=== PATIENT | male | born 1960 | race Caucasian/White ===

== ENCOUNTER 2021-07-23 15:12 | Inpatient (IN) | payer BC ==
[~2021-07-23] VITALS: Ht 188 cm; Wt 104.7 kg
[2021-07-23 15:50] VITALS: BP 122/80
[2021-07-23] MEDS ORDERED: METHYL SALICYLATE/MENTHOL TOPICAL OINTMENT 57GM TUBE. TP PRN (16:00)
[2021-07-23] MEDS ORDERED: MAGNESIUM HYDROXIDE 2,400 MG/30 ML ORAL.SUSP. PO PRN (16:00)
[2021-07-23] MEDS ORDERED: MAG HYDROX/AL HYDROX/SIMETH 30 ML ORAL.SUSP PO PRN (16:00)
[2021-07-23] MEDS ORDERED: ACETAMINOPHEN 325 MG TABLET PO PRN (16:00)
[2021-07-23] MEDS ORDERED: ALPR0.5T6 PO (16:17)
[2021-07-23] MEDS ORDERED: QUET50TA5 PO (16:17)
[2021-07-23] MEDS ORDERED: CYAN10002 IJ (16:17)
[2021-07-23] MEDS ORDERED: vitamin d2 PO (16:17)
[2021-07-23] MEDS ORDERED: PARO40TA61 PO (16:17)
[2021-07-23] MEDS ORDERED: ATOR40TA59 PO (16:17)
[2021-07-23] MEDS ORDERED: DIVA250T PO (16:17)
[2021-07-23 18:16] VITALS: BP 122/80
[2021-07-23] MEDS: QUEtiapine 50 MG TABLET. PO SCH (20:03)
[2021-07-23] MEDS: ATORVASTATIN CALCIUM 20 MG TABLET PO SCH (20:03)
[2021-07-23 20:37] LABS: BASO % 1 % (0-3); EOS # 0.1 x10^3/uL (0.0-0.7); EOS % 2 % (0-3); HEMATOCRIT 41.7 % (39.0-53.0); HEMOGLOBIN 14.1 g/dL (13.0-17.5); LYMPH # 1.5 x10^3/uL (1.0-4.8); LYMPH % 31 % (24-48); MEAN CORPUSCULAR HEMOGLOBIN 31 pg (25-35); MEAN CORPUSCULAR HGB CONC 34 g/dL (31-37); MEAN CORPUSCULAR VOLUME 91 fL (79-100); MONO # 0.5 x10^3/uL (0.0-1.1); MONO % 10 % (0-9); NEUT # 2.7 x10^3uL (1.8-7.7); NEUT % 56 % (31-73); PLATELET COUNT 174 x10^3/uL (140-400); RED BLOOD COUNT 4.61 x10^6/uL (4.30-5.70); RED CELL DISTRIBUTION WIDTH 13.8 % (11.5-14.5); WHITE BLOOD COUNT 4.8 x10^3/uL (4.0-11.0)
[2021-07-23 20:48] LABS: ALBUMIN 3.9 g/dL (3.4-5.0); ALBUMIN/GLOBULIN RATIO 1.2 (1.0-1.7); ALK PHOS 57 U/L (46-116); ALT (SGPT) 27 U/L (16-63); ANION GAP 9 (6-14); AST (SGOT) 12 U/L (15-37); BLOOD UREA NITROGEN 18 mg/dL (8-26); BUN/CREATININE RATIO 20 (6-20); CALCIUM 8.7 mg/dL (8.5-10.1); CARBON DIOXIDE 25 mmol/L (21-32); CHLORIDE 109 mmol/L (98-107); CREATININE 0.9 mg/dL (0.7-1.3); GFR 86.4; GLUCOSE 113 mg/dL (70-99); MAGNESIUM 2.2 mg/dL (1.8-2.4); POTASSIUM 4.1 mmol/L (3.5-5.1); SODIUM 143 mmol/L (136-145); TOTAL BILIRUBIN 0.4 mg/dL (0.2-1.0); TOTAL PROTEIN 7.2 g/dL (6.4-8.2)
[2021-07-23 20:56] LABS: VAL ACID 49 mcg/mL (50-100)
[2021-07-23] MEDS ORDERED: QUEtiapine 50 MG TABLET. PO SCH (21:00)
[2021-07-23] MEDS ORDERED: ATORVASTATIN CALCIUM 40 MG PO SCH (21:00)
[2021-07-23] MEDS ORDERED: ATORVASTATIN CALCIUM 20 MG TABLET PO SCH (21:00)
--- NOTE | 2021-07-23 22:07 | PDOC ---
Exam Note: Castillo Note: Please also refer to the separate dictated note~for this date of service dictated separately.~Patient seen individually. Discussed the patient with Nursing staff reviewed the chart.~Reviewed interim history and current functioning. Reviewed vital signs,~Labs/ Radiology~and current medications noted below. Continue current treatment with the changes noted in the dictated addendum note Assessment: Vital Signs/I&O: Vital Signs Date Time Temp Pulse Resp B/P (MAP) Pulse Ox O2 Delivery O2 Flow Rate FiO2 07/23/21 18:16 97.0 73 18 122/80 (94) 96 07/23/21 15:50 Nasal Cannula Labs: Laboratory Tests Test 07/23/21 20:20 White Blood Count 4.8 x10^3/uL (4.0-11.0) Red Blood Count 4.61 x10^6/uL (4.30-5.70) Hemoglobin 14.1 g/dL (13.0-17.5) Hematocrit 41.7 % (39.0-53.0) Mean Corpuscular Volume 91 fL (79-100) Mean Corpuscular Hemoglobin 31 pg (25-35) Mean Corpuscular Hemoglobin Concent 34 g/dL (31-37) Red Cell Distribution Width 13.8 % (11.5-14.5) Platelet Count 174 x10^3/uL (140-400) Neutrophils (%) (Auto) 56 % (31-73) Lymphocytes (%) (Auto) 31 % (24-48) Monocytes (%) (Auto) 10 % (0-9) H Eosinophils (%) (Auto) 2 % (0-3) Basophils (%) (Auto) 1 % (0-3) Neutrophils # (Auto) 2.7 x10^3uL (1.8-7.7) Lymphocytes # (Auto) 1.5 x10^3/uL (1.0-4.8) Monocytes # (Auto) 0.5 x10^3/uL (0.0-1.1) Eosinophils # (Auto) 0.1 x10^3/uL (0.0-0.7) Basophils # (Auto) 0.0 x10^3/uL (0.0-0.2) D-Dimer (Renae) < 0.19 mg/L (0.00-0.50) Sodium Level 143 mmol/L (136-145) Potassium Level 4.1 mmol/L (3.5-5.1) Chloride Level 109 mmol/L (98-107) H Carbon Dioxide Level 25 mmol/L (21-32) Anion Gap 9 (6-14) Blood Urea Nitrogen 18 mg/dL (8-26) Creatinine 0.9 mg/dL (0.7-1.3) Estimated GFR (Cockcroft-Gault) 86.4 BUN/Creatinine Ratio 20 (6-20) Glucose Level 113 mg/dL (70-99) H Calcium Level 8.7 mg/dL (8.5-10.1) Magnesium Level 2.2 mg/dL (1.8-2.4) Total Bilirubin 0.4 mg/dL (0.2-1.0) Aspartate Amino Transferase (AST) 12 U/L (15-37) L Alanine Aminotransferase (ALT) 27 U/L (16-63) Alkaline Phosphatase 57 U/L (46-116) Total Protein 7.2 g/dL (6.4-8.2) Albumin 3.9 g/dL (3.4-5.0) Albumin/Globulin Ratio 1.2 (1.0-1.7) Valproic Acid Level 49 mcg/mL (50-100) L Valproic Acid Last Dose Date 07/23/21 Valproic Acid Last Dose Time 0800 Current Medications: Meds: Current Medications Medications (Trade) Dose Ordered Sig/Susana Route PRN Reason Start Time Stop Time Status Last Admin Dose Admin Quetiapine Fumarate (SEROquel) 50 mg BID PO 07/23/21 21:00 07/23/21 20:03 Atorvastatin Calcium (Lipitor) 40 mg QHS PO 07/23/21 21:00 07/23/21 20:03 Olanzapine (ZyPREXA ZYDIS) 2.5 mg PRN Q2HR PRN PO PSYCHOSIS 07/23/21 19:30 07/23/21 20:03 I have reviewed the current psychotropics carefully including drug interactions. Risk benefit ratio favors no change other than as noted in my dictated progress note. ELIAZAR COYLE MD Jul 23, 2021 22:07
--- NOTE | 2021-07-23 22:29 | HP ---
ADMIT DATE: 07/23/2021 PSYCHIATRIC ADMISSION HISTORY AND EVALUATION IDENTIFYING DATA: The patient is a 60-year-old male referred from home by his primary care physician on account of worsening behaviors within the context of his diagnosis of frontotemporal dementia with behavioral disturbance. He has been wandering throughout the house, sexually inappropriate, intrusive, resistive to cares, basing, eating excessively, intense sugar cravings, having marked insomnia. Behavior is deemed dangerous, unmanageable at home, has failed outpatient psychiatric interventions resulting in this referral. CHIEF COMPLAINT: "No." The patient is in the west hallway agitated, trying to open the doors, somewhat aggressive. HISTORY OF PRESENT ILLNESS: The patient reportedly has a diagnosis of frontotemporal dementia. He has been cared for at home, but recently more psychotic, agitated, sexually inappropriate, disruptive. He has had marked insomnia. No active suicidal or homicidal ideation. PAST PSYCHIATRIC HISTORY: As above. MEDICAL HISTORY: Positive for hyperlipidemia and aphasia. CODE STATUS: DNR. DIET: Regular. ACCU-CHEKS: None. ALLERGIES: Negative. FAMILY HISTORY: Noncontributory. SOCIAL HISTORY: The patient is at home with family. No alcohol, drug abuse; physical, sexual or elder abuse. He is not known to be a perpetrator, but is sexually inappropriate. REVIEW OF SYSTEMS: No CV, , pulmonary, eye, ENT system symptoms on review. Reliability poor. MENTAL STATUS EXAM: The patient is oriented to himself. Insight, judgment, recent and remote memory, attention, concentration, fund of knowledge poor consistent with his diagnosis. He is quite distractible, anxious, psychotic. LABORATORY DATA: Reviewed. IMPRESSION: Major neurocognitive disorder, frontotemporal with delusion; depression; behavioral disturbance; anxiety disorder, unspecified; impulse control disorder, unspecified. Rest as above. PLAN: Admit to geropsychiatry unit, [facility]. I will see the patient daily individually from a psychiatric standpoint, medical followup with Dr. Hill/Dr. Tee. Continue current psychotropics. I was called earlier in the day by nursing staff and we added Zyprexa p.r.n. Given his mental status changes, worsening behaviors, we will go ahead and check a CT head as well. ESTIMATED LENGTH OF STAY: 10-12 days. DISPOSITION PLANS: Possible penitentiary placement once he stabilized. MMA/AMI DR: Rich TID: [id number]
[2021-07-24 06:24] VITALS: BP 152/71
[2021-07-24 06:34] VITALS: BP 121/77
[2021-07-24] MEDS: PARoxetine 20 MG TABLET PO SCH (08:55)
[2021-07-24] MEDS: QUEtiapine 50 MG TABLET. PO SCH ×2 (08:56→21:18)
[2021-07-24] MEDS: CYANOCOBALAMIN (VITAMIN B-12) 1,000 MCG TABLET. PO SCH (08:56)
[2021-07-24] MEDS ORDERED: ALPRAZolam 0.5 MG TABLET PO SCH (09:00)
[2021-07-24] MEDS: ALPRAZolam 0.5 MG TABLET PO SCH (09:00)
[2021-07-24] MEDS ORDERED: VITAMIN D2 PO SCH (09:00)
[2021-07-24] MEDS ORDERED: DIVALPROEX ER 250 MG TAB.ER.24H. PO SCH ×2 (09:00)
[2021-07-24] MEDS ORDERED: CHOLECALCIFEROL (VITAMIN D3) 1,000 UNIT TABLET PO SCH (09:00)
--- NOTE | 2021-07-24 10:53 | RAD ---
CT HEAD/BRAIN WO History: Reason: [facility] new admit, establish baseline altered mental status. Comparison: None. Technique: Noncontrast CT imaging was performed of the head. Exposure: One or more of the following individualized dose reduction techniques were utilized for thi s examination: 1. Automated exposure control 2. Adjustment of the mA and/or kV according to patient size 3. Use of iterative reconstruction technique. Findings: No intracranial hemorrhage. No mass effect. No hydrocephalus. Cavum septum pellucidum and vergae. Mild brain parenchymal volume loss. Mild foci of decreased attenuation within the hemispheric white m atter, most often due to chronic microvascular ischemia. Imaged orbits are unremarkable. Imaged paranasal sinuses and mastoid air cells are clear. No acute ca lvarial fracture. Impression: 1. No acute intracranial abnormality. Electronically signed by: French Rasehed DO (07/24/2021 10:51 AM) [facility]
[2021-07-24 16:51] VITALS: BP 107/79
[2021-07-24 19:25] LABS: THYROID STIM HORMONE (TSH) 6.358 uIU/mL (0.358-3.740)
[2021-07-24] MEDS: ATORVASTATIN CALCIUM 20 MG TABLET PO SCH (21:18)
[2021-07-24 21:55] LABS: BACTERIA,URINE 0 /HPF (0-FEW); BILIRUBIN,URINE NEG (NEG); CLARITY,URINE CLEAR; COLOR,URINE YELLOW; GLUCOSE,URINE NEG (NEG); NITRITE,URINE NEG (NEG); RBC,URINE 0 /HPF (0-2); SQUAMOUS EPITHELIAL CELL,UR FEW /LPF; WBC,URINE OCC /HPF (0-4)
--- NOTE | 2021-07-24 22:05 | PDOC ---
Exam Note: Castillo Note: Please also refer to the separate dictated note~for this date of service dictated separately.~Patient seen individually. Discussed the patient with Nursing staff reviewed the chart.~Reviewed interim history and current functioning. Reviewed vital signs,~Labs/ Radiology~and current medications noted below. Continue current treatment with the changes noted in the dictated addendum note Assessment: Vital Signs/I&O: Vital Signs Date Time Temp Pulse Resp B/P (MAP) Pulse Ox O2 Delivery O2 Flow Rate FiO2 07/24/21 16:51 97.4 80 18 107/79 (88) 97 07/23/21 15:50 Nasal Cannula I & O 07/23/21 07/23/21 07/24/21 15:00 23:00 07:00 Intake Total 120 ml Balance 120 ml Labs: Laboratory Tests Test 07/24/21 20:00 Urine Collection Type Unknown Urine Color Yellow Urine Clarity Clear Urine pH 6.5 Urine Specific [place] 1.025 Urine Protein Neg (NEG-TRACE) Urine Glucose (UA) Neg mg/dL (NEG) Urine Ketones (Stick) Neg mg/dL (NEG) Urine Blood Neg (NEG) Urine Nitrite Neg (NEG) Urine Bilirubin Neg (NEG) Urine Urobilinogen Dipstick 1.0 mg/dL (0.2 mg/dL) Urine Leukocyte Esterase Neg (NEG) Urine RBC 0 /HPF (0-2) Urine WBC Occ /HPF (0-4) Urine Squamous Epithelial Cells Few /LPF Urine Bacteria 0 /HPF (0-FEW) Current Medications: Meds: Laboratory Tests Test 07/24/21 20:00 Urine Collection Type Unknown Urine Color Yellow Urine Clarity Clear Urine pH 6.5 Urine Specific [place] 1.025 Urine Protein Neg Urine Glucose (UA) Neg mg/dL Urine Ketones (Stick) Neg mg/dL Urine Blood Neg Urine Nitrite Neg Urine Bilirubin Neg Urine Urobilinogen Dipstick 1.0 mg/dL Urine Leukocyte Esterase Neg Urine RBC 0 /HPF Urine WBC Occ /HPF Urine Squamous Epithelial Cells Few /LPF Urine Bacteria 0 /HPF Current Medications Medications (Trade) Dose Ordered Sig/Susana Route PRN Reason Start Time Stop Time Status Last Admin Dose Admin Acetaminophen (Tylenol) 650 mg PRN Q6HRS PRN PO MILD PAIN / TEMP > 100.3'F 07/23/21 16:00 Multi-Ingredient Ointment (Analgesic [place]) 1 sandra PRN QID PRN TP MUSCLE PAIN 07/23/21 16:00 Al Hydroxide/Mg Hydroxide (Mylanta Plus Xs) 15 ml PRN AFTMEALHC PRN PO DYSPEPSIA 07/23/21 16:00 Magnesium Hydroxide (Milk Of Magnesia) 2,400 mg PRN QHS PRN PO CONSTIPATION 07/23/21 16:00 Alprazolam (Xanax) 0.5 mg DAILY PO 07/24/21 09:00 07/24/21 09:00 Atorvastatin Calcium (Lipitor) 40 mg QHS PO 07/23/21 21:00 07/23/21 21:00 Cancel Cyanocobalamin (Vitamin B-12) 1,000 mcg WEEKLY ONCE IM 07/30/21 09:00 07/23/21 18:22 DC Divalproex Sodium (Depakote Er) 750 mg DAILY PO 07/24/21 09:00 07/24/21 11:14 DC 07/24/21 08:55 Vitamin D (Vitamin D3) 5,000 unit DAILY PO 07/24/21 09:00 07/24/21 16:39 DC Quetiapine Fumarate (SEROquel) 50 mg BID PO 07/23/21 21:00 07/24/21 21:18 Alprazolam (Xanax) 0.5 mg DAILY PO 07/24/21 09:00 UNV Cyanocobalamin (Vitamin B-12) 1,000 mcg WEEKLY SQ 07/30/21 09:00 UNV Divalproex Sodium (Depakote Er) 750 mg DAILY PO 07/24/21 09:00 UNV Quetiapine Fumarate (SEROquel) 50 mg BID PO 07/23/21 21:00 UNV Non-Formulary Medication (Atorvastatin Calcium ) 40 mg QHS PO 07/23/21 21:00 UNV Paroxetine HCl (Paxil) 40 mg DAILY PO 07/24/21 09:00 07/24/21 08:55 Non-Formulary Medication ([vitamin d2] ) 5,000 units DAILY PO 07/24/21 09:00 UNV Atorvastatin Calcium (Lipitor) 40 mg QHS PO 07/23/21 21:00 07/24/21 21:18 Cyanocobalamin (Vitamin B-12) 1,000 mcg DAILY PO 07/24/21 09:00 07/24/21 08:56 Olanzapine (ZyPREXA ZYDIS) 2.5 mg PRN Q2HR PRN PO PSYCHOSIS 07/23/21 19:30 07/23/21 20:03 Divalproex Sodium (Depakote Er) 1,000 mg HS PO 07/25/21 21:00 Vitamin D (Vitamin D3) 50,000 unit WEEKLY PO 07/25/21 09:00 Medroxyprogesterone Acetate (Provera) 2.5 mg DAILY PO 07/25/21 09:00 Current Medications Medications (Trade) Dose Ordered Sig/Susana Route PRN Reason Start Time Stop Time Status Last Admin Dose Admin Alprazolam (Xanax) 0.5 mg DAILY PO 07/24/21 09:00 07/24/21 09:00 Divalproex Sodium (Depakote Er) 750 mg DAILY PO 07/24/21 09:00 07/24/21 11:14 DC 07/24/21 08:55 Paroxetine HCl (Paxil) 40 mg DAILY PO 07/24/21 09:00 07/24/21 08:55 Cyanocobalamin (Vitamin B-12) 1,000 mcg DAILY PO 07/24/21 09:00 07/24/21 08:56 I have reviewed the current psychotropics carefully including drug interactions. Risk benefit ratio favors no change other than as noted in my dictated progress note. Diagnosis: Problems: (1) Major neurocognitive disorder (2) Dementia in Alzheimer's disease with delusions (3) Dementia in Alzheimer's disease with depression (4) Dementia of the Alzheimer's type with early onset with behavioral disturbance (5) Dementia, vascular, with delusions (6) Dementia, vascular, with depression (7) Anxiety disorder, unspecified (8) Impulse control disorder, unspecified ELIAZAR COYLE MD Jul 24, 2021 22:05
[2021-07-24 22:07] LABS: THYROXINE 5.8 ug/dL (4.5-12.0)
[2021-07-25 00:07] LABS: HEMOGLOBIN A1C 5.8 % (4.8-5.6)
--- NOTE | 2021-07-25 02:04 | CONS ---
DATE OF CONSULTATION: 07/24/2021 CONSULT FOR MEDICAL MANAGEMENT DATE OF CONSULTATION: 07/24/2021 HISTORY OF PRESENT ILLNESS: The patient is a 60-year-old male patient who was referred by his primary care physician [facility] on account of worsening behavior within the context of his diagnosis of frontotemporal dementia with behavioral disturbances. He apparently has been wandering throughout the house, sexually inappropriate, intrusive, resistive to cares, pacing, eating excessively, intense sugar craving, having marked insomnia, so behavior is deemed dangerous, unmanageable at home. Apparently has failed outpatient psychiatric intervention, resulting in his admission. On questioning him, the patient denied any medical problems or surgical issues. PAST MEDICAL HISTORY: Significant for hyperlipidemia and aphasia and for some reason, the patient is on a huge amount of vitamin B12, although CBC was within normal range. PAST SURGICAL HISTORY: Unobtainable. ALLERGIES: He has no known drug allergies. MEDICATIONS: He is currently on the following medication: He is on atorvastatin calcium 40 mg at bedtime and divalproex sodium 750 mg daily, paroxetine 40 mg daily, quetiapine fumarate 50 mg twice a day, alprazolam 0.5 mg daily, cyanocobalamin 1000 mcg per mL injection once a week and vitamin D2 5000 units once a day. FAMILY HISTORY: Noncontributory. SOCIAL HISTORY: He apparently and lives with his . He apparently does not smoke, drink alcohol or use any recreational drugs. REVIEW OF SYSTEMS: As per history of present illness. PHYSICAL EXAMINATION: GENERAL: On examining him, he looked well and was clearly in no apparent respiratory distress. There is no pallor, jaundice, cyanosis or thyromegaly. No jugular venous distention. No lower limb edema. VITAL SIGNS: His heart rate was 65, blood pressure is 121/77, temperature 97.9, respiratory rate was 16 and oxygen saturation was 98%. HEAD, EYES, EARS, NOSE, AND THROAT: Showed normocephalic, atraumatic. NECK: Supple. HEART: Showed normal first and second heart sounds, no gallop, rub or murmur. CHEST: Clear to auscultation, no crepitation or rhonchi. ABDOMEN: Distended, soft, nontender. NEUROLOGIC: He is demented, but without any obvious lateralizing sign. All his cranial nerves are grossly intact. He moves all extremities without difficulty, ambulates without assistance or assistive devices. LABORATORY DATA: On admission showed a white cell count 4800, hemoglobin 14, hematocrit 42, MCV 91, and platelet count of 174,000 with a normal manual differential. His D-dimer was less than 0.19. His chemistry showed a serum sodium 143, potassium 4.1, chloride 109, bicarbonate 25, anion gap of 9, BUN 18, creatinine 0.9. Estimated GFR was 86 mL per minute. His glucose 113, calcium was 8.7, magnesium was 2.2. Total bilirubin, AST, ALT, alkaline phosphatase were normal. Total protein 7.2, albumin was 3.9. His valproic acid level was 49 mcg per mL, normal range between 50-100 mcg per mL. ASSESSMENT AND PLAN: All in all, this is a 60-year-old male patient who was admitted on account of worsening behavior within the context of his diagnosis of frontotemporal dementia with behavioral disturbances. He apparently has been wandering throughout the house, sexually inappropriate, intrusive, resistive to cares, pacing, eating excessively, intense sugar craving, having marked insomnia. He was admitted for inpatient psychiatric stabilization. Medically, the patient has hyperlipidemia for which he is already on atorvastatin 40 mg at bedtime. All in all, the patient seems to be medically stable. All his vital signs are within normal range and his lab work including a CBC as well as CMP are all within normal range. I will obviously follow all the lab works that are still pending at the time of this dictation and make any necessary recommendation. Thank you, Dr. Mercer, for allowing me to participate in the care of this patient. TATIANNA SANDERS: Eriberto TID: [id number]
[2021-07-25 06:38] VITALS: BP 151/90
[2021-07-25] MEDS: CYANOCOBALAMIN (VITAMIN B-12) 1,000 MCG TABLET. PO SCH (08:46)
[2021-07-25] MEDS: ALPRAZolam 0.5 MG TABLET PO SCH (08:46)
[2021-07-25] MEDS: PARoxetine 20 MG TABLET PO SCH (08:47)
[2021-07-25] MEDS: QUEtiapine 50 MG TABLET. PO SCH ×2 (08:47→21:38)
[2021-07-25] MEDS ORDERED: CHOLECALCIFEROL (VITAMIN D3) 50,000 UNIT CAPSULE PO SCH (09:00)
[2021-07-25 16:32] VITALS: BP 120/82
[2021-07-25] MEDS: ATORVASTATIN CALCIUM 20 MG TABLET PO SCH (21:38)
[2021-07-25] MEDS: DIVALPROEX ER 500 MG TAB.ER.24H PO SCH (21:38)
--- NOTE | 2021-07-25 22:03 | PDOC ---
Exam Note: Castillo Note: Please also refer to the separate dictated note~for this date of service dictated separately.~Patient seen individually. Discussed the patient with Nursing staff reviewed the chart.~Reviewed interim history and current functioning. Reviewed vital signs,~Labs/ Radiology~and current medications noted below. Continue current treatment with the changes noted in the dictated addendum note Assessment: Vital Signs/I&O: Vital Signs Date Time Temp Pulse Resp B/P (MAP) Pulse Ox O2 Delivery O2 Flow Rate FiO2 07/25/21 16:32 98.3 70 20 120/82 (95) 97 07/23/21 15:50 Nasal Cannula I & O 07/24/21 07/24/21 07/25/21 15:00 23:00 07:00 Intake Total 600 ml Balance 600 ml Current Medications: Meds: Current Medications Medications (Trade) Dose Ordered Sig/Susana Route PRN Reason Start Time Stop Time Status Last Admin Dose Admin Acetaminophen (Tylenol) 650 mg PRN Q6HRS PRN PO MILD PAIN / TEMP > 100.3'F 07/23/21 16:00 Multi-Ingredient Ointment (Analgesic [place]) 1 sandra PRN QID PRN TP MUSCLE PAIN 07/23/21 16:00 Al Hydroxide/Mg Hydroxide (Mylanta Plus Xs) 15 ml PRN AFTMEALHC PRN PO DYSPEPSIA 07/23/21 16:00 Magnesium Hydroxide (Milk Of Magnesia) 2,400 mg PRN QHS PRN PO CONSTIPATION 07/23/21 16:00 Alprazolam (Xanax) 0.5 mg DAILY PO 07/24/21 09:00 07/25/21 08:46 Atorvastatin Calcium (Lipitor) 40 mg QHS PO 07/23/21 21:00 07/23/21 21:00 Cancel Cyanocobalamin (Vitamin B-12) 1,000 mcg WEEKLY ONCE IM 07/30/21 09:00 07/23/21 18:22 DC Divalproex Sodium (Depakote Er) 750 mg DAILY PO 07/24/21 09:00 07/24/21 11:14 DC 07/24/21 08:55 Vitamin D (Vitamin D3) 5,000 unit DAILY PO 07/24/21 09:00 07/24/21 16:39 DC Quetiapine Fumarate (SEROquel) 50 mg BID PO 07/23/21 21:00 07/25/21 21:38 Alprazolam (Xanax) 0.5 mg DAILY PO 07/24/21 09:00 UNV Cyanocobalamin (Vitamin B-12) 1,000 mcg WEEKLY SQ 07/30/21 09:00 UNV Divalproex Sodium (Depakote Er) 750 mg DAILY PO 07/24/21 09:00 UNV Quetiapine Fumarate (SEROquel) 50 mg BID PO 07/23/21 21:00 UNV Non-Formulary Medication (Atorvastatin Calcium ) 40 mg QHS PO 07/23/21 21:00 UNV Paroxetine HCl (Paxil) 40 mg DAILY PO 07/24/21 09:00 07/25/21 08:47 Non-Formulary Medication ([vitamin d2] ) 5,000 units DAILY PO 07/24/21 09:00 UNV Atorvastatin Calcium (Lipitor) 40 mg QHS PO 07/23/21 21:00 07/25/21 21:38 Cyanocobalamin (Vitamin B-12) 1,000 mcg DAILY PO 07/24/21 09:00 07/25/21 08:46 Olanzapine (ZyPREXA ZYDIS) 2.5 mg PRN Q2HR PRN PO PSYCHOSIS 07/23/21 19:30 07/23/21 20:03 Divalproex Sodium (Depakote Er) 1,000 mg HS PO 07/25/21 21:00 07/25/21 21:38 Vitamin D (Vitamin D3) 50,000 unit WEEKLY PO 07/25/21 09:00 07/25/21 08:47 Medroxyprogesterone Acetate (Provera) 2.5 mg DAILY PO 07/25/21 09:00 07/25/21 12:40 Current Medications Medications (Trade) Dose Ordered Sig/Susana Route PRN Reason Start Time Stop Time Status Last Admin Dose Admin Divalproex Sodium (Depakote Er) 1,000 mg HS PO 07/25/21 21:00 07/25/21 21:38 Vitamin D (Vitamin D3) 50,000 unit WEEKLY PO 07/25/21 09:00 07/25/21 08:47 Medroxyprogesterone Acetate (Provera) 2.5 mg DAILY PO 07/25/21 09:00 07/25/21 12:40 I have reviewed the current psychotropics carefully including drug interactions. Risk benefit ratio favors no change other than as noted in my dictated progress note. Diagnosis: Problems: (1) Impulse control disorder, unspecified (2) Anxiety disorder, unspecified (3) Dementia, vascular, with depression (4) Dementia, vascular, with delusions (5) Dementia in Alzheimer's disease with depression (6) Dementia in Alzheimer's disease with delusions (7) Dementia of the Alzheimer's type with early onset with behavioral disturbance (8) Major neurocognitive disorder ELIAZAR COYLE MD Jul 25, 2021 22:03
[2021-07-26 06:44] VITALS: BP 122/78
[2021-07-26] MEDS: CYANOCOBALAMIN (VITAMIN B-12) 1,000 MCG TABLET. PO SCH (09:13)
[2021-07-26] MEDS: QUEtiapine 50 MG TABLET. PO SCH ×2 (09:14→21:41)
[2021-07-26] MEDS: PARoxetine 20 MG TABLET PO SCH (09:14)
[2021-07-26] MEDS: ALPRAZolam 0.5 MG TABLET PO SCH (09:15)
[2021-07-26 15:47] VITALS: BP 112/76
[2021-07-26] MEDS: DIVALPROEX ER 500 MG TAB.ER.24H PO SCH (21:42)
[2021-07-26] MEDS: ATORVASTATIN CALCIUM 20 MG TABLET PO SCH (21:42)
--- NOTE | 2021-07-26 22:04 | PDOC ---
Exam Note: Castillo Note: Please also refer to the separate dictated note~for this date of service dictated separately.~Patient seen individually. Discussed the patient with Nursing staff reviewed the chart.~Reviewed interim history and current functioning. Reviewed vital signs,~Labs/ Radiology~and current medications noted below. Continue current treatment with the changes noted in the dictated addendum note Assessment: Vital Signs/I&O: Vital Signs Date Time Temp Pulse Resp B/P (MAP) Pulse Ox O2 Delivery O2 Flow Rate FiO2 07/26/21 15:47 97.9 78 16 112/76 (88) 94 07/23/21 15:50 Nasal Cannula I & O 07/25/21 07/25/21 07/26/21 15:00 23:00 07:00 Intake Total 1200 ml 250 ml 240 ml Balance 1200 ml 250 ml 240 ml Current Medications: Meds: Current Medications Medications (Trade) Dose Ordered Sig/Susana Route PRN Reason Start Time Stop Time Status Last Admin Dose Admin Acetaminophen (Tylenol) 650 mg PRN Q6HRS PRN PO MILD PAIN / TEMP > 100.3'F 07/23/21 16:00 Multi-Ingredient Ointment (Analgesic [place]) 1 sandra PRN QID PRN TP MUSCLE PAIN 07/23/21 16:00 Al Hydroxide/Mg Hydroxide (Mylanta Plus Xs) 15 ml PRN AFTMEALHC PRN PO DYSPEPSIA 07/23/21 16:00 Magnesium Hydroxide (Milk Of Magnesia) 2,400 mg PRN QHS PRN PO CONSTIPATION 07/23/21 16:00 Alprazolam (Xanax) 0.5 mg DAILY PO 07/24/21 09:00 07/26/21 09:15 Atorvastatin Calcium (Lipitor) 40 mg QHS PO 07/23/21 21:00 07/23/21 21:00 Cancel Cyanocobalamin (Vitamin B-12) 1,000 mcg WEEKLY ONCE IM 07/30/21 09:00 07/23/21 18:22 DC Divalproex Sodium (Depakote Er) 750 mg DAILY PO 07/24/21 09:00 07/24/21 11:14 DC 07/24/21 08:55 Vitamin D (Vitamin D3) 5,000 unit DAILY PO 07/24/21 09:00 07/24/21 16:39 DC Quetiapine Fumarate (SEROquel) 50 mg BID PO 07/23/21 21:00 07/26/21 21:41 Alprazolam (Xanax) 0.5 mg DAILY PO 07/24/21 09:00 UNV Cyanocobalamin (Vitamin B-12) 1,000 mcg WEEKLY SQ 07/30/21 09:00 UNV Divalproex Sodium (Depakote Er) 750 mg DAILY PO 07/24/21 09:00 UNV Quetiapine Fumarate (SEROquel) 50 mg BID PO 07/23/21 21:00 UNV Non-Formulary Medication (Atorvastatin Calcium ) 40 mg QHS PO 07/23/21 21:00 UNV Paroxetine HCl (Paxil) 40 mg DAILY PO 07/24/21 09:00 07/26/21 09:14 Non-Formulary Medication ([vitamin d2] ) 5,000 units DAILY PO 07/24/21 09:00 UNV Atorvastatin Calcium (Lipitor) 40 mg QHS PO 07/23/21 21:00 07/26/21 21:42 Cyanocobalamin (Vitamin B-12) 1,000 mcg DAILY PO 07/24/21 09:00 07/26/21 09:13 Olanzapine (ZyPREXA ZYDIS) 2.5 mg PRN Q2HR PRN PO PSYCHOSIS 07/23/21 19:30 07/23/21 20:03 Divalproex Sodium (Depakote Er) 1,000 mg HS PO 07/25/21 21:00 07/26/21 21:42 Vitamin D (Vitamin D3) 50,000 unit WEEKLY PO 07/25/21 09:00 07/25/21 08:47 Medroxyprogesterone Acetate (Provera) 2.5 mg DAILY PO 07/25/21 09:00 07/26/21 09:13 I have reviewed the current psychotropics carefully including drug interactions. Risk benefit ratio favors no change other than as noted in my dictated progress note. Diagnosis: Problems: (1) Impulse control disorder, unspecified (2) Anxiety disorder, unspecified (3) Dementia, vascular, with depression (4) Dementia, vascular, with delusions (5) Dementia in Alzheimer's disease with depression (6) Dementia in Alzheimer's disease with delusions (7) Dementia of the Alzheimer's type with early onset with behavioral disturbanc e (8) Major neurocognitive disorder ELIAZAR COYLE MD Jul 26, 2021 22:04
[2021-07-27 06:50] VITALS: BP 143/85
[2021-07-27] MEDS: CYANOCOBALAMIN (VITAMIN B-12) 1,000 MCG TABLET. PO SCH (08:19)
[2021-07-27] MEDS: ALPRAZolam 0.5 MG TABLET PO SCH (08:19)
[2021-07-27] MEDS: QUEtiapine 50 MG TABLET. PO SCH ×2 (08:19→20:38)
[2021-07-27] MEDS: PARoxetine 20 MG TABLET PO SCH (08:19)
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
--- NOTE | 2021-07-27 09:21 | PDOC ---
Exam Note: Castillo Note: This note is a late entry for 07/25/2021 covers elements not covered in my initial note. Subjective: The patient was seen individually in the evening of 07/25/2021 with Isabela ALLISON, discussed and reviewed the chart. The patient slept 7-1/2 hours previous night. He remains confused. I met with him in his room. He got out of bed, walked right up to me 6 inches away from me, oblivious of how he came across. Per nursing report, he is touchy, feely, somewhat sexually inappropriate, was intrusive last evening. One of the female patient is quite afraid of him. We are awaiting records from [facility]. Review of Systems: No CV, , pulmonary, eye, ENT system symptoms on review. Reliability poor. Mental Status Exam: The patient is oriented to himself. Insight and judgment, recent and remote memory, attention and concentration, fund of knowledge is poor consistent with his diagnoses. Laboratory Data: Reviewed. Impression: Major neurocognitive disorder frontotemporal with delusions, depression, behavioral disturbance. Anxiety disorder unspecified. Impulse control disorder unspecified. Plan: We will continue current psychotropics. Depakote was adjusted. We will repeat labs and valproic acid and then adjust as needed to reach therapeutic level. Assessment: Vital Signs/I&O: Vital Signs Date Time Temp Pulse Resp B/P (MAP) Pulse Ox O2 Delivery O2 Flow Rate FiO2 07/27/21 06:50 97.5 63 18 143/85 (104) 97 07/23/21 15:50 Nasal Cannula I & O 07/26/21 07/26/21 07/27/21 15:00 23:00 07:00 Intake Total 960 ml 480 ml Balance 960 ml 480 ml Current Medications: Meds: Current Medications Medications (Trade) Dose Ordered Sig/Susana Route PRN Reason Start Time Stop Time Status Last Admin Dose Admin Acetaminophen (Tylenol) 650 mg PRN Q6HRS PRN PO MILD PAIN / TEMP > 100.3'F 07/23/21 16:00 Multi-Ingredient Ointment (Analgesic [place]) 1 sandra PRN QID PRN TP MUSCLE PAIN 07/23/21 16:00 Al Hydroxide/Mg Hydroxide (Mylanta Plus Xs) 15 ml PRN AFTMEALHC PRN PO DYSPEPSIA 07/23/21 16:00 Magnesium Hydroxide (Milk Of Magnesia) 2,400 mg PRN QHS PRN PO CONSTIPATION 07/23/21 16:00 Alprazolam (Xanax) 0.5 mg DAILY PO 07/24/21 09:00 07/27/21 08:19 Atorvastatin Calcium (Lipitor) 40 mg QHS PO 07/23/21 21:00 07/23/21 21:00 Cancel Cyanocobalamin (Vitamin B-12) 1,000 mcg WEEKLY ONCE IM 07/30/21 09:00 07/23/21 18:22 DC Divalproex Sodium (Depakote Er) 750 mg DAILY PO 07/24/21 09:00 07/24/21 11:14 DC 07/24/21 08:55 Vitamin D (Vitamin D3) 5,000 unit DAILY PO 07/24/21 09:00 07/24/21 16:39 DC Quetiapine Fumarate (SEROquel) 50 mg BID PO 07/23/21 21:00 07/27/21 08:19 Alprazolam (Xanax) 0.5 mg DAILY PO 07/24/21 09:00 UNV Cyanocobalamin (Vitamin B-12) 1,000 mcg WEEKLY SQ 07/30/21 09:00 UNV Divalproex Sodium (Depakote Er) 750 mg DAILY PO 07/24/21 09:00 UNV Quetiapine Fumarate (SEROquel) 50 mg BID PO 07/23/21 21:00 UNV Non-Formulary Medication (Atorvastatin Calcium ) 40 mg QHS PO 07/23/21 21:00 UNV Paroxetine HCl (Paxil) 40 mg DAILY PO 07/24/21 09:00 07/27/21 08:19 Non-Formulary Medication ([vitamin d2] ) 5,000 units DAILY PO 07/24/21 09:00 UNV Atorvastatin Calcium (Lipitor) 40 mg QHS PO 07/23/21 21:00 07/26/21 21:42 Cyanocobalamin (Vitamin B-12) 1,000 mcg DAILY PO 07/24/21 09:00 07/27/21 08:19 Olanzapine (ZyPREXA ZYDIS) 2.5 mg PRN Q2HR PRN PO PSYCHOSIS 07/23/21 19:30 07/23/21 20:03 Divalproex Sodium (Depakote Er) 1,000 mg HS PO 07/25/21 21:00 07/26/21 21:42 Vitamin D (Vitamin D3) 50,000 unit WEEKLY PO 07/25/21 09:00 07/25/21 08:47 Medroxyprogesterone Acetate (Provera) 2.5 mg DAILY PO 07/25/21 09:00 07/27/21 08:19 I have reviewed the current psychotropics carefully including drug interactions. Risk benefit ratio favors no change other than as noted in my dictated progress note. Diagnosis: Problems: (1) Impulse control disorder, unspecified (2) Anxiety disorder, unspecified (3) Dementia, vascular, with depression (4) Dementia, vascular, with delusions (5) Dementia in Alzheimer's disease with depression (6) Dementia in Alzheimer's disease with delusions (7) Dementia of the Alzheimer's type with early onset with behavioral d isturbance (8) Major neurocognitive disorder ELIAZAR COYLE MD Jul 27, 2021 09:21
[2021-07-27 16:04] VITALS: BP 110/76
[2021-07-27] MEDS: ATORVASTATIN CALCIUM 20 MG TABLET PO SCH (20:38)
[2021-07-27] MEDS: DIVALPROEX ER 500 MG TAB.ER.24H PO SCH (20:38)
--- NOTE | 2021-07-27 22:10 | PDOC ---
Exam Note: Castillo Note: Please also refer to the separate dictated note~for this date of service dictated separately.~Patient seen individually. Discussed the patient with Nursing staff reviewed the chart.~Reviewed interim history and current functioning. Reviewed vital signs,~Labs/ Radiology~and current medications noted below. Continue current treatment with the changes noted in the dictated addendum note Assessment: Vital Signs/I&O: Vital Signs Date Time Temp Pulse Resp B/P (MAP) Pulse Ox O2 Delivery O2 Flow Rate FiO2 07/27/21 16:04 98.1 74 18 110/76 (87) 95 07/23/21 15:50 Nasal Cannula I & O 07/26/21 07/26/21 07/27/21 15:00 23:00 07:00 Intake Total 960 ml 480 ml Balance 960 ml 480 ml Current Medications: Meds: Current Medications Medications (Trade) Dose Ordered Sig/Susana Route PRN Reason Start Time Stop Time Status Last Admin Dose Admin Acetaminophen (Tylenol) 650 mg PRN Q6HRS PRN PO MILD PAIN / TEMP > 100.3'F 07/23/21 16:00 Multi-Ingredient Ointment (Analgesic [place]) 1 sandra PRN QID PRN TP MUSCLE PAIN 07/23/21 16:00 Al Hydroxide/Mg Hydroxide (Mylanta Plus Xs) 15 ml PRN AFTMEALHC PRN PO DYSPEPSIA 07/23/21 16:00 Magnesium Hydroxide (Milk Of Magnesia) 2,400 mg PRN QHS PRN PO CONSTIPATION 07/23/21 16:00 Alprazolam (Xanax) 0.5 mg DAILY PO 07/24/21 09:00 07/27/21 08:19 Atorvastatin Calcium (Lipitor) 40 mg QHS PO 07/23/21 21:00 07/23/21 21:00 Cancel Cyanocobalamin (Vitamin B-12) 1,000 mcg WEEKLY ONCE IM 07/30/21 09:00 07/23/21 18:22 DC Divalproex Sodium (Depakote Er) 750 mg DAILY PO 07/24/21 09:00 07/24/21 11:14 DC 07/24/21 08:55 Vitamin D (Vitamin D3) 5,000 unit DAILY PO 07/24/21 09:00 07/24/21 16:39 DC Quetiapine Fumarate (SEROquel) 50 mg BID PO 07/23/21 21:00 07/27/21 20:38 Alprazolam (Xanax) 0.5 mg DAILY PO 07/24/21 09:00 UNV Cyanocobalamin (Vitamin B-12) 1,000 mcg WEEKLY SQ 07/30/21 09:00 UNV Divalproex Sodium (Depakote Er) 750 mg DAILY PO 07/24/21 09:00 UNV Quetiapine Fumarate (SEROquel) 50 mg BID PO 07/23/21 21:00 UNV Non-Formulary Medication (Atorvastatin Calcium ) 40 mg QHS PO 07/23/21 21:00 UNV Paroxetine HCl (Paxil) 40 mg DAILY PO 07/24/21 09:00 07/27/21 08:19 Non-Formulary Medication ([vitamin d2] ) 5,000 units DAILY PO 07/24/21 09:00 UNV Atorvastatin Calcium (Lipitor) 40 mg QHS PO 07/23/21 21:00 07/27/21 20:38 Cyanocobalamin (Vitamin B-12) 1,000 mcg DAILY PO 07/24/21 09:00 07/27/21 08:19 Olanzapine (ZyPREXA ZYDIS) 2.5 mg PRN Q2HR PRN PO PSYCHOSIS 07/23/21 19:30 07/23/21 20:03 Divalproex Sodium (Depakote Er) 1,000 mg HS PO 07/25/21 21:00 07/27/21 20:38 Vitamin D (Vitamin D3) 50,000 unit WEEKLY PO 07/25/21 09:00 07/25/21 08:47 Medroxyprogesterone Acetate (Provera) 2.5 mg DAILY PO 07/25/21 09:00 07/27/21 08:19 I have reviewed the current psychotropics carefully including drug interactions. Risk benefit ratio favors no change other than as noted in my dictated progress note. Diagnosis: Problems: (1) Impulse control disorder, unspecified (2) Anxiety disorder, unspecified (3) Dementia, vascular, with depression (4) Dementia, vascular, with delusions (5) Dementia in Alzheimer's disease with depression (6) Dementia in Alzheimer's disease with delusions (7) Dementia of the Alzheimer's type with early onset with behavioral disturbance (8) Major neurocognitive disorder LEONIDES,MAN M MD Jul 27, 2021 22:10
[2021-07-28 05:41] VITALS: BP 100/70
[2021-07-28 07:19] LABS: BASO % 1 % (0-3); EOS # 0.1 x10^3/uL (0.0-0.7); EOS % 3 % (0-3); HEMATOCRIT 43.4 % (39.0-53.0); HEMOGLOBIN 14.6 g/dL (13.0-17.5); LYMPH # 1.5 x10^3/uL (1.0-4.8); LYMPH % 38 % (24-48); MEAN CORPUSCULAR HEMOGLOBIN 30 pg (25-35); MEAN CORPUSCULAR HGB CONC 34 g/dL (31-37); MEAN CORPUSCULAR VOLUME 90 fL (79-100); MONO # 0.4 x10^3/uL (0.0-1.1); MONO % 10 % (0-9); NEUT # 1.9 x10^3uL (1.8-7.7); NEUT % 48 % (31-73); PLATELET COUNT 155 x10^3/uL (140-400); RED CELL DISTRIBUTION WIDTH 13.6 % (11.5-14.5)
--- NOTE | 2021-07-28 07:19 | PDOC ---
Exam Note: Castillo Note: This note is a late entry for 07/26/2021 covers elements not covered in my initial note. Subjective: The patient was seen individually in the evening of 07/26/2021 with Yennifer ALLISON, discussed and reviewed the chart. The patient slept 6-3/4 hours previous night. I met with him in his room. Overall patient continues to have poor social skills, unable to recognize boundaries, somewhat intrusive, asking for his Marlen. Received Zyprexa in the evening to help with paranoia, agitation. Review of Systems: No CV, , pulmonary, eye, ENT system symptoms on review. Reliability poor. Mental Status Exam: The patient is oriented to himself. Insight and judgment, recent and remote memory, attention and concentration, fund of knowledge is poor consistent with his diagnoses. Laboratory Data: Reviewed. Impression: Major neurocognitive disorder frontotemporal with delusions, depression, behavioral disturbance. Anxiety disorder unspecified. Impulse control disorder unspecified. Plan: We will continue current psychotropics. Assessment: Vital Signs/I&O: Vital Signs Date Time Temp Pulse Resp B/P (MAP) Pulse Ox O2 Delivery O2 Flow Rate FiO2 07/28/21 05:41 97.5 60 18 100/70 (80) 96 07/23/21 15:50 Nasal Cannula I & O 07/27/21 07/27/21 07/28/21 15:00 23:00 07:00 Intake Total 240 ml 720 ml Balance 240 ml 720 ml Current Medications: Meds: Current Medications Medications (Trade) Dose Ordered Sig/Susana Route PRN Reason Start Time Stop Time Status Last Admin Dose Admin Acetaminophen (Tylenol) 650 mg PRN Q6HRS PRN PO MILD PAIN / TEMP > 100.3'F 07/23/21 16:00 Multi-Ingredient Ointment (Analgesic [place]) 1 sandra PRN QID PRN TP MUSCLE PAIN 07/23/21 16:00 Al Hydroxide/Mg Hydroxide (Mylanta Plus Xs) 15 ml PRN AFTMEALHC PRN PO DYSPEPSIA 07/23/21 16:00 Magnesium Hydroxide (Milk Of Magnesia) 2,400 mg PRN QHS PRN PO CONSTIPATION 07/23/21 16:00 Alprazolam (Xanax) 0.5 mg DAILY PO 07/24/21 09:00 07/27/21 08:19 Atorvastatin Calcium (Lipitor) 40 mg QHS PO 07/23/21 21:00 07/23/21 21:00 Cancel Cyanocobalamin (Vitamin B-12) 1,000 mcg WEEKLY ONCE IM 07/30/21 09:00 07/23/21 18:22 DC Divalproex Sodium (Depakote Er) 750 mg DAILY PO 07/24/21 09:00 07/24/21 11:14 DC 07/24/21 08:55 Vitamin D (Vitamin D3) 5,000 unit DAILY PO 07/24/21 09:00 07/24/21 16:39 DC Quetiapine Fumarate (SEROquel) 50 mg BID PO 07/23/21 21:00 07/27/21 20:38 Alprazolam (Xanax) 0.5 mg DAILY PO 07/24/21 09:00 UNV Cyanocobalamin (Vitamin B-12) 1,000 mcg WEEKLY SQ 07/30/21 09:00 UNV Divalproex Sodium (Depakote Er) 750 mg DAILY PO 07/24/21 09:00 UNV Quetiapine Fumarate (SEROquel) 50 mg BID PO 07/23/21 21:00 UNV Non-Formulary Medication (Atorvastatin Calcium ) 40 mg QHS PO 07/23/21 21:00 UNV Paroxetine HCl (Paxil) 40 mg DAILY PO 07/24/21 09:00 07/27/21 08:19 Non-Formulary Medication ([vitamin d2] ) 5,000 units DAILY PO 07/24/21 09:00 UNV Atorvastatin Calcium (Lipitor) 40 mg QHS PO 07/23/21 21:00 07/27/21 20:38 Cyanocobalamin (Vitamin B-12) 1,000 mcg DAILY PO 07/24/21 09:00 07/27/21 08:19 Olanzapine (ZyPREXA ZYDIS) 2.5 mg PRN Q2HR PRN PO PSYCHOSIS 07/23/21 19:30 07/23/21 20:03 Divalproex Sodium (Depakote Er) 1,000 mg HS PO 07/25/21 21:00 07/27/21 20:38 Vitamin D (Vitamin D3) 50,000 unit WEEKLY PO 07/25/21 09:00 07/25/21 08:47 Medroxyprogesterone Acetate (Provera) 2.5 mg DAILY PO 07/25/21 09:00 07/27/21 08:19 I have reviewed the current psychotropics carefully including drug interactions. Risk benefit ratio favors no change other than as noted in my dictated progress note. Diagnosis: Problems: (1) Impulse control disorder, unspecified (2) Anxiety disorder, unspecified (3) Dementia, vascular, with depression (4) Dementia, vascular, with delusions (5) Dementia in Alzheimer's disease with depression (6) Dementia in Alzheimer's disease with delusions (7) Dementia of the Alzheimer's type with early onset with behavioral disturbance (8) Major neurocognitive disorder ELIAZAR COYLE MD Jul 28, 2021 07:19
[2021-07-28 07:24] LABS: ALBUMIN 3.7 g/dL (3.4-5.0); ALBUMIN/GLOBULIN RATIO 1.1 (1.0-1.7); ALK PHOS 46 U/L (46-116); ALT (SGPT) 33 U/L (16-63); ANION GAP 7 (6-14); AST (SGOT) 17 U/L (15-37); BLOOD UREA NITROGEN 13 mg/dL (8-26); BUN/CREATININE RATIO 14 (6-20); CALCIUM 8.6 mg/dL (8.5-10.1); CARBON DIOXIDE 28 mmol/L (21-32); CHLORIDE 107 mmol/L (98-107); CREATININE 0.9 mg/dL (0.7-1.3); GFR 86.4; GLUCOSE 101 mg/dL (70-99); SODIUM 142 mmol/L (136-145); TOTAL BILIRUBIN 0.5 mg/dL (0.2-1.0)
[2021-07-28 07:25] LABS: VAL ACID 52 mcg/mL (50-100)
--- NOTE | 2021-07-28 07:49 | PDOC ---
Exam Note: Castillo Note: This note is a late entry for 07/27/2021 covers elements not covered in my initial note. Subjective: The patient was seen individually in the evening of 07/27/2021 with Cammy ALLISON, discussed and reviewed the chart. The patient slept 8-3/4 hours previous night. Overall patient remains confused, but redirectable. Review of Systems: No CV, , pulmonary, eye, ENT system symptoms on review. Reliability poor. Mental Status Exam: The patient is oriented to himself and situation. Speech coherent has some latency. He was standing right next to me oblivious of how close he was invading my space. We addressed this. Nevertheless in many respects he knew what town he was in which was close to [place], [place]. He was able to tell me approximately how far [facility] is from there but did not remember that Senator Tayo Bianchi belonged to the town of [place]. Insight and judgment, recent and remote memory, attention and concentration, fund of vinh leon is poor consistent with his diagnoses. Laboratory Data: Reviewed. Impression: Major neurocognitive disorder frontotemporal with delusions, depression, behavioral disturbance Anxiety disorder unspecified. Impulse control disorder unspecified. Plan: We will continue current psychotropics. Assessment: Vital Signs/I&O: Vital Signs Date Time Temp Pulse Resp B/P (MAP) Pulse Ox O2 Delivery O2 Flow Rate FiO2 07/28/21 05:41 97.5 60 18 100/70 (80) 96 07/23/21 15:50 Nasal Cannula I & O 07/27/21 07/27/21 07/28/21 15:00 23:00 07:00 Intake Total 240 ml 720 ml Balance 240 ml 720 ml Labs: Laboratory Tests Test 07/28/21 07:02 White Blood Count 4.0 x10^3/uL (4.0-11.0) Red Blood Count 4.80 x10^6/uL (4.30-5.70) Hemoglobin 14.6 g/dL (13.0-17.5) Hematocrit 43.4 % (39.0-53.0) Mean Corpuscular Volume 90 fL (79-100) Mean Corpuscular Hemoglobin 30 pg (25-35) Mean Corpuscular Hemoglobin Concent 34 g/dL (31-37) Red Cell Distribution Width 13.6 % (11.5-14.5) Platelet Count 155 x10^3/uL (140-400) Neutrophils (%) (Auto) 48 % (31-73) Lymphocytes (%) (Auto) 38 % (24-48) Monocytes (%) (Auto) 10 % (0-9) H Eosinophils (%) (Auto) 3 % (0-3) Basophils (%) (Auto) 1 % (0-3) Neutrophils # (Auto) 1.9 x10^3uL (1.8-7.7) Lymphocytes # (Auto) 1.5 x10^3/uL (1.0-4.8) Monocytes # (Auto) 0.4 x10^3/uL (0.0-1.1) Eosinophils # (Auto) 0.1 x10^3/uL (0.0-0.7) Basophils # (Auto) 0.0 x10^3/uL (0.0-0.2) Sodium Level 142 mmol/L (136-145) Potassium Level 4.0 mmol/L (3.5-5.1) Chloride Level 107 mmol/L (98-107) Carbon Dioxide Level 28 mmol/L (21-32) Anion Gap 7 (6-14) Blood Urea Nitrogen 13 mg/dL (8-26) Creatinine 0.9 mg/dL (0.7-1.3) Estimated GFR (Cockcroft-Gault) 86.4 BUN/Creatinine Ratio 14 (6-20) Glucose Level 101 mg/dL (70-99) H Calcium Level 8.6 mg/dL (8.5-10.1) Total Bilirubin 0.5 mg/dL (0.2-1.0) Aspartate Amino Transferase (AST) 17 U/L (15-37) Alanine Aminotransferase (ALT) 33 U/L (16-63) Alkaline Phosphatase 46 U/L (46-116) Ammonia 28 mcmol/L (11-34) Total Protein 7.0 g/dL (6.4-8.2) Albumin 3.7 g/dL (3.4-5.0) Albumin/Globulin Ratio 1.1 (1.0-1.7) Valproic Acid Level 52 mcg/mL (50-100) Valproic Acid Last Dose Date 07/27/21 Valproic Acid Last Dose Time 2100 Current Medications: I have reviewed the current psychotropics carefully including drug interactions. Risk benefit ratio favors no change other than as noted in my dictated progress note. Diagnosis: Problems: (1) Impulse control disorder, unspecified (2) Anxiety disorder, unspecified (3) Dementia, vascular, with depression (4) Dementia, vascular, with delusions (5) Dementia in Alzheimer's disease with depression (6) Dementia in Alzheimer's disease with delusions (7) Dementia of the Alzheimer's type with early onset with behavioral disturbance (8) Major neurocognitive disorder ELIAZAR COYLE MD Jul 28, 2021 07:49
[2021-07-28] MEDS: ALPRAZolam 0.5 MG TABLET PO SCH (08:03)
[2021-07-28] MEDS: QUEtiapine 50 MG TABLET. PO SCH ×2 (08:03→19:41)
[2021-07-28] MEDS: PARoxetine 20 MG TABLET PO SCH (08:03)
[2021-07-28] MEDS: CYANOCOBALAMIN (VITAMIN B-12) 1,000 MCG TABLET. PO SCH (08:03)
[2021-07-28 15:47] VITALS: BP 145/69
[2021-07-28] MEDS: ATORVASTATIN CALCIUM 20 MG TABLET PO SCH (19:41)
[2021-07-28] MEDS: DIVALPROEX ER 500 MG TAB.ER.24H PO SCH (19:41)
--- NOTE | 2021-07-28 21:57 | PDOC ---
Exam Note: Castillo Note: Please also refer to the separate dictated note~for this date of service dictated separately.~Patient seen individually. Discussed the patient with Nursing staff reviewed the chart.~Reviewed interim history and current functioning. Reviewed vital signs,~Labs/ Radiology~and current medications noted below. Continue current treatment with the changes noted in the dictated addendum note Assessment: Vital Signs/I&O: Vital Signs Date Time Temp Pulse Resp B/P (MAP) Pulse Ox O2 Delivery O2 Flow Rate FiO2 07/28/21 15:47 98.2 81 18 145/69 (94) 97 07/23/21 15:50 Nasal Cannula I & O 07/27/21 07/27/21 07/28/21 15:00 23:00 07:00 Intake Total 240 ml 720 ml Balance 240 ml 720 ml Labs: Laboratory Tests Test 07/28/21 06:00 07/28/21 07:02 SARS-CoV-2 (PCR) Not detected (NOT DETECTD) White Blood Count 4.0 x10^3/uL (4.0-11.0) Red Blood Count 4.80 x10^6/uL (4.30-5.70) Hemoglobin 14.6 g/dL (13.0-17.5) Hematocrit 43.4 % (39.0-53.0) Mean Corpuscular Volume 90 fL (79-100) Mean Corpuscular Hemoglobin 30 pg (25-35) Mean Corpuscular Hemoglobin Concent 34 g/dL (31-37) Red Cell Distribution Width 13.6 % (11.5-14.5) Platelet Count 155 x10^3/uL (140-400) Neutrophils (%) (Auto) 48 % (31-73) Lymphocytes (%) (Auto) 38 % (24-48) Monocytes (%) (Auto) 10 % (0-9) H Eosinophils (%) (Auto) 3 % (0-3) Basophils (%) (Auto) 1 % (0-3) Neutrophils # (Auto) 1.9 x10^3uL (1.8-7.7) Lymphocytes # (Auto) 1.5 x10^3/uL (1.0-4.8) Monocytes # (Auto) 0.4 x10^3/uL (0.0-1.1) Eosinophils # (Auto) 0.1 x10^3/uL (0.0-0.7) Basophils # (Auto) 0.0 x10^3/uL (0.0-0.2) Sodium Level 142 mmol/L (136-145) Potassium Level 4.0 mmol/L (3.5-5.1) Chloride Level 107 mmol/L (98-107) Carbon Dioxide Level 28 mmol/L (21-32) Anion Gap 7 (6-14) Blood Urea Nitrogen 13 mg/dL (8-26) Creatinine 0.9 mg/dL (0.7-1.3) Estimated GFR (Cockcroft-Gault) 86.4 BUN/Creatinine Ratio 14 (6-20) Glucose Level 101 mg/dL (70-99) H Calcium Level 8.6 mg/dL (8.5-10.1) Total Bilirubin 0.5 mg/dL (0.2-1.0) Aspartate Amino Transferase (AST) 17 U/L (15-37) Alanine Aminotransferase (ALT) 33 U/L (16-63) Alkaline Phosphatase 46 U/L (46-116) Ammonia 28 mcmol/L (11-34) Total Protein 7.0 g/dL (6.4-8.2) Albumin 3.7 g/dL (3.4-5.0) Albumin/Globulin Ratio 1.1 (1.0-1.7) Valproic Acid Level 52 mcg/mL (50-100) Valproic Acid Last Dose Date 07/27/21 Valproic Acid Last Dose Time 2100 Current Medications: Meds: Laboratory Tests Test 07/28/21 06:00 07/28/21 07:02 Coronavirus (COVID-19)(PCR) Not detected White Blood Count 4.0 x10^3/uL Red Blood Count 4.80 x10^6/uL Hemoglobin 14.6 g/dL Hematocrit 43.4 % Mean Corpuscular Volume 90 fL Mean Corpuscular Hemoglobin 30 pg Mean Corpuscular Hemoglobin Concent 34 g/dL Red Cell Distribution Width 13.6 % Platelet Count 155 x10^3/uL Neutrophils (%) (Auto) 48 % Lymphocytes (%) (Auto) 38 % Monocytes (%) (Auto) 10 % Eosinophils (%) (Auto) 3 % Basophils (%) (Auto) 1 % Neutrophils # (Auto) 1.9 x10^3uL Lymphocytes # (Auto) 1.5 x10^3/uL Monocytes # (Auto) 0.4 x10^3/uL Eosinophils # (Auto) 0.1 x10^3/uL Basophils # (Auto) 0.0 x10^3/uL Sodium Level 142 mmol/L Potassium Level 4.0 mmol/L Chloride Level 107 mmol/L Carbon Dioxide Level 28 mmol/L Anion Gap 7 Blood Urea Nitrogen 13 mg/dL Creatinine 0.9 mg/dL Estimated GFR (Cockcroft-Gault) 86.4 BUN/Creatinine Ratio 14 Glucose Level 101 mg/dL Calcium Level 8.6 mg/dL Total Bilirubin 0.5 mg/dL Aspartate Amino Transf (AST/SGOT) 17 U/L Alanine Aminotransferase (ALT/SGPT) 33 U/L Alkaline Phosphatase 46 U/L Ammonia 28 mcmol/L Total Protein 7.0 g/dL Albumin 3.7 g/dL Albumin/Globulin Ratio 1.1 Valproic Acid (Depakene) Level 52 mcg/mL Valproic Acid Last Dose Date 07/27/21 Valproic Acid Last Dose Time 2100 Current Medications Medications (Trade) Dose Ordered Sig/Susana Route PRN Reason Start Time Stop Time Status Last Admin Dose Admin Acetaminophen (Tylenol) 650 mg PRN Q6HRS PRN PO MILD PAIN / TEMP > 100.3'F 07/23/21 16:00 Multi-Ingredient Ointment (Analgesic [place]) 1 sandra PRN QID PRN TP MUSCLE PAIN 07/23/21 16:00 Al Hydroxide/Mg Hydroxide (Mylanta Plus Xs) 15 ml PRN AFTMEALHC PRN PO DYSPEPSIA 07/23/21 16:00 Magnesium Hydroxide (Milk Of Magnesia) 2,400 mg PRN QHS PRN PO CONSTIPATION 07/23/21 16:00 Alprazolam (Xanax) 0.5 mg DAILY PO 07/24/21 09:00 07/28/21 08:03 Atorvastatin Calcium (Lipitor) 40 mg QHS PO 07/23/21 21:00 07/23/21 21:00 Cancel Cyanocobalamin (Vitamin B-12) 1,000 mcg WEEKLY ONCE IM 07/30/21 09:00 07/23/21 18:22 DC Divalproex Sodium (Depakote Er) 750 mg DAILY PO 07/24/21 09:00 07/24/21 11:14 DC 07/24/21 08:55 Vitamin D (Vitamin D3) 5,000 unit DAILY PO 07/24/21 09:00 07/24/21 16:39 DC Quetiapine Fumarate (SEROquel) 50 mg BID PO 07/23/21 21:00 07/28/21 19:41 Alprazolam (Xanax) 0.5 mg DAILY PO 07/24/21 09:00 UNV Cyanocobalamin (Vitamin B-12) 1,000 mcg WEEKLY SQ 07/30/21 09:00 UNV Divalproex Sodium (Depakote Er) 750 mg DAILY PO 07/24/21 09:00 UNV Quetiapine Fumarate (SEROquel) 50 mg BID PO 07/23/21 21:00 UNV Non-Formulary Medication (Atorvastatin Calcium ) 40 mg QHS PO 07/23/21 21:00 UNV Paroxetine HCl (Paxil) 40 mg DAILY PO 07/24/21 09:00 07/28/21 08:03 Non-Formulary Medication ([vitamin d2] ) 5,000 units DAILY PO 07/24/21 09:00 UNV Atorvastatin Calcium (Lipitor) 40 mg QHS PO 07/23/21 21:00 07/28/21 19:41 Cyanocobalamin (Vitamin B-12) 1,000 mcg DAILY PO 07/24/21 09:00 07/28/21 08:03 Olanzapine (ZyPREXA ZYDIS) 2.5 mg PRN Q2HR PRN PO PSYCHOSIS 07/23/21 19:30 07/23/21 20:03 Divalproex Sodium (Depakote Er) 1,000 mg HS PO 07/25/21 21:00 07/28/21 19:41 Vitamin D (Vitamin D3) 50,000 unit WEEKLY PO 07/25/21 09:00 07/25/21 08:47 Medroxyprogesterone Acetate (Provera) 2.5 mg DAILY PO 07/25/21 09:00 07/28/21 08:03 I have reviewed the current psychotropics carefully including drug interactions. Risk benefit ratio favors no change other than as noted in my dictated progress note. Diagnosis: Problems: (1) Impulse control disorder, unspecified (2) Anxiety disorder, unspecified (3) Dementia, vascular, with depression (4) Dementia, vascular, with delusions (5) Dementia in Alzheimer's disease with depression (6) Dementia in Alzheimer's disease with delusions (7) Dementia of the Alzheimer's type with early onset with behavioral disturbance (8) Major neurocognitive disorder ELIAZAR COYLE MD Jul 28, 2021 21:57
[2021-07-29 06:33] VITALS: BP 134/82
[2021-07-29] MEDS: CYANOCOBALAMIN (VITAMIN B-12) 1,000 MCG TABLET. PO SCH (08:29)
[2021-07-29] MEDS: QUEtiapine 50 MG TABLET. PO SCH ×2 (08:29→19:36)
[2021-07-29] MEDS: PARoxetine 20 MG TABLET PO SCH (08:29)
[2021-07-29] MEDS: ALPRAZolam 0.5 MG TABLET PO SCH (08:30)
[2021-07-29 16:21] VITALS: BP 126/81
[2021-07-29] MEDS: DIVALPROEX ER 500 MG TAB.ER.24H PO SCH (19:35)
[2021-07-29] MEDS: ATORVASTATIN CALCIUM 20 MG TABLET PO SCH (19:36)
--- NOTE | 2021-07-29 21:57 | PDOC ---
Exam Note: Castillo Note: Please also refer to the separate dictated note~for this date of service dictated separately.~Patient seen individually. Discussed the patient with Nursing staff reviewed the chart.~Reviewed interim history and current functioning. Reviewed vital signs,~Labs/ Radiology~and current medications noted below. Continue current treatment with the changes noted in the dictated addendum note Assessment: Vital Signs/I&O: Vital Signs Date Time Temp Pulse Resp B/P (MAP) Pulse Ox O2 Delivery O2 Flow Rate FiO2 07/29/21 16:21 97.1 74 20 126/81 (96) 95 07/23/21 15:50 Nasal Cannula I & O 07/28/21 07/28/21 07/29/21 15:00 23:00 07:00 Intake Total 960 ml 720 ml Balance 960 ml 720 ml Current Medications: Meds: Current Medications Medications (Trade) Dose Ordered Sig/Susana Route PRN Reason Start Time Stop Time Status Last Admin Dose Admin Acetaminophen (Tylenol) 650 mg PRN Q6HRS PRN PO MILD PAIN / TEMP > 100.3'F 07/23/21 16:00 Multi-Ingredient Ointment (Analgesic [place]) 1 sandra PRN QID PRN TP MUSCLE PAIN 07/23/21 16:00 Al Hydroxide/Mg Hydroxide (Mylanta Plus Xs) 15 ml PRN AFTMEALHC PRN PO DYSPEPSIA 07/23/21 16:00 Magnesium Hydroxide (Milk Of Magnesia) 2,400 mg PRN QHS PRN PO CONSTIPATION 07/23/21 16:00 Alprazolam (Xanax) 0.5 mg DAILY PO 07/24/21 09:00 07/29/21 08:30 Atorvastatin Calcium (Lipitor) 40 mg QHS PO 07/23/21 21:00 07/23/21 21:00 Cancel Cyanocobalamin (Vitamin B-12) 1,000 mcg WEEKLY ONCE IM 07/30/21 09:00 07/23/21 18:22 DC Divalproex Sodium (Depakote Er) 750 mg DAILY PO 07/24/21 09:00 07/24/21 11:14 DC 07/24/21 08:55 Vitamin D (Vitamin D3) 5,000 unit DAILY PO 07/24/21 09:00 07/24/21 16:39 DC Quetiapine Fumarate (SEROquel) 50 mg BID PO 07/23/21 21:00 07/29/21 19:36 Alprazolam (Xanax) 0.5 mg DAILY PO 07/24/21 09:00 UNV Cyanocobalamin (Vitamin B-12) 1,000 mcg WEEKLY SQ 07/30/21 09:00 UNV Divalproex Sodium (Depakote Er) 750 mg DAILY PO 07/24/21 09:00 UNV Quetiapine Fumarate (SEROquel) 50 mg BID PO 07/23/21 21:00 UNV Non-Formulary Medication (Atorvastatin Calcium ) 40 mg QHS PO 07/23/21 21:00 UNV Paroxetine HCl (Paxil) 40 mg DAILY PO 07/24/21 09:00 07/29/21 08:29 Non-Formulary Medication ([vitamin d2] ) 5,000 units DAILY PO 07/24/21 09:00 UNV Atorvastatin Calcium (Lipitor) 40 mg QHS PO 07/23/21 21:00 07/29/21 19:36 Cyanocobalamin (Vitamin B-12) 1,000 mcg DAILY PO 07/24/21 09:00 07/29/21 08:29 Olanzapine (ZyPREXA ZYDIS) 2.5 mg PRN Q2HR PRN PO PSYCHOSIS 07/23/21 19:30 07/29/21 17:37 Divalproex Sodium (Depakote Er) 1,000 mg HS PO 07/25/21 21:00 07/29/21 19:35 Vitamin D (Vitamin D3) 50,000 unit WEEKLY PO 07/25/21 09:00 07/25/21 08:47 Medroxyprogesterone Acetate (Provera) 2.5 mg DAILY PO 07/25/21 09:00 07/29/21 08:29 Quetiapine Fumarate (SEROquel) 25 mg DAILY16 PO 07/30/21 15:00 I have reviewed the current psychotropics carefully including drug interactions. Risk benefit ratio favors no change other than as noted in my dictated progress note. Diagnosis: Problems: (1) Impulse control disorder, unspecified (2) Anxiety disorder, unspecified (3) Dementia, vascular, with depression (4) Dementia, vascular, with delusions (5) Dementia in Alzheimer's disease with depression (6) Dementia in Alzheimer's disease with delusions (7) Dementia of the Alzheimer's type with early onset with behavioral disturbance (8) Major neurocognitive disorder ELIAZAR COYLE MD Jul 29, 2021 21:57
[2021-07-30 05:45] VITALS: BP 117/73
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
[2021-07-30] MEDS: PARoxetine 20 MG TABLET PO SCH (08:16)
[2021-07-30] MEDS: CYANOCOBALAMIN (VITAMIN B-12) 1,000 MCG TABLET. PO SCH (08:16)
[2021-07-30] MEDS: ALPRAZolam 0.5 MG TABLET PO SCH (08:16)
[2021-07-30] MEDS: QUEtiapine 50 MG TABLET. PO SCH (08:16)
--- NOTE | 2021-07-30 08:28 | PDOC ---
Exam Note: Castillo Note: This note is a late entry for 07/28/2021 covers elements not covered in my initial note. Subjective: The patient was seen individually in the evening of 07/28/2021 with Bobby ALLISON, discussed and reviewed the chart. The patient slept 7 hours previous night. Patient is reasonably oriented but has very poor social skills, somewhat intrusive, obsessive, repeatedly at the nursing station. He is able to pry open one of the secure doors. Review of Systems: No CV, , pulmonary, eye, ENT system symptoms on review. Reliability poor. Mental Status Exam: The patient is oriented to himself and situation. Speech coherent. Abstraction fair. Computation impaired. Language function intact. Mood and affect remains labile. Laboratory Data: Reviewed. Impression: Major neurocognitive disorder frontotemporal with delusions, depression, behavioral disturbance. Anxiety disorder unspecified. Impulse control disorder unspecified. Plan: We will continue current psychotropics. Assessment: Vital Signs/I&O: Vital Signs Date Time Temp Pulse Resp B/P (MAP) Pulse Ox O2 Delivery O2 Flow Rate FiO2 07/30/21 05:45 97.0 68 18 117/73 (88) 97 I & O 07/29/21 07/29/21 07/30/21 15:00 23:00 07:00 Intake Total 1150 ml 500 ml Balance 1150 ml 500 ml Current Medications: Meds: Current Medications Medications (Trade) Dose Ordered Sig/Susana Route PRN Reason Start Time Stop Time Status Last Admin Dose Admin Acetaminophen (Tylenol) 650 mg PRN Q6HRS PRN PO MILD PAIN / TEMP > 100.3'F 07/23/21 16:00 Multi-Ingredient Ointment (Analgesic [place]) 1 sandra PRN QID PRN TP MUSCLE PAIN 07/23/21 16:00 Al Hydroxide/Mg Hydroxide (Mylanta Plus Xs) 15 ml PRN AFTMEALHC PRN PO DYSPEPSIA 07/23/21 16:00 Magnesium Hydroxide (Milk Of Magnesia) 2,400 mg PRN QHS PRN PO CONSTIPATION 07/23/21 16:00 Alprazolam (Xanax) 0.5 mg DAILY PO 07/24/21 09:00 07/30/21 08:16 Atorvastatin Calcium (Lipitor) 40 mg QHS PO 07/23/21 21:00 07/23/21 21:00 Cancel Cyanocobalamin (Vitamin B-12) 1,000 mcg WEEKLY ONCE IM 07/30/21 09:00 07/23/21 18:22 DC Divalproex Sodium (Depakote Er) 750 mg DAILY PO 07/24/21 09:00 07/24/21 11:14 DC 07/24/21 08:55 Vitamin D (Vitamin D3) 5,000 unit DAILY PO 07/24/21 09:00 07/24/21 16:39 DC Quetiapine Fumarate (SEROquel) 50 mg BID PO 07/23/21 21:00 07/30/21 08:16 Alprazolam (Xanax) 0.5 mg DAILY PO 07/24/21 09:00 UNV Cyanocobalamin (Vitamin B-12) 1,000 mcg WEEKLY SQ 07/30/21 09:00 UNV Divalproex Sodium (Depakote Er) 750 mg DAILY PO 07/24/21 09:00 UNV Quetiapine Fumarate (SEROquel) 50 mg BID PO 07/23/21 21:00 UNV Non-Formulary Medication (Atorvastatin Calcium ) 40 mg QHS PO 07/23/21 21:00 UNV Paroxetine HCl (Paxil) 40 mg DAILY PO 07/24/21 09:00 07/30/21 08:16 Non-Formulary Medication ([vitamin d2] ) 5,000 units DAILY PO 07/24/21 09:00 UNV Atorvastatin Calcium (Lipitor) 40 mg QHS PO 07/23/21 21:00 07/29/21 19:36 Cyanocobalamin (Vitamin B-12) 1,000 mcg DAILY PO 07/24/21 09:00 07/30/21 08:16 Olanzapine (ZyPREXA ZYDIS) 2.5 mg PRN Q2HR PRN PO PSYCHOSIS 07/23/21 19:30 07/29/21 17:37 Divalproex Sodium (Depakote Er) 1,000 mg HS PO 07/25/21 21:00 07/29/21 19:35 Vitamin D (Vitamin D3) 50,000 unit WEEKLY PO 07/25/21 09:00 07/25/21 08:47 Medroxyprogesterone Acetate (Provera) 2.5 mg DAILY PO 07/25/21 09:00 07/30/21 08:17 Quetiapine Fumarate (SEROquel) 25 mg DAILY16 PO 07/30/21 15:00 I have reviewed the current psychotropics carefully including drug interactions. Risk benefit ratio favors no change other than as noted in my dictated progress note. Diagnosis: Problems: (1) Impulse control disorder, unspecified (2) Anxiety disorder, unspecified (3) Dementia, vascular, with depression (4) Dementia, vascular, with delusions (5) Dementia in Alzheimer's disease with depression (6) Dementia in Alzheimer's disease with delusions (7) Dementia of the Alzheimer's type with early onset with behavioral distu rbance (8) Major neurocognitive disorder ELIAZAR COYLE MD Jul 30, 2021 08:28
--- NOTE | 2021-07-30 08:42 | PDOC ---
Exam Note: Castillo Note: This note is a late entry for 07/29/2021 covers elements not covered in my initial note. Subjective: The patient was seen individually in the evening of 07/29/2021 with Bobby ALLISON, discussed and reviewed the chart. The patient slept 5-1/2 hours previous night. He remains wandering, somewhat intrusive. He states he was here so that he could fix some dates for his son with the female nursing staff. He is oriented to place and situation, compliant with medications. We will add Seroquel 25 mg at 3 p.m. Review of Systems: No CV, , pulmonary, eye, ENT system symptoms on review. Reliability poor. Mental Status Exam: The patient is oriented to himself and situation. Speech coherent. Abstraction fair. Computation impaired. Language function intact. Mood and affect remains labile. Laboratory Data: Reviewed. Impression: Major neurocognitive disorder frontotemporal with delusions, depression, behavioral disturbance Anxiety disorder unspecified. Impulse control disorder unspecified. Plan: We will continue current psychotropics. Assessment: Vital Signs/I&O: Vital Signs Date Time Temp Pulse Resp B/P (MAP) Pulse Ox O2 Delivery O2 Flow Rate FiO2 07/30/21 05:45 97.0 68 18 117/73 (88) 97 I & O 07/29/21 07/29/21 07/30/21 15:00 23:00 07:00 Intake Total 1150 ml 500 ml Balance 1150 ml 500 ml Current Medications: Meds: Current Medications Medications (Trade) Dose Ordered Sig/Susana Route PRN Reason Start Time Stop Time Status Last Admin Dose Admin Acetaminophen (Tylenol) 650 mg PRN Q6HRS PRN PO MILD PAIN / TEMP > 100.3'F 07/23/21 16:00 Multi-Ingredient Ointment (Analgesic [place]) 1 sandra PRN QID PRN TP MUSCLE PAIN 07/23/21 16:00 Al Hydroxide/Mg Hydroxide (Mylanta Plus Xs) 15 ml PRN AFTMEALHC PRN PO DYSPEPSIA 07/23/21 16:00 Magnesium Hydroxide (Milk Of Magnesia) 2,400 mg PRN QHS PRN PO CONSTIPATION 07/23/21 16:00 Alprazolam (Xanax) 0.5 mg DAILY PO 07/24/21 09:00 07/30/21 08:16 Atorvastatin Calcium (Lipitor) 40 mg QHS PO 07/23/21 21:00 07/23/21 21:00 Cancel Cyanocobalamin (Vitamin B-12) 1,000 mcg WEEKLY ONCE IM 07/30/21 09:00 07/23/21 18:22 DC Divalproex Sodium (Depakote Er) 750 mg DAILY PO 07/24/21 09:00 07/24/21 11:14 DC 07/24/21 08:55 Vitamin D (Vitamin D3) 5,000 unit DAILY PO 07/24/21 09:00 07/24/21 16:39 DC Quetiapine Fumarate (SEROquel) 50 mg BID PO 07/23/21 21:00 07/30/21 08:16 Alprazolam (Xanax) 0.5 mg DAILY PO 07/24/21 09:00 UNV Cyanocobalamin (Vitamin B-12) 1,000 mcg WEEKLY SQ 07/30/21 09:00 UNV Divalproex Sodium (Depakote Er) 750 mg DAILY PO 07/24/21 09:00 UNV Quetiapine Fumarate (SEROquel) 50 mg BID PO 07/23/21 21:00 UNV Non-Formulary Medication (Atorvastatin Calcium ) 40 mg QHS PO 07/23/21 21:00 UNV Paroxetine HCl (Paxil) 40 mg DAILY PO 07/24/21 09:00 07/30/21 08:16 Non-Formulary Medication ([vitamin d2] ) 5,000 units DAILY PO 07/24/21 09:00 UNV Atorvastatin Calcium (Lipitor) 40 mg QHS PO 07/23/21 21:00 07/29/21 19:36 Cyanocobalamin (Vitamin B-12) 1,000 mcg DAILY PO 07/24/21 09:00 07/30/21 08:16 Olanzapine (ZyPREXA ZYDIS) 2.5 mg PRN Q2HR PRN PO PSYCHOSIS 07/23/21 19:30 07/29/21 17:37 Divalproex Sodium (Depakote Er) 1,000 mg HS PO 07/25/21 21:00 07/29/21 19:35 Vitamin D (Vitamin D3) 50,000 unit WEEKLY PO 07/25/21 09:00 10/8/21 08:47 Medroxyprogesterone Acetate (Provera) 2.5 mg DAILY PO 07/25/21 09:00 07/30/21 08:17 Quetiapine Fumarate (SEROquel) 25 mg DAILY16 PO 07/30/21 15:00 I have reviewed the current psychotropics carefully including drug interactions. Risk benefit ratio favors no change other than as noted in my dictated progress note. Diagnosis: Problems: (1) Impulse control disorder, unspecified (2) Anxiety disorder, unspecified (3) Dementia, vascular, with depression (4) Dementia, vascular, with delusions (5) Dementia in Alzheimer's disease with depression (6) Dementia in Alzheimer's disease with delusions (7) Dementia of the Alzheimer's type with early onset with behavioral disturbance (8) Major neurocognitive disorder ELIAZAR COYLE MD Jul 30, 2021 08:42
[2021-07-30] MEDS ORDERED: CYANOCOBALAMIN (VITAMIN B-12) 1,000 MCG/ML VIAL. IM ONE (09:00)
[2021-07-30] MEDS ORDERED: CYANOCOBALAMIN (VITAMIN B-12) 1,000 MCG/ML VIAL. SQ SCH (09:00)
[2021-07-30] MEDS ORDERED: DIVA500T4 PO (10:44)
[2021-07-30] MEDS ORDERED: ACET325T21 PO (10:49)
[2021-07-30] MEDS ORDERED: CHOL500021 PO (10:50)
[2021-07-30] MEDS ORDERED: CYAN100031 PO (10:52)
[2021-07-30] MEDS ORDERED: MAG-124 PO (10:53)
[2021-07-30] MEDS ORDERED: MAGN24003 PO (10:54)
[2021-07-30] MEDS ORDERED: METH57CR17 TP (10:55)
[2021-07-30] MEDS ORDERED: OLAN5TAB99 PO (10:56)
[2021-07-30] MEDS ORDERED: QUET25TA5 PO (10:57)
[2021-07-30] MEDS ORDERED: MEDR2.5T28 PO (10:58)
[2021-07-30] MEDS ORDERED: QUEtiapine 25 MG TABLET. PO SCH (15:00)
[2021-07-30 15:35] VITALS: BP 119/76
[2021-07-30] MEDS ORDERED: QUEtiapine 50 MG TABLET. PO SCH (16:00)
--- NOTE | 2021-07-30 23:10 | PDOC ---
Exam Note: Castillo Note: Please also refer to the separate dictated note~for this date of service dictated separately.~Patient seen individually. Discussed the patient with Nursing staff reviewed the chart.~Reviewed interim history and current functioning. Reviewed vital signs,~Labs/ Radiology~and current medications noted below. Continue current treatment with the changes noted in the dictated addendum note Assessment: Vital Signs/I&O: Vital Signs Date Time Temp Pulse Resp B/P (MAP) Pulse Ox O2 Delivery O2 Flow Rate FiO2 07/30/21 15:35 97.8 73 20 119/76 (90) 92 I & O 07/29/21 07/29/21 07/30/21 15:00 23:00 07:00 Intake Total 1150 ml 500 ml Balance 1150 ml 500 ml Current Medications: Meds: Current Medications Medications (Trade) Dose Ordered Sig/Susana Route PRN Reason Start Time Stop Time Status Last Admin Dose Admin Acetaminophen (Tylenol) 650 mg PRN Q6HRS PRN PO MILD PAIN / TEMP > 100.3'F 07/23/21 16:00 07/30/21 18:42 DC Multi-Ingredient Ointment (Analgesic Bayard) 1 sandra PRN QID PRN TP MUSCLE PAIN 07/23/21 16:00 07/30/21 18:42 DC Al Hydroxide/Mg Hydroxide (Mylanta Plus Xs) 15 ml PRN AFTMEALHC PRN PO DYSPEPSIA 07/23/21 16:00 07/30/21 18:42 DC Magnesium Hydroxide (Milk Of Magnesia) 2,400 mg PRN QHS PRN PO CONSTIPATION 07/23/21 16:00 07/30/21 18:42 DC Alprazolam (Xanax) 0.5 mg DAILY PO 07/24/21 09:00 07/30/21 18:42 DC 07/30/21 08:16 Atorvastatin Calcium (Lipitor) 40 mg QHS PO 07/23/21 21:00 07/23/21 21:00 Cancel Cyanocobalamin (Vitamin B-12) 1,000 mcg WEEKLY ONCE IM 07/30/21 09:00 07/23/21 18:22 DC Divalproex Sodium (Depakote Er) 750 mg DAILY PO 07/24/21 09:00 07/24/21 11:14 DC 07/24/21 08:55 Vitamin D (Vitamin D3) 5,000 unit DAILY PO 07/24/21 09:00 07/24/21 16:39 DC Quetiapine Fumarate (SEROquel) 50 mg BID PO 07/23/21 21:00 07/30/21 18:42 DC 07/30/21 08:16 Alprazolam (Xanax) 0.5 mg DAILY PO 07/24/21 09:00 UNV Cyanocobalamin (Vitamin B-12) 1,000 mcg WEEKLY SQ 07/30/21 09:00 UNV Divalproex Sodium (Depakote Er) 750 mg DAILY PO 07/24/21 09:00 UNV Quetiapine Fumarate (SEROquel) 50 mg BID PO 07/23/21 21:00 UNV Non-Formulary Medication (Atorvastatin Calcium ) 40 mg QHS PO 07/23/21 21:00 UNV Paroxetine HCl (Paxil) 40 mg DAILY PO 07/24/21 09:00 07/30/21 18:42 DC 07/30/21 08:16 Non-Formulary Medication ([vitamin d2] ) 5,000 units DAILY PO 07/24/21 09:00 UNV Atorvastatin Calcium (Lipitor) 40 mg QHS PO 07/23/21 21:00 07/30/21 18:42 DC 07/29/21 19:36 Cyanocobalamin (Vitamin B-12) 1,000 mcg DAILY PO 07/24/21 09:00 07/30/21 18:42 DC 07/30/21 08:16 Olanzapine (ZyPREXA ZYDIS) 2.5 mg PRN Q2HR PRN PO PSYCHOSIS 07/23/21 19:30 07/30/21 18:42 DC 07/30/21 14:46 Divalproex Sodium (Depakote Er) 1,000 mg HS PO 07/25/21 21:00 07/30/21 18:42 DC 07/29/21 19:35 Vitamin D (Vitamin D3) 50,000 unit WEEKLY PO 07/25/21 09:00 07/30/21 18:42 DC 07/25/21 08:47 Medroxyprogesterone Acetate (Provera) 2.5 mg DAILY PO 07/25/21 09:00 07/30/21 12:12 DC 07/30/21 08:17 Quetiapine Fumarate (SEROquel) 25 mg DAILY16 PO 07/30/21 15:00 07/30/21 12:12 DC Medroxyprogesterone Acetate (Provera) 5 mg DAILY PO 07/31/21 09:00 07/30/21 18:42 DC Quetiapine Fumarate (SEROquel) 50 mg DAILY16 PO 07/30/21 16:00 07/30/21 18:42 DC 07/30/21 14:46 Olanzapine (ZyPREXA ZYDIS) 5 mg PRN 1X PRN PO PSYCHOSIS 07/30/21 12:15 07/30/21 18:42 DC 07/30/21 16:20 Current Medications Medications (Trade) Dose Ordered Sig/Susana Route PRN Reason Start Time Stop Time Status Last Admin Dose Admin Quetiapine Fumarate (SEROquel) 50 mg DAILY16 PO 07/30/21 16:00 07/30/21 18:42 DC 07/30/21 14:46 Olanzapine (ZyPREXA ZYDIS) 5 mg PRN 1X PRN PO PSYCHOSIS 07/30/21 12:15 07/30/21 18:42 DC 07/30/21 16:20 I have reviewed the current psychotropics carefully including drug interactions. Risk benefit ratio favors no change other than as noted in my dictated progress note. Diagnosis: Problems: (1) Impulse control disorder, unspecified (2) Anxiety disorder, unspecified (3) Dementia, vascular, with depression (4) Dementia, vascular, with delusions (5) Dementia in Alzheimer's disease with depression (6) Dementia in Alzheimer's disease with delusions (7) Dementia of the Alzheimer's type with early onset with behavioral disturbance (8) Major neurocognitive disorder ELIAZAR COYLE MD Jul 30, 2021 23:10
--- NOTE | 2021-08-06 12:53 | DS ---
DATE OF DISCHARGE: 07/30/2021 DISCHARGE SUMMARY/PSYCHIATRIC PROGRESS NOTE REASON FOR ADMISSION: The patient is a 60-year-old male referred to us from the [facility] for Neurocognitive Disorders after he had failed outpatient psychiatric interventions at that facility. The patient lives at home with his , was wandering throughout the house. He was sexually inappropriate, intrusive, resistive to cares, pacing, eating excessively, having intense sugar cravings and insomnia. The sexually inappropriate intrusive behaviors were part of his frontotemporal dementia with behavioral disturbance and made it very difficult for his to manage him at home, leading to behaviors that were deemed dangerous, unmanageable, thus resulting in this referral. SIGNIFICANT FINDINGS AND CLINICAL COURSE: Following admission, the patient was seen daily individually by myself from a psychiatric standpoint. Medical followup with Dr. Hill/Dr Tee. The patient's psychotropics were adjusted and he seemed to respond somewhat to a combination of Xanax 0.5 mg b.i.d., Paxil 40 mg a day, Seroquel 50 mg b.i.d., Depakote ER 1000 mg at bedtime. Provera was initiated 2.5 mg a day and increased to 5 mg a day prior to discharge and Seroquel increased right prior to discharge as well to help with his impulse control, since he was returning home to his rather than a facility. I did talk to the patient's at some length with [facility] Dough Brake Machine Operator on the day of discharge to discuss various outpatient treatment options including possible day program at [facility], outpatient at the [facility] and other options and outpatient psychiatric followup. Prior to discharge on 07/30/2021, no CV, , pulmonary, eye, ENT system symptoms on review. MENTAL STATUS EXAMINATION: Oriented to himself, situation. Speech has some latency, coherent. Abstraction fair. Computation impaired. Language function intact. Attention span short. Short-term memory is impaired. No active suicidal or homicidal ideation. LABORATORY DATA: Reviewed. FINAL DIAGNOSES: Major neurocognitive disorder, frontotemporal, with delusion, depression, behavioral disturbance; anxiety disorder, unspecified; impulse control disorder, unspecified. Rest unchanged from admission. DISCHARGE MEDICATIONS: Please refer to the MRAD. DISCHARGE INSTRUCTIONS: Outpatient psychiatric and medical followup as arranged prior to discharge and as noted above. Time for discharge day management greater than [address]: Rich TID: [id number]
== END 2021-07-30 18:00 | disposition home or self-care (01) | DRG 57 ==
LOC: GEROPSY 15:12
PROVIDERS: ADMIT Psychiatry & Neurology Psychiatry; ATTEND Psychiatry & Neurology Psychiatry
DX: G30.9 Alzheimer's disease, unspecified (principal); F02.81 Dementia in other diseases classified elsewhere, unspecified severity, with behavioral disturbance; F01.51 Vascular dementia, unspecified severity, with behavioral disturbance; E78.5 Hyperlipidemia, unspecified; F32.A Depression, unspecified; F41.9 Anxiety disorder, unspecified; F63.9 Impulse disorder, unspecified; G31.09 Other frontotemporal neurocognitive disorder; G47.00 Insomnia, unspecified; Z66 Do not resuscitate; Z79.899 Other long term (current) drug therapy; Z20.822 Contact with and (suspected) exposure to COVID-19
CPT/HCPCS: 36415; 70450; 80053; 80061; 80164; 81001; 82140; 82306; 82607; 83036; 83540; 83550; 83735; 84436; 84443; 84480; 85025; 85379; 86592; U0003; 97530

== ENCOUNTER 2021-08-18 12:37 | Inpatient (IN) | payer BC ==
[~2021-08-18] VITALS: Ht 188 cm; Wt 107.1 kg
[~2021-08-18 12:37] MED LIST: ACET325T21 PO; ALPR0.5T6 PO; ATOR40TA59 PO; CHOL500021 PO; CYAN10002 IJ; CYAN100031 PO; DIVA250T PO; DIVA500T4 PO; MAG-124 PO; MAGN24003 PO; MEDR2.5T28 PO; METH57CR17 TP; OLAN5TAB99 PO; PARO40TA61 PO; QUET25TA5 PO; QUET50TA5 PO; vitamin d2 PO
[2021-08-18] MEDS ORDERED: METHYL SALICYLATE/MENTHOL TOPICAL OINTMENT 57GM TUBE. TP PRN (13:00)
[2021-08-18] MEDS ORDERED: MAG HYDROX/AL HYDROX/SIMETH 30 ML ORAL.SUSP PO PRN (13:00)
[2021-08-18] MEDS ORDERED: LOSA25TA11 PO (13:11)
[2021-08-18] MEDS ORDERED: HALO10TA PO (13:11)
[2021-08-18] MEDS ORDERED: DIAZ5TAB4 PO (13:11)
--- NOTE | 2021-08-18 13:20 | NUR ---
Admission Note with Justification for Admission to [facility] Patient admitted to [facility] for protective oversight for emergency stabilization of acute psychiatric crisis. Pt admitted from: [facility] Mode of arrival: Secure Transport Accompanied By: Secure Transport Precipitating behaviors that initiated intake and admission: Patient was reported to be aggressive towards staff, eloping from hospital, wandering, pacing, impulsive, sexual impulsivity, having hallucinations, and being delusional Description of failure of out patient attempts at stabilization in previous setting list behavior and medication trials: Patient hospitalized for 17 days with multiple prescription changes. Behaviors and assessment findings upon admission: Patient sedated on arrival. He was unable to lift his feet while being transported in a wheelchair. When at the sliding glass door entrance, patient attempted to stand but collapsed out of the chair. Patient assisted into his bed where he covered himself with a blanket and went to sleep. Patient did not respond to any questions from staff, and never spoke while being transported or assessed. Plan: Admit for protective oversight for adjustment and stabilization of medications, behaviors and mood. Intense treatment regimen including groups, medication adjustments, therapy, consistent regimen for ADL's, self care, and sleep hygiene. Daily monitoring by Inpatient staff, Psychiatry, and Medical Physician.
[2021-08-18 13:35] VITALS: BP 119/79
[2021-08-18] MEDS ORDERED: MAGNESIUM HYDROXIDE 2,400 MG/30 ML ORAL.SUSP. PO PRN (13:45)
[2021-08-18 15:51] VITALS: BP 132/77
--- NOTE | 2021-08-18 16:15 | NUR ---
Patient is less sedated and is attempting to ambulate on his own. He was assisted into a wheelchair, he frequently attempts to stand up. He has slid out of the wheelchair again. Patient not responding to verbal redirection. pagebette, new order received; patient is on 1:1 observation for safety. Informed floor staff and maid housekeeper of patient's new status.
[2021-08-18 17:55] LABS: BACTERIA,URINE 0 /HPF (0-FEW); BILIRUBIN,URINE NEG (NEG); CLARITY,URINE CLEAR; COLOR,URINE YELLOW; GLUCOSE,URINE NEG (NEG); NITRITE,URINE NEG (NEG); RBC,URINE 0 /HPF (0-2); SQUAMOUS EPITHELIAL CELL,UR OCC /LPF; UROBILINOGEN,URINE 0.2 mg/dL (0.2 mg/dL); WBC,URINE 0 /HPF (0-4)
[2021-08-18] MEDS ORDERED: diazePAM 5 MG TABLET. PO SCH (18:00)
--- NOTE | 2021-08-18 18:04 | NUR ---
Patient is currently sleeping, will hold 18:00 diazepam for now.
--- NOTE | 2021-08-18 19:51 | NUR ---
Dr Mercer reviewed patients medication list. Patient admitted from [facility] where he had been taking scheduled Diazepam 10mg Q6 hours. Order received to DC diazepam 10mg Q6 Hours, dc Haldol 10 mg BID. New order: Diazepam 2.5mg PRN TID for three days (to stop 08/22). Monitor for signs of diazepam withdrawal.
[2021-08-18 20:29] LABS: BASO % 1 % (0-3); EOS # 0.2 x10^3/uL (0.0-0.7); EOS % 3 % (0-3); HEMATOCRIT 39.5 % (39.0-53.0); HEMOGLOBIN 13.2 g/dL (13.0-17.5); LYMPH # 1.1 x10^3/uL (1.0-4.8); LYMPH % 21 % (24-48); MEAN CORPUSCULAR HEMOGLOBIN 30 pg (25-35); MEAN CORPUSCULAR HGB CONC 33 g/dL (31-37); MEAN CORPUSCULAR VOLUME 91 fL (79-100); MONO # 0.7 x10^3/uL (0.0-1.1); MONO % 14 % (0-9); NEUT # 3.2 x10^3uL (1.8-7.7); NEUT % 61 % (31-73); PLATELET COUNT 246 x10^3/uL (140-400); RED BLOOD COUNT 4.36 x10^6/uL (4.30-5.70); RED CELL DISTRIBUTION WIDTH 13.7 % (11.5-14.5); WHITE BLOOD COUNT 5.3 x10^3/uL (4.0-11.0)
[2021-08-18 20:42] LABS: ALBUMIN 3.4 g/dL (3.4-5.0); ALK PHOS 63 U/L (46-116); ALT (SGPT) 33 U/L (16-63); ANION GAP 10 (6-14); AST (SGOT) 27 U/L (15-37); BLOOD UREA NITROGEN 19 mg/dL (8-26); BUN/CREATININE RATIO 16 (6-20); CALCIUM 8.5 mg/dL (8.5-10.1); CARBON DIOXIDE 26 mmol/L (21-32); CHLORIDE 106 mmol/L (98-107); CREATININE 1.2 mg/dL (0.7-1.3); GLUCOSE 85 mg/dL (70-99); MAGNESIUM 2.4 mg/dL (1.8-2.4); POTASSIUM 3.9 mmol/L (3.5-5.1); SODIUM 142 mmol/L (136-145); TOTAL BILIRUBIN 0.7 mg/dL (0.2-1.0); TOTAL PROTEIN 6.8 g/dL (6.4-8.2)
[2021-08-18 20:43] LABS: VAL ACID 22 mcg/mL (50-100)
[2021-08-18] MEDS ORDERED: HALOPERIDOL 5 MG TABLET PO SCH (21:00)
--- NOTE | 2021-08-18 21:51 | PDOC ---
Exam Note: Castillo Note: Please also refer to the separate dictated note~for this date of service dictated separately.~Patient seen individually. Discussed the patient with Nursing staff reviewed the chart.~Reviewed interim history and current functioning. Reviewed vital signs,~Labs/ Radiology~and current medications noted below. Continue current treatment with the changes noted in the dictated addendum note Assessment: Vital Signs/I&O: Vital Signs Date Time Temp Pulse Resp B/P (MAP) Pulse Ox O2 Delivery O2 Flow Rate FiO2 08/18/21 15:51 98.0 72 18 132/77 (95) 93 08/18/21 13:35 Room Air Labs: Laboratory Tests Test 08/18/21 17:00 08/18/21 20:18 Urine Collection Type Clean catch Urine Color Yellow Urine Clarity Clear Urine pH 6.0 Urine Specific Beverly 1.025 Urine Protein Neg (NEG-TRACE) Urine Glucose (UA) Neg mg/dL (NEG) Urine Ketones (Stick) Neg mg/dL (NEG) Urine Blood Neg (NEG) Urine Nitrite Neg (NEG) Urine Bilirubin Neg (NEG) Urine Urobilinogen Dipstick 0.2 mg/dL (0.2 mg/dL) Urine Leukocyte Esterase Neg (NEG) Urine RBC 0 /HPF (0-2) Urine WBC 0 /HPF (0-4) Urine Squamous Epithelial Cells Occ /LPF Urine Bacteria 0 /HPF (0-FEW) White Blood Count 5.3 x10^3/uL (4.0-11.0) Red Blood Count 4.36 x10^6/uL (4.30-5.70) Hemoglobin 13.2 g/dL (13.0-17.5) Hematocrit 39.5 % (39.0-53.0) Mean Corpuscular Volume 91 fL (79-100) Mean Corpuscular Hemoglobin 30 pg (25-35) Mean Corpuscular Hemoglobin Concent 33 g/dL (31-37) Red Cell Distribution Width 13.7 % (11.5-14.5) Platelet Count 246 x10^3/uL (140-400) Neutrophils (%) (Auto) 61 % (31-73) Lymphocytes (%) (Auto) 21 % (24-48) L Monocytes (%) (Auto) 14 % (0-9) H Eosinophils (%) (Auto) 3 % (0-3) Basophils (%) (Auto) 1 % (0-3) Neutrophils # (Auto) 3.2 x10^3uL (1.8-7.7) Lymphocytes # (Auto) 1.1 x10^3/uL (1.0-4.8) Monocytes # (Auto) 0.7 x10^3/uL (0.0-1.1) Eosinophils # (Auto) 0.2 x10^3/uL (0.0-0.7) Basophils # (Auto) 0.0 x10^3/uL (0.0-0.2) D-Dimer (Renae) 0.93 mg/L (0.00-0.50) H Sodium Level 142 mmol/L (136-145) Potassium Level 3.9 mmol/L (3.5-5.1) Chloride Level 106 mmol/L (98-107) Carbon Dioxide Level 26 mmol/L (21-32) Anion Gap 10 (6-14) Blood Urea Nitrogen 19 mg/dL (8-26) Creatinine 1.2 mg/dL (0.7-1.3) Estimated GFR (Cockcroft-Gault) 62.0 BUN/Creatinine Ratio 16 (6-20) Glucose Level 85 mg/dL (70-99) Calcium Level 8.5 mg/dL (8.5-10.1) Magnesium Level 2.4 mg/dL (1.8-2.4) Total Bilirubin 0.7 mg/dL (0.2-1.0) Aspartate Amino Transferase (AST) 27 U/L (15-37) Alanine Aminotransferase (ALT) 33 U/L (16-63) Alkaline Phosphatase 63 U/L (46-116) Total Protein 6.8 g/dL (6.4-8.2) Albumin 3.4 g/dL (3.4-5.0) Albumin/Globulin Ratio 1.0 (1.0-1.7) Valproic Acid Level 22 mcg/mL (50-100) L Valproic Acid Last Dose Date 08/17/21 Valproic Acid Last Dose Time 2100 Current Medications: I have reviewed the current psychotropics carefully including drug interactions. Risk benefit ratio favors no change other than as noted in my dictated progress note. Diagnosis: Problems: (1) Impulse control disorder, unspecified (2) Anxiety disorder, unspecified (3) Dementia, vascular, with depression (4) Dementia, vascular, with delusions (5) Dementia in Alzheimer's disease with depression (6) Dementia in Alzheimer's disease with delusions (7) Dementia of the Alzheimer's type with early onset with behavioral disturbance (8) Major neurocognitive disorder ELIAZAR COYLE MD Aug 18, 2021 21:51
[2021-08-18] MEDS: DIVALPROEX ER 500 MG TAB.ER.24H PO SCH (22:28)
[2021-08-18] MEDS: ATORVASTATIN CALCIUM 20 MG TABLET PO SCH (22:28)
[2021-08-18] MEDS: QUEtiapine 50 MG TABLET. PO SCH (22:28)
[2021-08-19] MEDS: diazePAM 5 MG TABLET. PO PRN ×3 (00:08→21:20)
--- NOTE | 2021-08-19 00:14 | NUR ---
Patient woke up at around 2230 and had a snack and his HS medications. He has been very restless, attempting to get out of the bed, and is unsteady on his feet. Patient does not/cannot follow verbal instructions. Staff took patient to the nursing station in a wheelchair where he is listening to music on the Arei. He continues to be restless and at times he attempts to get up from the wheelchair. PRN diazepam given per order for restlessness. Will continue to monitor.
[2021-08-19 05:44] VITALS: BP 98/64
[2021-08-19] MEDS: QUEtiapine 50 MG TABLET. PO SCH (08:37)
[2021-08-19] MEDS: LOSARTAN 50 MG TABLET. PO SCH (08:38)
[2021-08-19] MEDS: PARoxetine 20 MG TABLET PO SCH (08:38)
--- NOTE | 2021-08-19 08:45 | NUR ---
Patient is restless, impulsive, and mildly agitated. He is unable to stand or walk without assistance at this time. Scheduled and prn medications provided per eMAR; patient continues on 1:1 for safety. Will continue to monitor and report to MD during rounds.
--- NOTE | 2021-08-19 09:11 | NUR ---
Quan has BC/BS insurance. ZACH called [facility] at [phone] to inform of admission to [facility] and obtain authorization. ZACH left message for "Aram" with request for call back in order to obtain authorization. Awaiting return phone call. Addendum: 08/19/21 at 1240 by FARSHAD SERRANO ZACH received return call from Aram at [facility], pending authorization number is [id number]. Aram indicated that he will call ZACH back with confirmed authorization number and number of days. Awaiting return call.
--- NOTE | 2021-08-19 11:26 | NUR ---
ZACH received call from Danny with [employer] who will be working on pt case as the previous pillowcase turner is no longer with the company. Danny questioned if the request for services has been submitted and ZACH informed him that our admissions has attempted to contact Aram for prior auth and is waiting for a returned call. ZACH explained that prior auth is a live review; Danny has requested for concurrent reviews [employer] is utilized and if clarification for thing is needed, Danny can be reached. ZACH gave him an update on how pt is doing and discussed the looking for placement prior to his admission here as ZACH aided in that last week while pt was at the hospital. Danny thought that [facility] was willing but thought they did not have a bed on the locked unit, which is what he needed. ZACH can follow up on that and let Danny know. Danny reports that he is also available to make any calls if needed to aid in pt care and will plan to continue to keep in touch with ZACH. Danny's number is
--- NOTE | 2021-08-19 12:25 | NUR ---
PSYCHOSOCIAL ASSESSMENT ADMISSION DATE: 08/18/21 CONTACT INFORMATION: DPOA/Guardian Contact Name: Marlen Knox Contact Address: [address]; [place] [address] Contact Phone #: ETHNIC ORIGIN: REASONS FOR ADMISSION: ADDITIONAL ADMISSION COMMENTS: According to the intake, pt is aggressive towards staff, eloped from hospital, wandering, pacing, impulsive, sexual impulsivity, hallucinations and delusional REASON FOR ADMISSION IN PATIENT/FAMILY'S OWN WORDS: He is unmanageable at home PATIENT/FAMILY EXPECTATIONS FOR ADMISSION: We've gotta get his behaviors under control and transition him to placement LIVING SITUATION: Patient lives with: Spouse Other living arrangements: pt lives at home with his Contact Name: Marlen Knox Contact Address: [address]; [place] [address] Contact Phone #: Contact Fax #: FAMILY RELATIONS: Marital Status: # of Marriages: 1 # of Children: 2 [facility] Family Support: [employer] Involved in DC Planning Additional Comments r/t Family: Pt has been to his Marlen for almost 40 years. They have two sons, on lives in [place] (almost 2 miles away from pt) and the other son lives in [place], [place]. SIGNIFICANT PSYCHIATRIC/MEDICAL HISTORY: Psychiatric/Treatment History: This is pt second psychiatric stay on [facility]. Pt has been getting testing through the [facility] at and gave him a diagnosis of Frontotemporal Dementia. Pt previously spent almost 2 weeks in the hospital under heavy medical seclusion to manage behaviors. Pertinent Family History: None. HISTORICAL DATA: Childhood Environment: Other-see below Childhood Environment Additional Comments: According to pt , pt had a decent childhood/upbringing. Pt is the oldest of three boys. His father and mother adn his father ended up three more times since then. Pt mother has passed; however, his father and siblings are still living. 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 service: N Adventism background: No preference Sexual orientation: Heterosexual Educational Level: Pt graduated HS (12th grade) Past/Present Interests/Hobbies: traveling, the [employer]' sporting events (but can no longer attend) Financial support/resources: SS Disability Monthly income: Person handling finances: Pt handles finances Do you have a history of legal problems: N Cultural considerations: None SOCIAL RELATIONSHIPS-CURRENT/PAST: Psychiatrist: None PCP: Mihir Umana Counselor/Therapist: None Veterans' Admiinistration: None Support Group: None Guitar Technician/Auto Clutch Specialist: None Other relationships: [facility] @ STRENGTHS & WEAKNESSES: Patient's strengths: Good family support Ambulatory Other patient strengths: Patient's weaknesses: Lack of resources Impulsive Other patient weaknesses: PRELIMINARY PLAN OF TREATMENT: Preliminary plan: Promote Coping Skill Medication Stabilization Monitor Med Effects Control abnormal behavior Dec. Outbursts Other preliminary treatment comments: DISCHARGE PLANNING: Discharge planning/disposition: Placement Needed Additional discharge needs identified: Referrals for a higher level of care will be needed. ADDITIONAL INFORMATION: Other Pertinent Data: Information from previous PSA has been included. Pt has been admitted to [facility] since his previous admission in July due to uncontrollable behavior at home. Pt has been very active in working with the insurance and attempts to find placement that will be suitable for pt needs. ZACH will continue to work with Marlen and will have concurrent reviews with [employer] during pt stay.
--- NOTE | 2021-08-19 12:50 | TX PLAN ---
Interdisciplinary Tx Plan Admission Information Aug 18, 2021 at 12:50 Legal Status (on Admission): Voluntary DPOA/Guardian Name: Marlen Knox Contact Other Contact Name: Marlen Knox Other Contact Verified Code Status: DNR Allergies: Coded Allergies: No Known Allergies (Verified Allergy, Unknown, 07/23/21) Diagnoses Primary Diagnosis: Frontotemporal Dementia Reasons for Admission: Aggressive, Delusions, Hallucinations, Poor impulse control, Other Problem in Patient's Words: He is unmanageable at home Additional Admission Comments: According to the intake, pt is aggressive towards staff, eloped from hospital, wandering, pacing, impulsive, sexual impulsivity, hallucinations and delusional Problems Active Problems: Restless impulsive on 1:1 due to oversedation Inactive Problems: Medication compliance Pt Strengths/Limitations Ability for [place]: Poor Cognitive Functioning/Ability: Poor Communication Skills/Ability: Fair Financial Resources: Good Insight/Judgement: Poor Intellectual Ability: Fair Physical Health: Fair Social Skills: Poor Stability in Family: Excellent Stability in School/Work: Poor Verbal Skills: Fair Discharge Criteria Discharge Criteria: No need for close observ., Adequate arrangements @DC, Improved behavior, Improved mood/thought Preliminary Discharge Plan Preliminary DC Plan: Placement Needed Special Precautions Special Precautions: Other (Currently a 1:1 for sedation) Fall Risk: Moderate Initial D/C Plan Referrals to placement will need to be sent. Identified Discharge Needs: Referrals for a higher level of care will be needed. Currently Utilized Resources Currently Utilized Resources/P: Primary Care Physician Neurologist at the [facility] at Referrals Community Resources: Referrals to Memory Care Units Identified Problems/Hx/Goals Objectives/Short-Term Goals Short Term Goals: Control abnormal behavior, Dec. Outbursts, Medication Stabilization, Monitor Med Effects, Promote Coping Skill Short Term Goals in Patient's: N/A Interventions/Frequency Staff Interventions/Frequency&: Psychiatrist to assess pt at least 3x per week for medication management Social Work to assess pt at least 2x per week to identify barriers to care and discharge planning goals. Nursing to assess medication effects, behavior modification and complete 15 minute checks daily. Encourage participation in group activities (if applicable) or 1:1 engagement based off Activity Dept goals. 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 Education: Pt graduated HS (12th grade) Community Follow-up Primary Care Physician Treatment Plan Explained Patient/Car Inspector had this treatment plan explained to him/her as indicated by the signature below and has been given the opportunity to ask questions and make suggestions: Date: Patient/Car Inspector Signature: Patient/Car Inspector Decline: No (Pt is very active in pt care.) ALANA PERALES Aug 19, 2021 12:50
--- NOTE | 2021-08-19 14:28 | NUR ---
ZACH returned call to Marlen, pt /DPOA, who wanted to double check and see if insurance has given the authorization. ZACH informed Marlen that [facility] has called but we have not received a final confirmation. Marlen informed ZACH that she spoke with nursing re: an update on pt and is concerned that pt is not able to feed himself. She understands that it could be the medications that are causing the sedation and causing him to sleep more; however, she is questioning if this is also a potential decline in pt diagnosis. ZACH encouraged Marlen to participate in treatment team. This will give the daily update on how pt did the previous night and that morning, as well as hear the game plan from Dr. Mercer on medications and timeline. ZACH will make sure to let Marlen know about insurance once the authorization has been fully completed.
[2021-08-19 15:54] VITALS: BP 107/65
[2021-08-19] MEDS: ATORVASTATIN CALCIUM 20 MG TABLET PO SCH (21:20)
[2021-08-19] MEDS: DIVALPROEX ER 500 MG TAB.ER.24H PO SCH (21:20)
--- NOTE | 2021-08-19 21:21 | NUR ---
Patient remains a 1:1 for safety. Patient is very restless, unwilling to listen to staff, will not stay in bed, attempting to stand from seated position from wheelchair. Patients gait remains very unsteady. Staff attempted to ambulate patient in the hallway using gait belt, he remained unsteady and impulsive. PRN diazepam given per order with HS meds for restlessness.
--- NOTE | 2021-08-19 22:27 | PDOC ---
Exam Note: Castillo Note: Please also refer to the separate dictated note~for this date of service dictated separately.~Patient seen individually. Discussed the patient with Nursing staff reviewed the chart.~Reviewed interim history and current functioning. Reviewed vital signs,~Labs/ Radiology~and current medications noted below. Continue current treatment with the changes noted in the dictated addendum note Assessment: Vital Signs/I&O: Vital Signs Date Time Temp Pulse Resp B/P (MAP) Pulse Ox O2 Delivery O2 Flow Rate FiO2 08/19/21 15:54 98.5 88 19 107/65 (79) 97 08/18/21 13:35 Room Air I & O 08/18/21 08/18/21 08/19/21 15:00 23:00 07:00 Intake Total 480 ml 480 ml Balance 480 ml 480 ml Current Medications: Meds: Current Medications Medications (Trade) Dose Ordered Sig/Susana Route PRN Reason Start Time Stop Time Status Last Admin Dose Admin Acetaminophen (Tylenol) 650 mg PRN Q6HRS PRN PO MILD PAIN / TEMP > 100.3'F 08/18/21 13:00 Divalproex Sodium (Depakote Er) 1,000 mg QHS PO 08/18/21 21:00 08/19/21 21:20 Al Hydroxide/Mg Hydroxide (Mylanta Plus Xs) 15 ml PRN AFTMEALHC PRN PO DYSPEPSIA 08/18/21 13:00 Medroxyprogesterone Acetate (Provera) 5 mg DAILY PO 08/19/21 09:00 08/19/21 08:38 Multi-Ingredient Ointment (Analgesic [place]) 1 sandra PRN QID PRN TP MUSCLE PAIN 08/18/21 13:00 Quetiapine Fumarate (SEROquel) 50 mg BID PO 08/18/21 21:00 08/19/21 18:10 DC 08/19/21 08:37 Atorvastatin Calcium (Lipitor) 40 mg QHS PO 08/18/21 21:00 08/19/21 21:20 Magnesium Hydroxide (Milk Of Magnesia) 2,400 mg PRN QHS PRN PO CONSTIPATION 08/18/21 13:45 Paroxetine HCl (Paxil) 40 mg DAILY PO 08/19/21 09:00 08/19/21 08:38 Diazepam (Valium) 10 mg Q6HRS PO 08/18/21 18:00 08/18/21 19:51 DC Losartan Potassium (Cozaar) 50 mg DAILY PO 08/19/21 09:00 08/19/21 08:38 Haloperidol (Haldol) 10 mg BID PO 08/18/21 21:00 08/18/21 19:51 DC Diazepam (Valium) 2.5 mg PRN TID PRN PO aggresion/anxiety 08/18/21 20:00 08/22/21 00:01 08/19/21 21:20 Current Medications Medications (Trade) Dose Ordered Sig/Susana Route PRN Reason Start Time Stop Time Status Last Admin Dose Admin Medroxyprogesterone Acetate (Provera) 5 mg DAILY PO 08/19/21 09:00 08/19/21 08:38 Paroxetine HCl (Paxil) 40 mg DAILY PO 08/19/21 09:00 08/19/21 08:38 Losartan Potassium (Cozaar) 50 mg DAILY PO 08/19/21 09:00 08/19/21 08:38 I have reviewed the current psychotropics carefully including drug interactions. Risk benefit ratio favors no change other than as noted in my dictated progress note. Diagnosis: Problems: (1) Impulse control disorder, unspecified (2) Anxiety disorder, unspecified (3) Dementia, vascular, with depression (4) Dementia, vascular, with delusions (5) Dementia in Alzheimer's disease with depression (6) Dementia in Alzheimer's disease with delusions (7) Dementia of the Alzheimer's type with early onset with behavioral disturbanc e (8) Major neurocognitive disorder ELIAZAR COYLE MD Aug 19, 2021 22:27
--- NOTE | 2021-08-19 22:33 | NUR ---
Patient is pacing and walking fast in the hallway. He seems to like to look out the window. He is not interested in listening to music on the miguel angel or watching TV. He is very disorganized and has a hard time making his needs known. He received PRN diazepam about an hour ago, it has not been effective to this point. Patient continues to be impulsive and disorganized. He does not communicate very much and does not answer this nurses questions. Staff has been walking in the hallways with patient and keeping him within arms length as he is a 1:1 for unsteadiness.
--- NOTE | 2021-08-19 23:04 | HP ---
DATE OF SERVICE: 08/19/2021 ADMIT DATE: 08/18/2021 PSYCHIATRIC ADMISSION AND HISTORY/EVALUATION IDENTIFYING DATA: The patient is a 60-year-old male referred back to us by his primary care physician after he presented to the [facility] on account of being aggressive towards staff. He had tried to elope from the hospital, was wandering, pacing, impulsive, sexually inappropriate, having active hallucinations, delusional. Behaviors were deemed dangerous, unmanageable at the facility resulting in this referral back to us, having being discharged from our facility just about 2 or 3 weeks back. CHIEF COMPLAINT: "No." The patient is extremely sedated as he has been getting approximately 30 mg of Valium a day in addition to Haldol 10 mg b.i.d. and Seroquel amongst other psychotropics since he has been extremely out of control. The patient has been sexually inappropriate, psychotic and aggressive. MEDICAL HISTORY: Positive for established diagnosis of frontotemporal dementia, reportedly treated outpatient at [facility] outpatient services. PAST MEDICAL HISTORY: Positive for hyperlipidemia. ACCU-CHEKS: None. CODE STATUS: DNR. ALLERGIES: Negative. DIET: Regular. [place] thick. Takes medications whole. Ambulates ad pa, but at the time of admission, he is extremely sedated, unable to ambulate, is a significant fall risk and has been placed on 1 on 1 status due to the fall risk and the sedation. He has been grabbing at people and drinks when awake. SOCIAL HISTORY: No history of alcohol, drug abuse, physical, sexual, elder abuse, but he has been sexually inappropriate and is on the Provera to assist with this. Prior to all of this, the patient was living at home with his . 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 CURRENT PSYCHOTROPICS: Depakote 1000 mg at bedtime, Provera 5 mg a day, Paxil 40 mg a day and Valium is being tapered. REVIEW OF SYSTEMS: No CV, , pulmonary, eye, ENT system symptoms on review. Reliability poor. MENTAL STATUS EXAM: Oriented to himself. Insight, judgment, recent and remote memory, attention, concentration, fund of knowledge poor consistent with his diagnosis. IMPRESSION: Major neurocognitive disorder, frontotemporal with delusions, behavioral disturbance, anxiety disorder, unspecified; impulse control disorder, unspecified. Rest as above. PLAN: Admit to geropsychiatry unit at [facility]. I will see the patient daily individually from a psychiatric standpoint, medical followup Dr. Hill/Dr Tee. Discussed with Cary Agosto, systems coordinator who has coordinated with the patient's for this readmission. We will taper and stop the sedating psychotropics including Valium, Seroquel, Haldol. Continue with Depakote, Provera, Paxil for now until he is more awake and then decide on further psychotropic adjustments to assist with all of the above. He may need long-term care placement. ESTIMATED LENGTH OF STAY: 10-12 days. DISPOSITION PLANS: To group home when stable. JAMAL/CHEMO DR: JAMAL/laureano TID: [id number]
--- NOTE | 2021-08-20 01:30 | NUR ---
Patient has been in constant motion, pulling on exit doors, rattling day room doors. He throws his legs over the side rails while in bed to get up. He is 1:1 but he is still impulsive and has an unsteady gait. At times 2 staff members have been needed to ensure his safety. PRN diazepam given at 0117 for restlessness. we have tried warm blankets, snacks and drinks for distraction, nothing has been effective. Patient has not slept very much, if at all.
--- NOTE | 2021-08-20 02:38 | CONS ---
DATE OF CONSULTATION: 08/19/2021 CONSULT FOR MEDICAL MANAGEMENT HISTORY OF PRESENT ILLNESS: The patient is a 60-year-old male patient who currently lives at home and was transferred to our facility from [facility]. He was admitted on 08/18 from [facility] as he was aggressive towards staff, eloped from hospital, wandering, pacing, impulsive, sexual impulsivity, hallucinating, delusional, all this in the background of frontotemporal dementia and was in huge amount of sedation. He was on 40 mg of Valium and he also gets Ativan and Haldol intramuscular, was transferred to our facility for inpatient psychiatric stabilization. The patient is nonverbal, but was clearly very sedated compared to when I saw him last time. PAST MEDICAL HISTORY: Significant for hyperlipidemia and aphasia. He obviously has past psychiatric history significant for frontotemporal dementia and anxiety together with impulse control disorder. PAST SURGICAL HISTORY: Unobtainable. ALLERGIES: He has no known drug allergies. MEDICATIONS: He is currently on the following medication: He is on losartan potassium 50 mg once a day, paroxetine 40 mg once a day, medroxyprogesterone acetate 5 mg daily, atorvastatin 40 mg at bedtime, quetiapine fumarate 50 mg twice a day, divalproex 1000 mg at bedtime, diazepam 2.5 mg 3 times a day, magnesium hydroxide, milk of magnesia 30 mL p.o. daily p.r.n. for constipation and Tylenol 650 mg every 6 hours. FAMILY HISTORY: Unobtainable. SOCIAL HISTORY: He is and lives at home with his . He does not smoke, drink alcohol or use any recreational drugs. REVIEW OF SYSTEMS: Unobtainable. PHYSICAL EXAMINATION: GENERAL: When I examined him this afternoon, he definitely was sitting in his chair, in no apparent distress. He is sedated. There was no pallor, jaundice, cyanosis or thyromegaly. No jugular venous distention. No limb edema. VITAL SIGNS: Heart rate was 73, blood pressure is 119/76, temperature was 97.8, respiratory rate 20 and oxygen saturation was 92%. HEAD, EYES, EARS, NOSE AND THROAT: Normocephalic, atraumatic. NECK: Supple. HEART: Normal first and second heart sounds. No gallop, rub or murmur. CHEST: Clear to auscultation. No crepitation or rhonchi. ABDOMEN: Distended, soft, nontender. NEUROLOGIC: He was awake, alert, but nonverbal. All his cranial nerves seem to be grossly intact. EXTREMITIES: He moves extremities without difficulty. He normally ambulates without assistance or assistive devices; however, is now on one and one due to excessive sedation. LABORATORY WORK: This morning showed white cell count was 5300, hemoglobin 13, hematocrit 39, MCV 91 and platelet count 246,000 with normal manual differential. His D-dimer was slightly elevated at 0.93. His chemistry showed a serum sodium 142, potassium 3.9, chloride 106, bicarbonate 26, anion gap of 10, BUN 19, creatinine 1.2. Estimated GFR was 62 mL/minute. His glucose was 85, calcium was 8.5, magnesium 2.4. Total bilirubin, AST, ALT, alkaline phosphatase were normal. Total protein was 6.8, albumin 3.4. His urinalysis essentially unremarkable and toxic screen showed that his valproic acid was only 22. ASSESSMENT: In summary, this is a 60-year-old male patient who was readmitted again on account of being aggressive towards staff, eloped from hospital, wandering, pacing, very impulsive with sexual impulsivity, hallucination, delusional, all this in a background of frontotemporal dementia. He apparently was requiring 40 mg of diazepam a day together with Haldol and Ativan injection to keep him sedated. Medically, he has hypertension, hyperlipidemia and from medical point of view the patient seemed to be stable. All his vital signs are within normal range and his lab work are all within acceptable normal range. PLAN: My plan is to continue with all his medication and follow up his lab works that are still pending and make any necessary adjustment and recommendation. Thank you, Dr. Mercer for allowing me to participate in the care of this patient. SIERRA/NUVIA DR: Eriberto TID: [id number]
--- NOTE | 2021-08-20 05:02 | NUR ---
Patient is becoming increasingly more aggressive and is now pulling much harder on the door knobs. He has become irritable with his 1:1 caregiver and is not able to be redirected or distracted with snacks, drinks, etc. Dr Mercer called and was told about patients worsening behaviors and that we have exhausted the PRN diazepam. He gave telephone order for Zyprexa 5mg PRN Q2hrs max 20mg /24hrs. Will give PRN zyprexa as soon as pharmacy approves order.
--- NOTE | 2021-08-20 05:16 | NUR ---
Patients exit seeking behaviors have escalated and he is now kicking the kickplates on the doors while pulling on the handles. He is at the foyer door by the [facility] peering through the window while attempting to kick the door, he is still unsteady on his feet and is becoming more aggressive and impulsive. ESTEFANY Mishra is patients current 1:1 and is monitoring his behaviors. Patient has 2-3 blankets from his bed in his arms. Patient is very disorganized and does not communicate verbally, nurse is unsure if he understands what is said. He willingly took the PRN zyprexa. Will continue to monitor.
[2021-08-20 06:10] VITALS: BP 139/86
[2021-08-20] MEDS: PARoxetine 20 MG TABLET PO SCH (13:30)
[2021-08-20] MEDS: LOSARTAN 50 MG TABLET. PO SCH (13:31)
--- NOTE | 2021-08-20 15:10 | NUR ---
ZACH received return voice mail from Aram at [facility], . Authorization number is [id number]. is approved thru 08/24/21, next review will be due on 08/25/21. Addendum: 08/20/21 at 1512 by FARSHAD SERRANO ZACH updated Marlen, /SHAR, on above information. Marlen will be involved in team meeting via phone on 08/21/21.
[2021-08-20 15:38] VITALS: BP 105/66
[2021-08-20 16:14] LABS: THYROXINE 4.9 ug/dL (4.5-12.0)
[2021-08-20] MEDS: diazePAM 5 MG TABLET. PO PRN (18:27)
--- NOTE | 2021-08-20 18:30 | NUR ---
Patient slept until about 13:00 and has been up the rest of the shift. He has been restless, impulsive, and mildly agitated at times. He is unable to stand or walk without assistance at this time, but has been ambulating better. Patient continues on 1:1 for safety. Will continue to monitor and report to MD during rounds.
[2021-08-20] MEDS: ATORVASTATIN CALCIUM 20 MG TABLET PO SCH (20:35)
[2021-08-20] MEDS ORDERED: DIVALPROEX 125 MG CAP.SPRINK PO ONE (21:00)
--- NOTE | 2021-08-20 22:03 | PDOC ---
Exam Note: Castillo Note: Please also refer to the separate dictated note~for this date of service dictated separately.~Patient seen individually. Discussed the patient with Nursing staff reviewed the chart.~Reviewed interim history and current functioning. Reviewed vital signs,~Labs/ Radiology~and current medications noted below. Continue current treatment with the changes noted in the dictated addendum note Assessment: Vital Signs/I&O: Vital Signs Date Time Temp Pulse Resp B/P (MAP) Pulse Ox O2 Delivery O2 Flow Rate FiO2 08/20/21 15:38 98.3 85 16 105/66 (79) 93 08/18/21 13:35 Room Air I & O 08/19/21 08/19/21 08/20/21 15:00 23:00 07:00 Intake Total 900 ml 100 ml Balance 900 ml 100 ml Current Medications: Meds: Current Medications Medications (Trade) Dose Ordered Sig/Susana Route PRN Reason Start Time Stop Time Status Last Admin Dose Admin Acetaminophen (Tylenol) 650 mg PRN Q6HRS PRN PO MILD PAIN / TEMP > 100.3'F 08/18/21 13:00 Divalproex Sodium (Depakote Er) 1,000 mg QHS PO 08/18/21 21:00 08/20/21 18:46 DC 08/19/21 21:20 Al Hydroxide/Mg Hydroxide (Mylanta Plus Xs) 15 ml PRN AFTMEALHC PRN PO DYSPEPSIA 08/18/21 13:00 Medroxyprogesterone Acetate (Provera) 5 mg DAILY PO 08/19/21 09:00 08/20/21 13:30 Multi-Ingredient Ointment (Analgesic [place]) 1 sandra PRN QID PRN TP MUSCLE PAIN 08/18/21 13:00 Quetiapine Fumarate (SEROquel) 50 mg BID PO 08/18/21 21:00 08/19/21 18:10 DC 08/19/21 08:37 Atorvastatin Calcium (Lipitor) 40 mg QHS PO 08/18/21 21:00 08/20/21 20:35 Magnesium Hydroxide (Milk Of Magnesia) 2,400 mg PRN QHS PRN PO CONSTIPATION 08/18/21 13:45 Paroxetine HCl (Paxil) 40 mg DAILY PO 08/19/21 09:00 08/20/21 13:30 Diazepam (Valium) 10 mg Q6HRS PO 08/18/21 18:00 08/18/21 19:51 DC Losartan Potassium (Cozaar) 50 mg DAILY PO 08/19/21 09:00 08/20/21 13:31 Haloperidol (Haldol) 10 mg BID PO 08/18/21 21:00 08/18/21 19:51 DC Diazepam (Valium) 2.5 mg PRN TID PRN PO aggresion/anxiety 08/18/21 20:00 08/22/21 00:01 08/20/21 18:27 Olanzapine (ZyPREXA ZYDIS) 5 mg PRN Q2HR PRN PO PSYCHOSIS/agitation 08/20/21 05:00 08/20/21 05:08 Divalproex Sodium (Depakote Sprinkles) 500 mg BID PO 08/21/21 09:00 Divalproex Sodium (Depakote Sprinkles) 1,000 mg ONCE ONCE PO 08/20/21 21:00 08/20/21 21:01 DC 08/20/21 20:35 Current Medications Medications (Trade) Dose Ordered Sig/Susana Route PRN Reason Start Time Stop Time Status Last Admin Dose Admin Olanzapine (ZyPREXA ZYDIS) 5 mg PRN Q2HR PRN PO PSYCHOSIS/agitation 08/20/21 05:00 08/20/21 05:08 Divalproex Sodium (Depakote Sprinkles) 1,000 mg ONCE ONCE PO 08/20/21 21:00 08/20/21 21:01 DC 08/20/21 20:35 I have reviewed the current psychotropics carefully including drug interactions. Risk benefit ratio favors no change other than as noted in my dictated progress note. Diagnosis: Problems: (1) Impulse control disorder, unspecified (2) Anxiety disorder, unspecified (3) Dementia, vascular, with depression (4) Dementia, vascular, with delusions (5) Dementia in Alzheimer's disease with depression (6) Dementia in Alzheimer's disease with delusions (7) Dementia of the Alzheimer's type with early onset with behavioral disturbance (8) Major neurocognitive disorder ELIAZAR COYLE MD Aug 20, 2021 22:03
--- NOTE | 2021-08-20 22:03 | PDOC ---
Exam Note: Castillo Note: This note is a late entry for 08/19/2021 covers elements not covered in my initial note. Subjective: The patient was seen individually in the evening of 08/19/2021 with Brian ALLISON, discussed and reviewed the chart. The patient slept 5-1/2 hours previous night. Patient remains quite sedated, very labile in his mood up and down, restless. QTc on the EKG is 430 milliseconds, unremarkable. I met with the patient in his room, lying in bed. He remains one-on-one status and is a fall risk. Review of Systems: No CV, , pulmonary, eye, ENT system symptoms on review. Mental Status Exam: The patient is quite sedated, difficult to assess orientation. Insight and judgement, recent and remote memory, attention and concentration, fund of knowledge is poor consistent with his diagnoses. Laboratory Data: Reviewed. Impression: Major neurocognitive disorder frontotemporal with delusions, depression, behavioral disturbance. Anxiety disorder unspecified. Impulse control disorder unspecified. Plan: We will go ahead and stop Seroquel 50 mg b.i.d. Continue Depakote at current dosage since he was on this at the time of his last discharge from our facility. Maintain Paxil, Provera. Stop the Valium and Seroquel. Rest psychotropics unchanged for now. Assessment: Vital Signs/I&O: Vital Signs Date Time Temp Pulse Resp B/P (MAP) Pulse Ox O2 Delivery O2 Flow Rate FiO2 08/20/21 15:38 98.3 85 16 105/66 (79) 93 08/18/21 13:35 Room Air I & O 08/19/21 08/19/21 08/20/21 15:00 23:00 07:00 Intake Total 900 ml 100 ml Balance 900 ml 100 ml Current Medications: Meds: Current Medications Medications (Trade) Dose Ordered Sig/Susana Route PRN Reason Start Time Stop Time Status Last Admin Dose Admin Acetaminophen (Tylenol) 650 mg PRN Q6HRS PRN PO MILD PAIN / TEMP > 100.3'F 08/18/21 13:00 Divalproex Sodium (Depakote Er) 1,000 mg QHS PO 08/18/21 21:00 08/20/21 18:46 DC 08/19/21 21:20 Al Hydroxide/Mg Hydroxide (Mylanta Plus Xs) 15 ml PRN AFTMEALHC PRN PO DYSPEPSIA 08/18/21 13:00 Medroxyprogesterone Acetate (Provera) 5 mg DAILY PO 08/19/21 09:00 08/20/21 13:30 Multi-Ingredient Ointment (Analgesic [place]) 1 sandra PRN QID PRN TP MUSCLE PAIN 08/18/21 13:00 Quetiapine Fumarate (SEROquel) 50 mg BID PO 08/18/21 21:00 08/19/21 18:10 DC 08/19/21 08:37 Atorvastatin Calcium (Lipitor) 40 mg QHS PO 08/18/21 21:00 08/20/21 20:35 Magnesium Hydroxide (Milk Of Magnesia) 2,400 mg PRN QHS PRN PO CONSTIPATION 08/18/21 13:45 Paroxetine HCl (Paxil) 40 mg DAILY PO 08/19/21 09:00 08/20/21 13:30 Diazepam (Valium) 10 mg Q6HRS PO 08/18/21 18:00 08/18/21 19:51 DC Losartan Potassium (Cozaar) 50 mg DAILY PO 08/19/21 09:00 08/20/21 13:31 Haloperidol (Haldol) 10 mg BID PO 08/18/21 21:00 08/18/21 19:51 DC Diazepam (Valium) 2.5 mg PRN TID PRN PO aggresion/anxiety 08/18/21 20:00 08/22/21 00:01 08/20/21 18:27 Olanzapine (ZyPREXA ZYDIS) 5 mg PRN Q2HR PRN PO PSYCHOSIS/agitation 08/20/21 05:00 08/20/21 05:08 Divalproex Sodium (Depakote Sprinkles) 500 mg BID PO 08/21/21 09:00 Divalproex Sodium (Depakote Sprinkles) 1,000 mg ONCE ONCE PO 08/20/21 21:00 08/20/21 21:01 DC 08/20/21 20:35 Current Medications Medications (Trade) Dose Ordered Sig/Susana Route PRN Reason Start Time Stop Time Status Last Admin Dose Admin Olanzapine (ZyPREXA ZYDIS) 5 mg PRN Q2HR PRN PO PSYCHOSIS/agitation 08/20/21 05:00 08/20/21 05:08 Divalproex Sodium (Depakote Sprinkles) 1,000 mg ONCE ONCE PO 08/20/21 21:00 08/20/21 21:01 DC 08/20/21 20:35 I have reviewed the current psychotropics carefully including drug interactions. Risk benefit ratio favors no change other than as noted in my dictated progress note. Diagnosis: Problems: (1) Impulse control disorder, unspecified (2) Anxiety disorder, unspecified (3) Dementia, vascular, with depression (4) Dementia, vascular, with delusions (5) Dementia in Alzheimer's disease with depression (6) Dementia in Alzheimer's disease with delusions (7) Dementia of the Alzheimer's type with early onset with behavioral disturbance (8) Major neurocognitive disorder ELIAZAR COYLE MD Aug 20, 2021 22:03
--- NOTE | 2021-08-21 01:11 | NUR ---
Pt remains a 1:1 for safety. Last evening he was restless and unsteady at times and walked with gait belt and standby assistance on unit. He was exit seeking and has been fairly cooperative with staff and can be difficult to redirect. He tool meds whole with some prompting. He has had no aggressive behaviors tonight.
[2021-08-21 06:31] LABS: BASO % 1 % (0-3); EOS # 0.2 x10^3/uL (0.0-0.7); EOS % 5 % (0-3); HEMOGLOBIN 12.4 g/dL (13.0-17.5); LYMPH # 1.4 x10^3/uL (1.0-4.8); LYMPH % 36 % (24-48); MEAN CORPUSCULAR HEMOGLOBIN 30 pg (25-35); MEAN CORPUSCULAR HGB CONC 34 g/dL (31-37); MEAN CORPUSCULAR VOLUME 90 fL (79-100); MONO # 0.5 x10^3/uL (0.0-1.1); MONO % 14 % (0-9); NEUT # 1.8 x10^3uL (1.8-7.7); NEUT % 46 % (31-73); PLATELET COUNT 225 x10^3/uL (140-400); RED CELL DISTRIBUTION WIDTH 13.6 % (11.5-14.5)
[2021-08-21 06:36] LABS: ALBUMIN 3.2 g/dL (3.4-5.0); ALK PHOS 52 U/L (46-116); ALT (SGPT) 27 U/L (16-63); ANION GAP 7 (6-14); AST (SGOT) 19 U/L (15-37); BLOOD UREA NITROGEN 18 mg/dL (8-26); BUN/CREATININE RATIO 20 (6-20); CALCIUM 8.2 mg/dL (8.5-10.1); CARBON DIOXIDE 28 mmol/L (21-32); CHLORIDE 108 mmol/L (98-107); CREATININE 0.9 mg/dL (0.7-1.3); GFR 86.4; GLUCOSE 93 mg/dL (70-99); SODIUM 143 mmol/L (136-145); TOTAL BILIRUBIN 0.5 mg/dL (0.2-1.0); TOTAL PROTEIN 6.4 g/dL (6.4-8.2)
[2021-08-21 06:48] LABS: VAL ACID 60 mcg/mL (50-100)
[2021-08-21 06:55] VITALS: BP 120/65
[2021-08-21] MEDS: PARoxetine 20 MG TABLET PO SCH (08:18)
[2021-08-21] MEDS: LOSARTAN 50 MG TABLET. PO SCH (08:19)
[2021-08-21] MEDS: DIVALPROEX 125 MG CAP.SPRINK PO SCH ×2 (08:20→19:51)
--- NOTE | 2021-08-21 08:30 | NUR ---
ACTIVITY THERAPY ASSESSMENT At 0830 E D TECH saw pt pushing LUMBER SALES SUPERVISOR to the side of the door to get into the nurses station. E D TECH entered from the opposite end of the hallway to redirect the pt with a few magazines. Pt was engaged for a few minutes as he sat down and read the magazines. A few minutes later when E D TECH checked on pt and 1:1 again pt was at the door of the nurses station again trying to enter. E D TECH helped two other staff members direct pt to his room where he was placed in bed. E D TECH turned off room lights to try to get pt to relax but he continuously tried to get out of bed. E D TECH then went to get the miguel angel to play pt's favorite band which is Singly. Pt was distracted by magazines or miguel angel for very short periods of time and then attempted to get out of bed. Pt on multiple attempts used hands and feet to guide staff out of the way. Pt exited his bed over the bed railing that was raised up. Pt made his way back out to the hallway with the assistance of two staff holding his gate belt. Staff sat pt in a chair and E D TECH attempted to redirect pt once again with magazines and miguel angel. Pt remained hyper focused on entering the nurses station and was not redirectable at this time. 1:1 staff switched at this point in time. This LUMBER SALES SUPERVISOR attempted to take pt on a walk where he then overpowered LUMBER SALES SUPERVISOR and was lowered to the ground for his safety as he is unsteady at this time. Pt laughed as he stood back up and seems to be very aware that he is stronger than staff. At this time staff are cautious of their badges as pt has figured out the waving the badge over the lock system will allow him through the door. E D TECH and secretary board of commissioners attempted minimize interests of nurses station by covering the inside windows with sheets. E D TECH checked in a few minutes later and secretary board of commissioners reported that it seemed to work for a few moments. Pt is pleasant with staff but is unaware of following directions and boundaries. Over the span of about 45 minutes pt remained restless throughout interaction and unable to follow direction. Per notes pt remains disorganized and continues to wander. Initial goal aimed to increase relaxation skills and establish boundaries. Pt will participate in at least three Activity Therapy sessions per week.
[2021-08-21] MEDS: diazePAM 5 MG TABLET. PO PRN (09:29)
--- NOTE | 2021-08-21 11:39 | NUR ---
WEEKLY ACTIVITY THERAPY NOTE Date of Admission:08/18/21 Date of AT Assessment: TBD Precipitating behaviors that initiated intake and admission:Patient was reported to be aggressive towards staff, eloping from hospital, wandering, pacing, impulsive, sexual impulsivity, having hallucinations, and being delusional Goal aimed: TBD Initial Goal: TBD Weekly progress towards goal: NA Group participation level: NA Weekly highlights: arrived on [facility] Behaviors observed: Plan: meet/assess pt Beneficial adaptations:
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
--- NOTE | 2021-08-21 12:37 | NUR ---
At 0830 WEBSITE ADMIN saw pt pushing SALES MARKETING to the side of the door to get into the nurses station. WEBSITE ADMIN entered from the opposite end of the hallway to redirect the pt with a few magazines. Pt was engaged for a few minutes as he sat down and read the magazines. A few minutes later when WEBSITE ADMIN checked on pt and 1:1 again pt was at the door of the nurses station again trying to enter. WEBSITE ADMIN helped two other staff members direct pt to his room where he was placed in bed. WEBSITE ADMIN turned off room lights to try to get pt to relax but he continuously tried to get out of bed. WEBSITE ADMIN then went to get the miguel angel to play pt's favorite band which is [employer]. Pt was distracted by magazines or miguel angel for very short periods of time and then attempted to get out of bed. Pt on multiple attempts used hands and feet to guide staff out of the way. Pt exited his bed over the bed railing that was raised up. Pt made his way back out to the hallway with the assistance of two staff holding his gate belt. Staff sat pt in a chair and WEBSITE ADMIN attempted to redirect pt once again with magazines and miguel angel. Pt remained hyper focused on entering the nurses station and was not redirectable at this time. 1:1 staff switched at this point in time. This SALES MARKETING attempted to take pt on a walk where he then overpowered SALES MARKETING and was lowered to the ground for his safety as he is unsteady at this time. Pt laughed as he stood back up and seems to be very aware that he is stronger than staff. At this time staff are cautious of their badges as pt has figured out the waving the badge over the lock system will allow him through the door. WEBSITE ADMIN and diving board assembler attempted minimize interests of nurses station by covering the inside windows with sheets. WEBSITE ADMIN checked in a few minutes later and diving board assembler reported that it seemed to work for a few moments. Pt is pleasant with staff but is unaware of following directions and boundaries. Over the span of about 45 minutes pt remained restless throughout interaction and unable to follow direction.
[2021-08-21] MEDS: QUEtiapine 25 MG TABLET. PO SCH ×2 (13:00→16:04)
--- NOTE | 2021-08-21 14:40 | NUR ---
Received a call from Marlen Knox, /DPOA, who requested that their sons be allowed phone contact with pt. She provided the following names and numbers: Buster Knox, son, Bandar Knox [phone] This nurse educated Marlen about unit policy regarding pt privacy, and stated that to permit communication she will need to provide patient passcode to sons. Marlen verbalized understanding and call ended. Pt chart/communication forms updated to reflect /DPOA request.
[2021-08-21 16:11] VITALS: BP 130/78
[2021-08-21] MEDS: ATORVASTATIN CALCIUM 20 MG TABLET PO SCH (19:50)
--- NOTE | 2021-08-21 22:10 | PDOC ---
Exam Note: Castillo Note: Please also refer to the separate dictated note~for this date of service dictated separately.~Patient seen individually. Discussed the patient with Nursing staff reviewed the chart.~Reviewed interim history and current functioning. Reviewed vital signs,~Labs/ Radiology~and current medications noted below. Continue current treatment with the changes noted in the dictated addendum note Assessment: Vital Signs/I&O: Vital Signs Date Time Temp Pulse Resp B/P (MAP) Pulse Ox O2 Delivery O2 Flow Rate FiO2 08/21/21 16:11 98.8 100 20 130/78 (95) 94 08/18/21 13:35 Room Air I & O 08/20/21 08/20/21 08/21/21 15:00 23:00 07:00 Intake Total 0 ml 960 ml Balance 0 ml 960 ml Labs: Laboratory Tests Test 08/21/21 06:07 White Blood Count 4.0 x10^3/uL (4.0-11.0) Red Blood Count 4.10 x10^6/uL (4.30-5.70) L Hemoglobin 12.4 g/dL (13.0-17.5) L Hematocrit 37.0 % (39.0-53.0) L Mean Corpuscular Volume 90 fL (79-100) Mean Corpuscular Hemoglobin 30 pg (25-35) Mean Corpuscular Hemoglobin Concent 34 g/dL (31-37) Red Cell Distribution Width 13.6 % (11.5-14.5) Platelet Count 225 x10^3/uL (140-400) Neutrophils (%) (Auto) 46 % (31-73) Lymphocytes (%) (Auto) 36 % (24-48) Monocytes (%) (Auto) 14 % (0-9) H Eosinophils (%) (Auto) 5 % (0-3) H Basophils (%) (Auto) 1 % (0-3) Neutrophils # (Auto) 1.8 x10^3uL (1.8-7.7) Lymphocytes # (Auto) 1.4 x10^3/uL (1.0-4.8) Monocytes # (Auto) 0.5 x10^3/uL (0.0-1.1) Eosinophils # (Auto) 0.2 x10^3/uL (0.0-0.7) Basophils # (Auto) 0.0 x10^3/uL (0.0-0.2) Sodium Level 143 mmol/L (136-145) Potassium Level 4.0 mmol/L (3.5-5.1) Chloride Level 108 mmol/L (98-107) H Carbon Dioxide Level 28 mmol/L (21-32) Anion Gap 7 (6-14) Blood Urea Nitrogen 18 mg/dL (8-26) Creatinine 0.9 mg/dL (0.7-1.3) Estimated GFR (Cockcroft-Gault) 86.4 BUN/Creatinine Ratio 20 (6-20) Glucose Level 93 mg/dL (70-99) Calcium Level 8.2 mg/dL (8.5-10.1) L Total Bilirubin 0.5 mg/dL (0.2-1.0) Aspartate Amino Transferase (AST) 19 U/L (15-37) Alanine Aminotransferase (ALT) 27 U/L (16-63) Alkaline Phosphatase 52 U/L (46-116) Ammonia 34 mcmol/L (11-34) Total Protein 6.4 g/dL (6.4-8.2) Albumin 3.2 g/dL (3.4-5.0) L Albumin/Globulin Ratio 1.0 (1.0-1.7) Valproic Acid Level 60 mcg/mL (50-100) Valproic Acid Last Dose Date 08/20/21 Valproic Acid Last Dose Time 2100 Current Medications: Meds: Laboratory Tests Test 08/21/21 06:07 White Blood Count 4.0 x10^3/uL Red Blood Count 4.10 x10^6/uL Hemoglobin 12.4 g/dL Hematocrit 37.0 % Mean Corpuscular Volume 90 fL Mean Corpuscular Hemoglobin 30 pg Mean Corpuscular Hemoglobin Concent 34 g/dL Red Cell Distribution Width 13.6 % Platelet Count 225 x10^3/uL Neutrophils (%) (Auto) 46 % Lymphocytes (%) (Auto) 36 % Monocytes (%) (Auto) 14 % Eosinophils (%) (Auto) 5 % Basophils (%) (Auto) 1 % Neutrophils # (Auto) 1.8 x10^3uL Lymphocytes # (Auto) 1.4 x10^3/uL Monocytes # (Auto) 0.5 x10^3/uL Eosinophils # (Auto) 0.2 x10^3/uL Basophils # (Auto) 0.0 x10^3/uL Sodium Level 143 mmol/L Potassium Level 4.0 mmol/L Chloride Level 108 mmol/L Carbon Dioxide Level 28 mmol/L Anion Gap 7 Blood Urea Nitrogen 18 mg/dL Creatinine 0.9 mg/dL Estimated GFR (Cockcroft-Gault) 86.4 BUN/Creatinine Ratio 20 Glucose Level 93 mg/dL Calcium Level 8.2 mg/dL Total Bilirubin 0.5 mg/dL Aspartate Amino Transf (AST/SGOT) 19 U/L Alanine Aminotransferase (ALT/SGPT) 27 U/L Alkaline Phosphatase 52 U/L Ammonia 34 mcmol/L Total Protein 6.4 g/dL Albumin 3.2 g/dL Albumin/Globulin Ratio 1.0 Valproic Acid (Depakene) Level 60 mcg/mL Valproic Acid Last Dose Date 08/20/21 Valproic Acid Last Dose Time 2100 Current Medications Medications (Trade) Dose Ordered Sig/Susana Route PRN Reason Start Time Stop Time Status Last Admin Dose Admin Acetaminophen (Tylenol) 650 mg PRN Q6HRS PRN PO MILD PAIN / TEMP > 100.3'F 08/18/21 13:00 Divalproex Sodium (Depakote Er) 1,000 mg QHS PO 08/18/21 21:00 08/20/21 18:46 DC 08/19/21 21:20 Al Hydroxide/Mg Hydroxide (Mylanta Plus Xs) 15 ml PRN AFTMEALHC PRN PO DYSPEPSIA 08/18/21 13:00 Medroxyprogesterone Acetate (Provera) 5 mg DAILY PO 08/19/21 09:00 08/21/21 08:19 Multi-Ingredient Ointment (Analgesic [place]) 1 sandra PRN QID PRN TP MUSCLE PAIN 08/18/21 13:00 Quetiapine Fumarate (SEROquel) 50 mg BID PO 08/18/21 21:00 08/19/21 18:10 DC 08/19/21 08:37 Atorvastatin Calcium (Lipitor) 40 mg QHS PO 08/18/21 21:00 08/21/21 19:50 Magnesium Hydroxide (Milk Of Magnesia) 2,400 mg PRN QHS PRN PO CONSTIPATION 08/18/21 13:45 Paroxetine HCl (Paxil) 40 mg DAILY PO 08/19/21 09:00 08/21/21 08:18 Diazepam (Valium) 10 mg Q6HRS PO 08/18/21 18:00 08/18/21 19:51 DC Losartan Potassium (Cozaar) 50 mg DAILY PO 08/19/21 09:00 08/21/21 08:19 Haloperidol (Haldol) 10 mg BID PO 08/18/21 21:00 08/18/21 19:51 DC Diazepam (Valium) 2.5 mg PRN TID PRN PO aggresion/anxiety 08/18/21 20:00 08/22/21 00:01 08/21/21 09:29 Olanzapine (ZyPREXA ZYDIS) 5 mg PRN Q2HR PRN PO PSYCHOSIS/agitation 08/20/21 05:00 08/20/21 05:08 Divalproex Sodium (Depakote Sprinkles) 500 mg BID PO 08/21/21 09:00 08/21/21 19:51 Divalproex Sodium (Depakote Sprinkles) 1,000 mg ONCE ONCE PO 08/20/21 21:00 08/20/21 21:01 DC 08/20/21 20:35 Quetiapine Fumarate (SEROquel) 50 mg 0900,1300,1700 PO 08/21/21 13:00 08/21/21 16:04 Current Medications Medications (Trade) Dose Ordered Sig/Susana Route PRN Reason Start Time Stop Time Status Last Admin Dose Admin Divalproex Sodium (Depakote Sprinkles) 500 mg BID PO 08/21/21 09:00 08/21/21 19:51 Quetiapine Fumarate (SEROquel) 50 mg 0900,1300,1700 PO 08/21/21 13:00 08/21/21 16:04 I have reviewed the current psychotropics carefully including drug interactions. Risk benefit ratio favors no change other than as noted in my dictated progress note. Diagnosis: Problems: (1) Impulse control disorder, unspecified (2) Anxiety disorder, unspecified (3) Dementia, vascular, with depression (4) Dementia, vascular, with delusions (5) Dementia in Alzheimer's disease with depression (6) Dementia in Alzheimer's disease with delusions (7) Dementia of the Alzheimer's type with early onset with behavioral disturbance (8) Major neurocognitive disorder ELIAZAR COYLE MD Aug 21, 2021 22:10
--- NOTE | 2021-08-22 01:29 | NUR ---
Pt has been mainly in his room sleeping tonight. When he did awake he was very unsteady on his feet and required 2 assist to BR to void. He did take his meds whole then was assisted back to bed and has been sleeping. He remains 1;1 observation for safety.
--- NOTE | 2021-08-22 06:43 | EKG ---
[address] [address] Test Date: 2021-08-19 Test Time: 15:36:12 Pat Name: RACHEL CHACON Department: Room: [address] [place] [address] Gender: M Emt P: : 1960 Requested By: ELIAZAR COYLE Order Number: [id number] Reading MD: Sherwin Gifford MD Measurements Intervals [place] Rate: P: MN: QRS: QRSD: T: QT: QTc: Interpretive Statements Sinus Rhythm Electronically Signed On 08-25-2021 14:08:31 ANODIC TREATER by Sherwin Gifford MD
[2021-08-22] MEDS: DIVALPROEX 125 MG CAP.SPRINK PO SCH ×2 (08:32→19:54)
[2021-08-22] MEDS: PARoxetine 20 MG TABLET PO SCH (08:33)
[2021-08-22] MEDS: LOSARTAN 50 MG TABLET. PO SCH (08:33)
[2021-08-22] MEDS: QUEtiapine 25 MG TABLET. PO SCH ×3 (08:33→16:33)
--- NOTE | 2021-08-22 09:33 | NUR ---
Pt remains impulsive in behaviors. He frequently gets up suddenly with unsteady gait and will attempt to door check and exit seek. PRN Zyprexa 5 mg PO administered for anxiety. He still requires 1:1 which so far has been effective. He remains primarily non-verbal. Pt absent of physical/verbal aggression towards others. He is compliant with medications crushed and mixed into pudding. The previous day he was provided with whole medications and appeared to have difficulty following directions to swallow whole tablets and would play with them in his mouth. He tolerated crushed into pudding better. INDUSTRIAL ACCOUNTANT reports during breakfast he appeared to cough on thin liquids 2x. Will discuss further with Dr Hill to see about a possible speech therapy consult. Pt appears to be absent of pain, no overt signs of distress. Plan of care continues, will pass to next shift.
--- NOTE | 2021-08-22 10:00 | NUR ---
Pt increasing in obsessive door banging/kicking. PRN Zyprexa 5 mg PO administered. Addendum: 08/22/21 at 1053 by LUCAS PEMBERTON RN Pt continues to bang and kick on doors repeatedly. PRN Hydroxyzine 50 mg PO administered.
--- NOTE | 2021-08-22 10:06 | PDOC ---
Exam Note: Castillo Note: This note is a late entry for 08/20/2021 covers elements not covered in my initial note. Subjective: The patient was seen individually in the evening of 08/20/2021 with Brian ALLISON, discussed and reviewed the chart. The patient slept 2 hours previous night. I was called around 5 a.m. Patient was extremely restless, up and down is a fall risk. The day before he broke the door to the closet because he was trying to get to the candy. He has been two-to-one status because he is so big and heavy that it is difficult for one staff to maintain him and prevent a fall and problem associated with that. Review of Systems: No CV, , pulmonary, eye, ENT system symptoms on review. Reliability poor. Mental Status Exam: The patient is oriented to himself. Insight and judgement, recent and remote memory, attention and concentration, fund of knowledge is poor consistent with his diagnoses. Laboratory Data: Reviewed. Impression: Major neurocognitive disorder frontotemporal with delusions, depression, behavioral disturbance. Anxiety disorder unspecified. Impulse control disorder unspecified. Plan: Continue current psychotropics for now. We will taper most of his sedating psychotropics and we will make further adjustments as clinically indicated. Assessment: Vital Signs/I&O: Vital Signs Date Time Temp Pulse Resp B/P (MAP) Pulse Ox O2 Delivery O2 Flow Rate FiO2 08/22/21 08:33 100 130/78 08/21/21 16:11 98.8 20 94 08/18/21 13:35 Room Air I & O 08/21/21 08/21/21 08/22/21 15:00 23:00 07:00 Intake Total 360 ml 360 ml Balance 360 ml 360 ml Current Medications: Meds: Current Medications Medications (Trade) Dose Ordered Sig/Susana Route PRN Reason Start Time Stop Time Status Last Admin Dose Admin Acetaminophen (Tylenol) 650 mg PRN Q6HRS PRN PO MILD PAIN / TEMP > 100.3'F 08/18/21 13:00 Divalproex Sodium (Depakote Er) 1,000 mg QHS PO 08/18/21 21:00 08/20/21 18:46 DC 08/19/21 21:20 Al Hydroxide/Mg Hydroxide (Mylanta Plus Xs) 15 ml PRN AFTMEALHC PRN PO DYSPEPSIA 08/18/21 13:00 Medroxyprogesterone Acetate (Provera) 5 mg DAILY PO 08/19/21 09:00 08/22/21 08:32 Multi-Ingredient Ointment (Analgesic [place]) 1 sandra PRN QID PRN TP MUSCLE PAIN 08/18/21 13:00 Quetiapine Fumarate (SEROquel) 50 mg BID PO 08/18/21 21:00 08/19/21 18:10 DC 08/19/21 08:37 Atorvastatin Calcium (Lipitor) 40 mg QHS PO 08/18/21 21:00 08/21/21 19:50 Magnesium Hydroxide (Milk Of Magnesia) 2,400 mg PRN QHS PRN PO CONSTIPATION 08/18/21 13:45 Paroxetine HCl (Paxil) 40 mg DAILY PO 08/19/21 09:00 08/22/21 08:33 Diazepam (Valium) 10 mg Q6HRS PO 08/18/21 18:00 08/18/21 19:51 DC Losartan Potassium (Cozaar) 50 mg DAILY PO 08/19/21 09:00 08/22/21 08:33 Haloperidol (Haldol) 10 mg BID PO 08/18/21 21:00 08/18/21 19:51 DC Diazepam (Valium) 2.5 mg PRN TID PRN PO aggresion/anxiety 08/18/21 20:00 08/22/21 00:01 DC 08/21/21 09:29 Olanzapine (ZyPREXA ZYDIS) 5 mg PRN Q2HR PRN PO PSYCHOSIS/agitation 08/20/21 05:00 08/22/21 08:33 Divalproex Sodium (Depakote Sprinkles) 500 mg BID PO 08/21/21 09:00 08/22/21 08:32 Divalproex Sodium (Depakote Sprinkles) 1,000 mg ONCE ONCE PO 08/20/21 21:00 08/20/21 21:01 DC 08/20/21 20:35 Quetiapine Fumarate (SEROquel) 50 mg 0900,1300,1700 PO 08/21/21 13:00 08/22/21 08:33 Current Medications Medications (Trade) Dose Ordered Sig/Susana Route PRN Reason Start Time Stop Time Status Last Admin Dose Admin Quetiapine Fumarate (SEROquel) 50 mg 0900,1300,1700 PO 08/21/21 13:00 08/22/21 08:33 I have reviewed the current psychotropics carefully including drug interactions. Risk benefit ratio favors no change other than as noted in my dictated progress note. Diagnosis: Problems: (1) Impulse control disorder, unspecified (2) Anxiety disorder, unspecified (3) Dementia, vascular, with depression (4) Dementia, vascular, with delusions (5) Dementia in Alzheimer's disease with depression (6) Dementia in Alzheimer's disease with delusions (7) Major neurocognitive disorder (8) Frontotemporal dementia with behavioral disturbance ELIAZAR COYLE MD Aug 22, 2021 10:06
[2021-08-22 10:08] VITALS: BP 128/70
[2021-08-22] MEDS: hydrOXYzine HCL 25 MG TABLET PO PRN ×3 (10:49→22:06)
--- NOTE | 2021-08-22 11:48 | NUR ---
Pt continues to bang and kick against nurse station door. During the course of the kicking and banging he spilled his cup of thickened coffee on the floor accidentally. This nurse gathered some towels and attempted to exit nurse station door to clean spill and reduce fall risk. Pt was standing by door and I instructed him to back away from the door so I could exit. I then opened the door far enough where my body could try to slip out. Pt immediately closed in on me and began to use his body and body weight to push against mine in an attempt to back me through the nurse station door so he could then enter. I braced my body in an effort to stop him from pushing, and I said "Quan, no. Stop." Pt managed to push me back hard enough and quickly where he was now in the threshold of the nurse station door where I could not even close the door to keep him out. Pt continued to push against me, and at this point I was bracing against the weight to prevent him from entering the nurse station, still yelling "Quan, stop, stop." It became very much apparent that pt was not going to listen and would soon overpower me with his weight and enter into the nurse station. I began to scream for help and approx 4 staff came to our aid. Pt was successfully brought back out into the hallway. Neither pt nor I have any visible injuries.
--- NOTE | 2021-08-22 14:49 | NUR ---
Pt fixated on nursing station door and has continued to bang and kick against it. PRN Zyprexa 5 mg PO and PRN Hydroxyzine 50 mg PO administered for anxiety.
[2021-08-22] MEDS ORDERED: PARoxetine 20 MG TABLET PO SCH (17:30)
[2021-08-22] MEDS: ATORVASTATIN CALCIUM 20 MG TABLET PO SCH (19:54)
--- NOTE | 2021-08-22 20:00 | NUR ---
Pt restless very unsteady on feet banging on doors now requiring 2:1 for safety. HS meds plus PRN Tylenol given and placed in bed where he slept for a short time.
[2021-08-22] MEDS: ACETAMINOPHEN 325 MG TABLET PO PRN (20:11)
--- NOTE | 2021-08-22 21:59 | PDOC ---
Exam Note: Castillo Note: Please also refer to the separate dictated note~for this date of service dictated separately.~Patient seen individually. Discussed the patient with Nursing staff reviewed the chart.~Reviewed interim history and current functioning. Reviewed vital signs,~Labs/ Radiology~and current medications noted below. Continue current treatment with the changes noted in the dictated addendum note Assessment: Vital Signs/I&O: Vital Signs Date Time Temp Pulse Resp B/P (MAP) Pulse Ox O2 Delivery O2 Flow Rate FiO2 08/22/21 16:02 98.5 86 20 93 08/22/21 10:08 128/70 (89) 08/18/21 13:35 Room Air I & O 08/21/21 08/21/21 08/22/21 15:00 23:00 07:00 Intake Total 360 ml 360 ml Balance 360 ml 360 ml Current Medications: Meds: Current Medications Medications (Trade) Dose Ordered Sig/Susana Route PRN Reason Start Time Stop Time Status Last Admin Dose Admin Acetaminophen (Tylenol) 650 mg PRN Q6HRS PRN PO MILD PAIN / TEMP > 100.3'F 08/18/21 13:00 08/22/21 20:11 Divalproex Sodium (Depakote Er) 1,000 mg QHS PO 08/18/21 21:00 08/20/21 18:46 DC 08/19/21 21:20 Al Hydroxide/Mg Hydroxide (Mylanta Plus Xs) 15 ml PRN AFTMEALHC PRN PO DYSPEPSIA 08/18/21 13:00 Medroxyprogesterone Acetate (Provera) 5 mg DAILY PO 08/19/21 09:00 08/22/21 17:30 DC 08/22/21 08:32 Multi-Ingredient Ointment (Analgesic [place]) 1 sandra PRN QID PRN TP MUSCLE PAIN 08/18/21 13:00 Quetiapine Fumarate (SEROquel) 50 mg BID PO 08/18/21 21:00 08/19/21 18:10 DC 08/19/21 08:37 Atorvastatin Calcium (Lipitor) 40 mg QHS PO 08/18/21 21:00 08/22/21 19:54 Magnesium Hydroxide (Milk Of Magnesia) 2,400 mg PRN QHS PRN PO CONSTIPATION 08/18/21 13:45 Paroxetine HCl (Paxil) 40 mg DAILY PO 08/19/21 09:00 08/22/21 17:30 DC 08/22/21 08:33 Diazepam (Valium) 10 mg Q6HRS PO 08/18/21 18:00 08/18/21 19:51 DC Losartan Potassium (Cozaar) 50 mg DAILY PO 08/19/21 09:00 08/22/21 08:33 Haloperidol (Haldol) 10 mg BID PO 08/18/21 21:00 08/18/21 19:51 DC Diazepam (Valium) 2.5 mg PRN TID PRN PO aggresion/anxiety 08/18/21 20:00 08/22/21 00:01 DC 08/21/21 09:29 Olanzapine (ZyPREXA ZYDIS) 5 mg PRN Q2HR PRN PO PSYCHOSIS/agitation 08/20/21 05:00 08/22/21 14:30 Divalproex Sodium (Depakote Sprinkles) 500 mg BID PO 08/21/21 09:00 08/22/21 19:54 Divalproex Sodium (Depakote Sprinkles) 1,000 mg ONCE ONCE PO 08/20/21 21:00 08/20/21 21:01 DC 08/20/21 20:35 Quetiapine Fumarate (SEROquel) 50 mg 0900,1300,1700 PO 08/21/21 13:00 08/22/21 16:33 Hydroxyzine HCl (Atarax) 50 mg PRN Q2HR PRN PO ANXIETY 08/22/21 10:30 08/22/21 14:30 Medroxyprogesterone Acetate (Provera) 15 mg DAILY PO 08/22/21 17:30 08/22/21 17:35 DC Paroxetine HCl (Paxil) 60 mg DAILY PO 08/22/21 17:30 08/22/21 17:35 DC Gabapentin (Neurontin) 300 mg BID PO 08/23/21 09:00 08/23/21 23:59 Gabapentin (Neurontin) 300 mg TID PO 08/24/21 09:00 Medroxyprogesterone Acetate (Provera) 15 mg DAILY PO 08/23/21 09:00 Paroxetine HCl (Paxil) 60 mg DAILY PO 08/23/21 09:00 Current Medications Medications (Trade) Dose Ordered Sig/Susana Route PRN Reason Start Time Stop Time Status Last Admin Dose Admin Hydroxyzine HCl (Atarax) 50 mg PRN Q2HR PRN PO ANXIETY 08/22/21 10:30 08/22/21 14:30 I have reviewed the current psychotropics carefully including drug interactions. Risk benefit ratio favors no change other than as noted in my dictated progress note. Diagnosis: Problems: (1) Impulse control disorder, unspecified (2) Anxiety disorder, unspecified (3) Dementia, vascular, with depression (4) Dementia, vascular, with delusions (5) Dementia in Alzheimer's disease with depression (6) Dementia in Alzheimer's disease with delusions (7) Major neurocognitive disorder (8) Frontotemporal dementia with behavioral disturbance ELIAZAR COYLE MD Aug 22, 2021 21:58
--- NOTE | 2021-08-22 22:00 | NUR ---
Pt has been up to void x4 without results, bladder scan showed approx 350 cc then pt finally voided some. Hwe is becoming more restless and constantly trying to get up, pushing staff and trying to kick them.PT now requires 4 persons t to try and keep pt from injuring self or others.
[2021-08-22] MEDS: HALOPERIDOL 5 MG TABLET PO PRN ×2 (22:52→23:52)
[2021-08-22] MEDS: LORazepam 1 MG TABLET PO PRN (23:11)
[2021-08-23] MEDS: hydrOXYzine HCL 25 MG TABLET PO PRN (00:02)
[2021-08-23] MEDS: LORazepam 1 MG TABLET PO PRN ×4 (00:15→03:46)
--- NOTE | 2021-08-23 00:17 | NUR ---
PRN Ativan given for restlessness and agitation. Still requires 4 staff to keep pt from getting up which would result in a fall, Pt is very strong and has proved impossible to redirect. Have tried aromatherapy, weighted blanket, music and PRN meds but nothing has reduced pt behavior.
--- NOTE | 2021-08-23 01:17 | NUR ---
PRN ativan dose given, pt is calming a bit and still requires staff at bedside as he continually tries to get up and has demonstrated earlier in this shift that he is too unstable to walk without a high level of assistance as he is impulsive and will try and run and pull staff along.
[2021-08-23] MEDS: HALOPERIDOL 5 MG TABLET PO PRN ×2 (01:45→03:20)
--- NOTE | 2021-08-23 03:23 | NUR ---
Pt has calmed a bit and for awhile appeared to sleep but would still try to get up several times a minute. He is now becoming more restless PRN haldol given.
--- NOTE | 2021-08-23 03:50 | NUR ---
Pt more awake and becoming more restless. PRN ativan given.
--- NOTE | 2021-08-23 04:15 | NUR ---
Pt sleeping now, respirations regular and unlabored.
[2021-08-23 06:08] VITALS: BP 160/75
--- NOTE | 2021-08-23 07:49 | NUR ---
Pt begins the morning bright and early. He makes multiple attempts to stand and ambulate with difficulty; his pants have fallen around his feet and he does not attempt to pull them up and continues to try to ambulate. Gait and posture unsteady, he is not receptive to verbal encouragement or redirection. He is not receptive to physical assistance and guidance from staff. He remains very impulsive in behaviors. He is a great fall risk. Pt remains in the quiet room and staff have padded the floors and huizar with mattresses and small gym mats for his protection and he remains on 1:1 status. Will continue to monitor.
[2021-08-23 09:48] LABS: VAL ACID 48 mcg/mL (50-100)
[2021-08-23] MEDS: QUEtiapine 25 MG TABLET. PO SCH ×3 (10:04→19:56)
[2021-08-23] MEDS: LOSARTAN 50 MG TABLET. PO SCH (10:05)
[2021-08-23] MEDS: GABAPENTIN 100 MG CAPSULE. PO SCH ×2 (10:05→19:55)
[2021-08-23] MEDS: PARoxetine 20 MG TABLET PO SCH (10:05)
[2021-08-23] MEDS: medroxyPROGESTERone 5 MG TABLET PO SCH (10:06)
[2021-08-23] MEDS: DIVALPROEX 125 MG CAP.SPRINK PO SCH ×2 (10:06→19:56)
--- NOTE | 2021-08-23 10:52 | NUR ---
Spoke with Speech Therapy concerning potential assessment on pt. It was agreed that pt may have difficulty participating in assessment today d/t events of previous night. Speech Therapy recommended over phone that staff continue with nectar thick liquids and crushed medications in pudding and she will reach out Wednesday (08/25/21) to see if pt is able to better participate in assessment.
[2021-08-23 15:40] VITALS: BP 131/78
[2021-08-23 16:13] LABS: BACTERIA,URINE 0 /HPF (0-FEW); BILIRUBIN,URINE NEG (NEG); CLARITY,URINE CLEAR; COLOR,URINE YELLOW; GLUCOSE,URINE NEG (NEG); NITRITE,URINE NEG (NEG); RBC,URINE 0 /HPF (0-2); UROBILINOGEN,URINE 0.2 mg/dL (0.2 mg/dL); WBC,URINE 0 /HPF (0-4)
[2021-08-23] MEDS: ATORVASTATIN CALCIUM 20 MG TABLET PO SCH (19:56)
[2021-08-23] MEDS: TAMSULOSIN 0.4 MG CAP.ER.24H. PO SCH (19:56)
--- NOTE | 2021-08-23 20:45 | PDOC ---
Exam Note: Castillo Note: This note is a late entry for 08/21/2021 covers elements not covered in my initial note. Subjective: The patient was reviewed at treatment team meeting individually in the morning on 08/21/2021 with Brittany Murray, Cary Adair, and Marielena Gonzalez (director of social services), [place], activity therapy and Linda RN, discussed and reviewed the chart. Patients Marlen attended the treatment team meeting which was lengthy and I reviewed in detail interim history from the time patient left our unit last time when he was readmitted. He was quite unmanageable at home, wandering far away from home, difficult to redirect and retrieve by his , banging on door of neighbours and his daughters home far away from his home. He was then admitted to the [facility] and was on fairly significant dosages of Valium and Haldol, still unmanageable on the unit. He has had to be one-on-one status. The patient slept 7 hours previous night and even unmanageable with this and then placed on two-on-one status. Valproic acid level is 60 therapeutic. We will repeat on 08/23. Gait is unsteady, compliant with medications, significant banging of doors to the nursing station and elsewhere, aggressive, disruptive. Review of Systems: No CV, , pulmonary, eye, ENT system symptoms on review. Reliability poor. Mental Status Exam: The patient is oriented to himself. Insight and judgement, recent and remote memory, attention and concentration, fund of knowledge is poor consistent with his diagnoses. He has little to no boundaries. Laboratory Data: Reviewed. Impression: Major neurocognitive disorder frontotemporal with delusions, depression, behavioral disturbance. Anxiety disorder unspecified. Impulse con trol disorder unspecified. Plan: Continue current psychotropics for now. Continue to keep the patient off his Valium and Haldol. Valproic acid is therapeutic. We may need to increase Provera. Consider increasing Paxil, currently 40 mg a day. Continue Zyprexa p.r.n. We may consider gabapentin for his mood lability, anxiety which be helped as well. He is very unsteady in his gait and I would like to defer addition of other psychotropics till there is some stability in his gait perhaps in the next 24 hours. Assessment: Vital Signs/I&O: Vital Signs Date Time Temp Pulse Resp B/P (MAP) Pulse Ox O2 Delivery O2 Flow Rate FiO2 08/23/21 15:40 97.6 70 19 131/78 (95) 94 08/23/21 06:08 Room Air I & O 08/22/21 08/22/21 08/23/21 15:00 23:00 07:00 Intake Total 360 ml 480 ml Balance 360 ml 480 ml Labs: Laboratory Tests Test 08/23/21 07:55 08/23/21 15:40 Valproic Acid Level 48 mcg/mL (50-100) L Valproic Acid Last Dose Date 08/22/21 Valproic Acid Last Dose Time 2100 Urine Collection Type Clean catch Urine Color Yellow Urine Clarity Clear Urine pH 6.0 Urine Specific [place] 1.020 Urine Protein Neg (NEG-TRACE) Urine Glucose (UA) Neg mg/dL (NEG) Urine Ketones (Stick) Neg mg/dL (NEG) Urine Blood Neg (NEG) Urine Nitrite Neg (NEG) Urine Bilirubin Neg (NEG) Urine Urobilinogen Dipstick 0.2 mg/dL (0.2 mg/dL) Urine Leukocyte Esterase Neg (NEG) Urine RBC 0 /HPF (0-2) Urine WBC 0 /HPF (0-4) Urine Bacteria 0 /HPF (0-FEW) Current Medications: Meds: Laboratory Tests Test 08/23/21 07:55 08/23/21 15:40 Valproic Acid (Depakene) Level 48 mcg/mL Valproic Acid Last Dose Date 08/22/21 Valproic Acid Last Dose Time 2100 Urine Collection Type Clean catch Urine Color Yellow Urine Clarity Clear Urine pH 6.0 Urine Specific [place] 1.020 Urine Protein Neg Urine Glucose (UA) Neg mg/dL Urine Ketones (Stick) Neg mg/dL Urine Blood Neg Urine Nitrite Neg Urine Bilirubin Neg Urine Urobilinogen Dipstick 0.2 mg/dL Urine Leukocyte Esterase Neg Urine RBC 0 /HPF Urine WBC 0 /HPF Urine Bacteria 0 /HPF Current Medications Medications (Trade) Dose Ordered Sig/Susana Route PRN Reason Start Time Stop Time Status Last Admin Dose Admin Acetaminophen (Tylenol) 650 mg PRN Q6HRS PRN PO MILD PAIN / TEMP > 100.3'F 08/18/21 13:00 08/22/21 20:11 Divalproex Sodium (Depakote Er) 1,000 mg QHS PO 08/18/21 21:00 08/20/21 18:46 DC 08/19/21 21:20 Al Hydroxide/Mg Hydroxide (Mylanta Plus Xs) 15 ml PRN AFTMEALHC PRN PO DYSPEPSIA 08/18/21 13:00 Medroxyprogesterone Acetate (Provera) 5 mg DAILY PO 08/19/21 09:00 08/22/21 17:30 DC 08/22/21 08:32 Multi-Ingredient Ointment (Analgesic [place]) 1 sandra PRN QID PRN TP MUSCLE PAIN 08/18/21 13:00 Quetiapine Fumarate (SEROquel) 50 mg BID PO 08/18/21 21:00 08/19/21 18:10 DC 08/19/21 08:37 Atorvastatin Calcium (Lipitor) 40 mg QHS PO 08/18/21 21:00 08/23/21 19:56 Magnesium Hydroxide (Milk Of Magnesia) 2,400 mg PRN QHS PRN PO CONSTIPATION 08/18/21 13:45 Paroxetine HCl (Paxil) 40 mg DAILY PO 08/19/21 09:00 08/22/21 17:30 DC 08/22/21 08:33 Diazepam (Valium) 10 mg Q6HRS PO 08/18/21 18:00 08/18/21 19:51 DC Losartan Potassium (Cozaar) 50 mg DAILY PO 08/19/21 09:00 08/23/21 10:05 Haloperidol (Haldol) 10 mg BID PO 08/18/21 21:00 08/18/21 19:51 DC Diazepam (Valium) 2.5 mg PRN TID PRN PO aggresion/anxiety 08/18/21 20:00 08/22/21 00:01 DC 08/21/21 09:29 Olanzapine (ZyPREXA ZYDIS) 5 mg PRN Q2HR PRN PO PSYCHOSIS/agitation 08/20/21 05:00 08/23/21 01:45 Divalproex Sodium (Depakote Sprinkles) 500 mg BID PO 08/21/21 09:00 08/23/21 19:56 Divalproex Sodium (Depakote Sprinkles) 1,000 mg ONCE ONCE PO 08/20/21 21:00 08/20/21 21:01 DC 08/20/21 20:35 Quetiapine Fumarate (SEROquel) 50 mg 0900,1300,1700 PO 08/21/21 13:00 08/23/21 19:56 Hydroxyzine HCl (Atarax) 50 mg PRN Q2HR PRN PO ANXIETY 08/22/21 10:30 08/23/21 17:58 DC 08/23/21 00:02 Medroxyprogesterone Acetate (Provera) 15 mg DAILY PO 08/22/21 17:30 08/22/21 17:35 DC Paroxetine HCl (Paxil) 60 mg DAILY PO 08/22/21 17:30 08/22/21 17:35 DC Gabapentin (Neurontin) 300 mg BID PO 08/23/21 09:00 08/23/21 23:59 08/23/21 19:55 Gabapentin (Neurontin) 300 mg TID PO 08/24/21 09:00 Medroxyprogesterone Acetate (Provera) 15 mg DAILY PO 08/23/21 09:00 08/23/21 10:06 Paroxetine HCl (Paxil) 60 mg DAILY PO 08/23/21 09:00 08/23/21 10:05 Haloperidol (Haldol) 5 mg PRN Q1HR PRN PO PSYCHOSIS 08/22/21 22:45 08/23/21 03:20 Lorazepam (Ativan) 1 mg PRN Q1HR PRN PO ANXIETY / AGITATION 08/22/21 23:15 08/23/21 03:46 Tamsulosin HCl (Flomax) 0.4 mg QHS PO 08/23/21 21:00 08/23/21 19:56 Current Medications Medications (Trade) Dose Ordered Sig/Susana Route PRN Reason Start Time Stop Time Status Last Admin Dose Admin Gabapentin (Neurontin) 300 mg BID PO 08/23/21 09:00 08/23/21 23:59 08/23/21 19:55 Medroxyprogesterone Acetate (Provera) 15 mg DAILY PO 08/23/21 09:00 08/23/21 10:06 Paroxetine HCl (Paxil) 60 mg DAILY PO 08/23/21 09:00 08/23/21 10:05 Haloperidol (Haldol) 5 mg PRN Q1HR PRN PO PSYCHOSIS 08/22/21 22:45 08/23/21 03:20 Lorazepam (Ativan) 1 mg PRN Q1HR PRN PO ANXIETY / AGITATION 08/22/21 23:15 08/23/21 03:46 Tamsulosin HCl (Flomax) 0.4 mg QHS PO 08/23/21 21:00 08/23/21 19:56 I have reviewed the current psychotropics carefully including drug interactions. Risk benefit ratio favors no change other than as noted in my dictated progress note. Diagnosis: Problems: (1) Impulse control disorder, unspecified (2) Anxiety disorder, unspecified (3) Dementia, vascular, with depression (4) Dementia, vascular, with delusions (5) Dementia in Alzheimer's disease with depression (6) Dementia in Alzheimer's disease with delusions (7) Major neurocognitive disorder (8) Frontotemporal dementia with behavioral disturbance ELIAZAR COYLE MD Aug 23, 2021 20:45
--- NOTE | 2021-08-23 21:09 | PDOC ---
Exam Note: Castillo Note: Please also refer to the separate dictated note~for this date of service dictated separately.~Patient seen individually. Discussed the patient with Nursing staff reviewed the chart.~Reviewed interim history and current functioning. Reviewed vital signs,~Labs/ Radiology~and current medications noted below. Continue current treatment with the changes noted in the dictated addendum note Assessment: Vital Signs/I&O: Vital Signs Date Time Temp Pulse Resp B/P (MAP) Pulse Ox O2 Delivery O2 Flow Rate FiO2 08/23/21 15:40 97.6 70 19 131/78 (95) 94 08/23/21 06:08 Room Air I & O 08/22/21 08/22/21 08/23/21 15:00 23:00 07:00 Intake Total 360 ml 480 ml Balance 360 ml 480 ml Labs: Laboratory Tests Test 08/23/21 07:55 08/23/21 15:40 Valproic Acid Level 48 mcg/mL (50-100) L Valproic Acid Last Dose Date 08/22/21 Valproic Acid Last Dose Time 2100 Urine Collection Type Clean catch Urine Color Yellow Urine Clarity Clear Urine pH 6.0 Urine Specific [place] 1.020 Urine Protein Neg (NEG-TRACE) Urine Glucose (UA) Neg mg/dL (NEG) Urine Ketones (Stick) Neg mg/dL (NEG) Urine Blood Neg (NEG) Urine Nitrite Neg (NEG) Urine Bilirubin Neg (NEG) Urine Urobilinogen Dipstick 0.2 mg/dL (0.2 mg/dL) Urine Leukocyte Esterase Neg (NEG) Urine RBC 0 /HPF (0-2) Urine WBC 0 /HPF (0-4) Urine Bacteria 0 /HPF (0-FEW) Current Medications: Meds: Current Medications Medications (Trade) Dose Ordered Sig/Susana Route PRN Reason Start Time Stop Time Status Last Admin Dose Admin Gabapentin (Neurontin) 300 mg BID PO 08/23/21 09:00 08/23/21 23:59 08/23/21 19:55 Medroxyprogesterone Acetate (Provera) 15 mg DAILY PO 08/23/21 09:00 08/23/21 10:06 Paroxetine HCl (Paxil) 60 mg DAILY PO 08/23/21 09:00 08/23/21 10:05 Haloperidol (Haldol) 5 mg PRN Q1HR PRN PO PSYCHOSIS 08/22/21 22:45 08/23/21 03:20 Lorazepam (Ativan) 1 mg PRN Q1HR PRN PO ANXIETY / AGITATION 08/22/21 23:15 08/23/21 03:46 Tamsulosin HCl (Flomax) 0.4 mg QHS PO 08/23/21 21:00 08/23/21 19:56 I have reviewed the current psychotropics carefully including drug interactions. Risk benefit ratio favors no change other than as noted in my dictated progress note. Diagnosis: Problems: (1) Impulse control disorder, unspecified (2) Anxiety disorder, unspecified (3) Dementia, vascular, with depression (4) Dementia, vascular, with delusions (5) Dementia in Alzheimer's disease with depression (6) Dementia in Alzheimer's disease with delusions (7) Major neurocognitive disorder (8) Frontotemporal dementia with behavioral disturbance ELIAZAR COYLE MD Aug 23, 2021 21:09
--- NOTE | 2021-08-23 21:09 | PDOC ---
Exam Note: Castillo Note: This note is a late entry for 08/22/2021 covers elements not covered in my initial note. Subjective: The patient was seen individually in the evening of 08/22/2021 with Linda ALLISON, discussed and reviewed the chart. The patient slept 9 hours previous night. He has had extremely volatile day. He has been aggressive, disruptive, pushing, shoving staff, banging on doors almost pulling doors off the hinges and forcefully opening up the magnetic locks on the doors. Nursing staff have called me during the day, as he was quite unmanageable. We did add hydroxyzine 50 mg t.i.d. p.r.n. anxiety and he remains on Zyprexa p.r.n. Review of Systems: No CV, , pulmonary, eye, ENT system symptoms on review. Reliability poor. Mental Status Exam: The patient is oriented to himself. Insight and judgement, recent and remote memory, attention and concentration, fund of knowledge is poor consistent with his diagnoses. He has little to no boundaries. Laboratory Data: Reviewed. Impression: Major neurocognitive disorder frontotemporal with delusions, depression, behavioral disturbance. Anxiety disorder unspecified. Impulse control disorder unspecified. Plan: Continue current psychotropics for now. We will go ahead and increase Provera from 5 mg a day to 15 mg a day. Continue Depakote current dosage, level therapeutic. Increase Paxil to 60 mg a day, Seroquel will continue on 50 mg 3 times a day. Start Neurontin 300 mg twice a day for one day and then 300 mg 3 times a day. We will make further adjustments as clinically indicated. Assessment: Vital Signs/I&O: Vital Signs Date Time Temp Pulse Resp B/P (MAP) Pulse Ox O2 Delivery O2 Flow Rate FiO2 08/23/21 15:40 97.6 70 19 131/78 (95) 94 08/23/21 06:08 Room Air I & O 08/22/21 08/22/21 08/23/21 15:00 23:00 07:00 Intake Total 360 ml 480 ml Balance 360 ml 480 ml Labs: Laboratory Tests Test 08/23/21 07:55 08/23/21 15:40 Valproic Acid Level 48 mcg/mL (50-100) L Valproic Acid Last Dose Date 08/22/21 Valproic Acid Last Dose Time 2100 Urine Collection Type Clean catch Urine Color Yellow Urine Clarity Clear Urine pH 6.0 Urine Specific [place] 1.020 Urine Protein Neg (NEG-TRACE) Urine Glucose (UA) Neg mg/dL (NEG) Urine Ketones (Stick) Neg mg/dL (NEG) Urine Blood Neg (NEG) Urine Nitrite Neg (NEG) Urine Bilirubin Neg (NEG) Urine Urobilinogen Dipstick 0.2 mg/dL (0.2 mg/dL) Urine Leukocyte Esterase Neg (NEG) Urine RBC 0 /HPF (0-2) Urine WBC 0 /HPF (0-4) Urine Bacteria 0 /HPF (0-FEW) Current Medications: Meds: Laboratory Tests Test 08/23/21 07:55 08/23/21 15:40 Valproic Acid (Depakene) Level 48 mcg/mL Valproic Acid Last Dose Date 08/22/21 Valproic Acid Last Dose Time 2100 Urine Collection Type Clean catch Urine Color Yellow Urine Clarity Clear Urine pH 6.0 Urine Specific [place] 1.020 Urine Protein Neg Urine Glucose (UA) Neg mg/dL Urine Ketones (Stick) Neg mg/dL Urine Blood Neg Urine Nitrite Neg Urine Bilirubin Neg Urine Urobilinogen Dipstick 0.2 mg/dL Urine Leukocyte Esterase Neg Urine RBC 0 /HPF Urine WBC 0 /HPF Urine Bacteria 0 /HPF Current Medications Medications (Trade) Dose Ordered Sig/Susana Route PRN Reason Start Time Stop Time Status Last Admin Dose Admin Acetaminophen (Tylenol) 650 mg PRN Q6HRS PRN PO MILD PAIN / TEMP > 100.3'F 08/18/21 13:00 08/22/21 20:11 Divalproex Sodium (Depakote Er) 1,000 mg QHS PO 08/18/21 21:00 08/20/21 18:46 DC 08/19/21 21:20 Al Hydroxide/Mg Hydroxide (Mylanta Plus Xs) 15 ml PRN AFTMEALHC PRN PO DYSPEPSIA 08/18/21 13:00 Medroxyprogesterone Acetate (Provera) 5 mg DAILY PO 08/19/21 09:00 08/22/21 17:30 DC 08/22/21 08:32 Multi-Ingredient Ointment (Analgesic [place]) 1 sandra PRN QID PRN TP MUSCLE PAIN 08/18/21 13:00 Quetiapine Fumarate (SEROquel) 50 mg BID PO 08/18/21 21:00 08/19/21 18:10 DC 08/19/21 08:37 Atorvastatin Calcium (Lipitor) 40 mg QHS PO 08/18/21 21:00 08/23/21 19:56 Magnesium Hydroxide (Milk Of Magnesia) 2,400 mg PRN QHS PRN PO CONSTIPATION 08/18/21 13:45 Paroxetine HCl (Paxil) 40 mg DAILY PO 08/19/21 09:00 08/22/21 17:30 DC 08/22/21 08:33 Diazepam (Valium) 10 mg Q6HRS PO 08/18/21 18:00 08/18/21 19:51 DC Losartan Potassium (Cozaar) 50 mg DAILY PO 08/19/21 09:00 08/23/21 10:05 Haloperidol (Haldol) 10 mg BID PO 08/18/21 21:00 08/18/21 19:51 DC Diazepam (Valium) 2.5 mg PRN TID PRN PO aggresion/anxiety 08/18/21 20:00 08/22/21 00:01 DC 08/21/21 09:29 Olanzapine (ZyPREXA ZYDIS) 5 mg PRN Q2HR PRN PO PSYCHOSIS/agitation 08/20/21 05:00 08/23/21 01:45 Divalproex Sodium (Depakote Sprinkles) 500 mg BID PO 08/21/21 09:00 08/23/21 19:56 Divalproex Sodium (Depakote Sprinkles) 1,000 mg ONCE ONCE PO 08/20/21 21:00 08/20/21 21:01 DC 08/20/21 20:35 Quetiapine Fumarate (SEROquel) 50 mg 0900,1300,1700 PO 08/21/21 13:00 08/23/21 19:56 Hydroxyzine HCl (Atarax) 50 mg PRN Q2HR PRN PO ANXIETY 08/22/21 10:30 08/23/21 17:58 DC 08/23/21 00:02 Medroxyprogesterone Acetate (Provera) 15 mg DAILY PO 08/22/21 17:30 08/22/21 17:35 DC Paroxetine HCl (Paxil) 60 mg DAILY PO 08/22/21 17:30 08/22/21 17:35 DC Gabapentin (Neurontin) 300 mg BID PO 08/23/21 09:00 08/23/21 23:59 08/23/21 19:55 Gabapentin (Neurontin) 300 mg TID PO 08/24/21 09:00 Medroxyprogesterone Acetate (Provera) 15 mg DAILY PO 08/23/21 09:00 08/23/21 10:06 Paroxetine HCl (Paxil) 60 mg DAILY PO 08/23/21 09:00 08/23/21 10:05 Haloperidol (Haldol) 5 mg PRN Q1HR PRN PO PSYCHOSIS 08/22/21 22:45 08/23/21 03:20 Lorazepam (Ativan) 1 mg PRN Q1HR PRN PO ANXIETY / AGITATION 08/22/21 23:15 08/23/21 03:46 Tamsulosin HCl (Flomax) 0.4 mg QHS PO 08/23/21 21:00 08/23/21 19:56 Current Medications Medications (Trade) Dose Ordered Sig/Susana Route PRN Reason Start Time Stop Time Status Last Admin Dose Admin Gabapentin (Neurontin) 300 mg BID PO 08/23/21 09:00 08/23/21 23:59 08/23/21 19:55 Medroxyprogesterone Acetate (Provera) 15 mg DAILY PO 08/23/21 09:00 08/23/21 10:06 Paroxetine HCl (Paxil) 60 mg DAILY PO 08/23/21 09:00 08/23/21 10:05 Haloperidol (Haldol) 5 mg PRN Q1HR PRN PO PSYCHOSIS 08/22/21 22:45 08/23/21 03:20 Lorazepam (Ativan) 1 mg PRN Q1HR PRN PO ANXIETY / AGITATION 08/22/21 23:15 08/23/21 03:46 Tamsulosin HCl (Flomax) 0.4 mg QHS PO 08/23/21 21:00 08/23/21 19:56 I have reviewed the current psychotropics carefully including drug interactions. Risk benefit ratio favors no change other than as noted in my dictated progress note. Diagnosis: Problems: (1) Impulse control disorder, unspecified (2) Anxiety disorder, unspecified (3) Dementia, vascular, with depression (4) Dementia, vascular, with delusions (5) Dementia in Alzheimer's disease with depression (6) Dementia in Alzheimer's disease with delusions (7) Major neurocognitive disorder (8) Frontotemporal dementia with behavioral disturbance ELIAZAR COYLE MD Aug 23, 2021 21:09
--- NOTE | 2021-08-24 01:36 | NUR ---
Pt sleeping soundly at start of shift. He woke up about 2100 and took his medications, crushed in pudding. Pt ate entire cup of pudding and a cup of yogurt. He drank premixed nectar-thick tea with minimal difficulty through a straw. Pt showed no signs of choking. Pt verbalized his "need to pee." Pt was ambulated with gait belt and 2 staff members to toilet. He was unsteady and shuffled his steps. Pt insisted on standing to urinate but missed the toilet. Pt cleaned up and clothing changed. He ambulated, without difficulty, back to the quiet room and went back to sleep easily. Pt has slept off and on through the remainder of the shift, with no behaviors up to this point. Will continue to monitor with 1:1 surveillance.
[2021-08-24] MEDS: LORazepam 1 MG TABLET PO PRN ×5 (05:48→23:00)
[2021-08-24] MEDS: HALOPERIDOL 5 MG TABLET PO PRN ×5 (06:30→23:00)
[2021-08-24 06:35] VITALS: BP 148/88
[2021-08-24] MEDS: GABAPENTIN 300 MG CAPSULE. PO SCH ×3 (08:16→20:36)
[2021-08-24] MEDS: DIVALPROEX 125 MG CAP.SPRINK PO SCH ×2 (08:16→20:36)
[2021-08-24] MEDS: QUEtiapine 25 MG TABLET. PO SCH ×3 (08:17→17:00)
[2021-08-24] MEDS: LOSARTAN 50 MG TABLET. PO SCH (08:17)
[2021-08-24] MEDS: medroxyPROGESTERone 5 MG TABLET PO SCH (08:17)
[2021-08-24] MEDS: PARoxetine 20 MG TABLET PO SCH (08:17)
--- NOTE | 2021-08-24 16:09 | NUR ---
Nursing note: Patient in safe room for morning medications & assessment. He is compliant with medications crushed in pudding. He was restless, resistive to redirects as well as trying to stand up and ambulate with difficulty in the am and the afternoon, PRN given per order. Gait and posture unsteady, he is not receptive to verbal encouragement, redirection, physical assistance or guidance from staff. He remains very impulsive in behaviors. He is a great fall risk. Patient remains in the quiet room and staff have padded the floors and huizar with mattresses and small gym mats for his protection and he remains on 1:1 status. Will continue to monitor.
[2021-08-24 16:22] VITALS: BP 133/80
[2021-08-24] MEDS: ATORVASTATIN CALCIUM 20 MG TABLET PO SCH (20:36)
[2021-08-24] MEDS: TAMSULOSIN 0.4 MG CAP.ER.24H. PO SCH (20:36)
--- NOTE | 2021-08-24 20:41 | PDOC ---
Exam Note: Castillo Note: Please also refer to the separate dictated note~for this date of service dictated separately.~Patient seen individually. Discussed the patient with Nursing staff reviewed the chart.~Reviewed interim history and current functioning. Reviewed vital signs,~Labs/ Radiology~and current medications noted below. Continue current treatment with the changes noted in the dictated addendum note Assessment: Vital Signs/I&O: Vital Signs Date Time Temp Pulse Resp B/P (MAP) Pulse Ox O2 Delivery O2 Flow Rate FiO2 08/24/21 16:22 98.8 106 16 133/80 (97) 94 Room Air I & O 08/23/21 08/23/21 08/24/21 15:00 23:00 07:00 Intake Total 40 ml 120 ml Output Total 550 ml Balance 40 ml -430 ml Labs: Laboratory Tests Test 08/24/21 04:00 SARS-CoV-2 (PCR) Not detected (NOT DETECTD) Current Medications: Meds: Laboratory Tests Test 08/24/21 04:00 Coronavirus (COVID-19)(PCR) Not detected Current Medications Medications (Trade) Dose Ordered Sig/Susana Route PRN Reason Start Time Stop Time Status Last Admin Dose Admin Acetaminophen (Tylenol) 650 mg PRN Q6HRS PRN PO MILD PAIN / TEMP > 100.3'F 08/18/21 13:00 08/22/21 20:11 Divalproex Sodium (Depakote Er) 1,000 mg QHS PO 08/18/21 21:00 08/20/21 18:46 DC 08/19/21 21:20 Al Hydroxide/Mg Hydroxide (Mylanta Plus Xs) 15 ml PRN AFTMEALHC PRN PO DYSPEPSIA 08/18/21 13:00 Medroxyprogesterone Acetate (Provera) 5 mg DAILY PO 08/19/21 09:00 08/22/21 17:30 DC 08/22/21 08:32 Multi-Ingredient Ointment (Analgesic [place]) 1 sandra PRN QID PRN TP MUSCLE PAIN 08/18/21 13:00 Quetiapine Fumarate (SEROquel) 50 mg BID PO 08/18/21 21:00 08/19/21 18:10 DC 08/19/21 08:37 Atorvastatin Calcium (Lipitor) 40 mg QHS PO 08/18/21 21:00 08/24/21 20:36 Magnesium Hydroxide (Milk Of Magnesia) 2,400 mg PRN QHS PRN PO CONSTIPATION 08/18/21 13:45 08/24/21 04:49 Paroxetine HCl (Paxil) 40 mg DAILY PO 08/19/21 09:00 08/22/21 17:30 DC 08/22/21 08:33 Diazepam (Valium) 10 mg Q6HRS PO 08/18/21 18:00 08/18/21 19:51 DC Losartan Potassium (Cozaar) 50 mg DAILY PO 08/19/21 09:00 08/24/21 08:17 Haloperidol (Haldol) 10 mg BID PO 08/18/21 21:00 08/18/21 19:51 DC Diazepam (Valium) 2.5 mg PRN TID PRN PO aggresion/anxiety 08/18/21 20:00 08/22/21 00:01 DC 08/21/21 09:29 Olanzapine (ZyPREXA ZYDIS) 5 mg PRN Q2HR PRN PO PSYCHOSIS/agitation 08/20/21 05:00 08/24/21 16:32 Divalproex Sodium (Depakote Sprinkles) 500 mg BID PO 08/21/21 09:00 08/24/21 20:36 Divalproex Sodium (Depakote Sprinkles) 1,000 mg ONCE ONCE PO 08/20/21 21:00 08/20/21 21:01 DC 08/20/21 20:35 Quetiapine Fumarate (SEROquel) 50 mg 0900,1300,1700 PO 08/21/21 13:00 08/24/21 17:00 Hydroxyzine HCl (Atarax) 50 mg PRN Q2HR PRN PO ANXIETY 08/22/21 10:30 08/23/21 17:58 DC 08/23/21 00:02 Medroxyprogesterone Acetate (Provera) 15 mg DAILY PO 08/22/21 17:30 08/22/21 17:35 DC Paroxetine HCl (Paxil) 60 mg DAILY PO 08/22/21 17:30 08/22/21 17:35 DC Gabapentin (Neurontin) 300 mg BID PO 08/23/21 09:00 08/23/21 23:59 DC 08/23/21 19:55 Gabapentin (Neurontin) 300 mg TID PO 08/24/21 09:00 08/24/21 20:36 Medroxyprogesterone Acetate (Provera) 15 mg DAILY PO 08/23/21 09:00 08/24/21 08:17 Paroxetine HCl (Paxil) 60 mg DAILY PO 08/23/21 09:00 08/24/21 08:17 Haloperidol (Haldol) 5 mg PRN Q1HR PRN PO PSYCHOSIS 08/22/21 22:45 08/24/21 20:36 Lorazepam (Ativan) 1 mg PRN Q1HR PRN PO ANXIETY / AGITATION 08/22/21 23:15 08/24/21 20:36 Tamsulosin HCl (Flomax) 0.4 mg QHS PO 08/23/21 21:00 08/24/21 20:36 Current Medications Medications (Trade) Dose Ordered Sig/Susana Route PRN Reason Start Time Stop Time Status Last Admin Dose Admin Gabapentin (Neurontin) 300 mg TID PO 08/24/21 09:00 08/24/21 20:36 Tamsulosin HCl (Flomax) 0.4 mg QHS PO 08/23/21 21:00 08/24/21 20:36 I have reviewed the current psychotropics carefully including drug interactions. Risk benefit ratio favors no change other than as noted in my dictated progress note. Diagnosis: Problems: (1) Impulse control disorder, unspecified (2) Anxiety disorder, unspecified (3) Dementia, vascular, with depression (4) Dementia, vascular, with delusions (5) Dementia in Alzheimer's disease with depression (6) Dementia in Alzheimer's disease with delusions (7) Major neurocognitive disorder (8) Frontotemporal dementia with behavioral disturbance ELIAZAR COYLE MD Aug 24, 2021 20:41
--- NOTE | 2021-08-24 23:33 | CONS ---
DATE OF CONSULTATION: 08/24/2021 NEUROLOGY CONSULTATION REASON FOR CONSULTATION: Acute mental status changes. HISTORY OF PRESENT ILLNESS: This is a 60-year-old right-handed male who was admitted on 08/18/2021 on account of a severe behavioral disturbances described as aggressive behavior towards the staff. He was transferred from [facility] for continuation of inpatient psychiatric care. The patient apparently has had a history of dementia, probably of Alzheimer's type, was found to have very aggressive behavior, wandering, pacing and trying to elope from the hospital along with sexual inappropriate behavior. The patient was found to have very active hallucinations and delusion. The patient was found today in special room, close to the nursing station. He is not able to communicate or give any informations. PAST MEDICAL HISTORY: As described above. The patient also was diagnosed with frontotemporal dementia, anxiety, hyperlipidemia, difficulty to sleep. Apparently, the patient was placed on a high dose of Valium along with haloperidol. There is no history of any recent head injuries or fall. PAST SURGICAL HISTORY: None. SOCIAL HISTORY: There is no history of smoking, alcohol drinking or illicit drug use. CURRENT MEDICATIONS: Includes Tylenol, Mylanta, Lipitor, Depakote, haloperidol, lorazepam, losartan, potassium, medroxyprogesterone acetate, olanzapine, paroxetine, Seroquel, and Flomax. ALLERGIES: No known drug allergies. REVIEW OF SYSTEMS: A 10-point review of system was performed as mentioned above in history of present illness: The patient is unable to provide any information and he does not communicate. PHYSICAL EXAMINATION: GENERAL: Obese male in no acute distress. He weighs 107.1 kilos. VITAL SIGNS: Blood pressure 131/78, respiratory rate 19, pulse is 70, temperature 97.6, oxygen saturation 94% on room air. HEENT: Normocephalic, atraumatic, otherwise unremarkable. NECK: Supple. Negative for carotid bruit, lymphadenopathy or thyromegaly. LUNGS: Clear to A and P. CARDIOVASCULAR: Normal S1, S2. There is no S3, S4 or murmur. ABDOMEN: Soft. Bowel sounds positive. No overt mass, organomegaly, or tenderness. EXTREMITIES: Negative for cyanosis, clubbing or pedal edema. NEUROLOGIC: Mental status: The patient is lying down in the special room. He does not communicate. He does not answer any questions. Cranial nerves: Pupils are equal and reactive to light and accommodation. The extraocular movements intact. No nystagmus. No apparent facial motor or sensory deficit. The rest of the mental status evaluation is limited as the patient is not communicative and not cooperative for the examination and he is somewhat agitated. Motor exam: No focal muscle bulk was seen. Tone is normal. The patient moves all upper and lower extremities freely. Sensory examination revealed normal pinprick and light touch senses. Deep tendon reflexes were hypoactive with absent Achilles responses. Gait not tested. DIAGNOSTIC DATA: Nonenhanced head CT scan performed today revealed chronic small vessel ischemic changes, otherwise no acute intracranial process. LABORATORY DATA: From 08/21/2021 CBC revealed white blood cells of 4000, hemoglobin is 12.4, hematocrit 37, platelet count was 225,000. Chemistry revealed a sodium of 143, potassium 4, chloride 108, CO2 of 28, BUN 18, creatinine 0.9, glucose is 93. Liver enzymes are normal. Vitamin B12 is 403, vitamin D is normal at 13.6. Normal T4 and T3. Urinalysis is negative for urinary tract infections. Valproic acid is 48. COVID-19 PCR is not detected. IMPRESSION: 1. Frontotemporal dementia, possible Alzheimer's type. 2. Behavior disturbances with impulse control disorder, anxiety disorder. 3. Hyperlipidemia. 4. Possible depression and hypertension. RECOMMENDATION: Continue with current medical and psychiatric care. BRIANA DR: Maggie TID: [id number]
--- NOTE | 2021-08-25 00:03 | RAD ---
XR CHEST 1V Clinical Indication: Reason: soa Comparison: None. Findings: The cardiomediastinal silhouette is normal. There are patchy bilateral interstitial opacities. There is low lung volume. There is no pneumothorax. No pleural effusion is appreciated. No acute bone abnor mality. Old fractures of the right and left clavicle. IMPRESSION: Low lung volumes. Patchy bilateral interstitial opacities are probably infectious/inflammatory includ ing atypical/viral pneumonitis. Electronically signed by: Donn Carbajal MD (08/25/2021 12:00 AM) [facility]
--- NOTE | 2021-08-25 00:15 | NUR ---
Nursing Note Pt agitated Haldol and Ativan given twice this pm. On assessment pt found to be warm to the touch with a low grade temp 99.7, lungs coarse more to the right than left, scattered crackles and wheezes, sats low 88-89% chest xray shows pneumonitis inflammation. Awaiting labs to call Dr. Hill. Pt coughs with thick liquids. Pt has difficulty following commands. Wet cough with no visible sputum noted.
[2021-08-25] MEDS: ACETAMINOPHEN 325 MG TABLET PO PRN (01:00)
[2021-08-25 02:48] LABS: CALCIUM 8.7 mg/dL (8.5-10.1); CREATININE 1.2 mg/dL (0.7-1.3); POTASSIUM 3.6 mmol/L (3.5-5.1)
[2021-08-25 02:49] LABS: BASO % 0 % (0-3); EOS % 0 % (0-3); HEMATOCRIT 35.9 % (39.0-53.0); LYMPH # 0.8 x10^3/uL (1.0-4.8); LYMPH % 11 % (24-48); MEAN CORPUSCULAR HEMOGLOBIN 30 pg (25-35); MEAN CORPUSCULAR HGB CONC 33 g/dL (31-37); MEAN CORPUSCULAR VOLUME 91 fL (79-100); MONO # 0.8 x10^3/uL (0.0-1.1); MONO % 10 % (0-9); NEUT # 5.9 x10^3uL (1.8-7.7); NEUT % 78 % (31-73); PLATELET COUNT 182 x10^3/uL (140-400); RED BLOOD COUNT 3.96 x10^6/uL (4.30-5.70); RED CELL DISTRIBUTION WIDTH 13.7 % (11.5-14.5); WHITE BLOOD COUNT 7.5 x10^3/uL (4.0-11.0)
[2021-08-25 03:03] LABS: ALBUMIN 3.5 g/dL (3.4-5.0)
[2021-08-25] MEDS ORDERED: CONTRAST GIVEN. MC PRN (05:45)
[2021-08-25] MEDS ORDERED: IOHEXOL 350 MG/ML 100 ML VIAL. IV ONE (06:00)
[2021-08-25 06:12] VITALS: BP 98/56
--- NOTE | 2021-08-25 07:05 | RAD ---
PQRS Compliance Statement: One or more of the following individualized dose reduction techniques were utilized for this examinat ion: 1. Automated exposure control 2. Adjustment of the mA and/or kV according to patient size 3. Use of iterative reconstruction technique CT CHEST WITH CONTRAST, PULMONARY ANGIOGRAM History: Reason: soa low sats, Comparison: None. Technique: Helical CT of the chest was performed after the administration of 100 cc of Omnipaque 350 intravenous contrast according to PE protocol. Axial and coronal reconstructions were obtained. 3- D MIP images were constructed to better evaluate the pulmonary arteries. Findings: Pulmonary arteries are adequately opacified. There is no evidence of pulmonary embolism. Respiratory motion artifact limits evaluation of subsegmental pulmonary arteries. There is no thoracic aortic dissection. Thyroid is symmetric. There are subcentimeter bilateral hilar lymph nodes. There is no mediastinal adenopathy. The cardiac size is normal, no pericardial effusion . No pleural effusion is identified. There is respiratory motion artifact. Narrowing of the central air ways may be due to expiratory phase at the time of image acquisition. There is patchy consolidation i n the right lung apex. There are patchy airspace opacities in the bilateral lower lobes, worse on the right. The visualized upper abdomen is unremarkable. The thoracic spine alignment is maintained. No acute bone abnormality. IMPRESSION: 1. There is no pulmonary embolus. 2. There are patchy consolidations in the right upper lobe and in the right greater than left lower lobes that may be pneumonia. Electronically signed by: Donn Carbajal MD (08/25/2021 7:02 AM) [facility]
--- NOTE | 2021-08-25 08:00 | RAD ---
PQRS Compliance Statement: One or more of the following individualized dose reduction techniques were utilized for this examinat ion: 1. Automated exposure control 2. Adjustment of the mA and/or kV according to patient size 3. Use of iterative reconstruction technique CT head without contrast 08/25/2021 6:04 AM INDICATION: Behavioral health admission COMPARISON: CT head 07/24/2021 TECHNIQUE: Multiple axial CT images of the head were obtained from skull base through the vertex with out intravenous contrast. FINDINGS: Head: Ventricles, sulci and basal cisterns are prominent compatible with moderate generalized cerebral volu me loss. Low-attenuation in the periventricular white matter is suggestive of chronic small vessel is chemic changes. There is cavum septum pellucidum. There is no hydrocephalus. Christianson-white matter differ entiation is normal. There is no acute intracranial hemorrhage. There is no mass, mass effect or midl ine shift. Posterior fossa is normal in appearance. Visualized portions of the orbits are normal. Paranasal sinuses are well aerated. Mastoid air cells a re well aerated. Scalp and calvaria are normal. IMPRESSION: No acute intracranial hemorrhage. Moderate generalized cerebral volume loss. Low-attenuation in the periventricular white matter is suggestive of chronic small vessel ischemic ch anges. Findings are stable from prior examination. Electronically signed by: Jazmyn Hilliard MD (08/25/2021 7:57 AM) [facility]
--- NOTE | 2021-08-25 08:45 | NUR ---
Nsg Note; Dr Hill call and updated on pt's test results showing RUL RLL and LLL pneumonia. He orders discharge with admission to [address] [place] [address] 125.
[2021-08-25] MEDS ORDERED: PIPE3.377 IV (09:05)
[2021-08-25] MEDS ORDERED: vancomycin (09:06)
--- NOTE | 2021-08-25 09:30 | NUR ---
Nsg Note; Marlen called and informed of Pt's status and pending transfer to Med Telemetry floor for aspiration pneumonia.
--- NOTE | 2021-08-25 09:37 | NUR ---
Nsg Note; discharge to Med Telemetry unit Transition Record was faxed to follow-up provider with the following elements: Reason for admission, procedures, tests, principal diagnosis, pending studies, patient instructions, 10/05 contact information for unit, phone number to obtain pending test results, plan for follow-up care, physician follow-up, advanced directive information, and medication list with dose, duration and instructions. This information was included in the following documents: History and physical, lab results, study results, progress notes, social work planning form, DC instruction form, patient visit summary, and medication reconciliation form. Date & time record faxed: 08/25/21 at 0912 Record faxed to: [facility] unit at [phone] Record discussed with/ report given to Deborah ALLISON
--- NOTE | 2021-08-25 20:58 | PDOC ---
Exam Note: Castillo Note: This note is a late entry for 08/23/2021 covers elements not covered in my initial note. Subjective: The patient was seen individually in the evening of 08/23/2021 with Linda ALLISON, discussed and reviewed the chart. The patient slept 1/2 hours previous night. I had been called by the nursing staff as an emergency on a couple of occasions earlier in the day and previous night and after my rounds I was called by the nursing staff several times and communicated with them since the patient was extremely disruptive, totally out of control and unmanageable, throwing himself on the doors to crash them open. His gait remains very unsteady. He does have some urinary retention. He was started on Flomax. UA is negative. We will stop the hydroxyzine since it could be causing some anticholinergic side effects contributing to the above. He remains on one-on-one status and overnight when the staff had called me at one point he was 5-staff assist trying to manage him because of his aggression. Review of Systems: No CV, , pulmonary, eye, ENT system symptoms on review. Reliability poor. Mental Status Exam: The patient is oriented to himself. Insight and judgement, recent and remote memory, attention and concentration, fund of knowledge is poor consistent with his diagnoses. Laboratory Data: Reviewed. Impression: Major neurocognitive disorder frontotemporal with delusions, depression, behavioral disturbance. Anxiety disorder unspecified. Impulse control disorder unspecified. Plan: Continue current psychotropics for now. Stop the hydroxyzine, given his bladder retention. UA is negative. Repeat CT head in case he has had a fall during the time he was home since [place] and was unclear if he could have had a fall. We have initiated gabapentin. Increase the Paxil to 60 mg a day and maintain Provera. Assessment: Vital Signs/I&O: Vital Signs Date Time Temp Pulse Resp B/P (MAP) Pulse Ox O2 Delivery O2 Flow Rate FiO2 08/25/21 06:12 97.5 72 22 98/56 (70) 2 Nasal Cannula I & O 08/24/21 08/24/21 08/25/21 15:00 23:00 07:00 Intake Total 420 ml 20 ml Balance 420 ml 20 ml Labs: Laboratory Tests Test 08/25/21 02:13 08/25/21 07:15 White Blood Count 7.5 x10^3/uL (4.0-11.0) Red Blood Count 3.96 x10^6/uL (4.30-5.70) L Hemoglobin 12.0 g/dL (13.0-17.5) L Hematocrit 35.9 % (39.0-53.0) L Mean Corpuscular Volume 91 fL (79-100) Mean Corpuscular Hemoglobin 30 pg (25-35) Mean Corpuscular Hemoglobin Concent 33 g/dL (31-37) Red Cell Distribution Width 13.7 % (11.5-14.5) Platelet Count 182 x10^3/uL (140-400) Neutrophils (%) (Auto) 78 % (31-73) H Lymphocytes (%) (Auto) 11 % (24-48) L Monocytes (%) (Auto) 10 % (0-9) H Eosinophils (%) (Auto) 0 % (0-3) Basophils (%) (Auto) 0 % (0-3) Neutrophils # (Auto) 5.9 x10^3uL (1.8-7.7) Lymphocytes # (Auto) 0.8 x10^3/uL (1.0-4.8) L Monocytes # (Auto) 0.8 x10^3/uL (0.0-1.1) Eosinophils # (Auto) 0.0 x10^3/uL (0.0-0.7) Basophils # (Auto) 0.0 x10^3/uL (0.0-0.2) D-Dimer (Renae) 1.24 mg/L (0.00-0.50) H Sodium Level 143 mmol/L (136-145) Potassium Level 3.6 mmol/L (3.5-5.1) Chloride Level 107 mmol/L (98-107) Carbon Dioxide Level 25 mmol/L (21-32) Anion Gap 11 (6-14) Blood Urea Nitrogen 21 mg/dL (8-26) Creatinine 1.2 mg/dL (0.7-1.3) Estimated GFR (Cockcroft-Gault) 62.0 BUN/Creatinine Ratio 18 (6-20) Glucose Level 122 mg/dL (70-99) H Lactic Acid Level 1.1 mmol/L (0.4-2.0) Calcium Level 8.7 mg/dL (8.5-10.1) Total Bilirubin 1.0 mg/dL (0.2-1.0) Aspartate Amino Transferase (AST) 49 U/L (15-37) H Alanine Aminotransferase (ALT) 35 U/L (16-63) Alkaline Phosphatase 59 U/L (46-116) [id number]-Type Natriuretic Peptide 24 pg/mL (0-124) Total Protein 7.0 g/dL (6.4-8.2) Albumin 3.5 g/dL (3.4-5.0) Albumin/Globulin Ratio 1.0 (1.0-1.7) SARS-CoV-2 (PCR) Not detected (NOT DETECTD) Current Medications: Meds: Laboratory Tests Test 08/25/21 02:13 08/25/21 07:15 White Blood Count 7.5 x10^3/uL Red Blood Count 3.96 x10^6/uL Hemoglobin 12.0 g/dL Hematocrit 35.9 % Mean Corpuscular Volume 91 fL Mean Corpuscular Hemoglobin 30 pg Mean Corpuscular Hemoglobin Concent 33 g/dL Red Cell Distribution Width 13.7 % Platelet Count 182 x10^3/uL Neutrophils (%) (Auto) 78 % Lymphocytes (%) (Auto) 11 % Monocytes (%) (Auto) 10 % Eosinophils (%) (Auto) 0 % Basophils (%) (Auto) 0 % Neutrophils # (Auto) 5.9 x10^3uL Lymphocytes # (Auto) 0.8 x10^3/uL Monocytes # (Auto) 0.8 x10^3/uL Eosinophils # (Auto) 0.0 x10^3/uL Basophils # (Auto) 0.0 x10^3/uL D-Dimer (Renae) 1.24 mg/L Sodium Level 143 mmol/L Potassium Level 3.6 mmol/L Chloride Level 107 mmol/L Carbon Dioxide Level 25 mmol/L Anion Gap 11 Blood Urea Nitrogen 21 mg/dL Creatinine 1.2 mg/dL Estimated GFR (Cockcroft-Gault) 62.0 BUN/Creatinine Ratio 18 Glucose Level 122 mg/dL Lactic Acid Level 1.1 mmol/L Calcium Level 8.7 mg/dL Total Bilirubin 1.0 mg/dL Aspartate Amino Transf (AST/SGOT) 49 U/L Alanine Aminotransferase (ALT/SGPT) 35 U/L Alkaline Phosphatase 59 U/L [id number]-Type Natriuretic Peptide 24 pg/mL Total Protein 7.0 g/dL Albumin 3.5 g/dL Albumin/Globulin Ratio 1.0 Coronavirus (COVID-19)(PCR) Not detected Current Medications Medications (Trade) Dose Ordered Sig/Susana Route PRN Reason Start Time Stop Time Status Last Admin Dose Admin Acetaminophen (Tylenol) 650 mg PRN Q6HRS PRN PO MILD PAIN / TEMP > 100.3'F 08/18/21 13:00 08/25/21 09:43 DC 08/25/21 01:00 Divalproex Sodium (Depakote Er) 1,000 mg QHS PO 08/18/21 21:00 08/20/21 18:46 DC 08/19/21 21:20 Al Hydroxide/Mg Hydroxide (Mylanta Plus Xs) 15 ml PRN AFTMEALHC PRN PO DYSPEPSIA 08/18/21 13:00 08/25/21 09:43 DC Medroxyprogesterone Acetate (Provera) 5 mg DAILY PO 08/19/21 09:00 08/22/21 17:30 DC 08/22/21 08:32 Multi-Ingredient Ointment (Analgesic [place]) 1 sandra PRN QID PRN TP MUSCLE PAIN 08/18/21 13:00 08/25/21 09:43 DC Quetiapine Fumarate (SEROquel) 50 mg BID PO 08/18/21 21:00 08/19/21 18:10 DC 08/19/21 08:37 Atorvastatin Calcium (Lipitor) 40 mg QHS PO 08/18/21 21:00 08/25/21 09:43 DC 08/24/21 20:36 Magnesium Hydroxide (Milk Of Magnesia) 2,400 mg PRN QHS PRN PO CONSTIPATION 08/18/21 13:45 08/25/21 09:43 DC 08/24/21 04:49 Paroxetine HCl (Paxil) 40 mg DAILY PO 08/19/21 09:00 08/22/21 17:30 DC 08/22/21 08:33 Diazepam (Valium) 10 mg Q6HRS PO 08/18/21 18:00 08/18/21 19:51 DC Losartan Potassium (Cozaar) 50 mg DAILY PO 08/19/21 09:00 08/25/21 09:43 DC 08/24/21 08:17 Haloperidol (Haldol) 10 mg BID PO 08/18/21 21:00 08/18/21 19:51 DC Diazepam (Valium) 2.5 mg PRN TID PRN PO aggresion/anxiety 08/18/21 20:00 08/22/21 00:01 DC 08/21/21 09:29 Olanzapine (ZyPREXA ZYDIS) 5 mg PRN Q2HR PRN PO PSYCHOSIS/agitation 08/20/21 05:00 08/25/21 09:43 DC 08/24/21 16:32 Divalproex Sodium (Depakote Sprinkles) 500 mg BID PO 08/21/21 09:00 08/25/21 09:43 DC 08/24/21 20:36 Divalproex Sodium (Depakote Sprinkles) 1,000 mg ONCE ONCE PO 08/20/21 21:00 08/20/21 21:01 DC 08/20/21 20:35 Quetiapine Fumarate (SEROquel) 50 mg 0900,1300,1700 PO 08/21/21 13:00 08/25/21 09:43 DC 08/24/21 17:00 Hydroxyzine HCl (Atarax) 50 mg PRN Q2HR PRN PO ANXIETY 08/22/21 10:30 08/23/21 17:58 DC 08/23/21 00:02 Medroxyprogesterone Acetate (Provera) 15 mg DAILY PO 08/22/21 17:30 08/22/21 17:35 DC Paroxetine HCl (Paxil) 60 mg DAILY PO 08/22/21 17:30 08/22/21 17:35 DC Gabapentin (Neurontin) 300 mg BID PO 08/23/21 09:00 08/23/21 23:59 DC 08/23/21 19:55 Gabapentin (Neurontin) 300 mg TID PO 08/24/21 09:00 08/25/21 09:43 DC 08/24/21 20:36 Medroxyprogesterone Acetate (Provera) 15 mg DAILY PO 08/23/21 09:00 08/25/21 09:43 DC 08/24/21 08:17 Paroxetine HCl (Paxil) 60 mg DAILY PO 08/23/21 09:00 08/25/21 09:43 DC 08/24/21 08:17 Haloperidol (Haldol) 5 mg PRN Q1HR PRN PO PSYCHOSIS 08/22/21 22:45 08/25/21 09:43 DC 08/24/21 23:00 Lorazepam (Ativan) 1 mg PRN Q1HR PRN PO ANXIETY / AGITATION 08/22/21 23:15 08/25/21 09:43 DC 08/24/21 23:00 Tamsulosin HCl (Flomax) 0.4 mg QHS PO 08/23/21 21:00 08/25/21 09:43 DC 08/24/21 20:36 Iohexol (Omnipaque 350 Mg/ml) 100 ml 1X ONCE IV 08/25/21 06:00 08/25/21 06:01 DC 08/25/21 06:23 Info (Do NOT chart on this entry -- for MONITORING) 1 each PRN DAILY PRN MC SEE COMMENTS 08/25/21 05:45 08/25/21 09:43 DC Current Medications Medications (Trade) Dose Ordered Sig/Susana Route PRN Reason Start Time Stop Time Status Last Admin Dose Admin Iohexol (Omnipaque 350 Mg/ml) 100 ml 1X ONCE IV 08/25/21 06:00 08/25/21 06:01 DC 08/25/21 06:23 I have reviewed the current psychotropics carefully including drug interactions. Risk benefit ratio favors no change other than as noted in my dictated progress note. Diagnosis: Problems: (1) Impulse control disorder, unspecified (2) Anxiety disorder, unspecified (3) Dementia, vascular, with depression (4) Dementia, vascular, with delusions (5) Dementia in Alzheimer's disease with depression (6) Dementia in Alzheimer's disease with delusions (7) Major neurocognitive disorder (8) Frontotemporal dementia with behavioral disturbance ELIAZAR COYLE MD Aug 25, 2021 20:58
--- NOTE | 2021-08-25 21:18 | PDOC ---
Exam Note: Castillo Note: Please also refer to the separate dictated note~for this date of service dictated separately.~Patient seen individually. Discussed the patient with Nursing staff reviewed the chart.~Reviewed interim history and current functioning. Reviewed vital signs,~Labs/ Radiology~and current medications noted below. Continue current treatment with the changes noted in the dictated addendum note Assessment: Vital Signs/I&O: Vital Signs Date Time Temp Pulse Resp B/P (MAP) Pulse Ox O2 Delivery O2 Flow Rate FiO2 08/25/21 06:12 97.5 72 22 98/56 (70) 2 Nasal Cannula I & O 08/24/21 08/24/21 08/25/21 15:00 23:00 07:00 Intake Total 420 ml 20 ml Balance 420 ml 20 ml Labs: Laboratory Tests Test 08/25/21 02:13 08/25/21 07:15 White Blood Count 7.5 x10^3/uL (4.0-11.0) Red Blood Count 3.96 x10^6/uL (4.30-5.70) L Hemoglobin 12.0 g/dL (13.0-17.5) L Hematocrit 35.9 % (39.0-53.0) L Mean Corpuscular Volume 91 fL (79-100) Mean Corpuscular Hemoglobin 30 pg (25-35) Mean Corpuscular Hemoglobin Concent 33 g/dL (31-37) Red Cell Distribution Width 13.7 % (11.5-14.5) Platelet Count 182 x10^3/uL (140-400) Neutrophils (%) (Auto) 78 % (31-73) H Lymphocytes (%) (Auto) 11 % (24-48) L Monocytes (%) (Auto) 10 % (0-9) H Eosinophils (%) (Auto) 0 % (0-3) Basophils (%) (Auto) 0 % (0-3) Neutrophils # (Auto) 5.9 x10^3uL (1.8-7.7) Lymphocytes # (Auto) 0.8 x10^3/uL (1.0-4.8) L Monocytes # (Auto) 0.8 x10^3/uL (0.0-1.1) Eosinophils # (Auto) 0.0 x10^3/uL (0.0-0.7) Basophils # (Auto) 0.0 x10^3/uL (0.0-0.2) D-Dimer (Renae) 1.24 mg/L (0.00-0.50) H Sodium Level 143 mmol/L (136-145) Potassium Level 3.6 mmol/L (3.5-5.1) Chloride Level 107 mmol/L (98-107) Carbon Dioxide Level 25 mmol/L (21-32) Anion Gap 11 (6-14) Blood Urea Nitrogen 21 mg/dL (8-26) Creatinine 1.2 mg/dL (0.7-1.3) Estimated GFR (Cockcroft-Gault) 62.0 BUN/Creatinine Ratio 18 (6-20) Glucose Level 122 mg/dL (70-99) H Lactic Acid Level 1.1 mmol/L (0.4-2.0) Calcium Level 8.7 mg/dL (8.5-10.1) Total Bilirubin 1.0 mg/dL (0.2-1.0) Aspartate Amino Transferase (AST) 49 U/L (15-37) H Alanine Aminotransferase (ALT) 35 U/L (16-63) Alkaline Phosphatase 59 U/L (46-116) NU-[id number]-Type Natriuretic Peptide 24 pg/mL (0-124) Total Protein 7.0 g/dL (6.4-8.2) Albumin 3.5 g/dL (3.4-5.0) Albumin/Globulin Ratio 1.0 (1.0-1.7) SARS-CoV-2 (PCR) Not detected (NOT DETECTD) Current Medications: Meds: Laboratory Tests Test 08/25/21 02:13 08/25/21 07:15 White Blood Count 7.5 x10^3/uL Red Blood Count 3.96 x10^6/uL Hemoglobin 12.0 g/dL Hematocrit 35.9 % Mean Corpuscular Volume 91 fL Mean Corpuscular Hemoglobin 30 pg Mean Corpuscular Hemoglobin Concent 33 g/dL Red Cell Distribution Width 13.7 % Platelet Count 182 x10^3/uL Neutrophils (%) (Auto) 78 % Lymphocytes (%) (Auto) 11 % Monocytes (%) (Auto) 10 % Eosinophils (%) (Auto) 0 % Basophils (%) (Auto) 0 % Neutrophils # (Auto) 5.9 x10^3uL Lymphocytes # (Auto) 0.8 x10^3/uL Monocytes # (Auto) 0.8 x10^3/uL Eosinophils # (Auto) 0.0 x10^3/uL Basophils # (Auto) 0.0 x10^3/uL D-Dimer (Renae) 1.24 mg/L Sodium Level 143 mmol/L Potassium Level 3.6 mmol/L Chloride Level 107 mmol/L Carbon Dioxide Level 25 mmol/L Anion Gap 11 Blood Urea Nitrogen 21 mg/dL Creatinine 1.2 mg/dL Estimated GFR (Cockcroft-Gault) 62.0 BUN/Creatinine Ratio 18 Glucose Level 122 mg/dL Lactic Acid Level 1.1 mmol/L Calcium Level 8.7 mg/dL Total Bilirubin 1.0 mg/dL Aspartate Amino Transf (AST/SGOT) 49 U/L Alanine Aminotransferase (ALT/SGPT) 35 U/L Alkaline Phosphatase 59 U/L [id number]-Type Natriuretic Peptide 24 pg/mL Total Protein 7.0 g/dL Albumin 3.5 g/dL Albumin/Globulin Ratio 1.0 Coronavirus (COVID-19)(PCR) Not detected Current Medications Medications (Trade) Dose Ordered Sig/Susana Route PRN Reason Start Time Stop Time Status Last Admin Dose Admin Acetaminophen (Tylenol) 650 mg PRN Q6HRS PRN PO MILD PAIN / TEMP > 100.3'F 08/18/21 13:00 08/25/21 09:43 DC 08/25/21 01:00 Divalproex Sodium (Depakote Er) 1,000 mg QHS PO 08/18/21 21:00 08/20/21 18:46 DC 08/19/21 21:20 Al Hydroxide/Mg Hydroxide (Mylanta Plus Xs) 15 ml PRN AFTMEALHC PRN PO DYSPEPSIA 08/18/21 13:00 08/25/21 09:43 DC Medroxyprogesterone Acetate (Provera) 5 mg DAILY PO 08/19/21 09:00 08/22/21 17:30 DC 08/22/21 08:32 Multi-Ingredient Ointment (Analgesic [place]) 1 sandra PRN QID PRN TP MUSCLE PAIN 08/18/21 13:00 08/25/21 09:43 DC Quetiapine Fumarate (SEROquel) 50 mg BID PO 08/18/21 21:00 08/19/21 18:10 DC 08/19/21 08:37 Atorvastatin Calcium (Lipitor) 40 mg QHS PO 08/18/21 21:00 08/25/21 09:43 DC 08/24/21 20:36 Magnesium Hydroxide (Milk Of Magnesia) 2,400 mg PRN QHS PRN PO CONSTIPATION 08/18/21 13:45 08/25/21 09:43 DC 08/24/21 04:49 Paroxetine HCl (Paxil) 40 mg DAILY PO 08/19/21 09:00 08/22/21 17:30 DC 08/22/21 08:33 Diazepam (Valium) 10 mg Q6HRS PO 08/18/21 18:00 08/18/21 19:51 DC Losartan Potassium (Cozaar) 50 mg DAILY PO 08/19/21 09:00 08/25/21 09:43 DC 08/24/21 08:17 Haloperidol (Haldol) 10 mg BID PO 08/18/21 21:00 08/18/21 19:51 DC Diazepam (Valium) 2.5 mg PRN TID PRN PO aggresion/anxiety 08/18/21 20:00 08/22/21 00:01 DC 08/21/21 09:29 Olanzapine (ZyPREXA ZYDIS) 5 mg PRN Q2HR PRN PO PSYCHOSIS/agitation 08/20/21 05:00 08/25/21 09:43 DC 08/24/21 16:32 Divalproex Sodium (Depakote Sprinkles) 500 mg BID PO 08/21/21 09:00 08/25/21 09:43 DC 08/24/21 20:36 Divalproex Sodium (Depakote Sprinkles) 1,000 mg ONCE ONCE PO 08/20/21 21:00 08/20/21 21:01 DC 08/20/21 20:35 Quetiapine Fumarate (SEROquel) 50 mg 0900,1300,1700 PO 08/21/21 13:00 08/25/21 09:43 DC 08/24/21 17:00 Hydroxyzine HCl (Atarax) 50 mg PRN Q2HR PRN PO ANXIETY 08/22/21 10:30 08/23/21 17:58 DC 08/23/21 00:02 Medroxyprogesterone Acetate (Provera) 15 mg DAILY PO 08/22/21 17:30 08/22/21 17:35 DC Paroxetine HCl (Paxil) 60 mg DAILY PO 08/22/21 17:30 08/22/21 17:35 DC Gabapentin (Neurontin) 300 mg BID PO 08/23/21 09:00 08/23/21 23:59 DC 08/23/21 19:55 Gabapentin (Neurontin) 300 mg TID PO 08/24/21 09:00 08/25/21 09:43 DC 08/24/21 20:36 Medroxyprogesterone Acetate (Provera) 15 mg DAILY PO 08/23/21 09:00 08/25/21 09:43 DC 08/24/21 08:17 Paroxetine HCl (Paxil) 60 mg DAILY PO 08/23/21 09:00 08/25/21 09:43 DC 08/24/21 08:17 Haloperidol (Haldol) 5 mg PRN Q1HR PRN PO PSYCHOSIS 08/22/21 22:45 08/25/21 09:43 DC 08/24/21 23:00 Lorazepam (Ativan) 1 mg PRN Q1HR PRN PO ANXIETY / AGITATION 08/22/21 23:15 08/25/21 09:43 DC 08/24/21 23:00 Tamsulosin HCl (Flomax) 0.4 mg QHS PO 08/23/21 21:00 08/25/21 09:43 DC 08/24/21 20:36 Iohexol (Omnipaque 350 Mg/ml) 100 ml 1X ONCE IV 08/25/21 06:00 08/25/21 06:01 DC 08/25/21 06:23 Info (Do NOT chart on this entry -- for MONITORING) 1 each PRN DAILY PRN MC SEE COMMENTS 08/25/21 05:45 08/25/21 09:43 DC Current Medications Medications (Trade) Dose Ordered Sig/Susana Route PRN Reason Start Time Stop Time Status Last Admin Dose Admin Iohexol (Omnipaque 350 Mg/ml) 100 ml 1X ONCE IV 08/25/21 06:00 08/25/21 06:01 DC 08/25/21 06:23 I have reviewed the current psychotropics carefully including drug interactions. Risk benefit ratio favors no change other than as noted in my dictated progress note. Diagnosis: Problems: (1) Impulse control disorder, unspecified (2) Anxiety disorder, unspecified (3) Dementia, vascular, with depression (4) Dementia, vascular, with delusions (5) Dementia in Alzheimer's disease with depression (6) Dementia in Alzheimer's disease with delusions (7) Major neurocognitive disorder (8) Frontotemporal dementia with behavioral disturbance ELIAZAR COYLE MD Aug 25, 2021 21:18
--- NOTE | 2021-08-25 21:18 | PDOC ---
Exam Note: Castillo Note: This note is a late entry for 08/24/2021 covers elements not covered in my initial note. Subjective: The patient was seen individually in the evening of 08/24/2021 with Maryana ALLISON, discussed and reviewed the chart. The patient slept 8-1/2 hours previous night. Overall he remains quite withdrawn. He has been placed in his room with pads all around the huizar and the door since he is quite impulsive. Review of Systems: No CV, , pulmonary, eye, ENT system symptoms on review. Reliability poor. Mental Status Exam: The patient is oriented to himself. Insight and judgement, recent and remote memory, attention and concentration, fund of knowledge is poor consistent with his diagnoses. Laboratory Data: Reviewed. Impression: Major neurocognitive disorder frontotemporal with delusions, depression, behavioral disturbance. Anxiety disorder unspecified. Impulse control disorder unspecified. Plan: Continue current psychotropics for now. The patient is still getting Haldol and Ativan p.r.n. and just as soon as we can, we will try and reduce these to help reduce his sedation. Per nursing report, Zyprexa seems to be of little effect for his agitation and mood lability but the nursing staff feels the Seroquel seems to help. We may gradually increase the Seroquel but I would like to see his sedation improve before adding onto rest of the psychotropics since they might have tendency to sedate him as well. Assessment: Vital Signs/I&O: Vital Signs Date Time Temp Pulse Resp B/P (MAP) Pulse Ox O2 Delivery O2 Flow Rate FiO2 08/25/21 06:12 97.5 72 22 98/56 (70) 2 Nasal Cannula I & O 08/24/21 08/24/21 08/25/21 15:00 23:00 07:00 Intake Total 420 ml 20 ml Balance 420 ml 20 ml Labs: Laboratory Tests Test 08/25/21 02:13 08/25/21 07:15 White Blood Count 7.5 x10^3/uL (4.0-11.0) Red Blood Count 3.96 x10^6/uL (4.30-5.70) L Hemoglobin 12.0 g/dL (13.0-17.5) L Hematocrit 35.9 % (39.0-53.0) L Mean Corpuscular Volume 91 fL (79-100) Mean Corpuscular Hemoglobin 30 pg (25-35) Mean Corpuscular Hemoglobin Concent 33 g/dL (31-37) Red Cell Distribution Width 13.7 % (11.5-14.5) Platelet Count 182 x10^3/uL (140-400) Neutrophils (%) (Auto) 78 % (31-73) H Lymphocytes (%) (Auto) 11 % (24-48) L Monocytes (%) (Auto) 10 % (0-9) H Eosinophils (%) (Auto) 0 % (0-3) Basophils (%) (Auto) 0 % (0-3) Neutrophils # (Auto) 5.9 x10^3uL (1.8-7.7) Lymphocytes # (Auto) 0.8 x10^3/uL (1.0-4.8) L Monocytes # (Auto) 0.8 x10^3/uL (0.0-1.1) Eosinophils # (Auto) 0.0 x10^3/uL (0.0-0.7) Basophils # (Auto) 0.0 x10^3/uL (0.0-0.2) D-Dimer (Renae) 1.24 mg/L (0.00-0.50) H Sodium Level 143 mmol/L (136-145) Potassium Level 3.6 mmol/L (3.5-5.1) Chloride Level 107 mmol/L (98-107) Carbon Dioxide Level 25 mmol/L (21-32) Anion Gap 11 (6-14) Blood Urea Nitrogen 21 mg/dL (8-26) Creatinine 1.2 mg/dL (0.7-1.3) Estimated GFR (Cockcroft-Gault) 62.0 BUN/Creatinine Ratio 18 (6-20) Glucose Level 122 mg/dL (70-99) H Lactic Acid Level 1.1 mmol/L (0.4-2.0) Calcium Level 8.7 mg/dL (8.5-10.1) Total Bilirubin 1.0 mg/dL (0.2-1.0) Aspartate Amino Transferase (AST) 49 U/L (15-37) H Alanine Aminotransferase (ALT) 35 U/L (16-63) Alkaline Phosphatase 59 U/L (46-116) TM-Nmn-G-Type Natriuretic Peptide 24 pg/mL (0-124) Total Protein 7.0 g/dL (6.4-8.2) Albumin 3.5 g/dL (3.4-5.0) Albumin/Globulin Ratio 1.0 (1.0-1.7) SARS-CoV-2 (PCR) Not detected (NOT DETECTD) Current Medications: Meds: Laboratory Tests Test 08/25/21 02:13 08/25/21 07:15 White Blood Count 7.5 x10^3/uL Red Blood Count 3.96 x10^6/uL Hemoglobin 12.0 g/dL Hematocrit 35.9 % Mean Corpuscular Volume 91 fL Mean Corpuscular Hemoglobin 30 pg Mean Corpuscular Hemoglobin Concent 33 g/dL Red Cell Distribution Width 13.7 % Platelet Count 182 x10^3/uL Neutrophils (%) (Auto) 78 % Lymphocytes (%) (Auto) 11 % Monocytes (%) (Auto) 10 % Eosinophils (%) (Auto) 0 % Basophils (%) (Auto) 0 % Neutrophils # (Auto) 5.9 x10^3uL Lymphocytes # (Auto) 0.8 x10^3/uL Monocytes # (Auto) 0.8 x10^3/uL Eosinophils # (Auto) 0.0 x10^3/uL Basophils # (Auto) 0.0 x10^3/uL D-Dimer (Renae) 1.24 mg/L Sodium Level 143 mmol/L Potassium Level 3.6 mmol/L Chloride Level 107 mmol/L Carbon Dioxide Level 25 mmol/L Anion Gap 11 Blood Urea Nitrogen 21 mg/dL Creatinine 1.2 mg/dL Estimated GFR (Cockcroft-Gault) 62.0 BUN/Creatinine Ratio 18 Glucose Level 122 mg/dL Lactic Acid Level 1.1 mmol/L Calcium Level 8.7 mg/dL Total Bilirubin 1.0 mg/dL Aspartate Amino Transf (AST/SGOT) 49 U/L Alanine Aminotransferase (ALT/SGPT) 35 U/L Alkaline Phosphatase 59 U/L AO-Tqm-T-Type Natriuretic Peptide 24 pg/mL Total Protein 7.0 g/dL Albumin 3.5 g/dL Albumin/Globulin Ratio 1.0 Coronavirus (COVID-19)(PCR) Not detected Current Medications Medications (Trade) Dose Ordered Sig/Susana Route PRN Reason Start Time Stop Time Status Last Admin Dose Admin Acetaminophen (Tylenol) 650 mg PRN Q6HRS PRN PO MILD PAIN / TEMP > 100.3'F 08/18/21 13:00 08/25/21 09:43 DC 08/25/21 01:00 Divalproex Sodium (Depakote Er) 1,000 mg QHS PO 08/18/21 21:00 08/20/21 18:46 DC 08/19/21 21:20 Al Hydroxide/Mg Hydroxide (Mylanta Plus Xs) 15 ml PRN AFTMEALHC PRN PO DYSPEPSIA 08/18/21 13:00 08/25/21 09:43 DC Medroxyprogesterone Acetate (Provera) 5 mg DAILY PO 08/19/21 09:00 08/22/21 17:30 DC 08/22/21 08:32 Multi-Ingredient Ointment (Analgesic [place]) 1 sandra PRN QID PRN TP MUSCLE PAIN 08/18/21 13:00 08/25/21 09:43 DC Quetiapine Fumarate (SEROquel) 50 mg BID PO 08/18/21 21:00 08/19/21 18:10 DC 08/19/21 08:37 Atorvastatin Calcium (Lipitor) 40 mg QHS PO 08/18/21 21:00 08/25/21 09:43 DC 08/24/21 20:36 Magnesium Hydroxide (Milk Of Magnesia) 2,400 mg PRN QHS PRN PO CONSTIPATION 08/18/21 13:45 08/25/21 09:43 DC 08/24/21 04:49 Paroxetine HCl (Paxil) 40 mg DAILY PO 08/19/21 09:00 08/22/21 17:30 DC 08/22/21 08:33 Diazepam (Valium) 10 mg Q6HRS PO 08/18/21 18:00 08/18/21 19:51 DC Losartan Potassium (Cozaar) 50 mg DAILY PO 08/19/21 09:00 08/25/21 09:43 DC 08/24/21 08:17 Haloperidol (Haldol) 10 mg BID PO 08/18/21 21:00 08/18/21 19:51 DC Diazepam (Valium) 2.5 mg PRN TID PRN PO aggresion/anxiety 08/18/21 20:00 08/22/21 00:01 DC 08/21/21 09:29 Olanzapine (ZyPREXA ZYDIS) 5 mg PRN Q2HR PRN PO PSYCHOSIS/agitation 08/20/21 05:00 08/25/21 09:43 DC 08/24/21 16:32 Divalproex Sodium (Depakote Sprinkles) 500 mg BID PO 08/21/21 09:00 08/25/21 09:43 DC 08/24/21 20:36 Divalproex Sodium (Depakote Sprinkles) 1,000 mg ONCE ONCE PO 08/20/21 21:00 08/20/21 21:01 DC 08/20/21 20:35 Quetiapine Fumarate (SEROquel) 50 mg 0900,1300,1700 PO 08/21/21 13:00 08/25/21 09:43 DC 08/24/21 17:00 Hydroxyzine HCl (Atarax) 50 mg PRN Q2HR PRN PO ANXIETY 08/22/21 10:30 08/23/21 17:58 DC 08/23/21 00:02 Medroxyprogesterone Acetate (Provera) 15 mg DAILY PO 08/22/21 17:30 08/22/21 17:35 DC Paroxetine HCl (Paxil) 60 mg DAILY PO 08/22/21 17:30 08/22/21 17:35 DC Gabapentin (Neurontin) 300 mg BID PO 08/23/21 09:00 08/23/21 23:59 DC 08/23/21 19:55 Gabapentin (Neurontin) 300 mg TID PO 08/24/21 09:00 08/25/21 09:43 DC 08/24/21 20:36 Medroxyprogesterone Acetate (Provera) 15 mg DAILY PO 08/23/21 09:00 08/25/21 09:43 DC 08/24/21 08:17 Paroxetine HCl (Paxil) 60 mg DAILY PO 08/23/21 09:00 08/25/21 09:43 DC 08/24/21 08:17 Haloperidol (Haldol) 5 mg PRN Q1HR PRN PO PSYCHOSIS 08/22/21 22:45 08/25/21 09:43 DC 08/24/21 23:00 Lorazepam (Ativan) 1 mg PRN Q1HR PRN PO ANXIETY / AGITATION 08/22/21 23:15 08/25/21 09:43 DC 08/24/21 23:00 Tamsulosin HCl (Flomax) 0.4 mg QHS PO 08/23/21 21:00 08/25/21 09:43 DC 08/24/21 20:36 Iohexol (Omnipaque 350 Mg/ml) 100 ml 1X ONCE IV 08/25/21 06:00 08/25/21 06:01 DC 08/25/21 06:23 Info (Do NOT chart on this entry -- for MONITORING) 1 each PRN DAILY PRN MC SEE COMMENTS 08/25/21 05:45 08/25/21 09:43 DC Current Medications Medications (Trade) Dose Ordered Sig/[place] Route PRN Reason Start Time Stop Time Status Last Admin Dose Admin Iohexol (Omnipaque 350 Mg/ml) 100 ml 1X ONCE IV 08/25/21 06:00 08/25/21 06:01 DC 08/25/21 06:23 I have reviewed the current psychotropics carefully including drug interactions. Risk benefit ratio favors no change other than as noted in my dictated progress note. Diagnosis: Problems: (1) Impulse control disorder, unspecified (2) Anxiety disorder, unspecified (3) Dementia, vascular, with depression (4) Dementia, vascular, with delusions (5) Dementia in Alzheimer's disease with depression (6) Dementia in Alzheimer's disease with delusions (7) Dementia of the Alzheimer's type with early onset with behavioral disturbance (8) Major neurocognitive disorder (9) Frontotemporal dementia with behavioral disturbance ELIAZAR COYLE MD Aug 25, 2021 21:18
[2021-08-26] MEDS ORDERED: ACET325T21 PO (12:25)
[2021-08-26] MEDS ORDERED: HALO10TA PO (12:26)
[2021-08-26] MEDS ORDERED: PIPE3.377 IV (12:26)
[2021-08-26] MEDS ORDERED: LOSA25TA11 PO (12:26)
[2021-08-26] MEDS ORDERED: MEDR2.5T28 PO (12:26)
[2021-08-26] MEDS ORDERED: METH57CR17 TP (12:26)
[2021-08-26] MEDS ORDERED: vancomycin (12:26)
[2021-08-26] MEDS ORDERED: MAG-124 PO (12:26)
[2021-08-26] MEDS ORDERED: QUET50TA5 PO (12:26)
[2021-08-26] MEDS ORDERED: DIVA500T4 PO (12:26)
[2021-08-26] MEDS ORDERED: DIAZ5TAB4 PO (12:26)
[2021-08-26] MEDS ORDERED: PARO40TA61 PO (12:26)
[2021-08-26] MEDS ORDERED: ATOR40TA59 PO (12:26)
[2021-08-26] MEDS ORDERED: MAGN24003 PO (12:26)
[2021-08-26] MEDS ORDERED: OLAN5TAB67 PO (12:55)
[2021-08-26] MEDS ORDERED: GABA600T7 PO (12:55)
[2021-08-26] MEDS ORDERED: LORA-254 PO (12:55)
[2021-08-26] MEDS ORDERED: TAMS0.4C97 PO (12:55)
--- NOTE | 2021-08-27 20:43 | DS ---
DATE OF DISCHARGE: 08/25/2021 DISCHARGE SUMMARY AND PSYCHIATRY PROGRESS NOTE This is a late entry, date of service 08/25/2021 covers elements not covered in my initial note. REASON FOR ADMISSION: Please refer to the admission history for details, but briefly the patient is a 60-year-old male referred back to us from [facility] where he presented from home due to worsening behaviors consequent to his frontotemporal dementia and failure of his recent inpatient psychiatric hospitalization at our facility. He was at the [facility], aggressive toward staff, elope from the hospital, wandering, pacing, impulsive, sexually inappropriate, having hallucinations, delusions. At home, he was living with his who is still working and he would abscond from the home walking down long distances elsewhere, socially very inappropriate and confused and non-redirectable. Behaviors were deemed dangerous, unmanageable resulting in this referral once again. SIGNIFICANT FINDINGS AND CLINICAL COURSE: Following admission, the patient was seen daily individually by myself from a psychiatric standpoint, medical followup with Dr. Hill/Dr. Tee. The patient was extremely aggressive, disruptive, intrusive, volatile. He is very big in size and was quite intimidating to staff. He came in on a combination of approximately 30 mg of Valium a day and 20 mg of Haldol. He was also on Depakote and Provera and 40 mg Paxil a day. He is quite aggressive, disruptive. Adjustments were being made in his psychotropics. We tried to taper off the Valium and the Haldol that he became extremely aggressive, had to be on 5 staff trying to contain him and frequently had remained on 2 staff, being with him at all times. We had to restart the Haldol and used Ativan p.r.n. for anxiety, but at this stage he developed aspiration pneumonia and was transitioned to the ICU per Dr. Hill. REVIEW OF SYSTEMS: Prior to discharge, no CV, , eye, ENT system symptoms on review. Reliability poor. MENTAL STATUS EXAMINATION: Oriented to himself. Insight, judgment, recent and remote memory, attention, concentration, fund of knowledge poor consistent with his diagnoses. FINAL DIAGNOSES: Major neurocognitive disorder, frontotemporal with delusion, depression, behavioral disturbance, anxiety disorder, unspecified; impulse control disorder, unspecified; aspiration pneumonia. Rest unchanged from admission. DISCHARGE MEDICATIONS: Please refer to the [facility]. Psychiatric and medical followup in the ICU. Time for discharge day management greater than [address]: Rich TID: [id number]
== END 2021-08-25 09:30 | disposition short-term general hospital (02) | DRG 56 ==
LOC: GEROPSY 12:50
PROVIDERS: ADMIT Psychiatry & Neurology Psychiatry; ATTEND Psychiatry & Neurology Psychiatry
DX: G30.9 Alzheimer's disease, unspecified (principal); F01.51 Vascular dementia, unspecified severity, with behavioral disturbance; J69.0 Pneumonitis due to inhalation of food and vomit; F02.81 Dementia in other diseases classified elsewhere, unspecified severity, with behavioral disturbance; F63.9 Impulse disorder, unspecified; E78.5 Hyperlipidemia, unspecified; Z66 Do not resuscitate; F41.9 Anxiety disorder, unspecified; I10 Essential (primary) hypertension; G31.09 Other frontotemporal neurocognitive disorder; F32.A Depression, unspecified; Z20.822 Contact with and (suspected) exposure to COVID-19; Z91.81 History of falling; Z79.899 Other long term (current) drug therapy
CPT/HCPCS: 36415; 70450; 71045; 71275; 80053; 80164; 81001; 82140; 82306; 82607; 83540; 83550; 83605; 83735; 83880; 84436; 84443; 84480; 85025; 85379; 86592; 93005; Q9967; U0003

== ENCOUNTER 2021-08-25 09:18 | Inpatient (IN) | payer BC ==
[~2021-08-25] VITALS: Ht 182.9 cm; Wt 102.6 kg
[~2021-08-25 09:18] MED LIST changes: +DIAZ5TAB4 PO; +HALO10TA PO; +LOSA25TA11 PO; +PIPE3.377 IV; +vancomycin
[2021-08-25 09:51] VITALS: BP 115/68
[2021-08-25] MEDS ORDERED: VANCOMYCIN PER PHARMACY MC PRN (10:00)
--- NOTE | 2021-08-25 10:21 | NUR ---
PT ARRIVED TO ROOM 125 VIA [facility] STAFF IN BED AT 0950. PT RESTING IN BED WITH 1:1 STAFF. PT ARRIVED WITH IV PLACEMENT AND OXYGEN. PT BELONGINGS BROUGHT DOWN. PT HAS WEDDING RING IN THE SAFE. ADMIT ORDERS RECEIVED ALONG WITH IV ABX ORDERS AND HALDOL PRN. PT TO BE NPO D/T ASPIRATION PNA.
[2021-08-25] MEDS: POTASSIUM CL 20MEQ D5-0.45NACL 1,000 ML IV SCH (10:37)
[2021-08-25] MEDS: PIPERACILLIN/TAZOBACTAM 3.375 GM in IV NORMAL SALINE 50ML 50 ML IV SCH ×3 (10:47→21:44)
[2021-08-25] MEDS: HALOPERIDOL LACT 5 MG/ML VIAL. IVP PRN ×4 (10:57→23:45)
[2021-08-25] MEDS ORDERED: VANCOMYCIN 2 GM in IV NORMAL SALINE 500ML 500 ML IV ONE (11:00)
--- NOTE | 2021-08-25 11:03 | NUR ---
PT PULLING AT IV, AND THROWING LEGS OVER THE SIDE OF THE BED. DR. ESTRADA CONTACTED REGARDING ARRIVAL OF PT AND CODE STATUS. PT GIVEN A BED BATH AND SHAVED. TWO STAFF MEMBERS ACCOMPANYING PT.
--- NOTE | 2021-08-25 11:49 | NUR ---
D/T PT BEING NPO PRIOR TO ADMISSION, UNABLE TO CARRY OUT BEDSIDE SWALLOW STUDY. PT RESTING IN BED WITH AN INTERMITTENT COUGH.
--- NOTE | 2021-08-25 11:53 | NUR ---
Pharmacy Vancomycin Dosing Note S:Consulted to monitor and dose vancomycin started . O:RACHEL CHACON is a 60 year old M with Pneumonia- ASPIRATION, . Height: 6 feet, 0 inches Weight: 102.6 kg Holloway Body Weight: 77.60 Adjusted Body Weight: 87.60 Dosing Weight: Actual Other Antibiotics: ZOSYN LABS: Last BUN: Last Creatinine: 1.2 Creatinine Clearance: 82.2 Last WBC: 7.5 Last Procalcitonin: Tmax (past 24 hours): Microbiology: I/O: Drug Levels: Last level: on at Last dose given at Vancomycin Dosing: Loading Dose: 2000 mg x1 Dosing Weight: Actual Target Trough: 15-20 A: Based on: PHYSICIAN REQUEST FOR PHARMACY TO DOSE P: 1. Begin Vancomycin 1500 mg IV q12h 2. Follow up Trough level on 08/26/21 at 2230 3. Pharmacy will continue to monitor, follow and adjust therapy as needed. PAVEL MOSS, 08/25/21 1776
--- NOTE | 2021-08-25 13:05 | NUR ---
ZACH received a call from Marlen who wanted to further discuss pt case. ZACH informed Marlen that [facility] was informed that pt was transferred to the medical floor and that the RN/CM Tonya would be completing the authorization for medical care. Marlen questioned if pt would return up to the unit once he finishes treatment and ZACH was not able to answer that question for her. ZACH did inform her that pt more than likely would continue to have aspiration pneumonia once he is treated. As long as pt continues to cough as things are placed in his mouth, he would continue to physically decline. ZACH did not feel that pt would leave a feeding tube in and pt agreed as he has attempted multiple time to pull the IV out. ZACH explained that if pt needed hospice, he would not be able to receive hospice care on [facility]. ZACH discussed all options with Marlen who understood them and is just in disbelief with how fast everything has happened. Both parties discussed the fact that this may "be a blessing in disguise" for the pt and his family. ZACH encouraged Marlen to call for updates and Marlen has requested to make sure that if anything drastic occurs, she is called immediately as they are five hours away.
[2021-08-25 14:36] VITALS: BP 139/73
--- NOTE | 2021-08-25 18:26 | HP ---
DATE OF SERVICE: 08/25/2021 ADMIT DATE: 08/25/2021 HISTORY OF PRESENT ILLNESS: The patient is a 60-year-old male patient who was admitted [facility] as he was aggressive towards staff, eloped from hospital, wandering, pacing, impulsive, sexually inappropriate, hallucinating, delusional, all this in a background of his frontotemporal dementia and was on a huge amount of sedation. He was actually on 40 mg of Valium, and was getting Ativan and Haldol intramuscular and was transferred to our facility for inpatient psychiatric stabilization. He is nonverbal, but continued to require excessive sedation and last night, he was noted to be hypoxic, had low-grade fever, and we did order some lab work as well as a CT scan of the chest, although his white cell count was normal and his chemistry was unremarkable. His D-dimer was slightly elevated at 1.24 and therefore, he had CT angio of the chest, which showed the patient has no pulmonary embolism, but there are patchy consolidations in the right upper lobe and the right greater than left lower lobe that may be pneumonia. His CT scan of the head was essentially unremarkable, showed no acute intracranial hemorrhage, moderate generalized cerebral volume loss, low attenuation in the periventricular white matter suggestive of chronic small vessel ischemic changes. Findings are stable from prior examination and therefore, the patient was transferred to [address] [place] [address] and was started on healthcare-associated pneumonia protocol including vancomycin, Zosyn, started him also on IV fluid and Tylenol. PAST MEDICAL HISTORY: Significant for hyperlipidemia and aphasia. PAST PSYCHIATRIC HISTORY: Significant for frontotemporal dementia and anxiety together with impulse control disorder. PAST SURGICAL HISTORY: Unobtainable. ALLERGIES: He has no known drug allergies. MEDICATIONS: He was on the following medications: Gabapentin 300 mg 3 times a day, tamsulosin 0.4 mg at bedtime, paroxetine 60 mg daily, medroxyprogesterone ____ mg daily, lorazepam 1 mg every hour, Haldol 5 mg every hour, quetiapine fumarate 50 mg 3 times a day, divalproex 500 mg twice a day, olanzapine 5 mg every 2 hours, losartan potassium 50 mg daily. He is also on atorvastatin 40 mg at bedtime, magnesium hydroxide for milk of magnesia 30 mL p.o. daily p.r.n. for constipation, Tylenol 650 mg p.o. every 6 hours. FAMILY HISTORY: Unremarkable. SOCIAL HISTORY: He is and lives at home with his . He does not smoke, drink alcohol or use recreational drugs. REVIEW OF SYSTEMS: Unobtainable. PHYSICAL EXAMINATION: GENERAL: When I examined him today, he was resting slightly propped up in bed, in no apparent respiratory distress. There was no pallor, jaundice, cyanosis, or thyromegaly. No jugular venous distention. No lower limb edema. VITAL SIGNS: Her heart rate was 59, blood pressure 115/68, temperature 97, respiratory rate 20, and oxygen saturation was 93% on room air. His oxygen saturation up stairs was 86% on room air and he was started on 2 liters at that time. HEAD, EYES, EARS, NOSE, AND THROAT: Showed normocephalic, atraumatic. NECK: Supple. HEART: Showed normal first and second heart sounds. No gallop, rub, or murmur. CHEST: Showed central trachea, equal bilateral chest expansion, air entry, vesicular breath sounds. I could not appreciate any crepitation or rhonchi anteriorly. ABDOMEN: Distended, soft, nontender. NEUROLOGIC: He was demented, but without any obvious lateralizing sign. LABORATORY DATA: Showed that his white cell count was 7.5, hemoglobin 12, hematocrit 36, MCV 91, and platelet count of 182,000. His D-dimer was 1.24 and chemistry was unremarkable with a serum sodium 143, potassium 3.6, chloride 107, bicarbonate 25, anion gap of 11, BUN 21, creatinine 1.2, estimated GFR was 62 mL per minute, glucose 122. Lactic acid 1.1, calcium was 8.7. Total bilirubin, AST, ALT, alkaline phosphatase were normal. His total protein 7, albumin was 3.5. ASSESSMENT AND PLAN: The patient was diagnosed with healthcare-associated pneumonia, was transferred to [address] [place] [address]. He was started on IV antibiotic in the form of vancomycin and Zosyn together with IV fluid and Tylenol. We will monitor his response and adjust his medication as needed. Apparently, his wanted him to be DNR/DNI. ARTURO DR: Eriberto TID: [id number]
[2021-08-25 19:51] VITALS: BP 113/64
[2021-08-25] MEDS: diphenhydrAMINE 50 MG/ML VIAL IVP PRN (21:54)
[2021-08-25] MEDS: VANCOMYCIN 1.5 GM in IV NORMAL SALINE 500ML 500 ML IV SCH (22:43)
--- NOTE | 2021-08-25 23:00 | NUR ---
Pt is extremely restless and throwing his legs over the side of the bed. When asked where he is going he says, "I'm going to [place]." This nurse gave an update to his when she had called. Pt has 4 staff at bedside to keep pt safe.
[2021-08-26] MEDS: diphenhydrAMINE 50 MG/ML VIAL IVP PRN ×2 (01:33→10:01)
[2021-08-26] MEDS ORDERED: ZIPRASIDONE IM 20 MG VIAL. IM PRN ×2 (02:15→08:00)
[2021-08-26] MEDS: POTASSIUM CL 20MEQ D5-0.45NACL 1,000 ML IV SCH ×3 (03:22→15:25)
[2021-08-26] MEDS: HALOPERIDOL LACT 5 MG/ML VIAL. IVP PRN ×4 (03:22→16:55)
--- NOTE | 2021-08-26 03:25 | NUR ---
Pt has been restless throughout the night. Pt has been trying to get out of bed even with redirection; however, pt is not able to be redirected. Pt has had 4 staff members with him most of the night. MD notified of behaviors and orders were given.
[2021-08-26] MEDS: PIPERACILLIN/TAZOBACTAM 3.375 GM in IV NORMAL SALINE 50ML 50 ML IV SCH ×3 (04:07→15:22)
[2021-08-26 06:07] LABS: BASO % 0 % (0-3); EOS # 0.1 x10^3/uL (0.0-0.7); EOS % 3 % (0-3); HEMATOCRIT 33.8 % (39.0-53.0); HEMOGLOBIN 11.4 g/dL (13.0-17.5); LYMPH # 0.8 x10^3/uL (1.0-4.8); LYMPH % 16 % (24-48); MEAN CORPUSCULAR HEMOGLOBIN 30 pg (25-35); MEAN CORPUSCULAR HGB CONC 34 g/dL (31-37); MEAN CORPUSCULAR VOLUME 90 fL (79-100); MONO # 0.5 x10^3/uL (0.0-1.1); MONO % 10 % (0-9); NEUT # 3.5 x10^3uL (1.8-7.7); NEUT % 71 % (31-73); PLATELET COUNT 169 x10^3/uL (140-400); RED BLOOD COUNT 3.74 x10^6/uL (4.30-5.70); RED CELL DISTRIBUTION WIDTH 13.1 % (11.5-14.5)
[2021-08-26 06:19] LABS: ALBUMIN 3.1 g/dL (3.4-5.0); ALBUMIN/GLOBULIN RATIO 0.9 (1.0-1.7); CALCIUM 8.2 mg/dL (8.5-10.1); GFR 76.5; POTASSIUM 3.6 mmol/L (3.5-5.1); TOTAL BILIRUBIN 0.8 mg/dL (0.2-1.0); TOTAL PROTEIN 6.6 g/dL (6.4-8.2)
[2021-08-26 08:50] VITALS: BP 130/74
--- NOTE | 2021-08-26 09:08 | NUR ---
PT HAD THREE STAFF MEMBERS IN THE ROOM. PT NOT RESPONDING TO ANXIETY MEDICATIONS. DR. ESTRADA GAVE AN ORDER FOR AN INCREASE IN GEODONE. PT WALKED TO THE BATHROOM-DID NOT CALM HIM DOWN. THIS RN RECEIVED ORDERS FROM DR. ESTRADA AT 0835 TO APPLY FOUR POINT RESTRAINTS. SECURITY NOTIFIED AND RESTRAINTS APPLIED AT 0850. 1:1 SITTER STILL IN THE ROOM WITH PT. PT NOTIFIED THAT RESTRAINTS WERE BEING APPLIED. STATES SHE PLANS TO TALK WITH SONS THIS AFTERNOON TO COME UP WITH A PLAN.
--- NOTE | 2021-08-26 09:30 | NUR ---
THIS RN SPOKE WITH PT THIS AM. PT STATED SHE WAS WAITING ON A CALL AFTER DR. ESTRADA ROUNDED YESTERDAY TO SEE WHAT HIS PLAN WAS. THIS RN REMINDED THAT HOSPITAL STAFF IS WAITING ON HER AND HER FAMILY TO COME UP WITH A PLAN TO WHAT THEIR GOALS ARE FOR PT CARE. STATED SHE THOUGHT CM WAS LOOKING INTO HOSPICE. THIS RN TOLD THAT CM IS LOOKING INTO PLACEMENT, BUT ULTIMATELY WAITING ON FAMILY TO MAKE A DECISION. THIS RN WILL HAVE DR. ESTRADA CALL WHEN HE ROUNDS TODAY TO TALK TO FAMILY.
--- NOTE | 2021-08-26 10:19 | NUR ---
SPOKE WITH SPEECH THERAPY. PER PROTOCOL, NURSING BEDSIDE SWALLOW STUDY NOT TO BE PERFORMED IF PT NPO PRIOR TO ADMISSION. PT WAS NPO PRIOR TO ADMISSION. ST WANTED THIS RN TO GIVE PT ICE CHIP OR BITE OF PUDDING. THIS RN CONSULTED WITH HR MANAGER AND CM. CM STATES WE NEED A ST EVAL TO MOVE FORWARD WITH CARE. ST STATED THEY NEEDED TO KNOW IF PT WOULD BE WILLING TO PARTICIPATE IN THE ASSESSMENT. THIS RN HELD SPOON TO PT'S LIPS AND PT OPENED MOUTH AND MADE THE MOTION IF TAKING SOMETHING FROM THE SPOON. THIS RN NOTIFIED ST THAT PT WOULD BE ABLE TO PARTICIPATE.
[2021-08-26 11:00] VITALS: BP 144/83
[2021-08-26] MEDS: VANCOMYCIN 1.5 GM in IV NORMAL SALINE 500ML 500 ML IV SCH (11:14)
[2021-08-26] MEDS ORDERED: ACET325T21 PO (12:25)
[2021-08-26] MEDS ORDERED: MEDR2.5T28 PO (12:26)
[2021-08-26] MEDS ORDERED: ATOR40TA59 PO (12:26)
[2021-08-26] MEDS ORDERED: DIVA500T4 PO (12:26)
[2021-08-26] MEDS ORDERED: LOSA25TA11 PO (12:26)
[2021-08-26] MEDS ORDERED: PARO40TA61 PO (12:26)
[2021-08-26] MEDS ORDERED: MAG-124 PO (12:26)
[2021-08-26] MEDS ORDERED: PIPE3.377 IV (12:26)
[2021-08-26] MEDS ORDERED: QUET50TA5 PO (12:26)
[2021-08-26] MEDS ORDERED: DIAZ5TAB4 PO (12:26)
[2021-08-26] MEDS ORDERED: METH57CR17 TP (12:26)
[2021-08-26] MEDS ORDERED: MAGN24003 PO (12:26)
[2021-08-26] MEDS ORDERED: vancomycin (12:26)
[2021-08-26] MEDS ORDERED: HALO10TA PO (12:26)
[2021-08-26] MEDS ORDERED: MAG HYDROX/AL HYDROX/SIMETH 30 ML ORAL.SUSP PO PRN (12:30)
[2021-08-26] MEDS ORDERED: ACETAMINOPHEN 325 MG TABLET PO PRN (12:30)
[2021-08-26] MEDS ORDERED: METHYL SALICYLATE/MENTHOL TOPICAL OINTMENT 57GM TUBE. TP PRN (12:30)
[2021-08-26] MEDS ORDERED: MAGNESIUM HYDROXIDE 2,400 MG/30 ML ORAL.SUSP. PO PRN (12:45)
[2021-08-26] MEDS ORDERED: TAMS0.4C97 PO (12:55)
[2021-08-26] MEDS ORDERED: GABA600T7 PO (12:55)
[2021-08-26] MEDS ORDERED: LORA-254 PO (12:55)
[2021-08-26] MEDS ORDERED: OLAN5TAB67 PO (12:55)
[2021-08-26] MEDS ORDERED: QUEtiapine 50 MG TABLET. PO SCH (13:00)
[2021-08-26] MEDS: LOSARTAN 50 MG TABLET. PO SCH (13:03)
[2021-08-26] MEDS ORDERED: LORazepam 1 MG TABLET PO PRN (13:30)
[2021-08-26] MEDS ORDERED: OLANZapine 5 MG TABLET PO PRN (13:30)
[2021-08-26] MEDS ORDERED: HALOPERIDOL 5 MG TABLET PO PRN (14:00)
[2021-08-26 14:41] VITALS: BP 141/73
[2021-08-26] MEDS: GABAPENTIN 300 MG CAPSULE. PO SCH ×3 (15:02→22:32)
--- NOTE | 2021-08-26 16:27 | NUR ---
PT ABLE TO EAT AND DRINK ON A MECHANICAL SOFT DIET. PT MUST BE SITTING UP COMPLETELY. PT SLIDES DOWN IN THE BED IMMEDIATELY UPON BEING PULLED UP AND SAT UP STRAIGHT. PT ABLE TO TAKE PO MEDS, CRUSHED IN APPLESAUCE. DR. ESTRADA SPOKE TO PT -HE SAID SHE SEEMS RECEPTIVE TO HOSPICE. CM STILL LOOKING FOR OPTIONS. DR. ESTRADA STATES MAY CALL LATER TO ASK THAT IV ABX TX BE DC'D. PT STILL 1:1 WITH 4 POINT NON-VIOLENT RESTRAINTS. 1:1 STAFF CHECKING SKIN INTEGRITY AND PROVIDING ROM Q2 OR SOONER.
[2021-08-26] MEDS: QUEtiapine 50 MG TABLET. PO SCH (16:54)
[2021-08-26] MEDS: diazePAM 5 MG TABLET. PO SCH ×2 (16:54→22:32)
[2021-08-26] MEDS ORDERED: diazePAM 5 MG TABLET. PO SCH (18:00)
--- NOTE | 2021-08-26 18:15 | NUR ---
THIS RN SPOKE WITH PT . DISCUSSED WITH DR. ESTRADA EARLIER, WANTS TO DC IV ABX TX AND ALL OTHER AGGRESSIVE TREATMENT. WILL TALK TO CM IN THE MORNING AND WOULD LIKE FOR PT TO GO ON INPATIENT HOSPICE.
--- NOTE | 2021-08-26 19:40 | NUR ---
Wrist restraints removed for assessment, ROM, reposition. Constant supervision by this RN. PT is asleep with restlessness noted. Restraints reapplied per protocol.
[2021-08-26] MEDS: ATORVASTATIN CALCIUM 20 MG TABLET PO SCH ×2 (21:00→22:32)
[2021-08-26] MEDS ORDERED: DIVALPROEX ER 500 MG TAB.ER.24H PO SCH (21:00)
[2021-08-26] MEDS: DIVALPROEX 125 MG CAP.SPRINK PO SCH ×2 (21:00→22:32)
[2021-08-26] MEDS ORDERED: HALOPERIDOL 10 MG PO SCH (21:00)
[2021-08-26] MEDS: TAMSULOSIN 0.4 MG CAP.ER.24H. PO SCH ×2 (21:00→22:32)
[2021-08-26 22:58] VITALS: BP 145/102
--- NOTE | 2021-08-27 07:28 | PN ---
DATE: 08/26/2021 SUBJECTIVE: The patient continues to be extremely restless, agitated. He is on IV antibiotic for his aspiration pneumonia. He is also on multiple medications for sedation. He is now in 4-point restraints. He required to protect him this morning. He is on Haldol, olanzapine, lorazepam, and we tried also Ziprasidone. I have had a lengthy discussion with his , explaining that the patient's mental status is progressively worsening and we are just getting him sedated here and the best option for him is to go on hospice. PHYSICAL EXAMINATION: GENERAL: When I examined him this afternoon, he looked well and was clearly in no apparent respiratory distress. There was no pallor, jaundice, cyanosis, or thyromegaly. No jugular venous distention. No limb edema. VITAL SIGNS: His heart rate was 80, blood pressure is 141/73, temperature was 98.8, respiratory rate was 18, and oxygen saturation was 92% on room air. The rest of clinical exam stable. LABORATORY DATA: This morning showed a white cell count 5000, hemoglobin 11, hematocrit 33, MCV 90, and platelet count of 169,000. His chemistry this morning showed a serum sodium 144, potassium 3.6, chloride 109, bicarbonate 25, anion gap of 10, BUN 14, creatinine 1, estimated GFR was 76 mL per minute. His glucose was 93, calcium was 8.2. Total bilirubin, AST, ALT, alkaline phosphatase were normal. Total protein 6.6, albumin 3.1. ASSESSMENT AND PLAN: 1. Healthcare-associated pneumonia for which he is on IV antibiotic in the form of vancomycin and Zosyn together with IV fluid and Tylenol; however, he was seen by the speech therapist and he is now able to eat and drink. 2. He has benign prostatic hypertrophy. 3. Hyperlipidemia. 4. Aphasia. 5. Frontotemporal dementia that is progressively worsening. His seemed to be receptive to the idea of hospice; however, technical details of where he would be is presenting difficult problems given his restlessness and agitation. CAT/JANIE/MYLENE DR: Eriberto TID: [id number]
--- NOTE | 2021-08-27 08:34 | NUR ---
SOFT RESTRAINT NON-VIOLENT ORDER RE-STARTED PER DR. ITWARI AT 0833.
[2021-08-27] MEDS: diazePAM 5 MG TABLET. PO SCH (09:00)
[2021-08-27] MEDS: medroxyPROGESTERone 5 MG TABLET PO SCH (09:00)
[2021-08-27] MEDS ORDERED: PAROXETINE HCL 40 MG PO SCH (09:00)
[2021-08-27] MEDS: GABAPENTIN 300 MG CAPSULE. PO SCH ×3 (09:00→20:12)
[2021-08-27] MEDS: DIVALPROEX 125 MG CAP.SPRINK PO SCH ×2 (09:00→20:11)
[2021-08-27] MEDS: LOSARTAN 50 MG TABLET. PO SCH (09:00)
[2021-08-27] MEDS: QUEtiapine 50 MG TABLET. PO SCH ×3 (09:00→15:59)
[2021-08-27] MEDS: PARoxetine 20 MG TABLET PO SCH (09:00)
--- NOTE | 2021-08-27 09:05 | NUR ---
ZACH received call from pt Marlen who wanted to inform SW that in working with [facility], they have decided to place pt on hospice. Marlen and her children have decided to donate pt brain to for research. "I just hope they find a cure soon so others don't suffer like we are and the people before us did". Marlen questioned if pt had covid tests completed and ZACH informed her that he had one on the and one on the . Marlen asked to have those emailed to her if possible at [email or web address]. Marlen knows it's the right decision but is having a difficult time in grasping how fast this has happened; but realizes that he is suffering and putting him on hospice is hopefully to end that for him. ZACH will be available to aid all parties in pt care if needed.
[2021-08-27] MEDS: HALOPERIDOL LACT 5 MG/ML VIAL. IVP PRN ×2 (09:28→13:37)
--- NOTE | 2021-08-27 12:33 | NUR ---
GOING TO ATTEMPT TO REMOVE LEG RESTRAINTS TO SEE HOW PT TOLERATES. PT IS CURRENTLY RESTING IN BED AND WAS ASLEEP FOR MORNING MEDICATIONS. PT DID RECEIVE AN IV DOSE OF HALDOL TO KEEP PT CALM, SO THAT LEG RESTRAINTS COULD TRY TO BE REMOVED.
[2021-08-27 13:41] VITALS: BP 145/83
[2021-08-27] MEDS ORDERED: HALOPERIDOL LACT 5 MG/ML VIAL. IVP SCH (16:00)
--- NOTE | 2021-08-27 17:46 | PN ---
DATE: 08/27/2021 ATTENDING PHYSICIAN: Dr. Hill and Dr. Tee. SUBJECTIVE: The patient is sedated and asleep. OBJECTIVE FINDINGS: VITAL SIGNS: Blood pressure is 145/102. He is afebrile. Oxygen saturation 96% on room air. HEENT: Pupils are reactive. Sclerae nonicteric. Oropharynx clear. NECK: Supple. LUNGS: Shallow respirations. CARDIOVASCULAR: Showed regular heart tones. No gallop. ABDOMEN: Soft. No guarding. EXTREMITIES: Without edema. NEUROLOGIC FINDINGS: Profoundly agitated, requiring sedation and soft restraints to prevent him from harming himself or climbing out of bed. ASSESSMENT: 1. A 60-year-old gentleman with aspiration pneumonia. 2. Frontotemporal dementia, progressive. 3. Benign prostatic hyperplasia. 4. Expressive aphasia. PLAN: 1. Continue antibiotics as ordered. 2. Restraints as ordered. 3. We are working on placement. He remains a DNR per advanced directive. VICTOR M DR: Lola TID: [id number]
[2021-08-27 19:27] VITALS: BP 110/78
[2021-08-27] MEDS: TAMSULOSIN 0.4 MG CAP.ER.24H. PO SCH (20:11)
[2021-08-27] MEDS: ATORVASTATIN CALCIUM 20 MG TABLET PO SCH (20:11)
[2021-08-27] MEDS: HALOPERIDOL LACT 5 MG/ML VIAL. IM SCH (21:33)
[2021-08-28] MEDS: HALOPERIDOL LACT 5 MG/ML VIAL. IM SCH ×3 (01:04→07:48)
[2021-08-28 05:52] VITALS: BP 139/69
--- NOTE | 2021-08-28 06:45 | NUR ---
RN shift note PT slept most of night with periods of restlessness while sleeping and awake. PT taken to toilet multiple times and tried to use urinal once. PT tugging on IV, restraint length decreased to not touch hands together but with adequate ROM. PT pleasant and mostly redirectable, however requires multiple redirections in short period of time. PT able to toilet with 2-person assist.
--- NOTE | 2021-08-28 07:36 | NUR ---
nursing note Pt is currently asleep in bed however is restless but leg restraints are removed at this time. Will continue to monitor pt for possible need of restraints.
--- NOTE | 2021-08-28 08:21 | NUR ---
Nursing note Order to continue restraints received. at this time this nurse has attempted to take right wrist restraint off and leg restraints remain off.
--- NOTE | 2021-08-28 08:34 | NUR ---
Nursing note At this time pt remains asleep all restraints have been released for circulation checks and ROM checks this nurse will continue to closely monitor 1:1 pt and reassess need for restraints.
[2021-08-28] MEDS: DIVALPROEX 125 MG CAP.SPRINK PO SCH ×2 (09:52→21:40)
[2021-08-28] MEDS: medroxyPROGESTERone 5 MG TABLET PO SCH (09:52)
[2021-08-28] MEDS: PARoxetine 20 MG TABLET PO SCH (09:52)
[2021-08-28] MEDS: GABAPENTIN 300 MG CAPSULE. PO SCH ×3 (09:53→21:40)
[2021-08-28] MEDS: QUEtiapine 50 MG TABLET. PO SCH ×3 (09:53→16:52)
[2021-08-28] MEDS: LOSARTAN 50 MG TABLET. PO SCH (09:53)
[2021-08-28 11:03] VITALS: BP 137/98
--- NOTE | 2021-08-28 13:04 | PN ---
DATE: 08/28/2021 ATTENDING PHYSICIAN: Dr. dOette Hill. SUBJECTIVE: The patient is sedated, still requiring Haldol because of agitation. OBJECTIVE FINDINGS: VITAL SIGNS: Blood pressure today is 110/78. He is afebrile. Oxygen saturation 95% on room air. HEENT: Head is without trauma. Pupils are reactive. Sclerae nonicteric. Oropharynx is clear. NECK: Supple, no bruits. LUNGS: Otherwise clear. CARDIOVASCULAR: Regular heart tones. ABDOMEN: Soft. EXTREMITIES: Without edema. NEUROLOGIC: Sedated. ASSESSMENT: 1. A 60-year-old gentleman with aspiration pneumonia. 2. Frontotemporal dementia, progressive. 3. Benign prostatic hypertrophy. 4. Expressive aphasia. PLAN: 1. We will try to wean down his Haldol. 2. Restraints as needed. 3. We are working on placement. He is a DNR per advanced directive. He has been determined not to be a hospice candidate. CECI DR: CECI/laureano TID: [id number]
[2021-08-28 13:13] VITALS: BP 149/83
--- NOTE | 2021-08-28 13:25 | NUR ---
Nursing note This nurse has dropped one side rail of pt bed and bilateral leg and wrist restraints continue to be off since 0900 this morning. pt has been sleeping with intermittent consciousness throughout this shift. Pt was asleep when PT and OT attempted to evaluate. Pt is connected to alarm security or surveillance monitor at this time. This nurse will continue to monitor pt and behaviors
[2021-08-28] MEDS: HALOPERIDOL LACT 5 MG/ML VIAL. IM PRN (16:50)
[2021-08-28 17:08] VITALS: BP 119/86
--- NOTE | 2021-08-28 17:23 | NUR ---
Shift note Pt has been sleeping for the majority of this shift. During times when pt is awake he requires no restraints however has required redirection and a dose or PRN Haldol once this shift. Pt fed self dinner with supervision and set up assist pt ambulated to bathroom with staff assist X2. pt has not displayed any aggressive behavior of this nurse this shift.
[2021-08-28 20:25] VITALS: BP 124/86
[2021-08-28] MEDS: ATORVASTATIN CALCIUM 20 MG TABLET PO SCH (21:39)
[2021-08-28] MEDS: TAMSULOSIN 0.4 MG CAP.ER.24H. PO SCH (21:40)
--- NOTE | 2021-08-28 22:27 | NUR ---
PT sleeping most of this shift. PT was toileted. PT displayed increased restlessness after toileting; PRN medication given with medication pass. PT with minimal verbal interaction with staff. PT will respond to name part of the time while speaking with him. PT out of restraints and is able to be redirected whenever he attempts to get out of bed. Spoke with PT's via telephone, gave update.
[2021-08-28 23:00] VITALS: BP 141/84
--- NOTE | 2021-08-28 23:28 | NUR ---
PT extremely anxious, trying to climb out of bed. PT toileted multiple times. PT unsteady on feet with 2-person assist. PT scratching arms.
[2021-08-28] MEDS: diphenhydrAMINE 50 MG/ML VIAL IVP PRN (23:30)
--- NOTE | 2021-08-28 23:53 | NUR ---
telephoned. Non-violent restraints reapplied.
[2021-08-29] MEDS: HALOPERIDOL LACT 5 MG/ML VIAL. IM PRN (01:29)
--- NOTE | 2021-08-29 08:46 | NUR ---
Nursing note Pt is out of restraints and non combative. Pt is forgetful but cooperative and redirectable. pt ambulated to toilet with staff assist pt is currently sitting up in chair.
[2021-08-29] MEDS: GABAPENTIN 300 MG CAPSULE. PO SCH ×3 (09:00→20:44)
[2021-08-29] MEDS: QUEtiapine 50 MG TABLET. PO SCH ×3 (09:00→16:43)
[2021-08-29] MEDS: DIVALPROEX 125 MG CAP.SPRINK PO SCH ×2 (09:00→20:44)
[2021-08-29] MEDS: PARoxetine 20 MG TABLET PO SCH (09:01)
[2021-08-29] MEDS: medroxyPROGESTERone 5 MG TABLET PO SCH (09:01)
[2021-08-29] MEDS: LOSARTAN 50 MG TABLET. PO SCH (09:01)
[2021-08-29 10:27] VITALS: BP 105/72
[2021-08-29] MEDS: NYSTATIN TOPICAL POWDER 15GM BOTTLE. TP SCH ×2 (11:00→20:45)
--- NOTE | 2021-08-29 11:04 | NUR ---
Nursing note Pt remains cooperative, awake, unrestrained, non-combative, and pleasant. Pt requires occasional redirection. Pt ambulated halls accompanied by staff multiple time this shift. Pt ambulated to shower with staff.
--- NOTE | 2021-08-29 13:43 | DS ---
DATE OF DISCHARGE: 08/29/2021 ATTENDING PHYSICIANS: Dr. Hill and Dr. Tee. FINAL DISCHARGE DIAGNOSES: 1. Aspiration pneumonia, improved. 2. 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 3. Expressive aphasia. 4. Behavioral issues with agitation. 5. Impulse control disorder. HISTORY AND PHYSICAL: The patient is a 60-year-old gentleman who we had seen on the [facility]. He has profound frontotemporal lobe dementia with behavioral issues. He had evidence of aspiration. He had a slight infiltrate on the x-ray. He was admitted to the medical floor for further treatment and evaluation. PHYSICAL EXAMINATION: Please see the dictated note. PERTINENT LABORATORY AND X-RAY STUDIES: Admission hemoglobin was 11.4 g/dL, white count was 5000. Chemistry panel unremarkable. Electrolytes within normal range. CT of the chest showed evidence of patchy consolidations of right upper lobe and left lower lobe also. COURSE IN HOSPITAL: The patient was admitted. He was started on intravenous antibiotics. Unfortunately, several days into the hospitalization, he lost his IV source. We had to switch to oral meds. This is because of agitation and the patient unable to give us permission. The patient food safety specialist was ordered for the patient safety, he was trying to climb out of bed and pull out his IVs and things. Sedation was administered. This was tapered off and he did actually remarkably well. Diet was advanced. By the 6th hospital day here, he was medically stable. Arrangements were then made for the patient to go back upstairs to the [facility]. His discharge meds have been simplified. We will continue Augmentin 875 b.i.d. for 7 more days and stop. His psychiatric meds have been simplified. He will continue his Tylenol p.r.n., Lipitor 40 mg daily, lorazepam p.r.n., losartan 50 mg daily, olanzapine 5 mg b.i.d. as needed, Paxil 40 mg daily and we held his Zosyn and switched him over to oral Augmentin. For now, we held his Neurontin, Depakote, Haldol, magnesium, Seroquel, and Flomax doses. These will be restarted per Dr. Mercer when appropriate. He is a DNR per advanced directives. The patient was then discharged from our hospital back to the [facility] in stable condition with explicit written and followup care. Total discharge time 39 minutes. CECI/FROY/ALPHONSO DR: Lola TID: [id number] CC: ELIAZAR MERCER MD
[2021-08-29 15:00] VITALS: BP 102/60
--- NOTE | 2021-08-29 20:37 | PN ---
DATE: 08/29/2021 ATTENDING PHYSICIAN: Dr. Tee. SUBJECTIVE: He is calm. He is alert. He is off of sedation. He still requires one-on-one patient nuclear criticality safety engineer. OBJECTIVE FINDINGS: VITAL SIGNS: Blood pressure this morning is 105/72 mmHg, pulse is 77 and regular. He is afebrile. Oxygen saturation 96% on room air. HEENT: Head is without trauma. Pupils are reactive. Sclerae nonicteric. Oropharynx clear. NECK: Supple. LUNGS: Clear. CARDIOVASCULAR: Showed regular heart tones. ABDOMEN: Soft. EXTREMITIES: Without edema. NEUROLOGIC: He is ambulating with minimal assistance. ASSESSMENT: 1. A 60-year-old gentleman with aspiration pneumonia, improved. 2. Frontotemporal dementia, progressive. 3. Significant behavioral issues requiring sedation. 4. Benign prostatic hypertrophy. 5. History of expressive aphasia. He does not say much. PLAN: 1. We are weaning off his Haldol. 2. Restraints as needed. 3. We are working on placement. Unfortunately, the [facility] cannot take him today or at this time. CECI/OBDULIO DR: CECI/laureano TID: [id number]
[2021-08-29] MEDS: TAMSULOSIN 0.4 MG CAP.ER.24H. PO SCH (20:44)
[2021-08-29] MEDS: ATORVASTATIN CALCIUM 20 MG TABLET PO SCH (20:44)
[2021-08-29 20:52] VITALS: BP 119/79
--- NOTE | 2021-08-29 21:00 | NUR ---
Discharge Note: RACHEL GAUTAM JR R 1 [facility] Discharge instructions and discharge home medications reviewed with Other facility and a copy given. All questions have been answered and understanding verbalized. The following instructions and handouts were given: DC packet, Med rec. Discontinued lines and drains: N/A. Patient discharged to [facility] with hospital staff via Wheelchair. All belongings sent with pt. Report called to ESTEFANY Ayala. All questions answered.
[2021-08-29] MEDS ORDERED: NYST15PO9 TP (22:38)
== END 2021-08-29 21:17 | DRG 178 ==
LOC: 1 SOUTH 09:35
PROVIDERS: ADMIT Internal Medicine; ATTEND Internal Medicine
DX: J69.0 Pneumonitis due to inhalation of food and vomit (principal); R47.01 Aphasia; F02.81 Dementia in other diseases classified elsewhere, unspecified severity, with behavioral disturbance; E78.5 Hyperlipidemia, unspecified; F63.9 Impulse disorder, unspecified; Z66 Do not resuscitate; Y95 Nosocomial condition; N40.0 Benign prostatic hyperplasia without lower urinary tract symptoms; R09.02 Hypoxemia; G31.09 Other frontotemporal neurocognitive disorder; Z78.1 Physical restraint status; Z20.822 Contact with and (suspected) exposure to COVID-19
CPT/HCPCS: 36415; 80053; 85025; J1200; J1630; J2060; J2543; J3370; J3486; J7040; U0003; 92610; 97530

== ENCOUNTER 2021-08-29 14:47 | Inpatient (IN) | payer BC ==
[~2021-08-29] VITALS: Ht 188 cm; Wt 113.2 kg
[~2021-08-29 14:47] MED LIST changes: +GABA600T7 PO; +LORA-254 PO; +OLAN5TAB67 PO; +TAMS0.4C97 PO
--- NOTE | 2021-08-29 21:16 | NUR ---
Admission Note with Justification for Admission to [facility] Patient admitted to [facility] for protective oversight for emergency stabilization of acute psychiatric crisis. Pt admitted from: [facility] Mode of arrival: WHEELCHAIR Accompanied By: HOSPITAL STAFF Precipitating behaviors that initiated intake and admission: Frontotemporal dementia and associated behaviors Description of failure of out patient attempts at stabilization in previous setting list behavior and medication trials: restraint, medications, Behaviors and assessment findings upon admission: quiet alert, cooperative, relaxed Plan: Admit for protective oversight for adjustment and stabilization of medications, behaviors and mood. Intense treatment regimen including groups, medication adjustments, therapy, consistent regimen for ADL's, self care, and sleep hygiene. Daily monitoring by Inpatient staff, Psychiatry, and Medical Physician.
[2021-08-29 21:39] VITALS: BP 126/73
[2021-08-29] MEDS ORDERED: METHYL SALICYLATE/MENTHOL TOPICAL OINTMENT 57GM TUBE. TP PRN (22:00)
[2021-08-29] MEDS ORDERED: MAG HYDROX/AL HYDROX/SIMETH 30 ML ORAL.SUSP PO PRN (22:00)
[2021-08-29] MEDS ORDERED: ACETAMINOPHEN 325 MG TABLET PO PRN ×2 (22:00→22:30)
[2021-08-29] MEDS ORDERED: NYST15PO9 TP (22:38)
--- NOTE | 2021-08-30 06:22 | NUR ---
Quan has slept well since arrival. He has had no behaviors tonight
[2021-08-30] MEDS ORDERED: LACTOBACILLUS RHAMNOSUS GG 1 CAPSULE. PO SCH (09:00)
[2021-08-30] MEDS ORDERED: AMOXICILLIN/K CLAV 875/125MG TABLET. PO SCH (09:00)
[2021-08-30] MEDS: PARoxetine 20 MG TABLET PO SCH (09:00)
--- NOTE | 2021-08-30 09:18 | NUR ---
Spoke with pt's /DPOA, who confirmed her direction and wish to cease "aggressive" medical tx in the event that pt acquires any medical complications. When informed that pt is ordered PO ABT for further tx of pneumonia while on [facility] she replied, "No, I asked the other day for antibiotics to stop." This nurse assured her that the PO ABT ordered for pt has not been started as of yet, and that I would hold the medication and consult with Dr Tee about her wishes for pt care. Pt's further used the terms "comfort care" and "palliative care" to describe what she would like in terms of further care for pt. This nurse assured /DPOA that her directions would be passed to and nursing staff. Addendum: 08/30/21 at 1110 by LUCAS PEMBERTON RN Brought /DPOA wishes and ABT order to Dr Tee's attention during rounds. Orders given to d/c ABT.
--- NOTE | 2021-08-30 09:41 | NUR ---
Pt sleeping in bed; breathing even equal and unlabored, no signs of distress. Q15mn rounds continue. Medication administration and assessment pending. Will continue to monitor.
--- NOTE | 2021-08-30 13:35 | NUR ---
Pt awake and eating lunch. He remains on [facility] soft finger foods and thin liquids per family request. He seems to be eating independently and engaging more with his food items. He does not speak to staff and does not answer questions at this time. He is absent of verbal/physical aggression towards others, absent of wandering and exit seeking. No impulsive behaviors have been demonstrated so far this shift. He is compliant with medications crushed and mixed with pudding. Pt appears confused and perplexed regarding his surroundings, but does not appear to be in distress over it. Plan of care continues, will pass to next shift.
[2021-08-30 15:35] VITALS: BP 95/65
[2021-08-30 16:21] VITALS: BP 125/83
[2021-08-30] MEDS: LOSARTAN 50 MG TABLET. PO SCH (16:29)
[2021-08-30] MEDS: traZODone 50 MG TABLET. PO PRN (20:11)
[2021-08-30] MEDS: ATORVASTATIN CALCIUM 20 MG TABLET PO SCH (20:11)
[2021-08-30] MEDS: GABAPENTIN 300 MG CAPSULE. PO SCH (20:11)
[2021-08-30] MEDS: QUEtiapine 50 MG TABLET. PO SCH (20:11)
--- NOTE | 2021-08-30 21:21 | PDOC ---
Exam Note: Castillo Note: Please also refer to the separate dictated note~for this date of service dictated separately.~Patient seen individually. Discussed the patient with Nursing staff reviewed the chart.~Reviewed interim history and current functioning. Reviewed vital signs,~Labs/ Radiology~and current medications noted below. Continue current treatment with the changes noted in the dictated addendum note Assessment: Vital Signs/I&O: Vital Signs Date Time Temp Pulse Resp B/P (MAP) Pulse Ox O2 Delivery O2 Flow Rate FiO2 08/30/21 16:29 102 125/83 08/30/21 15:35 97.4 18 96 08/29/21 21:39 Room Air Current Medications: Meds: Current Medications Medications (Trade) Dose Ordered Sig/Susana Route PRN Reason Start Time Stop Time Status Last Admin Dose Admin Acetaminophen (Tylenol) 650 mg PRN Q6HRS PRN PO MILD PAIN / TEMP > 100.3'F 08/29/21 22:00 Multi-Ingredient Ointment (Analgesic [place]) 1 sandra PRN QID PRN TP MUSCLE PAIN 08/29/21 22:00 Al Hydroxide/Mg Hydroxide (Mylanta Plus Xs) 15 ml PRN AFTMEALHC PRN PO DYSPEPSIA 08/29/21 22:00 Magnesium Hydroxide (Milk Of Magnesia) 2,400 mg PRN QHS PRN PO CONSTIPATION 08/29/21 22:00 Acetaminophen (Tylenol) 650 mg PRN Q6HRS PRN PO MILD PAIN / TEMP > 100.3'F 08/29/21 22:30 Cancel Losartan Potassium (Cozaar) 50 mg DAILY PO 08/30/21 09:00 08/30/21 16:29 Atorvastatin Calcium (Lipitor) 40 mg QHS PO 08/30/21 21:00 08/30/21 20:11 Paroxetine HCl (Paxil) 60 mg DAILY PO 08/30/21 09:00 08/30/21 09:00 Amoxicillin/ Clavulanate Potassium (Augmentin 875/ 125mg) 1 tab BID PO 08/30/21 09:00 08/30/21 11:09 DC Lactobacillus Rhamnosus (Culturelle) 1 cap BID PO 08/30/21 09:00 08/30/21 11:09 DC Olanzapine (ZyPREXA) 5 mg PRN Q2HR PRN PO ANXIETY / AGITATION 08/30/21 16:00 Gabapentin (Neurontin) 300 mg BID PO 08/30/21 21:00 09/01/21 23:50 08/30/21 20:11 Gabapentin (Neurontin) 400 mg TID PO 09/02/21 09:00 Medroxyprogesterone Acetate (Provera) 15 mg DAILY PO 08/31/21 09:00 Quetiapine Fumarate (SEROquel) 50 mg TID PO 08/30/21 21:00 08/30/21 20:11 Trazodone HCl (Desyrel) 50 mg PRN Q8HRS PRN PO ANXIETY/AGITATION 08/30/21 16:15 08/30/21 20:11 Current Medications Medications (Trade) Dose Ordered Sig/Susana Route PRN Reason Start Time Stop Time Status Last Admin Dose Admin Losartan Potassium (Cozaar) 50 mg DAILY PO 08/30/21 09:00 08/30/21 16:29 Atorvastatin Calcium (Lipitor) 40 mg QHS PO 08/30/21 21:00 08/30/21 20:11 Paroxetine HCl (Paxil) 60 mg DAILY PO 08/30/21 09:00 08/30/21 09:00 Gabapentin (Neurontin) 300 mg BID PO 08/30/21 21:00 09/01/21 23:50 08/30/21 20:11 Quetiapine Fumarate (SEROquel) 50 mg TID PO 08/30/21 21:00 08/30/21 20:11 Trazodone HCl (Desyrel) 50 mg PRN Q8HRS PRN PO ANXIETY/AGITATION 08/30/21 16:15 08/30/21 20:11 I have reviewed the current psychotropics carefully including drug interactions. Risk benefit ratio favors no change other than as noted in my dictated progress note. Diagnosis: Problems: (1) Impulse control disorder, unspecified (2) Anxiety disorder, unspecified (3) Dementia, vascular, with depression (4) Dementia, vascular, with delusions (5) Dementia in Alzheimer's disease with depression (6) Dementia in Alzheimer's disease with delusions (7) Dementia of the Alzheimer's type with early onset with behavioral disturbance (8) Major neurocognitive disorder ELIAZAR COYLE MD Aug 30, 2021 21:21
[2021-08-30] MEDS: OLANZapine 5 MG TABLET PO PRN (21:58)
[2021-08-30] MEDS: LORazepam 1 MG TABLET PO PRN (23:29)
--- NOTE | 2021-08-30 23:58 | NUR ---
Pt has been extremely disorganized and restless this evening. Pt continues to be 1:1, requiring 2:1 at times. Compliant with crushed medications. Multiple PRNs administered throughout the evening, all not effective. Pt currently laying in bed awake with staff at bedside. Will continue to monitor.
[2021-08-31] MEDS ORDERED: BISACODYL 10 MG SUPP.RECT PR PRN (00:30)
[2021-08-31] MEDS: LORazepam 1 MG TABLET PO PRN ×4 (02:19→16:27)
[2021-08-31] MEDS: OLANZapine 5 MG TABLET PO PRN ×4 (02:19→19:56)
[2021-08-31 06:11] VITALS: BP 148/84
[2021-08-31] MEDS: GABAPENTIN 300 MG CAPSULE. PO SCH ×2 (09:55→19:55)
[2021-08-31] MEDS: PARoxetine 20 MG TABLET PO SCH (09:55)
[2021-08-31] MEDS: medroxyPROGESTERone 5 MG TABLET PO SCH (09:56)
[2021-08-31] MEDS: LOSARTAN 50 MG TABLET. PO SCH (09:56)
[2021-08-31] MEDS: QUEtiapine 50 MG TABLET. PO SCH ×3 (09:56→19:55)
[2021-08-31] MEDS ORDERED: MAGNESIUM CITRATE 296 ML SOLUTION. PO ONE (10:45)
--- NOTE | 2021-08-31 11:46 | NUR ---
RN Day Shift Note: Pt presents with a neutral mood/affect. Pt will smile on occasion. Pt continues to be confused and disorganized. Pt is pleasant. Pt is a 1:1 but, requires 2:1 often throughout the day. Pt is noted to spend time sitting in the hallway today, with 2 staff sitting on either side of him, in order to redirect pt away from typical invasive behaviors that have been exhibited by pt during his stay on this unit, such as attempting to open nurse station doors relentlessly, and in order to maintain safety for the pt, peers and staff on the unit. Pt is not able to communicate needs to staff due to being confused. Pt is medication compliant. Pt was given a one time order of Mag citrate, to help get his bowels moving. Pt continues to have a good appetite. Pt slept 2.25 hours last night. Will continue to monitor.
[2021-08-31 16:23] VITALS: BP 135/67
[2021-08-31] MEDS: ATORVASTATIN CALCIUM 20 MG TABLET PO SCH (19:55)
[2021-08-31] MEDS: traZODone 50 MG TABLET. PO PRN (19:56)
[2021-08-31] MEDS: SENNOSIDES 8.6 MG TABLET PO SCH (19:57)
--- NOTE | 2021-08-31 21:07 | PDOC ---
Exam Note: Castillo Note: Please also refer to the separate dictated note~for this date of service dictated separately.~Patient seen individually. Discussed the patient with Nursing staff reviewed the chart.~Reviewed interim history and current functioning. Reviewed vital signs,~Labs/ Radiology~and current medications noted below. Continue current treatment with the changes noted in the dictated addendum note Assessment: Vital Signs/I&O: Vital Signs Date Time Temp Pulse Resp B/P (MAP) Pulse Ox O2 Delivery O2 Flow Rate FiO2 08/31/21 16:23 98.4 82 18 135/67 (89) 93 Room Air I & O 08/30/21 08/30/21 08/31/21 15:00 23:00 07:00 Intake Total 0 ml 1400 ml Balance 0 ml 1400 ml Current Medications: Meds: Current Medications Medications (Trade) Dose Ordered Sig/Susana Route PRN Reason Start Time Stop Time Status Last Admin Dose Admin Acetaminophen (Tylenol) 650 mg PRN Q6HRS PRN PO MILD PAIN / TEMP > 100.3'F 08/29/21 22:00 Multi-Ingredient Ointment (Analgesic [place]) 1 sandra PRN QID PRN TP MUSCLE PAIN 08/29/21 22:00 Al Hydroxide/Mg Hydroxide (Mylanta Plus Xs) 15 ml PRN AFTMEALHC PRN PO DYSPEPSIA 08/29/21 22:00 Magnesium Hydroxide (Milk Of Magnesia) 2,400 mg PRN QHS PRN PO CONSTIPATION 08/29/21 22:00 Acetaminophen (Tylenol) 650 mg PRN Q6HRS PRN PO MILD PAIN / TEMP > 100.3'F 08/29/21 22:30 Cancel Losartan Potassium (Cozaar) 50 mg DAILY PO 08/30/21 09:00 08/31/21 09:56 Atorvastatin Calcium (Lipitor) 40 mg QHS PO 08/30/21 21:00 08/31/21 19:55 Paroxetine HCl (Paxil) 60 mg DAILY PO 08/30/21 09:00 08/31/21 09:55 Amoxicillin/ Clavulanate Potassium (Augmentin 875/ 125mg) 1 tab BID PO 08/30/21 09:00 08/30/21 11:09 DC Lactobacillus Rhamnosus (Culturelle) 1 cap BID PO 08/30/21 09:00 08/30/21 11:09 DC Olanzapine (ZyPREXA) 5 mg PRN Q2HR PRN PO 1st choice ANXIETY / AGITATION 08/30/21 16:00 08/31/21 19:56 Gabapentin (Neurontin) 300 mg BID PO 08/30/21 21:00 09/01/21 23:50 08/31/21 19:55 Gabapentin (Neurontin) 400 mg TID PO 09/02/21 09:00 08/31/21 19:41 DC Medroxyprogesterone Acetate (Provera) 15 mg DAILY PO 08/31/21 09:00 08/31/21 09:56 Quetiapine Fumarate (SEROquel) 50 mg TID PO 08/30/21 21:00 08/31/21 19:55 Trazodone HCl (Desyrel) 50 mg PRN Q8HRS PRN PO ANXIETY/AGITATION 08/30/21 16:15 08/31/21 19:56 Lorazepam (Ativan) 1 mg PRN Q1HR PRN PO 2nd choice ANXIETY / AGITATION 08/30/21 23:00 08/31/21 16:27 Bisacodyl (Dulcolax Supp) 10 mg PRN DAILY PRN [place] CONSTIPATION 08/31/21 00:30 Magnesium Citrate (Citroma) 296 ml 1X ONCE PO 08/31/21 10:45 08/31/21 10:47 DC 08/31/21 11:13 Sennosides (Senna) 8.6 mg BID PO 08/31/21 21:00 08/31/21 19:57 Gabapentin (Neurontin) 300 mg TID PO 09/02/21 09:00 Current Medications Medications (Trade) Dose Ordered Sig/Susana Route PRN Reason Start Time Stop Time Status Last Admin Dose Admin Medroxyprogesterone Acetate (Provera) 15 mg DAILY PO 08/31/21 09:00 08/31/21 09:56 Lorazepam (Ativan) 1 mg PRN Q1HR PRN PO 2nd choice ANXIETY / AGITATION 08/30/21 23:00 08/31/21 16:27 Magnesium Citrate (Citroma) 296 ml 1X ONCE PO 08/31/21 10:45 08/31/21 10:47 DC 08/31/21 11:13 Sennosides (Senna) 8.6 mg BID PO 08/31/21 21:00 08/31/21 19:57 I have reviewed the current psychotropics carefully including drug interactions. Risk benefit ratio favors no change other than as noted in my dictated progress note. Diagnosis: Problems: (1) Frontotemporal dementia with behavioral disturbance (2) Impulse control disorder, unspecified (3) Anxiety disorder, unspecified (4) Dementia, vascular, with depression (5) Dementia, vascular, with delusions (6) Dementia in Alzheimer's disease with depression (7) Dementia in Alzheimer's disease with delusions (8) Major neurocognitive disorder ELIAZAR COYLE MD Aug 31, 2021 21:07
--- NOTE | 2021-08-31 22:26 | NUR ---
Pt restless this evening, rolling in his wheelchair up/down the hallway with staff at his side. Pt continues to be a 1:1, often 2:1 at times. Compliant with crushed medications. PRNs administered with HS medications. Pt currently sleeping in bed with staff at bedside.
--- NOTE | 2021-08-31 23:17 | HP ---
DATE OF SERVICE: 08/31/2021 ADMIT DATE: 08/29/2021 PSYCHIATRIC ADMISSION HISTORY AND EVALUATION This is a late entry, date of service 08/30, covers elements not covered in my initial note 08/30. I met with the patient on the evening of 08/30 for this evaluation. Previously discussed with nursing staff on several occasions and Cary Agosto, charge coordinator and ESTEFANY Chawla, as the patient was being referred back to us from the ICU post-stabilization for his pneumonia, which he developed while he was on the [facility]. IDENTIFYING DATA: The patient is a 60-year-old male referred back to us from the ICU by Dr. Hill after his pneumonia was stabilized and behaviorally, he remained extremely out of control, confused, had to be in 4-point restraints and one-on-one status in the ICU. He was agitated, restless, poor awareness of his safety, confused, trying to leave, would not stay in bed. He has self-care failure per nursing staff, needs stabilization before he can be placed in a Memory Care Unit. CHIEF COMPLAINT: "No." HISTORY OF PRESENT ILLNESS: The patient has a history of frontotemporal dementia with worsening confusion, agitation, psychotic symptoms, aggression, disruptive behavior, sleep and appetite changes. He was hospitalized here several weeks back, returned home to outpatient treatment, was totally out of control at home, rehospitalized at local hospital and then referred to us for further inpatient psychiatric stabilization with behaviors continuing despite about 30 mg of Valium a day, 20 mg Haldol amongst other psychotropics. PAST PSYCHIATRIC HISTORY: As above. MEDICAL HISTORY: In addition to the recent pneumonia, has a history of BPH, expressive aphasia, hyperlipidemia, recurrent falls. ACCU-CHEKS: None. CODE STATUS: DNR. ALLERGIES: GEODON. DIET: Mechanical soft finger foods, thin liquids per family request. In the recent past, he had some aspiration difficulties as well. Takes his medications crushed in pudding. Ambulates 1 or 2 person's assist with gait belt. REVIEW OF SYSTEMS: Ambulation impaired. No CV, , pulmonary, eye, ENT system symptoms on review. Reliability poor. MENTAL STATUS EXAM: Oriented to himself. Insight, judgment, recent and remote memory, attention, concentration, fund of knowledge poor consistent with his diagnosis. IMPRESSION: Major neurocognitive disorder; frontotemporal with delusion; depression; behavioral disturbance; anxiety disorder, unspecified; impulse control disorder, unspecified. Rest as above. PLAN: Admit to Geropsychiatry Unit at [facility]. I will see the patient daily individually from a psychiatric standpoint, medical followup, Dr. Hill/Dr. Tee. Continue the patient on his current psychotropics, adjust as clinically indicated to help stabilize his behaviors and then transition to nursing placement. ESTIMATED LENGTH OF STAY: 7-10 days. DISPOSITION PLANS: To Memory Care Unit when stable. CHRISSY DR: Rich TID: [id number]
[2021-09-01 06:34] VITALS: BP 163/85
--- NOTE | 2021-09-01 09:35 | NUR ---
ACTIVITY THERAPY ASSESSMENT Pt. eating breakfast in his room with staff supervision and moderate assistance. He needed reminders to stay sitting as he was a little restless and tried to stand a few times. He nodded his head and made brief eye contact with BENCH EXAMINER when she commented on his food and asked him a few questions. Pt. had some difficulty/coughing after a few bites. Original assessment from 08/21/2021 at 0830 by BENCH EXAMINER, Leonides Shetty, remains valid: At 0830 BENCH EXAMINER saw pt pushing COMMUNITY PLANNER to the side of the door to get into the nurses station. BENCH EXAMINER entered from the opposite end of the hallway to redirect the pt with a few magazines. Pt was engaged for a few minutes as he sat down and read the magazines. A few minutes later when BENCH EXAMINER checked on pt and 1:1 again pt was at the door of the nurses station again trying to enter. BENCH EXAMINER helped two other staff members direct pt to his room where he was placed in bed. BENCH EXAMINER turned off room lights to try to get pt to relax but he continuously tried to get out of bed. BENCH EXAMINER then went to get the miguel angel to play pt's favorite band which is [employer]. Pt was distracted by magazines or miguel angel for very short periods of time and then attempted to get out of bed. Pt on multiple attempts used hands and feet to guide staff out of the way. Pt exited his bed over the bed railing that was raised up. Pt made his way back out to the hallway with the assistance of two staff holding his gate belt. Staff sat pt in a chair and BENCH EXAMINER attempted to redirect pt once again with magazines and miguel angel. Pt remained hyper focused on entering the nurses station and was not redirectable at this time. 1:1 staff switched at this point in time. This COMMUNITY PLANNER attempted to take pt on a walk where he then overpowered COMMUNITY PLANNER and was lowered to the ground for his safety as he is unsteady at this time. Pt laughed as he stood back up and seems to be very aware that he is stronger than staff. At this time staff are cautious of their badges as pt has figured out the waving the badge over the lock system will allow him through the door. BENCH EXAMINER and secretary book keeper attempted minimize interests of nurses station by covering the inside windows with sheets. BENCH EXAMINER checked in a few minutes later and secretary book keeper reported that it seemed to work for a few moments. Pt is pleasant with staff but is unaware of following directions and boundaries. Over the span of about 45 minutes pt remained restless throughout interaction and unable to follow direction. Per notes pt remains disorgazined and continues to wander. Initial goal aimed to increase relaxation skills and establish boundaries. Pt will participate in at least three Activity Therapy sessiosn per week. Addendum: 09/01/21 at 0952 by GURMEET YANG ACT Updated goal for this admission: to increase relaxation skills and establish boundaries. Pt will participate in at least three Activity Therapy sessions before discharge. Addendum: 09/15/21 at 1255 by LEONIDES SHETTY ACT Goal changed 09/15:Pt will participate in at least three Activity Therapy sessions per week
[2021-09-01] MEDS: GABAPENTIN 300 MG CAPSULE. PO SCH ×2 (09:56→20:17)
[2021-09-01] MEDS: medroxyPROGESTERone 5 MG TABLET PO SCH (09:56)
[2021-09-01] MEDS: SENNOSIDES 8.6 MG TABLET PO SCH ×2 (09:57→20:18)
[2021-09-01] MEDS: PARoxetine 20 MG TABLET PO SCH (09:57)
[2021-09-01] MEDS: QUEtiapine 50 MG TABLET. PO SCH (09:57)
[2021-09-01] MEDS: LOSARTAN 50 MG TABLET. PO SCH (09:57)
--- NOTE | 2021-09-01 10:43 | NUR ---
Call placed to Dionte at [facility] as Quan has BC/BS of [employer] which requires an authorization. Dionte took down demographic information and indicated that a sales representative gas service will call [employer] back within the next 24 hours to complete authorization. Call reference number for today's call is [id number]. Addendum: 09/01/21 at 1330 by FARSHAD SERRANO Received return call from Cecilia at [facility], , who provided authorization number of [id number]. Next review will be due on 09/02/21 by calling Cecilia. Addendum: 09/01/21 at 1400 by FARSHAD SERRANO Received voice mail from Cecilia at [facility] indicating she won't be following the case now and the review needs to be completed on 09/02/21 with Frank Alba at [phone].
--- NOTE | 2021-09-01 12:23 | NUR ---
Initial treatment team: Pt Marlen participated in treatment team via conference call. Pt is eating roughly 50-75% of meals, on thin liquids and sleeping on average 7 hours per night; last night pt slept 7.75 hours. Last night pt had periods of restlessness and was given PRN Zydis and Trazodone, in which pt was able to calm and sleep. Pt is able to feed himself; however, was noted this morning to have coughing spells and noted to possibly be aspirating. Pt believes this to be part of pt dementia decline and not necessarily a medication issue. Pt at this time, laid down shortly after breakfast and has been sleep since then. Pt remains as a 1:1 for some activities; however, when pt wants to walk staff does use a gait belt and is considered as a 2:1 due to his unsteady gait. Pt is alert to himself but cannot answer questions; nor can he fully compile a full sentence. Pt needs redirection to sit until staff is able to assist him but no overt physical aggression has been noted. Pt has not attended any groups thus far. Pt questioned if insurance has given authorization yet in which the housekeeping coordinator noted that the process has started and is awaiting confirmation of days approved. Marlen reports that she has attempted to contact Ivet at [facility] and has not received a call back on his possible admission status. ZACH explained that they are still full and cannot say when an opening will occur. ZACH will continue with updating the insurance for concurrent reviews and continue to look at facilities that all male and potentially locked. Marlen also expressed her concerns as to if the treatment team agreed that she cannot take pt home. Census is that pt is not safe at home with just Marlen caring for him. ZACH noted that Marlen would not be able to work and would need as many supports as possible that would allow for her to be remotely successful. Pt will have his Seroquel 50mg TID decreased to Seroquel 25mg TID with a note to hold if too sedated. Marlen will plan to participate in all treatment teams while pt is admitted.
--- NOTE | 2021-09-01 13:00 | NUR ---
WEEKLY ACTIVITY THERAPY NOTE Date of Admission:08/29/21 Date of AT Assessment: 09/01/21 Precipitating behaviors that initiated intake and admission:Frontotemporal dementia and associated behaviors Goal aimed: increase relaxation skills and establish boundaries. Initial Goal: Pt will participate in at least three Activity Therapy sessions before discharge. Weekly progress towards goal: NA Group participation level: NA Weekly highlights: arrived on [facility] Behaviors observed: restless, unstable Plan: goal evaluation begins next week Beneficial adaptations:
--- NOTE | 2021-09-01 15:42 | NUR ---
PSYCHOSOCIAL ASSESSMENT ADMISSION DATE: 08/29/21 CONTACT INFORMATION: DPOA/Guardian Contact Name: Marlen Knox Contact Address: [address]; [place] [address] Contact Phone #: ETHNIC ORIGIN: REASONS FOR ADMISSION: Agitated Poor impulse control Other ADDITIONAL ADMISSION COMMENTS: According to the intake pt needs stabilization for memory care placement, agitated, restless, poor safety, confused, thinks he needs to go to [place], won't stay in bed, self-care failure REASON FOR ADMISSION IN PATIENT/FAMILY'S OWN WORDS: Thinks that pt is experiencing decline in Dementia PATIENT/FAMILY EXPECTATIONS FOR ADMISSION: We've gotta get his behaviors under control and transition him to placement LIVING SITUATION: Patient lives with: Spouse Other living arrangements: pt lives at home with his Contact Name: Marlen Knox Contact Address: [address]; [place] [address] Contact Phone #: Contact Fax #: FAMILY RELATIONS: Marital Status: # of Marriages: 1 # of Children: 2 [facility] Family Support: Concerned Cooperative Involved in DC Planning Additional Comments r/t Family: Pt has been to Marlen for almost 40 years. They have two sons who are very close and help out when they can. SIGNIFICANT PSYCHIATRIC/MEDICAL HISTORY: Psychiatric/Treatment History: This is pt third psychiatric stay on [facility]. Pt has been getting testing through the [facility] at and gave him a diagnosis of Frontotemporal Dementia. Pt previously spent almost 2 weeks in the hospital under heavy medical seclusion to manage behaviors. Pertinent Family History: None. HISTORICAL DATA: Childhood Environment: Other-see below Childhood Environment Additional Comments: Pt had a decent childhood. Pt is the oldest of three boys; his father and mother ; however, his father three more times since then. Pt mother has passed, but his father and siblings are living. 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 service: N Mosque background: No preference Sexual orientation: Heterosexual Educational Level: Pt graduated HS (12th grade) Past/Present Interests/Hobbies: traveling; the [place]; Kids' sporting events (but can no longer attend) Financial support/resources: SS Disability Monthly income: Person handling finances: Pt handles finances Do you have a history of legal problems: N Cultural considerations: None SOCIAL RELATIONSHIPS-CURRENT/PAST: Psychiatrist: None PCP: Mihir Umana Counselor/Therapist: None Veterans' Administration: None Support Group: None Flight Line Mechanic/Keypunch Operator: None Other relationships: Dr. Dionte Young @ [facility] STRENGTHS & WEAKNESSES: Patient's strengths: Good family support Ambulatory Other patient strengths: Patient's weaknesses: Lack of housing Impulsive Poor social skills Other patient weaknesses: PRELIMINARY PLAN OF TREATMENT: Preliminary plan: Promote Coping Skill Medication Stabilization Monitor Med Effects Control abnormal behavior Dec. Outbursts Other preliminary treatment comments: DISCHARGE PLANNING: Discharge planning/disposition: Placement Needed Additional discharge needs identified: Referrals for a higher level of care will be needed. ADDITIONAL INFORMATION: Other Pertinent Data: PSA was completed via previous stay from earlier in the month. This stay pt wants to make sure that pt was a DO NOT TREAT. She participated in treatment team via telephone; a separate note was computed for that conversation. SW will maintain the insurance reviews and also continue to keep the family updated on pt status.
--- NOTE | 2021-09-01 15:56 | TX PLAN ---
Interdisciplinary Tx Plan Admission Information Aug 29, 2021 at 21:00 Legal Status (on Admission): Voluntary DPOA/Guardian Name: Marlen Knox Contact Other Contact Name: Marlen Knox Other Contact Verified Code Status: DNR Allergies: Coded Allergies: No Known Allergies (Verified Allergy, Unknown, 07/23/21) ziprasidone (Verified Adverse Reaction, Intermediate, increased agitation and anxiety , 08/28/21) Diagnoses Primary Diagnosis: Frontal Temporal Dementia Reasons for Admission: Agitated, Poor impulse control, Other Problem in Patient's Words: Thinks that pt is experiencing decline in Dementia Additional Admission Comments: According to the intake pt needs stabilization for memory care placement, agitated, restless, poor safety, confused, thinks he needs to go to [place], won't stay in bed, self-care failure Problems Active Problems: restless increased confusion somewhat sedated Inactive Problems: medication compliant Pt Strengths/Limitations Ability for [place]: Poor Cognitive Functioning/Ability: Poor Communication Skills/Ability: Poor Financial Resources: Fair Insight/Judgement: Poor Intellectual Ability: Poor Physical Health: Fair Social Skills: Poor Stability in Family: Excellent Stability in School/Work: Poor Verbal Skills: Poor Discharge Criteria Discharge Criteria: No need for close observ., Adequate arrangements @DC, Improved behavior, Improved mood/thought Preliminary Discharge Plan Preliminary DC Plan: Placement Needed Special Precautions Fall Risk: Moderate Initial D/C Plan Will need referrals sent to a higher level of care Identified Discharge Needs: Referrals for a higher level of care will be needed. Currently Utilized Resources Currently Utilized Resources/P: Primary Care Physician Neurologist at the [facility] Referrals Community Resources: Memory Care referrals Identified Problems/Hx/Goals Objectives/Short-Term Goals Short Term Goals: Control abnormal behavior, Dec. Outbursts, Medication Stabilization, Monitor Med Effects, Promote Coping Skill Short Term Goals in Patient's: N/A Interventions/Frequency Staff Interventions/Frequency&: Psychiatrist to assess pt at least 3x per week for medication management. Social Work to assess pt at least 2x per week to identify barriers and finalize discharge plans. Nursing to asseses medication effects, behavior modification and complete 15 minute checks daily. Encourage participation in group activities (if applicable) or 1:1 engagement based off activity dept goals. 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 Education: Pt graduated HS (12th grade) Community Follow-up Primary Care Physican Neurology at the [facility] Treatment Plan Explained Patient/Contract Associate Manager had this treatment plan explained to him/her as indicated by the signature below and has been given the opportunity to ask questions and make suggestions: Date: Patient/Contract Associate Manager Signature: Patient/Contract Associate Manager Decline: No (Pt family actively participates in pt care) ALANA PERALES Sep 01, 2021 15:56
--- NOTE | 2021-09-01 17:16 | NUR ---
Nsg Note; During treatment team today, with Dr Mercer and pt's Marlen, I reiterated that when Quan eats, he chokes and coughs. They were both aware of this and the repeated that she wants him to eat what he wants as he passed the swallow test last week. Quan has coughed several times with dinner, too. He has been with a one on one sitter today, sleeping most of the day, refusing to get up for lunch. He woke before dinner, voided and was unsteady amb but more steady with a gait belt and the sitter's assist with balance. He is calm and currently eating his dinner
[2021-09-01] MEDS: ATORVASTATIN CALCIUM 20 MG TABLET PO SCH (20:17)
[2021-09-01] MEDS: QUEtiapine 25 MG TABLET. PO SCH (20:18)
[2021-09-01] MEDS: traZODone 50 MG TABLET. PO PRN (21:33)
[2021-09-01] MEDS: LORazepam 1 MG TABLET PO PRN (21:33)
--- NOTE | 2021-09-01 22:46 | PDOC ---
Exam Note: Castillo Note: This note is a late entry for 08/31/2021 covers elements not covered in my initial note. Subjective: I was called by the nursing staff middle of last night. The patient was seen individually in the evening of 08/31/2021 with Elizabeth ALLISON, discussed and reviewed the chart. The patient slept 2-1/4 hours previous night. He remained confused, was extremely anxious, restless, agitated, was on taking 2 staff members to contain him. This is despite all the psychotropics he was taking. We did add Ativan 1 mg q.1h. p.r.n. anxiety and agitation, max 4 mg in 24 hours and he has been restarted on gabapentin and rest of his psychotropics. We are avoiding Haldol for now. He has had 5 p.r.n.s., last night and then again today. He is restless, anxious, constantly moving his wheelchair. Review of Systems: Ambulation impaired in wheelchair. No CV, , pulmonary, eye, ENT system symptoms on review. He appears constipated, received magnesium citrate. We will add senna for this. Mental Status Exam: The patient is oriented to himself. Insight and judgment, recent and remote memory, attention and concentration, fund of knowledge is poor consistent with his diagnoses. Impression: Major neurocognitive disorder, frontotemporal with delusion, depression, behavioral disturbance. Anxiety disorder unspecified. Impulse control disorder unspecified. Possible constipation. Status post pneumonia. Rest unchanged. Plan: Continue current psychotropics from initial note in addition to the Ativan that has been added p.r.n. Rest unchanged for now. Assessment: Vital Signs/I&O: Vital Signs Date Time Temp Pulse Resp B/P (MAP) Pulse Ox O2 Delivery O2 Flow Rate FiO2 09/01/21 09:57 58 163/85 09/01/21 06:34 97.4 18 94 08/31/21 16:23 Room Air I & O 08/31/21 08/31/21 09/01/21 15:00 23:00 07:00 Intake Total 720 ml 360 ml Balance 720 ml 360 ml Current Medications: Meds: Current Medications Medications (Trade) Dose Ordered Sig/Susana Route PRN Reason Start Time Stop Time Status Last Admin Dose Admin Acetaminophen (Tylenol) 650 mg PRN Q6HRS PRN PO MILD PAIN / TEMP > 100.3'F 08/29/21 22:00 Multi-Ingredient Ointment (Analgesic [place]) 1 sandra PRN QID PRN TP MUSCLE PAIN 08/29/21 22:00 Al Hydroxide/Mg Hydroxide (Mylanta Plus Xs) 15 ml PRN AFTMEALHC PRN PO DYSPEPSIA 08/29/21 22:00 Magnesium Hydroxide (Milk Of Magnesia) 2,400 mg PRN QHS PRN PO 1ST CHOICE CONSTIPATION 08/29/21 22:00 Acetaminophen (Tylenol) 650 mg PRN Q6HRS PRN PO MILD PAIN / TEMP > 100.3'F 08/29/21 22:30 Cancel Losartan Potassium (Cozaar) 50 mg DAILY PO 08/30/21 09:00 09/01/21 09:57 Atorvastatin Calcium (Lipitor) 40 mg QHS PO 08/30/21 21:00 09/01/21 20:17 Paroxetine HCl (Paxil) 60 mg DAILY PO 08/30/21 09:00 09/01/21 09:57 Amoxicillin/ Clavulanate Potassium (Augmentin 875/ 125mg) 1 tab BID PO 08/30/21 09:00 08/30/21 11:09 DC Lactobacillus Rhamnosus (Culturelle) 1 cap BID PO 08/30/21 09:00 08/30/21 11:09 DC Olanzapine (ZyPREXA) 5 mg PRN Q2HR PRN PO 1st choice ANXIETY / AGITATION 08/30/21 16:00 08/31/21 19:56 Gabapentin (Neurontin) 300 mg BID PO 08/30/21 21:00 09/01/21 23:50 09/01/21 20:17 Gabapentin (Neurontin) 400 mg TID PO 09/02/21 09:00 08/31/21 19:41 DC Medroxyprogesterone Acetate (Provera) 15 mg DAILY PO 08/31/21 09:00 09/01/21 09:56 Quetiapine Fumarate (SEROquel) 50 mg TID PO 08/30/21 21:00 09/01/21 14:33 DC 09/01/21 09:57 Trazodone HCl (Desyrel) 50 mg PRN Q8HRS PRN PO ANXIETY/AGITATION 08/30/21 16:15 09/01/21 21:33 Lorazepam (Ativan) 1 mg PRN Q1HR PRN PO 2nd choice ANXIETY / AGITATION 08/30/21 23:00 09/01/21 21:33 Bisacodyl (Dulcolax Supp) 10 mg PRN DAILY PRN NC 2ND CHOICE CONSTIPATION 08/31/21 00:30 Magnesium Citrate (Citroma) 296 ml 1X ONCE PO 08/31/21 10:45 08/31/21 10:47 DC 08/31/21 11:13 Sennosides (Senna) 8.6 mg BID PO 08/31/21 21:00 09/01/21 20:18 Gabapentin (Neurontin) 300 mg TID PO 09/02/21 09:00 Quetiapine Fumarate (SEROquel) 25 mg TID PO 09/01/21 21:00 09/01/21 20:18 Current Medications Medications (Trade) Dose Ordered Sig/Susana Route PRN Reason Start Time Stop Time Status Last Admin Dose Admin Quetiapine Fumarate (SEROquel) 25 mg TID PO 09/01/21 21:00 09/01/21 20:18 I have reviewed the current psychotropics carefully including drug interactions. Risk benefit ratio favors no change other than as noted in my dictated progress note. Diagnosis: Problems: (1) Aspiration pneumonia (2) Impulse control disorder, unspecified (3) Anxiety disorder, unspecified (4) Dementia, vascular, with depression (5) Dementia, vascular, with delusions (6) Dementia in Alzheimer's disease with depression (7) Dementia in Alzheimer's disease with delusions (8) Major neurocognitive disorder (9) Frontotemporal dementia with behavioral disturbance ELIAZAR COYLE MD Sep 01, 2021 22:46
--- NOTE | 2021-09-01 22:47 | PDOC ---
Exam Note: Castillo Note: Please also refer to the separate dictated note~for this date of service dictated separately.~Patient seen individually. Discussed the patient with Nursing staff reviewed the chart.~Reviewed interim history and current functioning. Reviewed vital signs,~Labs/ Radiology~and current medications noted below. Continue current treatment with the changes noted in the dictated addendum note Assessment: Vital Signs/I&O: Vital Signs Date Time Temp Pulse Resp B/P (MAP) Pulse Ox O2 Delivery O2 Flow Rate FiO2 09/01/21 09:57 58 163/85 09/01/21 06:34 97.4 18 94 08/31/21 16:23 Room Air I & O 08/31/21 08/31/21 09/01/21 15:00 23:00 07:00 Intake Total 720 ml 360 ml Balance 720 ml 360 ml Current Medications: Meds: Current Medications Medications (Trade) Dose Ordered Sig/Susana Route PRN Reason Start Time Stop Time Status Last Admin Dose Admin Acetaminophen (Tylenol) 650 mg PRN Q6HRS PRN PO MILD PAIN / TEMP > 100.3'F 08/29/21 22:00 Multi-Ingredient Ointment (Analgesic [place]) 1 sandra PRN QID PRN TP MUSCLE PAIN 08/29/21 22:00 Al Hydroxide/Mg Hydroxide (Mylanta Plus Xs) 15 ml PRN AFTMEALHC PRN PO DYSPEPSIA 08/29/21 22:00 Magnesium Hydroxide (Milk Of Magnesia) 2,400 mg PRN QHS PRN PO 1ST CHOICE CONSTIPATION 08/29/21 22:00 Acetaminophen (Tylenol) 650 mg PRN Q6HRS PRN PO MILD PAIN / TEMP > 100.3'F 08/29/21 22:30 Cancel Losartan Potassium (Cozaar) 50 mg DAILY PO 08/30/21 09:00 09/01/21 09:57 Atorvastatin Calcium (Lipitor) 40 mg QHS PO 08/30/21 21:00 09/01/21 20:17 Paroxetine HCl (Paxil) 60 mg DAILY PO 08/30/21 09:00 09/01/21 09:57 Amoxicillin/ Clavulanate Potassium (Augmentin 875/ 125mg) 1 tab BID PO 08/30/21 09:00 08/30/21 11:09 DC Lactobacillus Rhamnosus (Culturelle) 1 cap BID PO 08/30/21 09:00 08/30/21 11:09 DC Olanzapine (ZyPREXA) 5 mg PRN Q2HR PRN PO 1st choice ANXIETY / AGITATION 08/30/21 16:00 08/31/21 19:56 Gabapentin (Neurontin) 300 mg BID PO 08/30/21 21:00 09/01/21 23:50 09/01/21 20:17 Gabapentin (Neurontin) 400 mg TID PO 09/02/21 09:00 08/31/21 19:41 DC Medroxyprogesterone Acetate (Provera) 15 mg DAILY PO 08/31/21 09:00 09/01/21 09:56 Quetiapine Fumarate (SEROquel) 50 mg TID PO 08/30/21 21:00 09/01/21 14:33 DC 09/01/21 09:57 Trazodone HCl (Desyrel) 50 mg PRN Q8HRS PRN PO ANXIETY/AGITATION 08/30/21 16:15 09/01/21 21:33 Lorazepam (Ativan) 1 mg PRN Q1HR PRN PO 2nd choice ANXIETY / AGITATION 08/30/21 23:00 09/01/21 21:33 Bisacodyl (Dulcolax Supp) 10 mg PRN DAILY PRN DC 2ND CHOICE CONSTIPATION 08/31/21 00:30 Magnesium Citrate (Citroma) 296 ml 1X ONCE PO 08/31/21 10:45 08/31/21 10:47 DC 08/31/21 11:13 Sennosides (Senna) 8.6 mg BID PO 08/31/21 21:00 09/01/21 20:18 Gabapentin (Neurontin) 300 mg TID PO 09/02/21 09:00 Quetiapine Fumarate (SEROquel) 25 mg TID PO 09/01/21 21:00 09/01/21 20:18 Current Medications Medications (Trade) Dose Ordered Sig/Susana Route PRN Reason Start Time Stop Time Status Last Admin Dose Admin Quetiapine Fumarate (SEROquel) 25 mg TID PO 09/01/21 21:00 09/01/21 20:18 I have reviewed the current psychotropics carefully including drug interactions. Risk benefit ratio favors no change other than as noted in my dictated progress note. Diagnosis: Problems: (1) Impulse control disorder, unspecified (2) Anxiety disorder, unspecified (3) Dementia, vascular, with depression (4) Dementia, vascular, with delusions (5) Dementia in Alzheimer's disease with depression (6) Dementia in Alzheimer's disease with delusions (7) Major neurocognitive disorder (8) Frontotemporal dementia with behavioral disturbance (9) Aspiration pneumonia ELIAZAR COYLE MD Sep 01, 2021 22:47
--- NOTE | 2021-09-02 00:14 | NUR ---
Nursing Note Pt in room, asleep at shift change, soon after awoke full of energy and attempting to get out of bed. Pt placed in chair, given food, drinks, and other nonpharmacologic methods of distraction like scented lotions etc. to no avail. Pt was then given ativan and trazodone. Pt seemed to slow down for a tiny bit but soon became restless. Pt attempting to get out of chair, pulling at W/C brakes, stating "I gotta go". Pt up later after sleeping a short time. Medicated with ativan and zyprexa. Pt ambulated up and down ruth, given water and lce. Now resting somewhat with 1-1 at his side for safety. Pt Sis up an and takes meds willingly in applesauce. Staff have to have him 3-1 most of the time unless he is asleep.
[2021-09-02 06:16] VITALS: BP 125/77
[2021-09-02 08:02] LABS: BASO % 1 % (0-3); EOS # 0.2 x10^3/uL (0.0-0.7); EOS % 5 % (0-3); HEMATOCRIT 39.1 % (39.0-53.0); HEMOGLOBIN 13.2 g/dL (13.0-17.5); LYMPH # 1.6 x10^3/uL (1.0-4.8); LYMPH % 37 % (24-48); MEAN CORPUSCULAR HEMOGLOBIN 30 pg (25-35); MEAN CORPUSCULAR HGB CONC 34 g/dL (31-37); MEAN CORPUSCULAR VOLUME 90 fL (79-100); MONO # 0.4 x10^3/uL (0.0-1.1); MONO % 9 % (0-9); NEUT # 2.2 x10^3uL (1.8-7.7); NEUT % 49 % (31-73); PLATELET COUNT 270 x10^3/uL (140-400); RED BLOOD COUNT 4.33 x10^6/uL (4.30-5.70); RED CELL DISTRIBUTION WIDTH 13.3 % (11.5-14.5); WHITE BLOOD COUNT 4.5 x10^3/uL (4.0-11.0)
[2021-09-02 08:12] LABS: ALBUMIN 3.2 g/dL (3.4-5.0); ALBUMIN/GLOBULIN RATIO 0.8 (1.0-1.7); CALCIUM 8.7 mg/dL (8.5-10.1); CREATININE 1.1 mg/dL (0.7-1.3); GFR 68.5; POTASSIUM 3.7 mmol/L (3.5-5.1); TOTAL BILIRUBIN 0.5 mg/dL (0.2-1.0); TOTAL PROTEIN 7.1 g/dL (6.4-8.2)
[2021-09-02] MEDS: PARoxetine 20 MG TABLET PO SCH (09:00)
[2021-09-02] MEDS ORDERED: GABAPENTIN 400 MG CAPSULE. PO SCH ×2 (09:00)
[2021-09-02] MEDS: medroxyPROGESTERone 5 MG TABLET PO SCH (09:00)
[2021-09-02] MEDS: SENNOSIDES 8.6 MG TABLET PO SCH ×2 (09:00→21:00)
[2021-09-02] MEDS: LOSARTAN 50 MG TABLET. PO SCH (09:00)
[2021-09-02] MEDS: QUEtiapine 25 MG TABLET. PO SCH ×3 (09:00→21:00)
--- NOTE | 2021-09-02 09:38 | NUR ---
Pt sleeping in bed; breathing even equal and unlabored, no signs of distress. 1:1 supervision for safety continues. Medication administration and assessment pending. Will continue to monitor.
--- NOTE | 2021-09-02 13:23 | NUR ---
Pt A&O to self only. He woke shortly before lunch and consumed 100% of his meal. He is compliant with medications crushed and mixed into pudding. He still has periods of intermittent wet sounding coughing. He continues to display impulsive behaviors; attempting to self ambulate with an unsteady gait and attempting to open locked doors. He has difficulty with reorientation and redirection. After lunch he hurriedly approached EVS worker and attempted to slap her on the buttocks. 1:1 supervision continues for safety. Plan of care continues, will pass to next shift.
[2021-09-02] MEDS: OLANZapine 5 MG TABLET PO PRN (13:48)
[2021-09-02] MEDS: traZODone 50 MG TABLET. PO PRN (13:48)
--- NOTE | 2021-09-02 13:48 | NUR ---
Pt escalating in impulsive behaviors; spontaneously attempting to self ambulate, door checking, trying to enter the nurse station. Redirection and distraction by staff proves to be difficult. PRN Zyprexa 5 mg and PRN Trazodone 50 mg PO administered.
[2021-09-02 15:51] VITALS: BP 84/65
[2021-09-02] MEDS: GABAPENTIN 300 MG CAPSULE. PO SCH ×2 (17:00→21:00)
--- NOTE | 2021-09-02 17:32 | NUR ---
Spoke with Marlen Haas, /DPOA, who requests that pt's sons be allowed phone contact. The following information was provided: Buster Knox, son, Bandar Knox [phone] Pt's states she has provided sons with patient passcode. Phone contact consent form in pt's chart has been updated.
[2021-09-02 20:18] VITALS: BP 82/40
--- NOTE | 2021-09-02 20:46 | NUR ---
Patient has been on a 1:1 status since atleast 08/30 r/t his restlessness, impulsivity and strength. At times it takes 2:1 staff to ambulate him r/t his strength, poor balance and impulsivity. Dr Mercer gave verbal/telephone order 08/30, it must have been overlooked and not entered.
[2021-09-02] MEDS: ATORVASTATIN CALCIUM 20 MG TABLET PO SCH (21:00)
--- NOTE | 2021-09-02 21:00 | PDOC ---
Exam Note: Castillo Note: Please also refer to the separate dictated note~for this date of service dictated separately.~Patient seen individually. Discussed the patient with Nursing staff reviewed the chart.~Reviewed interim history and current functioning. Reviewed vital signs,~Labs/ Radiology~and current medications noted below. Continue current treatment with the changes noted in the dictated addendum note Assessment: Vital Signs/I&O: Vital Signs Date Time Temp Pulse Resp B/P (MAP) Pulse Ox O2 Delivery O2 Flow Rate FiO2 09/02/21 20:18 99.6 68 26 82/40 (54) 84 08/31/21 16:23 Room Air I & O 09/01/21 09/01/21 09/02/21 15:00 23:00 07:00 Intake Total 0 ml 480 ml 360 ml Balance 0 ml 480 ml 360 ml Labs: Laboratory Tests Test 09/02/21 07:21 White Blood Count 4.5 x10^3/uL (4.0-11.0) Red Blood Count 4.33 x10^6/uL (4.30-5.70) Hemoglobin 13.2 g/dL (13.0-17.5) Hematocrit 39.1 % (39.0-53.0) Mean Corpuscular Volume 90 fL (79-100) Mean Corpuscular Hemoglobin 30 pg (25-35) Mean Corpuscular Hemoglobin Concent 34 g/dL (31-37) Red Cell Distribution Width 13.3 % (11.5-14.5) Platelet Count 270 x10^3/uL (140-400) Neutrophils (%) (Auto) 49 % (31-73) Lymphocytes (%) (Auto) 37 % (24-48) Monocytes (%) (Auto) 9 % (0-9) Eosinophils (%) (Auto) 5 % (0-3) H Basophils (%) (Auto) 1 % (0-3) Neutrophils # (Auto) 2.2 x10^3uL (1.8-7.7) Lymphocytes # (Auto) 1.6 x10^3/uL (1.0-4.8) Monocytes # (Auto) 0.4 x10^3/uL (0.0-1.1) Eosinophils # (Auto) 0.2 x10^3/uL (0.0-0.7) Basophils # (Auto) 0.0 x10^3/uL (0.0-0.2) Sodium Level 138 mmol/L (136-145) Potassium Level 3.7 mmol/L (3.5-5.1) Chloride Level 104 mmol/L (98-107) Carbon Dioxide Level 25 mmol/L (21-32) Anion Gap 9 (6-14) Blood Urea Nitrogen 21 mg/dL (8-26) Creatinine 1.1 mg/dL (0.7-1.3) Estimated GFR (Cockcroft-Gault) 68.5 BUN/Creatinine Ratio 19 (6-20) Glucose Level 150 mg/dL (70-99) H Calcium Level 8.7 mg/dL (8.5-10.1) Total Bilirubin 0.5 mg/dL (0.2-1.0) Aspartate Amino Transferase (AST) 25 U/L (15-37) Alanine Aminotransferase (ALT) 52 U/L (16-63) Alkaline Phosphatase 65 U/L (46-116) Total Protein 7.1 g/dL (6.4-8.2) Albumin 3.2 g/dL (3.4-5.0) L Albumin/Globulin Ratio 0.8 (1.0-1.7) L Current Medications: Meds: Laboratory Tests Test 09/02/21 07:21 White Blood Count 4.5 x10^3/uL Red Blood Count 4.33 x10^6/uL Hemoglobin 13.2 g/dL Hematocrit 39.1 % Mean Corpuscular Volume 90 fL Mean Corpuscular Hemoglobin 30 pg Mean Corpuscular Hemoglobin Concent 34 g/dL Red Cell Distribution Width 13.3 % Platelet Count 270 x10^3/uL Neutrophils (%) (Auto) 49 % Lymphocytes (%) (Auto) 37 % Monocytes (%) (Auto) 9 % Eosinophils (%) (Auto) 5 % Basophils (%) (Auto) 1 % Neutrophils # (Auto) 2.2 x10^3uL Lymphocytes # (Auto) 1.6 x10^3/uL Monocytes # (Auto) 0.4 x10^3/uL Eosinophils # (Auto) 0.2 x10^3/uL Basophils # (Auto) 0.0 x10^3/uL Sodium Level 138 mmol/L Potassium Level 3.7 mmol/L Chloride Level 104 mmol/L Carbon Dioxide Level 25 mmol/L Anion Gap 9 Blood Urea Nitrogen 21 mg/dL Creatinine 1.1 mg/dL Estimated GFR (Cockcroft-Gault) 68.5 BUN/Creatinine Ratio 19 Glucose Level 150 mg/dL Calcium Level 8.7 mg/dL Total Bilirubin 0.5 mg/dL Aspartate Amino Transf (AST/SGOT) 25 U/L Alanine Aminotransferase (ALT/SGPT) 52 U/L Alkaline Phosphatase 65 U/L Total Protein 7.1 g/dL Albumin 3.2 g/dL Albumin/Globulin Ratio 0.8 Current Medications Medications (Trade) Dose Ordered Sig/Susana Route PRN Reason Start Time Stop Time Status Last Admin Dose Admin Acetaminophen (Tylenol) 650 mg PRN Q6HRS PRN PO MILD PAIN / TEMP > 100.3'F 08/29/21 22:00 Multi-Ingredient Ointment (Analgesic [place]) 1 sandra PRN QID PRN TP MUSCLE PAIN 08/29/21 22:00 Al Hydroxide/Mg Hydroxide (Mylanta Plus Xs) 15 ml PRN AFTMEALHC PRN PO DYSPEPSIA 08/29/21 22:00 Magnesium Hydroxide (Milk Of Magnesia) 2,400 mg PRN QHS PRN PO 1ST CHOICE CONSTIPATION 08/29/21 22:00 Acetaminophen (Tylenol) 650 mg PRN Q6HRS PRN PO MILD PAIN / TEMP > 100.3'F 08/29/21 22:30 Cancel Losartan Potassium (Cozaar) 50 mg DAILY PO 08/30/21 09:00 09/02/21 09:00 Atorvastatin Calcium (Lipitor) 40 mg QHS PO 08/30/21 21:00 09/01/21 20:17 Paroxetine HCl (Paxil) 60 mg DAILY PO 08/30/21 09:00 09/02/21 09:00 Amoxicillin/ Clavulanate Potassium (Augmentin 875/ 125mg) 1 tab BID PO 08/30/21 09:00 08/30/21 11:09 DC Lactobacillus Rhamnosus (Culturelle) 1 cap BID PO 08/30/21 09:00 08/30/21 11:09 DC Olanzapine (ZyPREXA) 5 mg PRN Q2HR PRN PO 1st choice ANXIETY / AGITATION 08/30/21 16:00 09/02/21 13:48 Gabapentin (Neurontin) 300 mg BID PO 08/30/21 21:00 09/01/21 23:50 DC 09/01/21 20:17 Gabapentin (Neurontin) 400 mg TID PO 09/02/21 09:00 08/31/21 19:41 DC Medroxyprogesterone Acetate (Provera) 15 mg DAILY PO 08/31/21 09:00 09/02/21 09:00 Quetiapine Fumarate (SEROquel) 50 mg TID PO 08/30/21 21:00 09/01/21 14:33 DC 09/01/21 09:57 Trazodone HCl (Desyrel) 50 mg PRN Q8HRS PRN PO ANXIETY/AGITATION 08/30/21 16:15 09/02/21 13:48 Lorazepam (Ativan) 1 mg PRN Q1HR PRN PO 2nd choice ANXIETY / AGITATION 08/30/21 23:00 09/01/21 21:33 Bisacodyl (Dulcolax Supp) 10 mg PRN DAILY PRN DE 2ND CHOICE CONSTIPATION 08/31/21 00:30 Magnesium Citrate (Citroma) 296 ml 1X ONCE PO 08/31/21 10:45 08/31/21 10:47 DC 08/31/21 11:13 Sennosides (Senna) 8.6 mg BID PO 08/31/21 21:00 09/02/21 09:00 Gabapentin (Neurontin) 300 mg TID PO 09/02/21 09:00 09/02/21 16:19 DC 09/02/21 09:00 Quetiapine Fumarate (SEROquel) 25 mg TID PO 09/01/21 21:00 09/02/21 14:00 Gabapentin (Neurontin) 300 mg TID PO 09/02/21 17:00 09/02/21 17:00 Current Medications Medications (Trade) Dose Ordered Sig/Susana Route PRN Reason Start Time Stop Time Status Last Admin Dose Admin Gabapentin (Neurontin) 300 mg TID PO 09/02/21 09:00 09/02/21 16:19 DC 09/02/21 09:00 Quetiapine Fumarate (SEROquel) 25 mg TID PO 09/01/21 21:00 09/02/21 14:00 Gabapentin (Neurontin) 300 mg TID PO 09/02/21 17:00 09/02/21 17:00 I have reviewed the current psychotropics carefully including drug interactions. Risk benefit ratio favors no change other than as noted in my dictated progress note. Diagnosis: Problems: (1) Impulse control disorder, unspecified (2) Anxiety disorder, unspecified (3) Dementia, vascular, with depression (4) Dementia, vascular, with delusions (5) Dementia in Alzheimer's disease with depression (6) Dementia in Alzheimer's disease with delusions (7) Dementia of the Alzheimer's type with early onset with behavioral disturbance (8) Major neurocognitive disorder (9) Frontotemporal dementia with behavioral disturbance ELIAZAR COYLE MD Sep 02, 2021 21:00
--- NOTE | 2021-09-02 22:33 | NUR ---
Nursing Note Pt has RR of 22-26, bp low 84/42, sats 86-90, 99.[address] Randal logan, gave orders for fluids and O2 but is refusing all treatment. Pt in bed sleeping doesn't arouse to voice or stimuli. Meds held, lungs moist crackles very coarse sounds, and asleep. Will continue to check vitals periodically.
[2021-09-03 06:08] VITALS: BP 131/79
--- NOTE | 2021-09-03 07:38 | PDOC ---
Exam Note: Castillo Note: This note is a late entry for 09/01/2021 covers elements not covered in my initial note. Subjective: The patient was reviewed at treatment team meeting individually in the morning on 09/01/2021 with Brittany Murray, Cary Adair, and Marielena Gonzalez (social sciences department chair), [place], activity therapy, Tina ALLISON, Elephant Tamer, and Cammy ALLISON, discussed and reviewed the chart. We discussed the patients diagnoses, progress, current psychotropics. Marlen, his also attended the treatment team meeting. Discussed the wifes decision not to intervene with any invasive procedures in case he decompensates medically. Seroquel is being held if he is sedated and we will reduce from 50 mg t.i.d. jadiel n to 25 mg t.i.d. The patient slept 7-3/4 hours previous night. Appetite is 50 to 75%. Wednesday, he slept a lot, Wednesday he slept for 2 hours and Wednesday he slept better. He takes meds in apple sauce. He attended groups in the morning briefly, needing assistance. Discussed with Deanne ALLISON in the evening. He is sleeping off and on during the day. Review of Systems: Ambulation impaired in wheelchair. No CV, , pulmonary, eye, ENT system symptoms on review. Reliability poor. He is pushing himself in the wheelchair. Mental Status Exam: The patient is oriented to himself. Insight and judgment, recent and remote memory, attention and concentration, fund of knowledge is poor consistent with his diagnoses. Impression: Major neurocognitive disorder, frontotemporal with delusion, depression, behavioral disturbance. Anxiety disorder unspecified. Impulse control disorder unspecified. Plan: Continue current psychotropics from initial note and reduce Seroquel as above. Assessment: Vital Signs/I&O: Vital Signs Date Time Temp Pulse Resp B/P (MAP) Pulse Ox O2 Delivery O2 Flow Rate FiO2 09/03/21 06:08 98.4 54 20 131/79 (96) 90 08/31/21 16:23 Room Air I & O 09/02/21 09/02/21 09/03/21 15:00 23:00 07:00 Intake Total 660 ml 680 ml Balance 660 ml 680 ml Current Medications: Meds: Current Medications Medications (Trade) Dose Ordered Sig/Susana Route PRN Reason Start Time Stop Time Status Last Admin Dose Admin Acetaminophen (Tylenol) 650 mg PRN Q6HRS PRN PO MILD PAIN / TEMP > 100.3'F 08/29/21 22:00 Multi-Ingredient Ointment (Analgesic [place]) 1 sandra PRN QID PRN TP MUSCLE PAIN 08/29/21 22:00 Al Hydroxide/Mg Hydroxide (Mylanta Plus Xs) 15 ml PRN AFTMEALHC PRN PO DYSPEPSIA 08/29/21 22:00 Magnesium Hydroxide (Milk Of Magnesia) 2,400 mg PRN QHS PRN PO 1ST CHOICE CONSTIPATION 08/29/21 22:00 Acetaminophen (Tylenol) 650 mg PRN Q6HRS PRN PO MILD PAIN / TEMP > 100.3'F 08/29/21 22:30 Cancel Losartan Potassium (Cozaar) 50 mg DAILY PO 08/30/21 09:00 09/02/21 09:00 Atorvastatin Calcium (Lipitor) 40 mg QHS PO 08/30/21 21:00 09/01/21 20:17 Paroxetine HCl (Paxil) 60 mg DAILY PO 08/30/21 09:00 09/02/21 09:00 Amoxicillin/ Clavulanate Potassium (Augmentin 875/ 125mg) 1 tab BID PO 08/30/21 09:00 08/30/21 11:09 DC Lactobacillus Rhamnosus (Culturelle) 1 cap BID PO 08/30/21 09:00 08/30/21 11:09 DC Olanzapine (ZyPREXA) 5 mg PRN Q2HR PRN PO 1st choice ANXIETY / AGITATION 08/30/21 16:00 09/02/21 13:48 Gabapentin (Neurontin) 300 mg BID PO 08/30/21 21:00 09/01/21 23:50 DC 09/01/21 20:17 Gabapentin (Neurontin) 400 mg TID PO 09/02/21 09:00 08/31/21 19:41 DC Medroxyprogesterone Acetate (Provera) 15 mg DAILY PO 08/31/21 09:00 09/02/21 09:00 Quetiapine Fumarate (SEROquel) 50 mg TID PO 08/30/21 21:00 09/01/21 14:33 DC 09/01/21 09:57 Trazodone HCl (Desyrel) 50 mg PRN Q8HRS PRN PO ANXIETY/AGITATION 08/30/21 16:15 09/02/21 13:48 Lorazepam (Ativan) 1 mg PRN Q1HR PRN PO 2nd choice ANXIETY / AGITATION 08/30/21 23:00 09/01/21 21:33 Bisacodyl (Dulcolax Supp) 10 mg PRN DAILY PRN [place] 2ND CHOICE CONSTIPATION 08/31/21 00:30 Magnesium Citrate (Citroma) 296 ml 1X ONCE PO 08/31/21 10:45 08/31/21 10:47 DC 08/31/21 11:13 Sennosides (Senna) 8.6 mg BID PO 08/31/21 21:00 09/02/21 09:00 Gabapentin (Neurontin) 300 mg TID PO 09/02/21 09:00 09/02/21 16:19 DC 09/02/21 09:00 Quetiapine Fumarate (SEROquel) 25 mg TID PO 09/01/21 21:00 09/02/21 14:00 Gabapentin (Neurontin) 300 mg TID PO 09/02/21 17:00 09/02/21 17:00 Current Medications Medications (Trade) Dose Ordered Sig/Susana Route PRN Reason Start Time Stop Time Status Last Admin Dose Admin Gabapentin (Neurontin) 300 mg TID PO 09/02/21 09:00 09/02/21 16:19 DC 09/02/21 09:00 Gabapentin (Neurontin) 300 mg TID PO 09/02/21 17:00 09/02/21 17:00 I have reviewed the current psychotropics carefully including drug interactions. Risk benefit ratio favors no change other than as noted in my dictated progress note. Diagnosis: Problems: (1) Impulse control disorder, unspecified (2) Anxiety disorder, unspecified (3) Dementia, vascular, with depression (4) Dementia, vascular, with delusions (5) Dementia in Alzheimer's disease with depression (6) Dementia in Alzheimer's disease with delusions (7) Major neurocognitive disorder (8) Frontotemporal dementia with behavioral disturbance ELIAZAR COYLE MD Sep 03, 2021 07:38
--- NOTE | 2021-09-03 08:03 | PDOC ---
Exam Note: Castillo Note: This note is a late entry for 09/02/2021 covers elements not covered in my initial note. Subjective: The patient was seen individually in the evening of 09/02/2021 with Deanne ALLISON, discussed and reviewed the chart. The patient slept 4-3/4 hours previous night. The patient has had a drop in his oxygen saturation. His blood pressure is low. He is running low grade fever of 99 with some increased respiratory rate and has a wet cough. We will defer medical management to Dr. Tee. He received Zyprexa and trazodone at 1.30 pm. Review of Systems: Ambulation impaired in wheelchair. He is not interactive and he is confused. He does have the above symptoms. No CV, , pulmonary, eye, ENT system symptoms on review. Mental Status Exam: The patient is oriented to himself. Insight and judgment, recent and remote memory, attention and concentration, fund of knowledge is poor consistent with his diagnoses. Impression: Major neurocognitive disorder, frontotemporal with delusion, depression, behavioral disturbance. Anxiety disorder unspecified. Impulse control disorder unspecified. Plan: We will defer medical management to Dr Tee and the wifes wishes as his is his power of insurance defense attorney. Assessment: Vital Signs/I&O: Vital Signs Date Time Temp Pulse Resp B/P (MAP) Pulse Ox O2 Delivery O2 Flow Rate FiO2 09/03/21 06:08 98.4 54 20 131/79 (96) 90 08/31/21 16:23 Room Air I & O 09/02/21 09/02/21 09/03/21 15:00 23:00 07:00 Intake Total 660 ml 680 ml Balance 660 ml 680 ml Current Medications: Meds: Current Medications Medications (Trade) Dose Ordered Sig/Susana Route PRN Reason Start Time Stop Time Status Last Admin Dose Admin Acetaminophen (Tylenol) 650 mg PRN Q6HRS PRN PO MILD PAIN / TEMP > 100.3'F 08/29/21 22:00 Multi-Ingredient Ointment (Analgesic [place]) 1 sandra PRN QID PRN TP MUSCLE PAIN 08/29/21 22:00 Al Hydroxide/Mg Hydroxide (Mylanta Plus Xs) 15 ml PRN AFTMEALHC PRN PO DYSPEPSIA 08/29/21 22:00 Magnesium Hydroxide (Milk Of Magnesia) 2,400 mg PRN QHS PRN PO 1ST CHOICE CONSTIPATION 08/29/21 22:00 Acetaminophen (Tylenol) 650 mg PRN Q6HRS PRN PO MILD PAIN / TEMP > 100.3'F 08/29/21 22:30 Cancel Losartan Potassium (Cozaar) 50 mg DAILY PO 08/30/21 09:00 09/02/21 09:00 Atorvastatin Calcium (Lipitor) 40 mg QHS PO 08/30/21 21:00 09/01/21 20:17 Paroxetine HCl (Paxil) 60 mg DAILY PO 08/30/21 09:00 09/02/21 09:00 Amoxicillin/ Clavulanate Potassium (Augmentin 875/ 125mg) 1 tab BID PO 08/30/21 09:00 08/30/21 11:09 DC Lactobacillus Rhamnosus (Culturelle) 1 cap BID PO 08/30/21 09:00 08/30/21 11:09 DC Olanzapine (ZyPREXA) 5 mg PRN Q2HR PRN PO 1st choice ANXIETY / AGITATION 08/30/21 16:00 09/02/21 13:48 Gabapentin (Neurontin) 300 mg BID PO 08/30/21 21:00 09/01/21 23:50 DC 09/01/21 20:17 Gabapentin (Neurontin) 400 mg TID PO 09/02/21 09:00 08/31/21 19:41 DC Medroxyprogesterone Acetate (Provera) 15 mg DAILY PO 08/31/21 09:00 09/02/21 09:00 Quetiapine Fumarate (SEROquel) 50 mg TID PO 08/30/21 21:00 09/01/21 14:33 DC 09/01/21 09:57 Trazodone HCl (Desyrel) 50 mg PRN Q8HRS PRN PO ANXIETY/AGITATION 08/30/21 16:15 09/02/21 13:48 Lorazepam (Ativan) 1 mg PRN Q1HR PRN PO 2nd choice ANXIETY / AGITATION 08/30/21 23:00 09/01/21 21:33 Bisacodyl (Dulcolax Supp) 10 mg PRN DAILY PRN [place] 2ND CHOICE CONSTIPATION 08/31/21 00:30 Magnesium Citrate (Citroma) 296 ml 1X ONCE PO 08/31/21 10:45 08/31/21 10:47 DC 08/31/21 11:13 Sennosides (Senna) 8.6 mg BID PO 08/31/21 21:00 09/02/21 09:00 Gabapentin (Neurontin) 300 mg TID PO 09/02/21 09:00 09/02/21 16:19 DC 09/02/21 09:00 Quetiapine Fumarate (SEROquel) 25 mg TID PO 09/01/21 21:00 09/02/21 14:00 Gabapentin (Neurontin) 300 mg TID PO 09/02/21 17:00 09/02/21 17:00 Current Medications Medications (Trade) Dose Ordered Sig/Susana Route PRN Reason Start Time Stop Time Status Last Admin Dose Admin Gabapentin (Neurontin) 300 mg TID PO 09/02/21 09:00 09/02/21 16:19 DC 09/02/21 09:00 Gabapentin (Neurontin) 300 mg TID PO 09/02/21 17:00 09/02/21 17:00 I have reviewed the current psychotropics carefully including drug interactions. Risk benefit ratio favors no change other than as noted in my dictated progress note. Diagnosis: Problems: (1) Impulse control disorder, unspecified (2) Anxiety disorder, unspecified (3) Dementia, vascular, with depression (4) Dementia, vascular, with delusions (5) Dementia in Alzheimer's disease with depression (6) Dementia in Alzheimer's disease with delusions (7) Major neurocognitive disorder (8) Frontotemporal dementia with behavioral disturbance ELIAZAR COYLE MD Sep 03, 2021 08:03
[2021-09-03] MEDS: PARoxetine 20 MG TABLET PO SCH (09:01)
[2021-09-03] MEDS: SENNOSIDES 8.6 MG TABLET PO SCH ×2 (09:02→20:40)
[2021-09-03] MEDS: GABAPENTIN 300 MG CAPSULE. PO SCH ×3 (09:02→20:40)
[2021-09-03] MEDS: LOSARTAN 50 MG TABLET. PO SCH (09:02)
[2021-09-03] MEDS: medroxyPROGESTERone 5 MG TABLET PO SCH (09:02)
[2021-09-03] MEDS: QUEtiapine 25 MG TABLET. PO SCH (09:02)
--- NOTE | 2021-09-03 14:11 | NUR ---
SW received voicemail from Aram at [facility] with approval for continued stay through the weekend. Pt next insurance update will be Saturday 09/08. SW to notify pt and the team of the approval.
--- NOTE | 2021-09-03 14:53 | NUR ---
ZACH contacted Marlen, pt and gave her an update on how pt is doing. Malren questioned how pt phone call went the other night and ZACH updated her on the [employer] approval for continued stay. ZACH next update is on Wednesday. Marlen and ZACH discussed placement and her concerns of potentially having to bring him home in the event that [employer] won't allowed continued stay. ZACH reiterated that it was not safe; however, understood Marlen's concerns as she cannot financially continue to have him in the hospital unless insurance pays. ZACH and Marlen discussed possibly calling the [facility] to see if they would have resources for Frontotemporal Dementia. Marlen continues to remain do not treat; only comfort care measures can be taken. Marlen and ZACH will follow up with one another tomorrow; ZACH let Marlen know SW is out on Wednesday and to contact nursing with any possible concerns.
[2021-09-03] MEDS: LORazepam 1 MG TABLET PO PRN ×2 (15:11→20:40)
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
[2021-09-03 15:44] VITALS: BP 101/62
--- NOTE | 2021-09-03 18:16 | NUR ---
Patient has continued to be restless, wandering, and repetitively door checking. Patient will stand at one door and repeatedly attempt to open it for several minutes. He also repeatedly asks staff to open the doors, pointing to their badges and then to the scanners. Patient has also stood at doors to seclusion hallway and repeatedly kicked them trying to get into the seclusion hallway. Multiple attempts to verbally redirect him by multiple staff have been unsuccessful. Patient continues on 1:1 for safety at this time. Will continue to monitor and report to oncoming shift.
--- NOTE | 2021-09-03 20:20 | PDOC ---
Exam Note: Castillo Note: Please also refer to the separate dictated note~for this date of service dictated separately.~Patient seen individually. Discussed the patient with Nursing staff reviewed the chart.~Reviewed interim history and current functioning. Reviewed vital signs,~Labs/ Radiology~and current medications noted below. Continue current treatment with the changes noted in the dictated addendum note Assessment: Vital Signs/I&O: Vital Signs Date Time Temp Pulse Resp B/P (MAP) Pulse Ox O2 Delivery O2 Flow Rate FiO2 09/03/21 15:44 97.6 73 20 101/62 (75) 94 08/31/21 16:23 Room Air I & O 09/02/21 09/02/21 09/03/21 15:00 23:00 07:00 Intake Total 660 ml 680 ml Balance 660 ml 680 ml Current Medications: Meds: Current Medications Medications (Trade) Dose Ordered Sig/Susana Route PRN Reason Start Time Stop Time Status Last Admin Dose Admin Acetaminophen (Tylenol) 650 mg PRN Q6HRS PRN PO MILD PAIN / TEMP > 100.3'F 08/29/21 22:00 Multi-Ingredient Ointment (Analgesic [place]) 1 sandra PRN QID PRN TP MUSCLE PAIN 08/29/21 22:00 Al Hydroxide/Mg Hydroxide (Mylanta Plus Xs) 15 ml PRN AFTMEALHC PRN PO DYSPEPSIA 08/29/21 22:00 Magnesium Hydroxide (Milk Of Magnesia) 2,400 mg PRN QHS PRN PO 1ST CHOICE CONSTIPATION 08/29/21 22:00 Acetaminophen (Tylenol) 650 mg PRN Q6HRS PRN PO MILD PAIN / TEMP > 100.3'F 08/29/21 22:30 Cancel Losartan Potassium (Cozaar) 50 mg DAILY PO 08/30/21 09:00 09/03/21 09:02 Atorvastatin Calcium (Lipitor) 40 mg QHS PO 08/30/21 21:00 09/01/21 20:17 Paroxetine HCl (Paxil) 60 mg DAILY PO 08/30/21 09:00 09/03/21 09:01 Amoxicillin/ Clavulanate Potassium (Augmentin 875/ 125mg) 1 tab BID PO 08/30/21 09:00 08/30/21 11:09 DC Lactobacillus Rhamnosus (Culturelle) 1 cap BID PO 08/30/21 09:00 08/30/21 11:09 DC Olanzapine (ZyPREXA) 5 mg PRN Q2HR PRN PO 1st choice ANXIETY / AGITATION 08/30/21 16:00 09/02/21 13:48 Gabapentin (Neurontin) 300 mg BID PO 08/30/21 21:00 09/01/21 23:50 DC 09/01/21 20:17 Gabapentin (Neurontin) 400 mg TID PO 09/02/21 09:00 08/31/21 19:41 DC Medroxyprogesterone Acetate (Provera) 15 mg DAILY PO 08/31/21 09:00 09/03/21 09:02 Quetiapine Fumarate (SEROquel) 50 mg TID PO 08/30/21 21:00 09/01/21 14:33 DC 09/01/21 09:57 Trazodone HCl (Desyrel) 50 mg PRN Q8HRS PRN PO 3RD CHOICE ANXIETY/AGITATION 08/30/21 16:15 09/02/21 13:48 Lorazepam (Ativan) 1 mg PRN Q1HR PRN PO 2nd choice ANXIETY / AGITATION 08/30/21 23:00 09/03/21 15:11 Bisacodyl (Dulcolax Supp) 10 mg PRN DAILY PRN [place] 2ND CHOICE CONSTIPATION 08/31/21 00:30 Magnesium Citrate (Citroma) 296 ml 1X ONCE PO 08/31/21 10:45 08/31/21 10:47 DC 08/31/21 11:13 Sennosides (Senna) 8.6 mg BID PO 08/31/21 21:00 09/03/21 09:02 Gabapentin (Neurontin) 300 mg TID PO 09/02/21 09:00 09/02/21 16:19 DC 09/02/21 09:00 Quetiapine Fumarate (SEROquel) 25 mg TID PO 09/01/21 21:00 09/03/21 13:24 DC 09/03/21 09:02 Gabapentin (Neurontin) 300 mg TID PO 09/02/21 17:00 09/03/21 14:24 Quetiapine Fumarate (SEROquel) 25 mg PRN TID PRN PO Agitation 09/03/21 13:30 I have reviewed the current psychotropics carefully including drug interactions. Risk benefit ratio favors no change other than as noted in my dictated progress note. Diagnosis: Problems: (1) Impulse control disorder, unspecified (2) Anxiety disorder, unspecified (3) Dementia, vascular, with depression (4) Dementia, vascular, with delusions (5) Dementia in Alzheimer's disease with depression (6) Dementia in Alzheimer's disease with delusions (7) Major neurocognitive disorder (8) Frontotemporal dementia with behavioral disturbance ELIAZAR COYLE MD Sep 03, 2021 20:20
[2021-09-03] MEDS: ATORVASTATIN CALCIUM 20 MG TABLET PO SCH (20:39)
[2021-09-03] MEDS: QUEtiapine 25 MG TABLET. PO PRN (20:39)
[2021-09-03] MEDS: traZODone 50 MG TABLET. PO PRN (20:40)
--- NOTE | 2021-09-03 23:53 | NUR ---
Nursing Note Pt up in hallway wandering, talks on phone to family seems to be appropriate with them on the phone. Med compliant in pudding. Door checking most of the evening, tries to take the badge off an employee multiple times to open the door to nursing station. Now in bed asleep is still 1-1 for falls and impulsive behavior.
[2021-09-04] MEDS: LOSARTAN 50 MG TABLET. PO SCH (08:49)
[2021-09-04] MEDS: SENNOSIDES 8.6 MG TABLET PO SCH ×2 (08:49→19:51)
[2021-09-04] MEDS: medroxyPROGESTERone 5 MG TABLET PO SCH (08:49)
[2021-09-04] MEDS: PARoxetine 20 MG TABLET PO SCH (08:49)
[2021-09-04] MEDS: GABAPENTIN 300 MG CAPSULE. PO SCH ×3 (08:49→19:51)
--- NOTE | 2021-09-04 10:30 | NUR ---
Nursing note: Pt in day room at time of AM med pass and assessment. He is pleasant, compliant with meds crushed in pudding and cooperative with assessment. He denies having any pain. He is very restless and continuously gets up from his chairs to walk around and attempts to give staff hugs and rub their arms. He is currently walking in the hallway with a staff member as a 1:1 for safety. Will continue to monitor.
[2021-09-04] MEDS: LORazepam 1 MG TABLET PO PRN (13:16)
--- NOTE | 2021-09-04 13:23 | NUR ---
Nursing note: Pt very restless, wandering around the day room with his 1:1 when he began ripping locked cabinet doors open and door checking. He was unable to be redirected. PRN administered. Staff x3 assisted in taking pt to his room and placing him in bed for an afternoon nap. 1:1 sitting at bedside. Will continue to monitor.
[2021-09-04 18:18] VITALS: BP 157/75
[2021-09-04] MEDS: traZODone 50 MG TABLET. PO PRN (19:52)
[2021-09-04] MEDS: ATORVASTATIN CALCIUM 20 MG TABLET PO SCH (19:52)
--- NOTE | 2021-09-04 20:40 | PDOC ---
Exam Note: Castillo Note: Please also refer to the separate dictated note~for this date of service dictated separately.~Patient seen individually. Discussed the patient with Nursing staff reviewed the chart.~Reviewed interim history and current functioning. Reviewed vital signs,~Labs/ Radiology~and current medications noted below. Continue current treatment with the changes noted in the dictated addendum note Assessment: Vital Signs/I&O: Vital Signs Date Time Temp Pulse Resp B/P (MAP) Pulse Ox O2 Delivery O2 Flow Rate FiO2 09/04/21 18:18 97.8 71 18 157/75 (102) 98 Room Air I & O 09/03/21 09/03/21 09/04/21 15:00 23:00 07:00 Intake Total 1140 ml 840 ml Balance 1140 ml 840 ml Labs: Laboratory Tests Test 09/04/21 07:00 SARS-CoV-2 (PCR) Not detected (NOT DETECTD) Current Medications: Meds: Laboratory Tests Test 09/04/21 07:00 Coronavirus (COVID-19)(PCR) Not detected Current Medications Medications (Trade) Dose Ordered Sig/Susana Route PRN Reason Start Time Stop Time Status Last Admin Dose Admin Acetaminophen (Tylenol) 650 mg PRN Q6HRS PRN PO MILD PAIN / TEMP > 100.3'F 08/29/21 22:00 Multi-Ingredient Ointment (Analgesic [place]) 1 sandra PRN QID PRN TP MUSCLE PAIN 08/29/21 22:00 Al Hydroxide/Mg Hydroxide (Mylanta Plus Xs) 15 ml PRN AFTMEALHC PRN PO DYSPEPSIA 08/29/21 22:00 Magnesium Hydroxide (Milk Of Magnesia) 2,400 mg PRN QHS PRN PO 1ST CHOICE CONSTIPATION 08/29/21 22:00 Acetaminophen (Tylenol) 650 mg PRN Q6HRS PRN PO MILD PAIN / TEMP > 100.3'F 08/29/21 22:30 Cancel Losartan Potassium (Cozaar) 50 mg DAILY PO 08/30/21 09:00 09/04/21 08:49 Atorvastatin Calcium (Lipitor) 40 mg QHS PO 08/30/21 21:00 09/04/21 19:52 Paroxetine HCl (Paxil) 60 mg DAILY PO 08/30/21 09:00 09/04/21 08:49 Amoxicillin/ Clavulanate Potassium (Augmentin 875/ 125mg) 1 tab BID PO 08/30/21 09:00 08/30/21 11:09 DC Lactobacillus Rhamnosus (Culturelle) 1 cap BID PO 08/30/21 09:00 08/30/21 11:09 DC Olanzapine (ZyPREXA) 5 mg PRN Q2HR PRN PO 1st choice ANXIETY / AGITATION 08/30/21 16:00 09/02/21 13:48 Gabapentin (Neurontin) 300 mg BID PO 08/30/21 21:00 09/01/21 23:50 DC 09/01/21 20:17 Gabapentin (Neurontin) 400 mg TID PO 09/02/21 09:00 08/31/21 19:41 DC Medroxyprogesterone Acetate (Provera) 15 mg DAILY PO 08/31/21 09:00 09/04/21 08:49 Quetiapine Fumarate (SEROquel) 50 mg TID PO 08/30/21 21:00 09/01/21 14:33 DC 09/01/21 09:57 Trazodone HCl (Desyrel) 50 mg PRN Q8HRS PRN PO 3RD CHOICE ANXIETY/AGITATION 08/30/21 16:15 09/04/21 19:52 Lorazepam (Ativan) 1 mg PRN Q1HR PRN PO 2nd choice ANXIETY / AGITATION 08/30/21 23:00 09/04/21 13:16 Bisacodyl (Dulcolax Supp) 10 mg PRN DAILY PRN [place] 2ND CHOICE CONSTIPATION 08/31/21 00:30 Magnesium Citrate (Citroma) 296 ml 1X ONCE PO 08/31/21 10:45 08/31/21 10:47 DC 08/31/21 11:13 Sennosides (Senna) 8.6 mg BID PO 08/31/21 21:00 09/04/21 19:51 Gabapentin (Neurontin) 300 mg TID PO 09/02/21 09:00 09/02/21 16:19 DC 09/02/21 09:00 Quetiapine Fumarate (SEROquel) 25 mg TID PO 09/01/21 21:00 09/03/21 13:24 DC 09/03/21 09:02 Gabapentin (Neurontin) 300 mg TID PO 09/02/21 17:00 09/04/21 19:51 Quetiapine Fumarate (SEROquel) 25 mg PRN TID PRN PO Agitation 09/03/21 13:30 09/03/21 20:39 I have reviewed the current psychotropics carefully including drug interactions. Risk benefit ratio favors no change other than as noted in my dictated progress note. Diagnosis: Problems: (1) Impulse control disorder, unspecified (2) Anxiety disorder, unspecified (3) Dementia, vascular, with depression (4) Dementia, vascular, with delusions (5) Dementia in Alzheimer's disease with depression (6) Dementia in Alzheimer's disease with delusions (7) Major neurocognitive disorder (8) Frontotemporal dementia with behavioral disturbance ELIAZAR COYLE MD Sep 04, 2021 20:40
--- NOTE | 2021-09-04 23:45 | NUR ---
Patient is in the hallway outside the [facility] on assumption of care, walking around with staff 1:1 for safety. He remains disorganized, alert to self only. Continues to attempt to open doors, but is redirectable. Compliant with medications crushed in pudding. Cooperative with HS cares. He remains 1:1 for safety, currently sleeping in his room. Intermittently wakes up and starts looking for his tennis shoes, but is compliant with redirection to lay back down.
[2021-09-05 06:23] VITALS: BP 136/84
[2021-09-05] MEDS: SENNOSIDES 8.6 MG TABLET PO SCH ×2 (09:10→20:16)
[2021-09-05] MEDS: medroxyPROGESTERone 5 MG TABLET PO SCH (09:10)
[2021-09-05] MEDS: GABAPENTIN 300 MG CAPSULE. PO SCH ×3 (09:10→20:16)
[2021-09-05] MEDS: LOSARTAN 50 MG TABLET. PO SCH (09:10)
[2021-09-05] MEDS: PARoxetine 20 MG TABLET PO SCH (09:11)
--- NOTE | 2021-09-05 10:00 | PDOC ---
Exam Note: Castillo Note: This note is a late entry for 09/03/2021 covers elements not covered in my initial note. Subjective: The patient was seen individually in the evening of 09/03/2021 with Deanne ALLISON, discussed and reviewed the chart. The patient slept 9 hours previous night. The patient had been very sick the night before but doing better on 09/03. He is less aggressive, but remains confused. Review of Systems: Ambulation impaired in wheelchair. No CV, , pulmonary, eye, ENT system symptoms on review. Reliability poor. Mental Status Exam: The patient is oriented to himself. Insight and judgment, recent and remote memory, attention and concentration, fund of knowledge is poor consistent with his diagnoses. Impression: Major neurocognitive disorder, frontotemporal with delusion, depression, behavioral disturbance. Anxiety disorder unspecified. Impulse control disorder unspecified. Plan: No change from initial note. Assessment: Vital Signs/I&O: Vital Signs Date Time Temp Pulse Resp B/P (MAP) Pulse Ox O2 Delivery O2 Flow Rate FiO2 09/05/21 09:10 58 136/84 09/05/21 06:23 97.6 16 92 Room Air I & O 09/04/21 09/04/21 09/05/21 15:00 23:00 07:00 Intake Total 1520 ml 600 ml Balance 1520 ml 600 ml Current Medications: Meds: Current Medications Medications (Trade) Dose Ordered Sig/Susana Route PRN Reason Start Time Stop Time Status Last Admin Dose Admin Acetaminophen (Tylenol) 650 mg PRN Q6HRS PRN PO MILD PAIN / TEMP > 100.3'F 08/29/21 22:00 Multi-Ingredient Ointment (Analgesic [place]) 1 sandra PRN QID PRN TP MUSCLE PAIN 08/29/21 22:00 Al Hydroxide/Mg Hydroxide (Mylanta Plus Xs) 15 ml PRN AFTMEALHC PRN PO DYSPEPSIA 08/29/21 22:00 Magnesium Hydroxide (Milk Of Magnesia) 2,400 mg PRN QHS PRN PO 1ST CHOICE CONSTIPATION 08/29/21 22:00 Acetaminophen (Tylenol) 650 mg PRN Q6HRS PRN PO MILD PAIN / TEMP > 100.3'F 08/29/21 22:30 Cancel Losartan Potassium (Cozaar) 50 mg DAILY PO 08/30/21 09:00 09/05/21 09:10 Atorvastatin Calcium (Lipitor) 40 mg QHS PO 08/30/21 21:00 09/04/21 19:52 Paroxetine HCl (Paxil) 60 mg DAILY PO 08/30/21 09:00 09/05/21 09:11 Amoxicillin/ Clavulanate Potassium (Augmentin 875/ 125mg) 1 tab BID PO 08/30/21 09:00 08/30/21 11:09 DC Lactobacillus Rhamnosus (Culturelle) 1 cap BID PO 08/30/21 09:00 08/30/21 11:09 DC Olanzapine (ZyPREXA) 5 mg PRN Q2HR PRN PO 1st choice ANXIETY / AGITATION 08/30/21 16:00 09/02/21 13:48 Gabapentin (Neurontin) 300 mg BID PO 08/30/21 21:00 09/01/21 23:50 DC 09/01/21 20:17 Gabapentin (Neurontin) 400 mg TID PO 09/02/21 09:00 08/31/21 19:41 DC Medroxyprogesterone Acetate (Provera) 15 mg DAILY PO 08/31/21 09:00 09/05/21 09:10 Quetiapine Fumarate (SEROquel) 50 mg TID PO 08/30/21 21:00 09/01/21 14:33 DC 09/01/21 09:57 Trazodone HCl (Desyrel) 50 mg PRN Q8HRS PRN PO 3RD CHOICE ANXIETY/AGITATION 08/30/21 16:15 09/04/21 19:52 Lorazepam (Ativan) 1 mg PRN Q1HR PRN PO 2nd choice ANXIETY / AGITATION 08/30/21 23:00 09/04/21 13:16 Bisacodyl (Dulcolax Supp) 10 mg PRN DAILY PRN [place] 2ND CHOICE CONSTIPATION 08/31/21 00:30 Magnesium Citrate (Citroma) 296 ml 1X ONCE PO 08/31/21 10:45 08/31/21 10:47 DC 08/31/21 11:13 Sennosides (Senna) 8.6 mg BID PO 08/31/21 21:00 09/05/21 09:10 Gabapentin (Neurontin) 300 mg TID PO 09/02/21 09:00 09/02/21 16:19 DC 09/02/21 09:00 Quetiapine Fumarate (SEROquel) 25 mg TID PO 09/01/21 21:00 09/03/21 13:24 DC 09/03/21 09:02 Gabapentin (Neurontin) 300 mg TID PO 09/02/21 17:00 09/05/21 09:10 Quetiapine Fumarate (SEROquel) 25 mg PRN TID PRN PO Agitation 09/03/21 13:30 09/03/21 20:39 I have reviewed the current psychotropics carefully including drug interactions. Risk benefit ratio favors no change other than as noted in my dictated progress note. Diagnosis: Problems: (1) Impulse control disorder, unspecified (2) Anxiety disorder, unspecified (3) Dementia, vascular, with depression (4) Dementia, vascular, with delusions (5) Dementia in Alzheimer's disease with depression (6) Dementia in Alzheimer's disease with delusions (7) Major neurocognitive disorder (8) Frontotemporal dementia with behavioral disturbance ELIAZAR COYLE MD Sep 05, 2021 09:59
--- NOTE | 2021-09-05 10:17 | PDOC ---
Exam Note: Castillo Note: This note is a late entry for 09/04/2021 covers elements not covered in my initial note. Subjective: The patient was seen individually in the evening of 09/04/2021 with Marisol ALLISON, discussed and reviewed the chart. The patient slept 5-3/4 hours previous night. Nursing staff had also called me earlier in the day wondering about one-on-one status and they will reassess and then decide. Patient is looking better, less aggressive, disruptive. Review of Systems: Ambulation impaired in wheelchair. No CV, , pulmonary, eye, ENT system symptoms on review. Reliability poor. Mental Status Exam: The patient is oriented to himself. Insight and judgment, recent and remote memory, attention and concentration, fund of knowledge is poor consistent with his diagnoses. Impression: Major neurocognitive disorder, frontotemporal with delusion, depression, behavioral disturbance. Anxiety disorder unspecified. Impulse control disorder unspecified. Plan: Nursing staff stated they have maintained one-on-one status. Received p.r.n. medication at 1p.m.after he ripped open cabinets and it took 3 staff members to intervene. Assessment: Vital Signs/I&O: Vital Signs Date Time Temp Pulse Resp B/P (MAP) Pulse Ox O2 Delivery O2 Flow Rate FiO2 09/05/21 09:10 58 136/84 09/05/21 06:23 97.6 16 92 Room Air I & O 09/04/21 09/04/21 09/05/21 15:00 23:00 07:00 Intake Total 1520 ml 600 ml Balance 1520 ml 600 ml Current Medications: Meds: Current Medications Medications (Trade) Dose Ordered Sig/Susana Route PRN Reason Start Time Stop Time Status Last Admin Dose Admin Acetaminophen (Tylenol) 650 mg PRN Q6HRS PRN PO MILD PAIN / TEMP > 100.3'F 08/29/21 22:00 Multi-Ingredient Ointment (Analgesic [place]) 1 sandra PRN QID PRN TP MUSCLE PAIN 08/29/21 22:00 Al Hydroxide/Mg Hydroxide (Mylanta Plus Xs) 15 ml PRN AFTMEALHC PRN PO DYSPEPSIA 08/29/21 22:00 Magnesium Hydroxide (Milk Of Magnesia) 2,400 mg PRN QHS PRN PO 1ST CHOICE CONSTIPATION 08/29/21 22:00 Acetaminophen (Tylenol) 650 mg PRN Q6HRS PRN PO MILD PAIN / TEMP > 100.3'F 08/29/21 22:30 Cancel Losartan Potassium (Cozaar) 50 mg DAILY PO 08/30/21 09:00 09/05/21 09:10 Atorvastatin Calcium (Lipitor) 40 mg QHS PO 08/30/21 21:00 09/04/21 19:52 Paroxetine HCl (Paxil) 60 mg DAILY PO 08/30/21 09:00 09/05/21 09:11 Amoxicillin/ Clavulanate Potassium (Augmentin 875/ 125mg) 1 tab BID PO 08/30/21 09:00 08/30/21 11:09 DC Lactobacillus Rhamnosus (Culturelle) 1 cap BID PO 08/30/21 09:00 08/30/21 11:09 DC Olanzapine (ZyPREXA) 5 mg PRN Q2HR PRN PO 1st choice ANXIETY / AGITATION 08/30/21 16:00 09/02/21 13:48 Gabapentin (Neurontin) 300 mg BID PO 08/30/21 21:00 09/01/21 23:50 DC 09/01/21 20:17 Gabapentin (Neurontin) 400 mg TID PO 09/02/21 09:00 08/31/21 19:41 DC Medroxyprogesterone Acetate (Provera) 15 mg DAILY PO 08/31/21 09:00 09/05/21 09:10 Quetiapine Fumarate (SEROquel) 50 mg TID PO 08/30/21 21:00 09/01/21 14:33 DC 09/01/21 09:57 Trazodone HCl (Desyrel) 50 mg PRN Q8HRS PRN PO 3RD CHOICE ANXIETY/AGITATION 08/30/21 16:15 09/04/21 19:52 Lorazepam (Ativan) 1 mg PRN Q1HR PRN PO 2nd choice ANXIETY / AGITATION 08/30/21 23:00 09/04/21 13:16 Bisacodyl (Dulcolax Supp) 10 mg PRN DAILY PRN [place] 2ND CHOICE CONSTIPATION 08/31/21 00:30 Magnesium Citrate (Citroma) 296 ml 1X ONCE PO 08/31/21 10:45 08/31/21 10:47 DC 08/31/21 11:13 Sennosides (Senna) 8.6 mg BID PO 08/31/21 21:00 09/05/21 09:10 Gabapentin (Neurontin) 300 mg TID PO 09/02/21 09:00 09/02/21 16:19 DC 09/02/21 09:00 Quetiapine Fumarate (SEROquel) 25 mg TID PO 09/01/21 21:00 09/03/21 13:24 DC 09/03/21 09:02 Gabapentin (Neurontin) 300 mg TID PO 09/02/21 17:00 09/05/21 09:10 Quetiapine Fumarate (SEROquel) 25 mg PRN TID PRN PO Agitation 09/03/21 13:30 09/03/21 20:39 I have reviewed the current psychotropics carefully including drug interactions. Risk benefit ratio favors no change other than as noted in my dictated progress note. Diagnosis: Problems: (1) Impulse control disorder, unspecified (2) Anxiety disorder, unspecified (3) Dementia, vascular, with depression (4) Dementia, vascular, with delusions (5) Dementia in Alzheimer's disease with depression (6) Dementia in Alzheimer's disease with delusions (7) Major neurocognitive disorder (8) Frontotemporal dementia with behavioral disturbance ELIAZAR COYLE MD Sep 05, 2021 10:17
[2021-09-05] MEDS: LORazepam 1 MG TABLET PO PRN ×3 (11:44→20:16)
[2021-09-05] MEDS: QUEtiapine 25 MG TABLET. PO PRN (11:44)
--- NOTE | 2021-09-05 11:45 | NUR ---
Patient is restless, impulsive, and exit seeking. He has been repeatedly kicking the day room door trying to get it to open and asking staff to open the door. Patient has grabbed the breasts of two separate staff members. He is not responding to verbal redirection or attempts to engage him in different activities. PRN medications provided per eMAR, will continue to monitor and report to MD during rounds.
[2021-09-05] MEDS: OLANZapine 5 MG TABLET PO PRN (13:42)
--- NOTE | 2021-09-05 13:45 | NUR ---
Patient has continued to be restless and exit seeking. He has made multiple attempts to get off the unit when staff use the main entrance. He has also repeatedly rang the AIphone, including removing a sign staff placed on it to prevent him from pushing the button. Patient has grabbed multiple staff members, pushing them around, and tried to get them to use their badges to open the door. Verbal redirection continues to be ineffective. PRN and scheduled meds provided per eMAR; patient continues on 1:1 observation for safety. Will continue to monitor and report to MD during rounds.
[2021-09-05 15:47] VITALS: BP 111/60
--- NOTE | 2021-09-05 18:30 | NUR ---
Patient has continued to be restless and door checking. Patient was kicking the day room doors repeatedly, staff removed his shoes, he has red hospital slippers on. Patient has become preoccupied with knocking on [facility] nurses' station windows and trying to get into the nurses' station to get his shoes. Patient continues to resist verbal redirection and attempts to get him interested in other activities. Patient continues on 1:1 observation for safety. Will continue to monitor and report to oncoming shift.
[2021-09-05] MEDS: ATORVASTATIN CALCIUM 20 MG TABLET PO SCH (20:15)
[2021-09-05] MEDS: MAGNESIUM HYDROXIDE 2,400 MG/30 ML ORAL.SUSP. PO PRN (20:16)
[2021-09-05] MEDS: traZODone 50 MG TABLET. PO PRN (20:16)
--- NOTE | 2021-09-05 20:25 | PDOC ---
Exam Note: Castillo Note: Please also refer to the separate dictated note~for this date of service dictated separately.~Patient seen individually. Discussed the patient with Nursing staff reviewed the chart.~Reviewed interim history and current functioning. Reviewed vital signs,~Labs/ Radiology~and current medications noted below. Continue current treatment with the changes noted in the dictated addendum note Assessment: Vital Signs/I&O: Vital Signs Date Time Temp Pulse Resp B/P (MAP) Pulse Ox O2 Delivery O2 Flow Rate FiO2 09/05/21 15:47 97.7 104 20 111/60 (77) 95 09/05/21 06:23 Room Air I & O 09/04/21 09/04/21 09/05/21 15:00 23:00 07:00 Intake Total 1520 ml 600 ml Balance 1520 ml 600 ml Current Medications: Meds: Current Medications Medications (Trade) Dose Ordered Sig/Susana Route PRN Reason Start Time Stop Time Status Last Admin Dose Admin Acetaminophen (Tylenol) 650 mg PRN Q6HRS PRN PO MILD PAIN / TEMP > 100.3'F 08/29/21 22:00 Multi-Ingredient Ointment (Analgesic [place]) 1 sandra PRN QID PRN TP MUSCLE PAIN 08/29/21 22:00 Al Hydroxide/Mg Hydroxide (Mylanta Plus Xs) 15 ml PRN AFTMEALHC PRN PO DYSPEPSIA 08/29/21 22:00 Magnesium Hydroxide (Milk Of Magnesia) 2,400 mg PRN QHS PRN PO 1ST CHOICE CONSTIPATION 08/29/21 22:00 09/05/21 20:16 Acetaminophen (Tylenol) 650 mg PRN Q6HRS PRN PO MILD PAIN / TEMP > 100.3'F 08/29/21 22:30 Cancel Losartan Potassium (Cozaar) 50 mg DAILY PO 08/30/21 09:00 09/05/21 09:10 Atorvastatin Calcium (Lipitor) 40 mg QHS PO 08/30/21 21:00 09/05/21 20:15 Paroxetine HCl (Paxil) 60 mg DAILY PO 08/30/21 09:00 09/05/21 09:11 Amoxicillin/ Clavulanate Potassium (Augmentin 875/ 125mg) 1 tab BID PO 08/30/21 09:00 08/30/21 11:09 DC Lactobacillus Rhamnosus (Culturelle) 1 cap BID PO 08/30/21 09:00 08/30/21 11:09 DC Olanzapine (ZyPREXA) 5 mg PRN Q2HR PRN PO 1st choice ANXIETY / AGITATION 08/30/21 16:00 09/05/21 13:42 Gabapentin (Neurontin) 300 mg BID PO 08/30/21 21:00 09/01/21 23:50 DC 09/01/21 20:17 Gabapentin (Neurontin) 400 mg TID PO 09/02/21 09:00 08/31/21 19:41 DC Medroxyprogesterone Acetate (Provera) 15 mg DAILY PO 08/31/21 09:00 09/05/21 09:10 Quetiapine Fumarate (SEROquel) 50 mg TID PO 08/30/21 21:00 09/01/21 14:33 DC 09/01/21 09:57 Trazodone HCl (Desyrel) 50 mg PRN Q8HRS PRN PO 3RD CHOICE ANXIETY/AGITATION 08/30/21 16:15 09/05/21 20:16 Lorazepam (Ativan) 1 mg PRN Q1HR PRN PO 2nd choice ANXIETY / AGITATION 08/30/21 23:00 09/05/21 20:16 Bisacodyl (Dulcolax Supp) 10 mg PRN DAILY PRN [place] 2ND CHOICE CONSTIPATION 08/31/21 00:30 Magnesium Citrate (Citroma) 296 ml 1X ONCE PO 08/31/21 10:45 08/31/21 10:47 DC 08/31/21 11:13 Sennosides (Senna) 8.6 mg BID PO 08/31/21 21:00 09/05/21 20:16 Gabapentin (Neurontin) 300 mg TID PO 09/02/21 09:00 09/02/21 16:19 DC 09/02/21 09:00 Quetiapine Fumarate (SEROquel) 25 mg TID PO 09/01/21 21:00 09/03/21 13:24 DC 09/03/21 09:02 Gabapentin (Neurontin) 300 mg TID PO 09/02/21 17:00 09/05/21 20:16 Quetiapine Fumarate (SEROquel) 25 mg PRN TID PRN PO Agitation 09/03/21 13:30 09/05/21 11:44 I have reviewed the current psychotropics carefully including drug interactions. Risk benefit ratio favors no change other than as noted in my dictated progress note. Diagnosis: Problems: (1) Impulse control disorder, unspecified (2) Anxiety disorder, unspecified (3) Dementia, vascular, with depression (4) Dementia, vascular, with delusions (5) Dementia in Alzheimer's disease with depression (6) Dementia in Alzheimer's disease with delusions (7) Major neurocognitive disorder (8) Frontotemporal dementia with behavioral disturbance ELIAZAR COYLE MD Sep 05, 2021 20:25
--- NOTE | 2021-09-05 23:00 | NUR ---
Patient is ambulating in the hallway on assumption of care. He remains disorganized, alert to self only. Continues to attempt to open doors, approaching staff and trying to enter doors that they come in and out of. Continues to try to grab staff badges, as he knows they can open the doors. PRN Ativan and Trazodone given with HS medications due to patient's restlessness and inability to be redirected. Compliant with medications crushed in pudding. Cooperative with HS cares. He remains 1:1 for safety, currently sleeping in his room.
[2021-09-06 05:36] VITALS: BP 104/66
[2021-09-06] MEDS: GABAPENTIN 300 MG CAPSULE. PO SCH ×4 (08:42→21:00)
[2021-09-06] MEDS: SENNOSIDES 8.6 MG TABLET PO SCH ×3 (08:43→21:00)
[2021-09-06] MEDS: medroxyPROGESTERone 5 MG TABLET PO SCH (08:43)
[2021-09-06] MEDS: LOSARTAN 50 MG TABLET. PO SCH (08:43)
--- NOTE | 2021-09-06 08:45 | NUR ---
Patient slept in late, then was brought to the dining room. He has been repeatedly asking for his shoes, attempts to redirect him are ignored; patient repeatedly asks each separate staff member when he sees them. His shoes were taken away yesterday because he was kicking doors in an attempt to get off of the unit. Patient's abdomen is distended and firm, bowel sounds active, he denies any pain or discomfort; LBM 09/02, will ask MD for magnesium citrate. Patient continues on 1:1 for safety, he is ambulating much steadier than previously. Will continue to monitor and report to MD during rounds.
[2021-09-06] MEDS: PARoxetine 20 MG TABLET PO SCH (08:46)
[2021-09-06] MEDS: traZODone 50 MG TABLET. PO PRN (13:35)
--- NOTE | 2021-09-06 13:40 | NUR ---
Patient has continued to be pre-occupied with finding his shoes and trying to get into the nurses' station. PRN adn scheduled medications provided per eMAR, will continue to monitor.
[2021-09-06] MEDS: QUEtiapine 25 MG TABLET. PO PRN (14:11)
[2021-09-06] MEDS: LORazepam 1 MG TABLET PO PRN ×2 (14:11→19:25)
[2021-09-06] MEDS: OLANZapine 5 MG TABLET PO PRN (14:11)
--- NOTE | 2021-09-06 14:15 | NUR ---
Patient attempted to get off the unit by pushing EVS personnel through the door when she was leaving the unit; he was able to get through the door, but was brought back on the unit by staff. Patient then tried to climb into the [facility] nurses' station due to his belief that his shoes are in there. Patient continues to be preoccupied with his shoes and getting through any locked door. PRN medication provided per eMAR, will report to MD during rounds.
[2021-09-06 15:26] VITALS: BP 112/60
[2021-09-06] MEDS: ATORVASTATIN CALCIUM 20 MG TABLET PO SCH ×2 (19:24→21:00)
--- NOTE | 2021-09-06 21:43 | PDOC ---
Exam Note: Castillo Note: Please also refer to the separate dictated note~for this date of service dictated separately.~Patient seen individually. Discussed the patient with Nursing staff reviewed the chart.~Reviewed interim history and current functioning. Reviewed vital signs,~Labs/ Radiology~and current medications noted below. Continue current treatment with the changes noted in the dictated addendum note Assessment: Vital Signs/I&O: Vital Signs Date Time Temp Pulse Resp B/P (MAP) Pulse Ox O2 Delivery O2 Flow Rate FiO2 09/06/21 15:26 97.7 82 20 112/60 (77) 93 09/06/21 05:36 Room Air I & O 09/05/21 09/05/21 09/06/21 15:00 23:00 07:00 Intake Total 600 ml 240 ml 320 ml Balance 600 ml 240 ml 320 ml Current Medications: Meds: Current Medications Medications (Trade) Dose Ordered Sig/Susana Route PRN Reason Start Time Stop Time Status Last Admin Dose Admin Acetaminophen (Tylenol) 650 mg PRN Q6HRS PRN PO MILD PAIN / TEMP > 100.3'F 08/29/21 22:00 Multi-Ingredient Ointment (Analgesic [place]) 1 sandra PRN QID PRN TP MUSCLE PAIN 08/29/21 22:00 Al Hydroxide/Mg Hydroxide (Mylanta Plus Xs) 15 ml PRN AFTMEALHC PRN PO DYSPEPSIA 08/29/21 22:00 Magnesium Hydroxide (Milk Of Magnesia) 2,400 mg PRN QHS PRN PO 1ST CHOICE CONSTIPATION 08/29/21 22:00 09/05/21 20:16 Acetaminophen (Tylenol) 650 mg PRN Q6HRS PRN PO MILD PAIN / TEMP > 100.3'F 08/29/21 22:30 Cancel Losartan Potassium (Cozaar) 50 mg DAILY PO 08/30/21 09:00 09/06/21 08:43 Atorvastatin Calcium (Lipitor) 40 mg QHS PO 08/30/21 21:00 09/06/21 19:24 Paroxetine HCl (Paxil) 60 mg DAILY PO 08/30/21 09:00 09/06/21 08:46 Amoxicillin/ Clavulanate Potassium (Augmentin 875/ 125mg) 1 tab BID PO 08/30/21 09:00 08/30/21 11:09 DC Lactobacillus Rhamnosus (Culturelle) 1 cap BID PO 08/30/21 09:00 08/30/21 11:09 DC Olanzapine (ZyPREXA) 5 mg PRN Q2HR PRN PO 1st choice ANXIETY / AGITATION 08/30/21 16:00 09/06/21 14:11 Gabapentin (Neurontin) 300 mg BID PO 08/30/21 21:00 09/01/21 23:50 DC 09/01/21 20:17 Gabapentin (Neurontin) 400 mg TID PO 09/02/21 09:00 08/31/21 19:41 DC Medroxyprogesterone Acetate (Provera) 15 mg DAILY PO 08/31/21 09:00 09/06/21 08:43 Quetiapine Fumarate (SEROquel) 50 mg TID PO 08/30/21 21:00 09/01/21 14:33 DC 09/01/21 09:57 Trazodone HCl (Desyrel) 50 mg PRN Q8HRS PRN PO 3RD CHOICE ANXIETY/AGITATION 08/30/21 16:15 09/06/21 13:35 Lorazepam (Ativan) 1 mg PRN Q1HR PRN PO 2nd choice ANXIETY / AGITATION 08/30/21 23:00 09/06/21 19:25 Bisacodyl (Dulcolax Supp) 10 mg PRN DAILY PRN [place] 2ND CHOICE CONSTIPATION 08/31/21 00:30 Magnesium Citrate (Citroma) 296 ml 1X ONCE PO 08/31/21 10:45 08/31/21 10:47 DC 08/31/21 11:13 Sennosides (Senna) 8.6 mg BID PO 08/31/21 21:00 09/06/21 19:24 Gabapentin (Neurontin) 300 mg TID PO 09/02/21 09:00 09/02/21 16:19 DC 09/02/21 09:00 Quetiapine Fumarate (SEROquel) 25 mg TID PO 09/01/21 21:00 09/03/21 13:24 DC 09/03/21 09:02 Gabapentin (Neurontin) 300 mg TID PO 09/02/21 17:00 09/05/21 21:47 DC 09/05/21 20:16 Quetiapine Fumarate (SEROquel) 25 mg PRN TID PRN PO Agitation 09/03/21 13:30 09/06/21 14:11 Gabapentin (Neurontin) 600 mg DAILY PO 09/06/21 09:00 09/06/21 08:42 Gabapentin (Neurontin) 300 mg 1400,2100 PO 09/06/21 14:00 09/06/21 19:24 Magnesium Citrate (Citroma) 296 ml PRN 1X PRN PO CONSTIPATION 09/06/21 17:45 Current Medications Medications (Trade) Dose Ordered Sig/Susana Route PRN Reason Start Time Stop Time Status Last Admin Dose Admin Gabapentin (Neurontin) 600 mg DAILY PO 09/06/21 09:00 09/06/21 08:42 Gabapentin (Neurontin) 300 mg 1400,2100 PO 09/06/21 14:00 09/06/21 19:24 I have reviewed the current psychotropics carefully including drug interactions. Risk benefit ratio favors no change other than as noted in my dictated progress note. Diagnosis: Problems: (1) Impulse control disorder, unspecified (2) Anxiety disorder, unspecified (3) Dementia, vascular, with depression (4) Dementia, vascular, with delusions (5) Dementia in Alzheimer's disease with depression (6) Dementia in Alzheimer's disease with delusions (7) Major neurocognitive disorder (8) Frontotemporal dementia with behavioral disturbance ELIAZAR COYLE MD Sep 06, 2021 21:43
--- NOTE | 2021-09-06 22:13 | NUR ---
Patient is in his room on assumption of care, already asleep. He has been up once to use the bathroom and returned back to bed immediately. He remains 1:1 for safety. HS meds held at this time, will attempt administration later if patient wakes up.
[2021-09-07 05:44] VITALS: BP 123/58
--- NOTE | 2021-09-07 07:41 | PDOC ---
Exam Note: Castillo Note: This note is a late entry for 09/05/2021 covers elements not covered in my initial note. Subjective: The patient was seen individually in the evening of 09/05/2021 with Marisol ALLISON, discussed and reviewed the chart. The patient slept 7-1/4 hours previous night. He has been agitated. At times he is quite oriented but very poor social skills and misperceptions of social cues consistent with his frontotemporal dementia. He has been trying to climb on the nursing station. Received many p.r.n.s. Review of Systems: Ambulation impaired in wheelchair. No CV, , pulmonary, eye, ENT system symptoms on review. Reliability poor. Mental Status Exam: The patient is oriented to himself and situation. Insight and judgment, recent and remote memory, attention and concentration, fund of knowledge is poor consistent with his diagnoses. He is quite obsessive. Impression: Major neurocognitive disorder, frontotemporal with delusion, depression, behavioral disturbance. Anxiety disorder unspecified. Impulse control disorder unspecified. Plan: Increase the gabapentin from 300 mg t.i.d. to 600 mg a.m. and 300 mg b.i.d. Maintain rest of the psychotropics unchanged including Paxil, Zyprexa p.r.n., Provera, Seroquel, trazodone and Ativan p.r.n. Assessment: Vital Signs/I&O: Vital Signs Date Time Temp Pulse Resp B/P (MAP) Pulse Ox O2 Delivery O2 Flow Rate FiO2 09/07/21 05:44 97.2 56 14 123/58 (79) 100 Room Air I & O 09/06/21 09/06/21 09/07/21 15:00 23:00 07:00 Intake Total 360 ml 480 ml Balance 360 ml 480 ml Current Medications: Meds: Current Medications Medications (Trade) Dose Ordered Sig/Susana Route PRN Reason Start Time Stop Time Status Last Admin Dose Admin Acetaminophen (Tylenol) 650 mg PRN Q6HRS PRN PO MILD PAIN / TEMP > 100.3'F 08/29/21 22:00 Multi-Ingredient Ointment (Analgesic [place]) 1 sandra PRN QID PRN TP MUSCLE PAIN 08/29/21 22:00 Al Hydroxide/Mg Hydroxide (Mylanta Plus Xs) 15 ml PRN AFTMEALHC PRN PO DYSPEPSIA 08/29/21 22:00 Magnesium Hydroxide (Milk Of Magnesia) 2,400 mg PRN QHS PRN PO 1ST CHOICE CONSTIPATION 08/29/21 22:00 09/05/21 20:16 Acetaminophen (Tylenol) 650 mg PRN Q6HRS PRN PO MILD PAIN / TEMP > 100.3'F 08/29/21 22:30 Cancel Losartan Potassium (Cozaar) 50 mg DAILY PO 08/30/21 09:00 09/06/21 08:43 Atorvastatin Calcium (Lipitor) 40 mg QHS PO 08/30/21 21:00 09/05/21 20:15 Paroxetine HCl (Paxil) 60 mg DAILY PO 08/30/21 09:00 09/06/21 08:46 Amoxicillin/ Clavulanate Potassium (Augmentin 875/ 125mg) 1 tab BID PO 08/30/21 09:00 08/30/21 11:09 DC Lactobacillus Rhamnosus (Culturelle) 1 cap BID PO 08/30/21 09:00 08/30/21 11:09 DC Olanzapine (ZyPREXA) 5 mg PRN Q2HR PRN PO 1st choice ANXIETY / AGITATION 08/30/21 16:00 09/06/21 14:11 Gabapentin (Neurontin) 300 mg BID PO 08/30/21 21:00 09/01/21 23:50 DC 09/01/21 20:17 Gabapentin (Neurontin) 400 mg TID PO 09/02/21 09:00 08/31/21 19:41 DC Medroxyprogesterone Acetate (Provera) 15 mg DAILY PO 08/31/21 09:00 09/07/21 05:34 DC 09/06/21 08:43 Quetiapine Fumarate (SEROquel) 50 mg TID PO 08/30/21 21:00 09/01/21 14:33 DC 09/01/21 09:57 Trazodone HCl (Desyrel) 50 mg PRN Q8HRS PRN PO 3RD CHOICE ANXIETY/AGITATION 08/30/21 16:15 09/06/21 13:35 Lorazepam (Ativan) 1 mg PRN Q1HR PRN PO 2nd choice ANXIETY / AGITATION 08/30/21 23:00 09/06/21 14:11 Bisacodyl (Dulcolax Supp) 10 mg PRN DAILY PRN [place] 2ND CHOICE CONSTIPATION 08/31/21 00:30 Magnesium Citrate (Citroma) 296 ml 1X ONCE PO 08/31/21 10:45 08/31/21 10:47 DC 08/31/21 11:13 Sennosides (Senna) 8.6 mg BID PO 08/31/21 21:00 09/06/21 08:43 Gabapentin (Neurontin) 300 mg TID PO 09/02/21 09:00 09/02/21 16:19 DC 09/02/21 09:00 Quetiapine Fumarate (SEROquel) 25 mg TID PO 09/01/21 21:00 09/03/21 13:24 DC 09/03/21 09:02 Gabapentin (Neurontin) 300 mg TID PO 09/02/21 17:00 09/05/21 21:47 DC 09/05/21 20:16 Quetiapine Fumarate (SEROquel) 25 mg PRN TID PRN PO Agitation 09/03/21 13:30 09/06/21 14:11 Gabapentin (Neurontin) 600 mg DAILY PO 09/06/21 09:00 09/06/21 08:42 Gabapentin (Neurontin) 300 mg 1400,2100 PO 09/06/21 14:00 09/06/21 13:36 Magnesium Citrate (Citroma) 296 ml PRN 1X PRN PO CONSTIPATION 09/06/21 17:45 Medroxyprogesterone Acetate (Provera) 20 mg DAILY PO 09/07/21 09:00 Current Medications Medications (Trade) Dose Ordered Sig/Susana Route PRN Reason Start Time Stop Time Status Last Admin Dose Admin Gabapentin (Neurontin) 600 mg DAILY PO 09/06/21 09:00 09/06/21 08:42 Gabapentin (Neurontin) 300 mg 1400,2100 PO 09/06/21 14:00 09/06/21 13:36 I have reviewed the current psychotropics carefully including drug interactions. Risk benefit ratio favors no change other than as noted in my dictated progress note. Diagnosis: Problems: (1) Impulse control disorder, unspecified (2) Anxiety disorder, unspecified (3) Dementia, vascular, with depression (4) Dementia, vascular, with delusions (5) Dementia in Alzheimer's disease with depression (6) Dementia in Alzheimer's disease with delusions (7) Major neurocognitive disorder (8) Frontotemporal dementia with behavioral disturbance ELIAZAR COYLE MD Sep 07, 2021 07:41
--- NOTE | 2021-09-07 07:43 | PDOC ---
Exam Note: Castillo Note: This note is a late entry for 09/06/2021 covers elements not covered in my initial note. Subjective: The patient was seen individually in the evening of 09/06/2021 with Brian ALLISON, discussed and reviewed the chart. The patient slept 8-1/2 hours previous night. He has been restless, exit seeking, climbing onto the nursing station, dividing divider enclosure trying to get over that, confused. He did elope from the unit but had to be returned with multiple staff intervening, repeatedly tapping on the window believing nursing staff had taken his shoes, trying to steal the badges of the nursing staff to exit the unit. At 2.15 p.m., he received Seroquel, Zyprexa, and Ativan and then was little better. Review of Systems: Ambulation impaired in wheelchair. No CV, , pulmonary, eye, ENT system symptoms on review. Reliability poor. Mental Status Exam: The patient is oriented to himself and situation. Insight and judgment, recent and remote memory, attention and concentration, fund of knowledge is poor consistent with his diagnoses. Impression: Major neurocognitive disorder, frontotemporal with delusion, depression, behavioral disturbance. Anxiety disorder unspecified. Impulse control disorder unspecified. Plan: We will increase his Provera 15 mg a day to 20 mg a day. Rest unchanged for now. We may need to increase Neurontin further in a day or so. Assessment: Vital Signs/I&O: Vital Signs Date Time Temp Pulse Resp B/P (MAP) Pulse Ox O2 Delivery O2 Flow Rate FiO2 09/07/21 05:44 97.2 56 14 123/58 (79) 100 Room Air I & O 09/06/21 09/06/21 09/07/21 15:00 23:00 07:00 Intake Total 360 ml 480 ml Balance 360 ml 480 ml Current Medications: Meds: Current Medications Medications (Trade) Dose Ordered Sig/Susana Route PRN Reason Start Time Stop Time Status Last Admin Dose Admin Acetaminophen (Tylenol) 650 mg PRN Q6HRS PRN PO MILD PAIN / TEMP > 100.3'F 08/29/21 22:00 Multi-Ingredient Ointment (Analgesic [place]) 1 sandra PRN QID PRN TP MUSCLE PAIN 08/29/21 22:00 Al Hydroxide/Mg Hydroxide (Mylanta Plus Xs) 15 ml PRN AFTMEALHC PRN PO DYSPEPSIA 08/29/21 22:00 Magnesium Hydroxide (Milk Of Magnesia) 2,400 mg PRN QHS PRN PO 1ST CHOICE CONSTIPATION 08/29/21 22:00 09/05/21 20:16 Acetaminophen (Tylenol) 650 mg PRN Q6HRS PRN PO MILD PAIN / TEMP > 100.3'F 08/29/21 22:30 Cancel Losartan Potassium (Cozaar) 50 mg DAILY PO 08/30/21 09:00 09/06/21 08:43 Atorvastatin Calcium (Lipitor) 40 mg QHS PO 08/30/21 21:00 09/05/21 20:15 Paroxetine HCl (Paxil) 60 mg DAILY PO 08/30/21 09:00 09/06/21 08:46 Amoxicillin/ Clavulanate Potassium (Augmentin 875/ 125mg) 1 tab BID PO 08/30/21 09:00 08/30/21 11:09 DC Lactobacillus Rhamnosus (Culturelle) 1 cap BID PO 08/30/21 09:00 08/30/21 11:09 DC Olanzapine (ZyPREXA) 5 mg PRN Q2HR PRN PO 1st choice ANXIETY / AGITATION 08/30/21 16:00 09/06/21 14:11 Gabapentin (Neurontin) 300 mg BID PO 08/30/21 21:00 09/01/21 23:50 DC 09/01/21 20:17 Gabapentin (Neurontin) 400 mg TID PO 09/02/21 09:00 08/31/21 19:41 DC Medroxyprogesterone Acetate (Provera) 15 mg DAILY PO 08/31/21 09:00 09/07/21 05:34 DC 09/06/21 08:43 Quetiapine Fumarate (SEROquel) 50 mg TID PO 08/30/21 21:00 09/01/21 14:33 DC 09/01/21 09:57 Trazodone HCl (Desyrel) 50 mg PRN Q8HRS PRN PO 3RD CHOICE ANXIETY/AGITATION 08/30/21 16:15 09/06/21 13:35 Lorazepam (Ativan) 1 mg PRN Q1HR PRN PO 2nd choice ANXIETY / AGITATION 08/30/21 23:00 09/06/21 14:11 Bisacodyl (Dulcolax Supp) 10 mg PRN DAILY PRN [place] 2ND CHOICE CONSTIPATION 08/31/21 00:30 Magnesium Citrate (Citroma) 296 ml 1X ONCE PO 08/31/21 10:45 08/31/21 10:47 DC 08/31/21 11:13 Sennosides (Senna) 8.6 mg BID PO 08/31/21 21:00 09/06/21 08:43 Gabapentin (Neurontin) 300 mg TID PO 09/02/21 09:00 09/02/21 16:19 DC 09/02/21 09:00 Quetiapine Fumarate (SEROquel) 25 mg TID PO 09/01/21 21:00 09/03/21 13:24 DC 09/03/21 09:02 Gabapentin (Neurontin) 300 mg TID PO 09/02/21 17:00 09/05/21 21:47 DC 09/05/21 20:16 Quetiapine Fumarate (SEROquel) 25 mg PRN TID PRN PO Agitation 09/03/21 13:30 09/06/21 14:11 Gabapentin (Neurontin) 600 mg DAILY PO 09/06/21 09:00 09/06/21 08:42 Gabapentin (Neurontin) 300 mg 1400,2100 PO 09/06/21 14:00 09/06/21 13:36 Magnesium Citrate (Citroma) 296 ml PRN 1X PRN PO CONSTIPATION 09/06/21 17:45 Medroxyprogesterone Acetate (Provera) 20 mg DAILY PO 09/07/21 09:00 Current Medications Medications (Trade) Dose Ordered Sig/Susana Route PRN Reason Start Time Stop Time Status Last Admin Dose Admin Gabapentin (Neurontin) 600 mg DAILY PO 09/06/21 09:00 09/06/21 08:42 Gabapentin (Neurontin) 300 mg 1400,2100 PO 09/06/21 14:00 09/06/21 13:36 I have reviewed the current psychotropics carefully including drug interactions. Risk benefit ratio favors no change other than as noted in my dictated progress note. Diagnosis: Problems: (1) Impulse control disorder, unspecified (2) Anxiety disorder, unspecified (3) Dementia, vascular, with depression (4) Dementia, vascular, with delusions (5) Dementia in Alzheimer's disease with depression (6) Dementia in Alzheimer's disease with delusions (7) Dementia of the Alzheimer's type with early onset with behavioral disturbance (8) Major neurocognitive disorder (9) Frontotemporal dementia with behavioral disturbance ELIAZAR COYLE MD Sep 07, 2021 07:43
[2021-09-07] MEDS: LOSARTAN 50 MG TABLET. PO SCH (09:16)
[2021-09-07] MEDS: PARoxetine 20 MG TABLET PO SCH (09:16)
[2021-09-07] MEDS: medroxyPROGESTERone 5 MG TABLET PO SCH (09:16)
[2021-09-07] MEDS: GABAPENTIN 300 MG CAPSULE. PO SCH ×3 (09:16→19:23)
[2021-09-07] MEDS: SENNOSIDES 8.6 MG TABLET PO SCH ×2 (09:17→19:24)
[2021-09-07] MEDS: MAGNESIUM CITRATE 296 ML SOLUTION. PO PRN (09:17)
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
[2021-09-07] MEDS: QUEtiapine 25 MG TABLET. PO PRN (14:39)
--- NOTE | 2021-09-07 14:46 | NUR ---
Nursing note: Patient in dinning room for morning medications and assessment. He is compliant taking medication crushed/floated in pudding. Bowel sounds hypoactive, mag citrate given per order, effective. He continues to be highly restless, impulsive and exit seeking. Patient requires constant redirects r/t poor boundaries with staff. He has been touching staff, voicing he loves them, standing or kneeling close to them. He remains disorganized, alert to self only. He approaches staff trying to enter doors that they come in and out of. Patient ambulates without assistance, can be unsteady at times. He remains 1:1 for safety. He does not respond to verbal redirections or attempts to engage him in a different activity, PRN given per order. He is currently in the day room with 2 staff members. Will continue to monitor.
[2021-09-07 14:53] VITALS: BP 107/73
[2021-09-07] MEDS: traZODone 50 MG TABLET. PO PRN ×2 (15:42→19:24)
[2021-09-07] MEDS: ATORVASTATIN CALCIUM 20 MG TABLET PO SCH (19:24)
[2021-09-07] MEDS: LORazepam 1 MG TABLET PO PRN (19:24)
--- NOTE | 2021-09-07 20:44 | PDOC ---
Exam Note: Castillo Note: Please also refer to the separate dictated note~for this date of service dictated separately.~Patient seen individually. Discussed the patient with Nursing staff reviewed the chart.~Reviewed interim history and current functioning. Reviewed vital signs,~Labs/ Radiology~and current medications noted below. Continue current treatment with the changes noted in the dictated addendum note Assessment: Vital Signs/I&O: Vital Signs Date Time Temp Pulse Resp B/P (MAP) Pulse Ox O2 Delivery O2 Flow Rate FiO2 09/07/21 14:53 98.0 73 20 107/73 (84) 98.0 09/07/21 05:44 100 Room Air I & O 09/06/21 09/06/21 09/07/21 15:00 23:00 07:00 Intake Total 360 ml 480 ml Balance 360 ml 480 ml Current Medications: Meds: Current Medications Medications (Trade) Dose Ordered Sig/Susana Route PRN Reason Start Time Stop Time Status Last Admin Dose Admin Acetaminophen (Tylenol) 650 mg PRN Q6HRS PRN PO MILD PAIN / TEMP > 100.3'F 08/29/21 22:00 Multi-Ingredient Ointment (Analgesic [place]) 1 sandra PRN QID PRN TP MUSCLE PAIN 08/29/21 22:00 Al Hydroxide/Mg Hydroxide (Mylanta Plus Xs) 15 ml PRN AFTMEALHC PRN PO DYSPEPSIA 08/29/21 22:00 Magnesium Hydroxide (Milk Of Magnesia) 2,400 mg PRN QHS PRN PO 1ST CHOICE CONSTIPATION 08/29/21 22:00 09/05/21 20:16 Acetaminophen (Tylenol) 650 mg PRN Q6HRS PRN PO MILD PAIN / TEMP > 100.3'F 08/29/21 22:30 Cancel Losartan Potassium (Cozaar) 50 mg DAILY PO 08/30/21 09:00 09/07/21 09:16 Atorvastatin Calcium (Lipitor) 40 mg QHS PO 08/30/21 21:00 09/07/21 19:24 Paroxetine HCl (Paxil) 60 mg DAILY PO 08/30/21 09:00 09/07/21 09:16 Amoxicillin/ Clavulanate Potassium (Augmentin 875/ 125mg) 1 tab BID PO 08/30/21 09:00 08/30/21 11:09 DC Lactobacillus Rhamnosus (Culturelle) 1 cap BID PO 08/30/21 09:00 08/30/21 11:09 DC Olanzapine (ZyPREXA) 5 mg PRN Q2HR PRN PO 1st choice ANXIETY / AGITATION 08/30/21 16:00 09/06/21 14:11 Gabapentin (Neurontin) 300 mg BID PO 08/30/21 21:00 09/01/21 23:50 DC 09/01/21 20:17 Gabapentin (Neurontin) 400 mg TID PO 09/02/21 09:00 08/31/21 19:41 DC Medroxyprogesterone Acetate (Provera) 15 mg DAILY PO 08/31/21 09:00 09/07/21 05:34 DC 09/06/21 08:43 Quetiapine Fumarate (SEROquel) 50 mg TID PO 08/30/21 21:00 09/01/21 14:33 DC 09/01/21 09:57 Trazodone HCl (Desyrel) 50 mg PRN Q8HRS PRN PO 3RD CHOICE ANXIETY/AGITATION 08/30/21 16:15 09/07/21 19:24 Lorazepam (Ativan) 1 mg PRN Q1HR PRN PO 2nd choice ANXIETY / AGITATION 08/30/21 23:00 09/07/21 19:24 Bisacodyl (Dulcolax Supp) 10 mg PRN DAILY PRN [place] 2ND CHOICE CONSTIPATION 08/31/21 00:30 Magnesium Citrate (Citroma) 296 ml 1X ONCE PO 08/31/21 10:45 08/31/21 10:47 DC 08/31/21 11:13 Sennosides (Senna) 8.6 mg BID PO 08/31/21 21:00 09/07/21 19:24 Gabapentin (Neurontin) 300 mg TID PO 09/02/21 09:00 09/02/21 16:19 DC 09/02/21 09:00 Quetiapine Fumarate (SEROquel) 25 mg TID PO 09/01/21 21:00 09/03/21 13:24 DC 09/03/21 09:02 Gabapentin (Neurontin) 300 mg TID PO 09/02/21 17:00 09/05/21 21:47 DC 09/05/21 20:16 Quetiapine Fumarate (SEROquel) 25 mg PRN TID PRN PO Agitation 09/03/21 13:30 09/07/21 14:39 Gabapentin (Neurontin) 600 mg DAILY PO 09/06/21 09:00 09/07/21 09:16 Gabapentin (Neurontin) 300 mg 1400,2100 PO 09/06/21 14:00 09/07/21 19:23 Magnesium Citrate (Citroma) 296 ml PRN 1X PRN PO CONSTIPATION 09/06/21 17:45 09/07/21 09:17 Medroxyprogesterone Acetate (Provera) 20 mg DAILY PO 09/07/21 09:00 09/07/21 09:16 Current Medications Medications (Trade) Dose Ordered Sig/Susana Route PRN Reason Start Time Stop Time Status Last Admin Dose Admin Medroxyprogesterone Acetate (Provera) 20 mg DAILY PO 09/07/21 09:00 09/07/21 09:16 I have reviewed the current psychotropics carefully including drug interactions. Risk benefit ratio favors no change other than as noted in my dictated progress note. Diagnosis: Problems: (1) Impulse control disorder, unspecified (2) Anxiety disorder, unspecified (3) Dementia, vascular, with depression (4) Dementia, vascular, with delusions (5) Dementia in Alzheimer's disease with depression (6) Dementia in Alzheimer's disease with delusions (7) Dementia of the Alzheimer's type with early onset with behavioral disturbance (8) Major neurocognitive disorder (9) Frontotemporal dementia with behavioral disturbance ELIAZAR COYLE MD Sep 07, 2021 20:44
--- NOTE | 2021-09-07 23:59 | NUR ---
Patient is in the hallway on assumption of care, staff standing by 1:1. He remains disorganized, impulsive and difficult to redirect. He put himself to bed at approximately 2000. When this nurse approached him for assessments and medications, he sat up and was compliant. Directed patient to lay back down at that point, which he did. Throughout the remainder of the evening, patient has gotten up several times to use the bathroom, somewhat unsteady. He is double-alarmed but moves too quickly for that to be an effective alternative to 1:1 staff. He is currently asleep with a staff member at the bedside. Will continue to monitor.
[2021-09-08 05:52] VITALS: BP 133/74
--- NOTE | 2021-09-08 06:29 | PDOC ---
Exam Note: Castillo Note: This note is a late entry for 09/07/2021 covers elements not covered in my initial note. Subjective: The patient was seen individually in the evening of 09/07/2021 with Marisol ALLISON, discussed and reviewed the chart. The patient slept 9-3/4 hours previous night. Patient continues to be socially inappropriate, trying to climb over the glass wall outside the nursing staff, has been on one-on-one status or two-on-one status. He is compliant with his medications nevertheless. We have increased the gabapentin to help with his mood lability and anxiety and the Provera to help some of his sexually inappropriate behaviors part of his frontotemporal dementia. He remains on Ativan and Seroquel p.r.n., Paxil and Zyprexa p.r.n. Review of Systems: Ambulation impaired in wheelchair. No CV, , pulmonary, eye, ENT system symptoms on review. Reliability poor. Mental Status Exam: The patient is oriented to himself and situation. Patient is quite intermittently handsy and again socially inappropriate due to his social disinhibition consequent to frontotemporal dementia. Insight and judgment, recent and remote memory, attention and concentration, fund of knowledge is poor consistent with his diagnoses. Impression: Major neurocognitive disorder, frontotemporal with delusion, depression, behavioral disturbance. Anxiety disorder unspecified. Impulse control disorder unspecified. Plan: We will continue to increase the Neurontin and adjust other psychotropics depending on his progress. Assessment: Vital Signs/I&O: Vital Signs Date Time Temp Pulse Resp B/P (MAP) Pulse Ox O2 Delivery O2 Flow Rate FiO2 09/08/21 05:52 96.7 57 14 133/74 (93) 99 09/07/21 14:53 98.0 09/07/21 05:44 Room Air I & O 09/07/21 09/07/21 09/08/21 14:59 22:59 06:59 Intake Total 1140 ml 600 ml Balance 1140 ml 600 ml Current Medications: Meds: Current Medications Medications (Trade) Dose Ordered Sig/Susana Route PRN Reason Start Time Stop Time Status Last Admin Dose Admin Acetaminophen (Tylenol) 650 mg PRN Q6HRS PRN PO MILD PAIN / TEMP > 100.3'F 08/29/21 22:00 Multi-Ingredient Ointment (Analgesic [place]) 1 sandra PRN QID PRN TP MUSCLE PAIN 08/29/21 22:00 Al Hydroxide/Mg Hydroxide (Mylanta Plus Xs) 15 ml PRN AFTMEALHC PRN PO DYSPEPSIA 08/29/21 22:00 Magnesium Hydroxide (Milk Of Magnesia) 2,400 mg PRN QHS PRN PO 1ST CHOICE CONSTIPATION 08/29/21 22:00 09/05/21 20:16 Acetaminophen (Tylenol) 650 mg PRN Q6HRS PRN PO MILD PAIN / TEMP > 100.3'F 08/29/21 22:30 Cancel Losartan Potassium (Cozaar) 50 mg DAILY PO 08/30/21 09:00 09/07/21 09:16 Atorvastatin Calcium (Lipitor) 40 mg QHS PO 08/30/21 21:00 09/07/21 19:24 Paroxetine HCl (Paxil) 60 mg DAILY PO 08/30/21 09:00 09/07/21 09:16 Amoxicillin/ Clavulanate Potassium (Augmentin 875/ 125mg) 1 tab BID PO 08/30/21 09:00 08/30/21 11:09 DC Lactobacillus Rhamnosus (Culturelle) 1 cap BID PO 08/30/21 09:00 08/30/21 11:09 DC Olanzapine (ZyPREXA) 5 mg PRN Q2HR PRN PO 1st choice ANXIETY / AGITATION 08/30/21 16:00 09/06/21 14:11 Gabapentin (Neurontin) 300 mg BID PO 08/30/21 21:00 09/01/21 23:50 DC 09/01/21 20:17 Gabapentin (Neurontin) 400 mg TID PO 09/02/21 09:00 08/31/21 19:41 DC Medroxyprogesterone Acetate (Provera) 15 mg DAILY PO 08/31/21 09:00 09/07/21 05:34 DC 09/06/21 08:43 Quetiapine Fumarate (SEROquel) 50 mg TID PO 08/30/21 21:00 09/01/21 14:33 DC 09/01/21 09:57 Trazodone HCl (Desyrel) 50 mg PRN Q8HRS PRN PO 3RD CHOICE ANXIETY/AGITATION 08/30/21 16:15 09/07/21 19:24 Lorazepam (Ativan) 1 mg PRN Q1HR PRN PO 2nd choice ANXIETY / AGITATION 08/30/21 23:00 09/07/21 19:24 Bisacodyl (Dulcolax Supp) 10 mg PRN DAILY PRN [place] 2ND CHOICE CONSTIPATION 08/31/21 00:30 Magnesium Citrate (Citroma) 296 ml 1X ONCE PO 08/31/21 10:45 08/31/21 10:47 DC 08/31/21 11:13 Sennosides (Senna) 8.6 mg BID PO 08/31/21 21:00 09/07/21 19:24 Gabapentin (Neurontin) 300 mg TID PO 09/02/21 09:00 09/02/21 16:19 DC 09/02/21 09:00 Quetiapine Fumarate (SEROquel) 25 mg TID PO 09/01/21 21:00 09/03/21 13:24 DC 09/03/21 09:02 Gabapentin (Neurontin) 300 mg TID PO 09/02/21 17:00 09/05/21 21:47 DC 09/05/21 20:16 Quetiapine Fumarate (SEROquel) 25 mg PRN TID PRN PO Agitation 09/03/21 13:30 09/07/21 14:39 Gabapentin (Neurontin) 600 mg DAILY PO 09/06/21 09:00 09/07/21 09:16 Gabapentin (Neurontin) 300 mg 1400,2100 PO 09/06/21 14:00 09/07/21 19:23 Magnesium Citrate (Citroma) 296 ml PRN 1X PRN PO CONSTIPATION 09/06/21 17:45 09/07/21 09:17 Medroxyprogesterone Acetate (Provera) 20 mg DAILY PO 09/07/21 09:00 09/07/21 09:16 Current Medications Medications (Trade) Dose Ordered Sig/Susana Route PRN Reason Start Time Stop Time Status Last Admin Dose Admin Medroxyprogesterone Acetate (Provera) 20 mg DAILY PO 09/07/21 09:00 09/07/21 09:16 I have reviewed the current psychotropics carefully including drug interactions. Risk benefit ratio favors no change other than as noted in my dictated progress note. Diagnosis: Problems: (1) Impulse control disorder, unspecified (2) Anxiety disorder, unspecified (3) Dementia, vascular, with depression (4) Dementia, vascular, with delusions (5) Dementia in Alzheimer's disease with depression (6) Dementia in Alzheimer's disease with delusions (7) Dementia of the Alzheimer's type with early onset with behavioral disturbance (8) Major neurocognitive disorder (9) Frontotemporal dementia with behavioral disturbance ELIAZAR COYLE MD Sep 08, 2021 06:29
[2021-09-08] MEDS: GABAPENTIN 300 MG CAPSULE. PO SCH ×3 (08:10→19:29)
[2021-09-08] MEDS: medroxyPROGESTERone 5 MG TABLET PO SCH (08:10)
[2021-09-08] MEDS: SENNOSIDES 8.6 MG TABLET PO SCH ×2 (08:10→19:29)
[2021-09-08] MEDS: PARoxetine 20 MG TABLET PO SCH (08:11)
[2021-09-08] MEDS: LOSARTAN 50 MG TABLET. PO SCH (08:11)
--- NOTE | 2021-09-08 12:05 | NUR ---
Treatment team update: Marlen, pt , was able to participate in treatment team via phone. Pt is eating 100% of meals and sleeping on average 7 hours per night. Pt continues to have poor boundaries and can be sexually inappropriate towards female staff (e.g. smacking their behinds, telling them he loves them). Pt is medication compliant with meds either crushed in pudding; at times it has been noted that he will take them whole. Pt is also very persistent; once he gets an idea in his head, he gets stuck and is harder to redirect. Pt has attended one group this week and poor boundaries with consistent redirection was needed. It was discussed in treatment team being able to take pt off the 1:1 status. Although pt is no longer a major fall risk, pt does continue to remain impulsive and has exit seeking behaviors. SW invoked discussion about options as placement will need to be found and with pt being a 1:1 on a consistent basis, facilities are not going to be willing to accept him. Pt questioned if "snowing" him would be the better option. "I don't want him to fall and hurt himself; however, how are facilities going to be able to handle him? And if [employer] denies his stay, the only other option is for him to come home and how am I going to be able to handle him". The team agrees that pt going home is NOT a safe discharge plan and want to exhaust all venues for placement and work with [employer] on continued stay and discharge planning. Pt has been receiving Trazodone as PRN throughout the day and it was noted that it does not seem to work for him. The PRN dosage will increase to 100mg q 8 hours and see if the higher dose can aid in slowing pt down during the day. Pt did want to reiterate that in the event pt has any major medical concerns, pt is considered a Do Not Treat.
--- NOTE | 2021-09-08 12:49 | NUR ---
WEEKLY ACTIVITY THERAPY NOTE Date of Admission:08/29/21 Date of AT Assessment: 09/01/21 Precipitating behaviors that initiated intake and admission:Frontotemporal dementia and associated behaviors Goal aimed: increase relaxation skills and establish boundaries. Initial Goal: Pt will participate in at least three Activity Therapy sessions before discharge. Weekly progress towards goal: on track (09/03-songs and states) Group participation level: 1 mod Weekly highlights: identified a couple states by numbers and talked about travel experiences during songs and states group Wednesday Behaviors observed: inappropriate with staff, hard to redirect, playful, pleasant Plan: no change to goal Beneficial adaptations: redirection
[2021-09-08] MEDS: traZODone 50 MG TABLET. PO PRN (14:15)
[2021-09-08] MEDS: QUEtiapine 25 MG TABLET. PO PRN (14:15)
--- NOTE | 2021-09-08 14:31 | NUR ---
Nursing note: Patient in day room for morning medications and assessment. He is compliant taking medication crushed/floated in pudding. He continues to be restless, impulsive, fixated, and exit seeking. He remains disorganized, alert to self and month only. He approaches staff trying to enter doors that they come in and out of. Patient ambulates without assistance, can be unsteady at times. He continues to have poor boundaries with staff, slapped female staff on her bottom. PRN given per order. He was able to take a playing card to manipulate day room door latch to open door to secure ruth. Cards removed from patient and day room. He remains line of sight for safety. He is currently in the day room. Will continue to monitor.
[2021-09-08 15:36] VITALS: BP 105/66
--- NOTE | 2021-09-08 16:55 | NUR ---
ZACH spoke with Marlen and went over the email ZACH sent last week with a few placement options. Marlen questioned if any of them were Medicaid based and ZACH noted at least three of them were. Pt noted that they may have a few months worth of payment for placement, but he would then have to qualify for Medicaid. Pt is very concerned about placement and is hopeful there will be a medication that will be able to slow pt down enough to make him safe for all parties involved. ZACH will make sure to call Marlen on Wednesday and notified her that the insurance has given a full week and next review is due on Saturday 09/15.
[2021-09-08] MEDS: ATORVASTATIN CALCIUM 20 MG TABLET PO SCH (19:29)
--- NOTE | 2021-09-08 21:01 | PDOC ---
Exam Note: Castillo Note: Please also refer to the separate dictated note~for this date of service dictated separately.~Patient seen individually. Discussed the patient with Nursing staff reviewed the chart.~Reviewed interim history and current functioning. Reviewed vital signs,~Labs/ Radiology~and current medications noted below. Continue current treatment with the changes noted in the dictated addendum note Assessment: Vital Signs/I&O: Vital Signs Date Time Temp Pulse Resp B/P (MAP) Pulse Ox O2 Delivery O2 Flow Rate FiO2 09/08/21 15:36 98.0 70 16 105/66 (79) 98 09/07/21 14:53 98.0 09/07/21 05:44 Room Air I & O 09/07/21 09/07/21 09/08/21 15:00 23:00 07:00 Intake Total 1140 ml 600 ml Balance 1140 ml 600 ml Current Medications: Meds: Current Medications Medications (Trade) Dose Ordered Sig/Susana Route PRN Reason Start Time Stop Time Status Last Admin Dose Admin Acetaminophen (Tylenol) 650 mg PRN Q6HRS PRN PO MILD PAIN / TEMP > 100.3'F 08/29/21 22:00 Multi-Ingredient Ointment (Analgesic [place]) 1 sandra PRN QID PRN TP MUSCLE PAIN 08/29/21 22:00 Al Hydroxide/Mg Hydroxide (Mylanta Plus Xs) 15 ml PRN AFTMEALHC PRN PO DYSPEPSIA 08/29/21 22:00 Magnesium Hydroxide (Milk Of Magnesia) 2,400 mg PRN QHS PRN PO 1ST CHOICE CONSTIPATION 08/29/21 22:00 09/05/21 20:16 Acetaminophen (Tylenol) 650 mg PRN Q6HRS PRN PO MILD PAIN / TEMP > 100.3'F 08/29/21 22:30 Cancel Losartan Potassium (Cozaar) 50 mg DAILY PO 08/30/21 09:00 09/08/21 08:11 Atorvastatin Calcium (Lipitor) 40 mg QHS PO 08/30/21 21:00 09/08/21 19:29 Paroxetine HCl (Paxil) 60 mg DAILY PO 08/30/21 09:00 09/08/21 08:11 Amoxicillin/ Clavulanate Potassium (Augmentin 875/ 125mg) 1 tab BID PO 08/30/21 09:00 08/30/21 11:09 DC Lactobacillus Rhamnosus (Culturelle) 1 cap BID PO 08/30/21 09:00 08/30/21 11:09 DC Olanzapine (ZyPREXA) 5 mg PRN Q2HR PRN PO 1st choice ANXIETY / AGITATION 08/30/21 16:00 09/06/21 14:11 Gabapentin (Neurontin) 300 mg BID PO 08/30/21 21:00 09/01/21 23:50 DC 09/01/21 20:17 Gabapentin (Neurontin) 400 mg TID PO 09/02/21 09:00 08/31/21 19:41 DC Medroxyprogesterone Acetate (Provera) 15 mg DAILY PO 08/31/21 09:00 09/07/21 05:34 DC 09/06/21 08:43 Quetiapine Fumarate (SEROquel) 50 mg TID PO 08/30/21 21:00 09/01/21 14:33 DC 09/01/21 09:57 Trazodone HCl (Desyrel) 50 mg PRN Q8HRS PRN PO 3RD CHOICE ANXIETY/AGITATION 08/30/21 16:15 09/08/21 12:08 DC 09/07/21 19:24 Lorazepam (Ativan) 1 mg PRN Q1HR PRN PO 2nd choice ANXIETY / AGITATION 08/30/21 23:00 09/07/21 19:24 Bisacodyl (Dulcolax Supp) 10 mg PRN DAILY PRN [place] 2ND CHOICE CONSTIPATION 08/31/21 00:30 Magnesium Citrate (Citroma) 296 ml 1X ONCE PO 08/31/21 10:45 08/31/21 10:47 DC 08/31/21 11:13 Sennosides (Senna) 8.6 mg BID PO 08/31/21 21:00 09/08/21 19:29 Gabapentin (Neurontin) 300 mg TID PO 09/02/21 09:00 09/02/21 16:19 DC 09/02/21 09:00 Quetiapine Fumarate (SEROquel) 25 mg TID PO 09/01/21 21:00 09/03/21 13:24 DC 09/03/21 09:02 Gabapentin (Neurontin) 300 mg TID PO 09/02/21 17:00 09/05/21 21:47 DC 09/05/21 20:16 Quetiapine Fumarate (SEROquel) 25 mg PRN TID PRN PO Agitation 09/03/21 13:30 09/08/21 14:15 Gabapentin (Neurontin) 600 mg DAILY PO 09/06/21 09:00 09/08/21 08:10 Gabapentin (Neurontin) 300 mg 1400,2100 PO 09/06/21 14:00 09/08/21 19:29 Magnesium Citrate (Citroma) 296 ml PRN 1X PRN PO CONSTIPATION 09/06/21 17:45 09/07/21 09:17 Medroxyprogesterone Acetate (Provera) 20 mg DAILY PO 09/07/21 09:00 09/08/21 08:10 Trazodone HCl (Desyrel) 100 mg PRN Q8HRS PRN PO 3RD CHOICE ANXIETY/AGITATION 09/08/21 12:15 09/08/21 14:15 Current Medications Medications (Trade) Dose Ordered Sig/Susana Route PRN Reason Start Time Stop Time Status Last Admin Dose Admin Trazodone HCl (Desyrel) 100 mg PRN Q8HRS PRN PO 3RD CHOICE ANXIETY/AGITATION 09/08/21 12:15 09/08/21 14:15 I have reviewed the current psychotropics carefully including drug interactions. Risk benefit ratio favors no change other than as noted in my dictated progress note. Diagnosis: Problems: (1) Impulse control disorder, unspecified (2) Anxiety disorder, unspecified (3) Dementia, vascular, with depression (4) Dementia, vascular, with delusions (5) Dementia in Alzheimer's disease with depression (6) Dementia in Alzheimer's disease with delusions (7) Major neurocognitive disorder (8) Frontotemporal dementia with behavioral disturbance ELIAZAR COYLE MD Sep 08, 2021 21:01
--- NOTE | 2021-09-08 22:22 | NUR ---
Patient has been walking around on unit, pleasant and calm. He checks the entry door on occasion and has attempted to follow staff members off unit at times. At this time his gait has been steady. Patient was laying down in bed when nurse brought him HS medications. He took them whole and was cooperative with assessment. Patient assisted nurse in putting pillow cases onto his pillows and then laid back down and went to sleep.
[2021-09-09 05:56] VITALS: BP 144/88
[2021-09-09] MEDS: GABAPENTIN 300 MG CAPSULE. PO SCH ×2 (07:27→12:12)
[2021-09-09] MEDS: PARoxetine 20 MG TABLET PO SCH (07:28)
[2021-09-09] MEDS: SENNOSIDES 8.6 MG TABLET PO SCH ×2 (07:28→21:04)
[2021-09-09] MEDS: medroxyPROGESTERone 5 MG TABLET PO SCH (07:28)
[2021-09-09] MEDS: LOSARTAN 50 MG TABLET. PO SCH (07:28)
--- NOTE | 2021-09-09 09:19 | NUR ---
Pt continues to display impulsive behaviors on the unit. He attempted to push past EVS worker to get off the unit and required additional staff to thwart his attempts. He remains very confused and disorganized, A&O to self only. He continues to be very handsy with staff, despite staff encouragement to place and keep his hands in his pockets during conversations with others. Pt absent of physical/verbal aggression so far this shift. He is compliant with medications crushed and mixed into pudding. Plan of care continues, will pass to next shift.
--- NOTE | 2021-09-09 11:05 | NUR ---
Pt increasing in impulsive and inappropriate behaviors and is difficult with redirection. He continues to try to kiss the Charge Nurse, rios towards doors when accessed by staff, spontaneously try to stand and rios around the unit, caress various female staff on the arms/back. Redirection and requests that he refrain from the noted behaviors is difficult, he will usually respond with laughing. Pt escorted 2:1 to the day room for group time and distraction. Pt would not walk when asked and actually locked his knees so staff had to 3:1 scoot him (while standing) down the ruth on his stocking feet. Pt laughed at the situation and would not cooperate with ambulation despite repeated requests.
[2021-09-09] MEDS: QUEtiapine 25 MG TABLET. PO PRN (12:12)
[2021-09-09] MEDS: OLANZapine 5 MG TABLET PO PRN (12:12)
--- NOTE | 2021-09-09 12:28 | NUR ---
Pt continues in a heightened state of impulsivity; he continues to try to rios towards doors that are being used, standing abruptly and wandering about while in the middle of his lunch, and inappropriately touching of female staff. He continues to be difficult to redirect. PRN Seroquel 25 mg PO and PRN Zyprexa 5 mg PO administered.
--- NOTE | 2021-09-09 13:20 | NUR ---
Pt continues impulsive and inappropriate behaviors. He will seek out this nurse and touch me on my arms, back, knees despite by clear instructions that he refrain from the behavior. Pt not receptive to verbal redirection (asking that he stop and telling him I do not appreciate it) or physical redirection in the form of me gently removing his hands off of me. Pt asks if I have a boyfriend and I replied, "Yes, and he will be upset to find out someone is touching me when I don't want them to." Pt then continues touching in response, including getting up and kneeling in front of me to resume the behavior. More than once I will stand up and walk to another area of the day room to sit, in effort to put space between me and pt, and he will follow me to sit next to me and resume touching. PRN Trazodone 100 mg PO administered
[2021-09-09] MEDS: traZODone 50 MG TABLET. PO PRN (13:25)
[2021-09-09 15:54] VITALS: BP 96/65
--- NOTE | 2021-09-09 20:46 | PDOC ---
Exam Note: Castillo Note: Please also refer to the separate dictated note~for this date of service dictated separately.~Patient seen individually. Discussed the patient with Nursing staff reviewed the chart.~Reviewed interim history and current functioning. Reviewed vital signs,~Labs/ Radiology~and current medications noted below. Continue current treatment with the changes noted in the dictated addendum note Assessment: Vital Signs/I&O: Vital Signs Date Time Temp Pulse Resp B/P (MAP) Pulse Ox O2 Delivery O2 Flow Rate FiO2 09/09/21 15:54 97.4 67 20 96/65 (75) 95 09/07/21 14:53 98.0 09/07/21 05:44 Room Air I & O 0 09/08/21 09/08/21 09/09/21 15:00 23:00 07:00 Intake Total 900 ml 240 ml 120 ml Balance 900 ml 240 ml 120 ml Current Medications: Meds: Current Medications Medications (Trade) Dose Ordered Sig/Susana Route PRN Reason Start Time Stop Time Status Last Admin Dose Admin Acetaminophen (Tylenol) 650 mg PRN Q6HRS PRN PO MILD PAIN / TEMP > 100.3'F 08/29/21 22:00 Multi-Ingredient Ointment (Analgesic [place]) 1 sandra PRN QID PRN TP MUSCLE PAIN 08/29/21 22:00 Al Hydroxide/Mg Hydroxide (Mylanta Plus Xs) 15 ml PRN AFTMEALHC PRN PO DYSPEPSIA 08/29/21 22:00 Magnesium Hydroxide (Milk Of Magnesia) 2,400 mg PRN QHS PRN PO 1ST CHOICE CONSTIPATION 08/29/21 22:00 09/05/21 20:16 Acetaminophen (Tylenol) 650 mg PRN Q6HRS PRN PO MILD PAIN / TEMP > 100.3'F 08/29/21 22:30 Cancel Losartan Potassium (Cozaar) 50 mg DAILY PO 08/30/21 09:00 09/09/21 07:28 Atorvastatin Calcium (Lipitor) 40 mg QHS PO 08/30/21 21:00 09/08/21 19:29 Paroxetine HCl (Paxil) 60 mg DAILY PO 08/30/21 09:00 09/09/21 07:28 Amoxicillin/ Clavulanate Potassium (Augmentin 875/ 125mg) 1 tab BID PO 08/30/21 09:00 08/30/21 11:09 DC Lactobacillus Rhamnosus (Culturelle) 1 cap BID PO 08/30/21 09:00 08/30/21 11:09 DC Olanzapine (ZyPREXA) 5 mg PRN Q2HR PRN PO 1st choice ANXIETY / AGITATION 08/30/21 16:00 09/09/21 12:12 Gabapentin (Neurontin) 300 mg BID PO 08/30/21 21:00 09/01/21 23:50 DC 09/01/21 20:17 Gabapentin (Neurontin) 400 mg TID PO 09/02/21 09:00 08/31/21 19:41 DC Medroxyprogesterone Acetate (Provera) 15 mg DAILY PO 08/31/21 09:00 09/07/21 05:34 DC 09/06/21 08:43 Quetiapine Fumarate (SEROquel) 50 mg TID PO 08/30/21 21:00 09/01/21 14:33 DC 09/01/21 09:57 Trazodone HCl (Desyrel) 50 mg PRN Q8HRS PRN PO 3RD CHOICE ANXIETY/AGITATION 08/30/21 16:15 09/08/21 12:08 DC 09/07/21 19:24 Lorazepam (Ativan) 1 mg PRN Q1HR PRN PO 2nd choice ANXIETY / AGITATION 08/30/21 23:00 09/07/21 19:24 Bisacodyl (Dulcolax Supp) 10 mg PRN DAILY PRN [place] 2ND CHOICE CONSTIPATION 08/31/21 00:30 Magnesium Citrate (Citroma) 296 ml 1X ONCE PO 08/31/21 10:45 08/31/21 10:47 DC 08/31/21 11:13 Sennosides (Senna) 8.6 mg BID PO 08/31/21 21:00 09/09/21 07:28 Gabapentin (Neurontin) 300 mg TID PO 09/02/21 09:00 09/02/21 16:19 DC 09/02/21 09:00 Quetiapine Fumarate (SEROquel) 25 mg TID PO 09/01/21 21:00 09/03/21 13:24 DC 09/03/21 09:02 Gabapentin (Neurontin) 300 mg TID PO 09/02/21 17:00 09/05/21 21:47 DC 09/05/21 20:16 Quetiapine Fumarate (SEROquel) 25 mg PRN TID PRN PO Agitation 09/03/21 13:30 09/09/21 12:12 Gabapentin (Neurontin) 600 mg DAILY PO 09/06/21 09:00 09/09/21 20:06 DC 09/09/21 07:27 Gabapentin (Neurontin) 300 mg 1400,2100 PO 09/06/21 14:00 09/09/21 20:06 DC 09/09/21 12:12 Magnesium Citrate (Citroma) 296 ml PRN 1X PRN PO CONSTIPATION 09/06/21 17:45 09/07/21 09:17 Medroxyprogesterone Acetate (Provera) 20 mg DAILY PO 09/07/21 09:00 09/09/21 07:28 Trazodone HCl (Desyrel) 100 mg PRN Q8HRS PRN PO 3RD CHOICE ANXIETY/AGITATION 09/08/21 12:15 09/09/21 13:25 Gabapentin (Neurontin) 300 mg HS PO 09/09/21 21:00 Gabapentin (Neurontin) 600 mg 0900,1400 PO 09/10/21 09:00 I have reviewed the current psychotropics carefully including drug interactions. Risk benefit ratio favors no change other than as noted in my dictated progress note. Diagnosis: Problems: (1) Impulse control disorder, unspecified (2) Anxiety disorder, unspecified (3) Dementia, vascular, with depression (4) Dementia, vascular, with delusions (5) Dementia in Alzheimer's disease with depression (6) Dementia in Alzheimer's disease with delusions (7) Major neurocognitive disorder (8) Frontotemporal dementia with behavioral disturbance ELIAZAR COYLE MD Sep 09, 2021 20:46
[2021-09-09] MEDS ORDERED: GABAPENTIN 300 MG CAPSULE. PO SCH (21:00)
[2021-09-09] MEDS: ATORVASTATIN CALCIUM 20 MG TABLET PO SCH (21:04)
--- NOTE | 2021-09-09 22:20 | NUR ---
Patient walking around the unit ad pa, he has a steady gait at this time. He watches the door at times but has not attempted to exit this shift. Patient has been calm and cooperative, he took his medications whole. Patient laid down on his bed and has been asleep most of the shift.
[2021-09-10 06:33] VITALS: BP 156/93
[2021-09-10] MEDS: GABAPENTIN 300 MG CAPSULE. PO SCH ×3 (07:33→20:06)
[2021-09-10] MEDS: OLANZapine 5 MG TABLET PO PRN ×4 (07:33→20:06)
[2021-09-10] MEDS: medroxyPROGESTERone 5 MG TABLET PO SCH (07:34)
[2021-09-10] MEDS: SENNOSIDES 8.6 MG TABLET PO SCH ×2 (07:34→20:05)
[2021-09-10] MEDS: PARoxetine 20 MG TABLET PO SCH (07:34)
[2021-09-10] MEDS: LOSARTAN 50 MG TABLET. PO SCH (07:34)
--- NOTE | 2021-09-10 07:48 | NUR ---
Pt begins the day intrusive to peers. He approached another patient who is receiving supplemental O2 and turned her tank up to 10 lpm, and then began to wheel a w/c bound patient around the day room despite staff verbal objections and attempts at redirection. JUANCHO Zyprexa 2.5 mg PO administered. Addendum: 09/10/21 at 0945 by LUCAS PEMBERTON RN Edit, Zyprexa dose was 5 mg
--- NOTE | 2021-09-10 08:34 | PDOC ---
Exam Note: Castillo Note: This note is a late entry for 09/08/2021 covers elements not covered in my initial note. Subjective: The patient was reviewed at treatment team meeting individually in the morning on 09/08/2021 with Brittany Murray, Cary Adair, and Marielena Gonzalez (social research assistant), [place], activity therapy, Tina Linares, Early Childhood, and Maryana ALLISON, discussed and reviewed the chart. Patients Marlen attended the treatment team meeting as well. We had lengthy discussion with the patients about his current psychotropics, prognosis, difficulty in challenges of placement with him being on one-on-one status and behavioral interventions and observation status to try and continue the one-on-one status. The patient slept 8 hours previous night. He continues to have poor boundaries, has been slapping the bottom of female nursing staff, talking about that he loves female staff members. He tried to open the door to elope from the unit. He takes his medications crushed. He is sleeping well and appetite is fair. He attended one group over the past one week, had his flu vaccine on 07/08. Review of Systems: Ambulation impaired in wheelchair. No CV, , pulmonary, eye, ENT system symptoms on review. Reliability poor. Mental Status Exam: The patient is oriented to himself and at times situation. Speech has some latency, coherent. Abstraction fair. Computation impaired. Language function intact. Mood and affect remains extremely labile, anxious, very poor boundaries, touching and hugging anyone around him but not physically aggressive. Laboratory Data. Reviewed. Impression: Major neurocognitive disorder, frontotemporal with delusion, depression, behavioral disturbance. Anxiety disorder unspecified. Impulse control disorder unspecified. Plan: Continue current psychotropics. We will increase the patients trazodone during the day from 50 mg q.8h. p.r.n. to 100 mg q.8h. p.r.n. agitation. We are also gradually increasing his gabapentin to help improve anxiety and I have increased the Provera to 20 mg a day to help reduce some of his sexually aggressive behaviors. We will make further adjustments as clinically indicated. Assessment: Vital Signs/I&O: Vital Signs Date Time Temp Pulse Resp B/P (MAP) Pulse Ox O2 Delivery O2 Flow Rate FiO2 09/10/21 07:34 55 156/93 09/10/21 06:33 97.0 18 94 09/07/21 14:53 98.0 09/07/21 05:44 Room Air I & O 09/09/21 09/09/21 09/10/21 15:00 23:00 07:00 Intake Total 740 ml 440 ml Balance 740 ml 440 ml Current Medications: Meds: Current Medications Medications (Trade) Dose Ordered Sig/Susana Route PRN Reason Start Time Stop Time Status Last Admin Dose Admin Acetaminophen (Tylenol) 650 mg PRN Q6HRS PRN PO MILD PAIN / TEMP > 100.3'F 08/29/21 22:00 Multi-Ingredient Ointment (Analgesic [place]) 1 sandra PRN QID PRN TP MUSCLE PAIN 08/29/21 22:00 Al Hydroxide/Mg Hydroxide (Mylanta Plus Xs) 15 ml PRN AFTMEALHC PRN PO DYSPEPSIA 08/29/21 22:00 Magnesium Hydroxide (Milk Of Magnesia) 2,400 mg PRN QHS PRN PO 1ST CHOICE CONSTIPATION 08/29/21 22:00 09/05/21 20:16 Acetaminophen (Tylenol) 650 mg PRN Q6HRS PRN PO MILD PAIN / TEMP > 100.3'F 08/29/21 22:30 Cancel Losartan Potassium (Cozaar) 50 mg DAILY PO 08/30/21 09:00 09/10/21 07:34 Atorvastatin Calcium (Lipitor) 40 mg QHS PO 08/30/21 21:00 09/09/21 21:04 Paroxetine HCl (Paxil) 60 mg DAILY PO 08/30/21 09:00 09/10/21 07:34 Amoxicillin/ Clavulanate Potassium (Augmentin 875/ 125mg) 1 tab BID PO 08/30/21 09:00 08/30/21 11:09 DC Lactobacillus Rhamnosus (Culturelle) 1 cap BID PO 08/30/21 09:00 08/30/21 11:09 DC Olanzapine (ZyPREXA) 5 mg PRN Q2HR PRN PO 1st choice ANXIETY / AGITATION 08/30/21 16:00 09/10/21 07:33 Gabapentin (Neurontin) 300 mg BID PO 08/30/21 21:00 09/01/21 23:50 DC 09/01/21 20:17 Gabapentin (Neurontin) 400 mg TID PO 09/02/21 09:00 08/31/21 19:41 DC Medroxyprogesterone Acetate (Provera) 15 mg DAILY PO 08/31/21 09:00 09/07/21 05:34 DC 09/06/21 08:43 Quetiapine Fumarate (SEROquel) 50 mg TID PO 08/30/21 21:00 09/01/21 14:33 DC 09/01/21 09:57 Trazodone HCl (Desyrel) 50 mg PRN Q8HRS PRN PO 3RD CHOICE ANXIETY/AGITATION 08/30/21 16:15 09/08/21 12:08 DC 09/07/21 19:24 Lorazepam (Ativan) 1 mg PRN Q1HR PRN PO 2nd choice ANXIETY / AGITATION 08/30/21 23:00 09/07/21 19:24 Bisacodyl (Dulcolax Supp) 10 mg PRN DAILY PRN [place] 2ND CHOICE CONSTIPATION 08/31/21 00:30 Magnesium Citrate (Citroma) 296 ml 1X ONCE PO 08/31/21 10:45 08/31/21 10:47 DC 08/31/21 11:13 Sennosides (Senna) 8.6 mg BID PO 08/31/21 21:00 09/10/21 07:34 Gabapentin (Neurontin) 300 mg TID PO 09/02/21 09:00 09/02/21 16:19 DC 09/02/21 09:00 Quetiapine Fumarate (SEROquel) 25 mg TID PO 09/01/21 21:00 09/03/21 13:24 DC 09/03/21 09:02 Gabapentin (Neurontin) 300 mg TID PO 09/02/21 17:00 09/05/21 21:47 DC 09/05/21 20:16 Quetiapine Fumarate (SEROquel) 25 mg PRN TID PRN PO Agitation 09/03/21 13:30 09/09/21 12:12 Gabapentin (Neurontin) 600 mg DAILY PO 09/06/21 09:00 09/09/21 20:06 DC 09/09/21 07:27 Gabapentin (Neurontin) 300 mg 1400,2100 PO 09/06/21 14:00 09/09/21 20:06 DC 09/09/21 12:12 Magnesium Citrate (Citroma) 296 ml PRN 1X PRN PO CONSTIPATION 09/06/21 17:45 09/07/21 09:17 Medroxyprogesterone Acetate (Provera) 20 mg DAILY PO 09/07/21 09:00 09/10/21 07:34 Trazodone HCl (Desyrel) 100 mg PRN Q8HRS PRN PO 3RD CHOICE ANXIETY/AGITATION 09/08/21 12:15 09/09/21 13:25 Gabapentin (Neurontin) 300 mg HS PO 09/09/21 21:00 09/09/21 21:05 Gabapentin (Neurontin) 600 mg 0900,1400 PO 09/10/21 09:00 09/10/21 07:33 Current Medications Medications (Trade) Dose Ordered Sig/Susana Route PRN Reason Start Time Stop Time Status Last Admin Dose Admin Gabapentin (Neurontin) 300 mg HS PO 09/09/21 21:00 09/09/21 21:05 Gabapentin (Neurontin) 600 mg 0900,1400 PO 09/10/21 09:00 09/10/21 07:33 I have reviewed the current psychotropics carefully including drug interactions. Risk benefit ratio favors no change other than as noted in my dictated progress note. Diagnosis: Problems: (1) Impulse control disorder, unspecified (2) Anxiety disorder, unspecified (3) Dementia, vascular, with depression (4) Dementia, vascular, with delusions (5) Dementia in Alzheimer's disease with depression (6) Dementia in Alzheimer's disease with delusions (7) Major neurocognitive disorder (8) Frontotemporal dementia with behavioral disturbance ELIAZAR COYLE MD Sep 10, 2021 08:34
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
--- NOTE | 2021-09-10 09:56 | NUR ---
Pt remains confused and disorganized, absent of physical/verbal aggression towards others. He is compliant with medications crushed and mixed into pudding. Pt absent of SI/HI behaviors, pain, and absent of presenting as experiencing possible VH/AH. After breakfast he laid down on the couch in the day room with the electronic tablet which was playing music. Plan of care continues, will pass to next shift.
[2021-09-10] MEDS: QUEtiapine 25 MG TABLET. PO PRN ×2 (11:04→20:42)
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
[2021-09-10 11:21] LABS: BASO % 1 % (0-3); EOS # 0.1 x10^3/uL (0.0-0.7); EOS % 3 % (0-3); HEMATOCRIT 34.8 % (39.0-53.0); HEMOGLOBIN 11.8 g/dL (13.0-17.5); LYMPH # 1.3 x10^3/uL (1.0-4.8); LYMPH % 36 % (24-48); MEAN CORPUSCULAR HEMOGLOBIN 30 pg (25-35); MEAN CORPUSCULAR HGB CONC 34 g/dL (31-37); MEAN CORPUSCULAR VOLUME 89 fL (79-100); MONO # 0.3 x10^3/uL (0.0-1.1); MONO % 9 % (0-9); NEUT # 1.9 x10^3uL (1.8-7.7); NEUT % 51 % (31-73); PLATELET COUNT 249 x10^3/uL (140-400); RED BLOOD COUNT 3.89 x10^6/uL (4.30-5.70); RED CELL DISTRIBUTION WIDTH 13.4 % (11.5-14.5); WHITE BLOOD COUNT 3.7 x10^3/uL (4.0-11.0)
[2021-09-10 11:40] LABS: ALBUMIN 3.4 g/dL (3.4-5.0); CALCIUM 8.4 mg/dL (8.5-10.1); CREATININE 1.1 mg/dL (0.7-1.3); GFR 68.5; POTASSIUM 4.2 mmol/L (3.5-5.1); TOTAL BILIRUBIN 0.6 mg/dL (0.2-1.0); TOTAL PROTEIN 6.7 g/dL (6.4-8.2)
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
[2021-09-10 15:42] VITALS: BP 101/57
[2021-09-10] MEDS: ATORVASTATIN CALCIUM 20 MG TABLET PO SCH (20:05)
--- NOTE | 2021-09-10 20:38 | PDOC ---
Exam Note: Castillo Note: Please also refer to the separate dictated note~for this date of service dictated separately.~Patient seen individually. Discussed the patient with Nursing staff reviewed the chart.~Reviewed interim history and current functioning. Reviewed vital signs,~Labs/ Radiology~and current medications noted below. Continue current treatment with the changes noted in the dictated addendum note Assessment: Vital Signs/I&O: Vital Signs Date Time Temp Pulse Resp B/P (MAP) Pulse Ox O2 Delivery O2 Flow Rate FiO2 09/10/21 15:42 97.9 67 18 101/57 (72) 94 Room Air 09/07/21 14:53 98.0 I & O 09/09/21 09/09/21 09/10/21 15:00 23:00 07:00 Intake Total 740 ml 440 ml Balance 740 ml 440 ml Labs: Laboratory Tests Test 09/10/21 10:47 White Blood Count 3.7 x10^3/uL (4.0-11.0) L Red Blood Count 3.89 x10^6/uL (4.30-5.70) L Hemoglobin 11.8 g/dL (13.0-17.5) L Hematocrit 34.8 % (39.0-53.0) L Mean Corpuscular Volume 89 fL (79-100) Mean Corpuscular Hemoglobin 30 pg (25-35) Mean Corpuscular Hemoglobin Concent 34 g/dL (31-37) Red Cell Distribution Width 13.4 % (11.5-14.5) Platelet Count 249 x10^3/uL (140-400) Neutrophils (%) (Auto) 51 % (31-73) Lymphocytes (%) (Auto) 36 % (24-48) Monocytes (%) (Auto) 9 % (0-9) Eosinophils (%) (Auto) 3 % (0-3) Basophils (%) (Auto) 1 % (0-3) Neutrophils # (Auto) 1.9 x10^3uL (1.8-7.7) Lymphocytes # (Auto) 1.3 x10^3/uL (1.0-4.8) Monocytes # (Auto) 0.3 x10^3/uL (0.0-1.1) Eosinophils # (Auto) 0.1 x10^3/uL (0.0-0.7) Basophils # (Auto) 0.0 x10^3/uL (0.0-0.2) Sodium Level 143 mmol/L (136-145) Potassium Level 4.2 mmol/L (3.5-5.1) Chloride Level 108 mmol/L (98-107) H Carbon Dioxide Level 25 mmol/L (21-32) Anion Gap 10 (6-14) Blood Urea Nitrogen 18 mg/dL (8-26) Creatinine 1.1 mg/dL (0.7-1.3) Estimated GFR (Cockcroft-Gault) 68.5 BUN/Creatinine Ratio 16 (6-20) Glucose Level 107 mg/dL (70-99) H Calcium Level 8.4 mg/dL (8.5-10.1) L Total Bilirubin 0.6 mg/dL (0.2-1.0) Aspartate Amino Transferase (AST) 24 U/L (15-37) Alanine Aminotransferase (ALT) 32 U/L (16-63) Alkaline Phosphatase 55 U/L (46-116) Total Protein 6.7 g/dL (6.4-8.2) Albumin 3.4 g/dL (3.4-5.0) Albumin/Globulin Ratio 1.0 (1.0-1.7) Current Medications: Meds: Laboratory Tests Test 09/10/21 10:47 White Blood Count 3.7 x10^3/uL Red Blood Count 3.89 x10^6/uL Hemoglobin 11.8 g/dL Hematocrit 34.8 % Mean Corpuscular Volume 89 fL Mean Corpuscular Hemoglobin 30 pg Mean Corpuscular Hemoglobin Concent 34 g/dL Red Cell Distribution Width 13.4 % Platelet Count 249 x10^3/uL Neutrophils (%) (Auto) 51 % Lymphocytes (%) (Auto) 36 % Monocytes (%) (Auto) 9 % Eosinophils (%) (Auto) 3 % Basophils (%) (Auto) 1 % Neutrophils # (Auto) 1.9 x10^3uL Lymphocytes # (Auto) 1.3 x10^3/uL Monocytes # (Auto) 0.3 x10^3/uL Eosinophils # (Auto) 0.1 x10^3/uL Basophils # (Auto) 0.0 x10^3/uL Sodium Level 143 mmol/L Potassium Level 4.2 mmol/L Chloride Level 108 mmol/L Carbon Dioxide Level 25 mmol/L Anion Gap 10 Blood Urea Nitrogen 18 mg/dL Creatinine 1.1 mg/dL Estimated GFR (Cockcroft-Gault) 68.5 BUN/Creatinine Ratio 16 Glucose Level 107 mg/dL Calcium Level 8.4 mg/dL Total Bilirubin 0.6 mg/dL Aspartate Amino Transf (AST/SGOT) 24 U/L Alanine Aminotransferase (ALT/SGPT) 32 U/L Alkaline Phosphatase 55 U/L Total Protein 6.7 g/dL Albumin 3.4 g/dL Albumin/Globulin Ratio 1.0 Current Medications Medications (Trade) Dose Ordered Sig/Susana Route PRN Reason Start Time Stop Time Status Last Admin Dose Admin Acetaminophen (Tylenol) 650 mg PRN Q6HRS PRN PO MILD PAIN / TEMP > 100.3'F 08/29/21 22:00 Multi-Ingredient Ointment (Analgesic [place]) 1 sandra PRN QID PRN TP MUSCLE PAIN 08/29/21 22:00 Al Hydroxide/Mg Hydroxide (Mylanta Plus Xs) 15 ml PRN AFTMEALHC PRN PO DYSPEPSIA 08/29/21 22:00 Magnesium Hydroxide (Milk Of Magnesia) 2,400 mg PRN QHS PRN PO 1ST CHOICE CONSTIPATION 08/29/21 22:00 09/05/21 20:16 Acetaminophen (Tylenol) 650 mg PRN Q6HRS PRN PO MILD PAIN / TEMP > 100.3'F 08/29/21 22:30 Cancel Losartan Potassium (Cozaar) 50 mg DAILY PO 08/30/21 09:00 09/10/21 07:34 Atorvastatin Calcium (Lipitor) 40 mg QHS PO 08/30/21 21:00 09/10/21 20:05 Paroxetine HCl (Paxil) 60 mg DAILY PO 08/30/21 09:00 09/10/21 07:34 Amoxicillin/ Clavulanate Potassium (Augmentin 875/ 125mg) 1 tab BID PO 08/30/21 09:00 08/30/21 11:09 DC Lactobacillus Rhamnosus (Culturelle) 1 cap BID PO 08/30/21 09:00 08/30/21 11:09 DC Olanzapine (ZyPREXA) 5 mg PRN Q2HR PRN PO 1st choice ANXIETY / AGITATION 08/30/21 16:00 09/10/21 20:06 Gabapentin (Neurontin) 300 mg BID PO 08/30/21 21:00 09/01/21 23:50 DC 09/01/21 20:17 Gabapentin (Neurontin) 400 mg TID PO 09/02/21 09:00 08/31/21 19:41 DC Medroxyprogesterone Acetate (Provera) 15 mg DAILY PO 08/31/21 09:00 09/07/21 05:34 DC 09/06/21 08:43 Quetiapine Fumarate (SEROquel) 50 mg TID PO 08/30/21 21:00 09/01/21 14:33 DC 09/01/21 09:57 Trazodone HCl (Desyrel) 50 mg PRN Q8HRS PRN PO 3RD CHOICE ANXIETY/AGITATION 08/30/21 16:15 09/08/21 12:08 DC 09/07/21 19:24 Lorazepam (Ativan) 1 mg PRN Q1HR PRN PO 2nd choice ANXIETY / AGITATION 08/30/21 23:00 09/07/21 19:24 Bisacodyl (Dulcolax Supp) 10 mg PRN DAILY PRN [place] 2ND CHOICE CONSTIPATION 08/31/21 00:30 Magnesium Citrate (Citroma) 296 ml 1X ONCE PO 08/31/21 10:45 08/31/21 10:47 DC 08/31/21 11:13 Sennosides (Senna) 8.6 mg BID PO 08/31/21 21:00 09/10/21 20:05 Gabapentin (Neurontin) 300 mg TID PO 09/02/21 09:00 09/02/21 16:19 DC 09/02/21 09:00 Quetiapine Fumarate (SEROquel) 25 mg TID PO 09/01/21 21:00 09/03/21 13:24 DC 09/03/21 09:02 Gabapentin (Neurontin) 300 mg TID PO 09/02/21 17:00 09/05/21 21:47 DC 09/05/21 20:16 Quetiapine Fumarate (SEROquel) 25 mg PRN TID PRN PO Agitation 09/03/21 13:30 09/10/21 11:04 Gabapentin (Neurontin) 600 mg DAILY PO 09/06/21 09:00 09/09/21 20:06 DC 09/09/21 07:27 Gabapentin (Neurontin) 300 mg 1400,2100 PO 09/06/21 14:00 09/09/21 20:06 DC 09/09/21 12:12 Magnesium Citrate (Citroma) 296 ml PRN 1X PRN PO CONSTIPATION 09/06/21 17:45 09/07/21 09:17 Medroxyprogesterone Acetate (Provera) 20 mg DAILY PO 09/07/21 09:00 09/10/21 07:34 Trazodone HCl (Desyrel) 100 mg PRN Q8HRS PRN PO 3RD CHOICE ANXIETY/AGITATION 09/08/21 12:15 09/09/21 13:25 Gabapentin (Neurontin) 300 mg HS PO 09/09/21 21:00 09/10/21 17:26 DC 09/09/21 21:05 Gabapentin (Neurontin) 600 mg 0900,1400 PO 09/10/21 09:00 09/10/21 17:26 DC 09/10/21 11:55 Gabapentin (Neurontin) 300 mg TID PO 09/10/21 21:00 09/10/21 17:36 DC Gabapentin (Neurontin) 600 mg TID PO 09/10/21 21:00 09/10/21 20:06 Current Medications Medications (Trade) Dose Ordered Sig/Susana Route PRN Reason Start Time Stop Time Status Last Admin Dose Admin Gabapentin (Neurontin) 300 mg HS PO 09/09/21 21:00 09/10/21 17:26 DC 09/09/21 21:05 Gabapentin (Neurontin) 600 mg 0900,1400 PO 09/10/21 09:00 09/10/21 17:26 DC 09/10/21 11:55 Gabapentin (Neurontin) 600 mg TID PO 09/10/21 21:00 09/10/21 20:06 I have reviewed the current psychotropics carefully including drug interactions. Risk benefit ratio favors no change other than as noted in my dictated progress note. Diagnosis: Problems: (1) Impulse control disorder, unspecified (2) Anxiety disorder, unspecified (3) Dementia, vascular, with depression (4) Dementia, vascular, with delusions (5) Dementia in Alzheimer's disease with depression (6) Dementia in Alzheimer's disease with delusions (7) Dementia of the Alzheimer's type with early onset with behavioral disturbance (8) Major neurocognitive disorder (9) Frontotemporal dementia with behavioral disturbance ELIAZAR COYLE MD Sep 10, 2021 20:38
[2021-09-10] MEDS: traZODone 50 MG TABLET. PO PRN (20:42)
[2021-09-10] MEDS ORDERED: GABAPENTIN 300 MG CAPSULE. PO SCH (21:00)
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
[2021-09-11] MEDS: medroxyPROGESTERone 5 MG TABLET PO SCH (08:03)
[2021-09-11] MEDS: LOSARTAN 50 MG TABLET. PO SCH (08:04)
[2021-09-11] MEDS: GABAPENTIN 300 MG CAPSULE. PO SCH ×3 (08:04→19:52)
[2021-09-11] MEDS: SENNOSIDES 8.6 MG TABLET PO SCH ×2 (08:04→19:52)
[2021-09-11] MEDS: PARoxetine 20 MG TABLET PO SCH (08:04)
[2021-09-11 15:30] VITALS: BP 131/79
[2021-09-11] MEDS: LORazepam 1 MG TABLET PO PRN (16:47)
[2021-09-11] MEDS: MAGNESIUM CITRATE 296 ML SOLUTION. PO PRN (16:47)
[2021-09-11] MEDS: ATORVASTATIN CALCIUM 20 MG TABLET PO SCH (19:53)
[2021-09-11] MEDS: OLANZapine 5 MG TABLET PO PRN (19:53)
--- NOTE | 2021-09-11 21:02 | PDOC ---
Exam Note: Castillo Note: Please also refer to the separate dictated note~for this date of service dictated separately.~Patient seen individually. Discussed the patient with Nursing staff reviewed the chart.~Reviewed interim history and current functioning. Reviewed vital signs,~Labs/ Radiology~and current medications noted below. Continue current treatment with the changes noted in the dictated addendum note Assessment: Vital Signs/I&O: Vital Signs Date Time Temp Pulse Resp B/P (MAP) Pulse Ox O2 Delivery O2 Flow Rate FiO2 09/11/21 15:30 98.2 71 20 131/79 (96) 94 09/10/21 15:42 Room Air 09/07/21 14:53 98.0 I & O 09/10/21 09/10/21 09/11/21 14:59 22:59 06:59 Intake Total 490 ml 480 ml Balance 490 ml 480 ml Current Medications: Meds: Current Medications Medications (Trade) Dose Ordered Sig/Susana Route PRN Reason Start Time Stop Time Status Last Admin Dose Admin Acetaminophen (Tylenol) 650 mg PRN Q6HRS PRN PO MILD PAIN / TEMP > 100.3'F 08/29/21 22:00 Multi-Ingredient Ointment (Analgesic [place]) 1 sandra PRN QID PRN TP MUSCLE PAIN 08/29/21 22:00 Al Hydroxide/Mg Hydroxide (Mylanta Plus Xs) 15 ml PRN AFTMEALHC PRN PO DYSPEPSIA 08/29/21 22:00 Magnesium Hydroxide (Milk Of Magnesia) 2,400 mg PRN QHS PRN PO 1ST CHOICE CONSTIPATION 08/29/21 22:00 09/05/21 20:16 Acetaminophen (Tylenol) 650 mg PRN Q6HRS PRN PO MILD PAIN / TEMP > 100.3'F 08/29/21 22:30 Cancel Losartan Potassium (Cozaar) 50 mg DAILY PO 08/30/21 09:00 09/11/21 08:04 Atorvastatin Calcium (Lipitor) 40 mg QHS PO 08/30/21 21:00 09/11/21 19:53 Paroxetine HCl (Paxil) 60 mg DAILY PO 08/30/21 09:00 09/11/21 08:04 Amoxicillin/ Clavulanate Potassium (Augmentin 875/ 125mg) 1 tab BID PO 08/30/21 09:00 08/30/21 11:09 DC Lactobacillus Rhamnosus (Culturelle) 1 cap BID PO 08/30/21 09:00 08/30/21 11:09 DC Olanzapine (ZyPREXA) 5 mg PRN Q2HR PRN PO 1st choice ANXIETY / AGITATION 08/30/21 16:00 09/11/21 19:53 Gabapentin (Neurontin) 300 mg BID PO 08/30/21 21:00 09/01/21 23:50 DC 09/01/21 20:17 Gabapentin (Neurontin) 400 mg TID PO 09/02/21 09:00 08/31/21 19:41 DC Medroxyprogesterone Acetate (Provera) 15 mg DAILY PO 08/31/21 09:00 09/07/21 05:34 DC 09/06/21 08:43 Quetiapine Fumarate (SEROquel) 50 mg TID PO 08/30/21 21:00 09/01/21 14:33 DC 09/01/21 09:57 Trazodone HCl (Desyrel) 50 mg PRN Q8HRS PRN PO 3RD CHOICE ANXIETY/AGITATION 08/30/21 16:15 09/08/21 12:08 DC 09/07/21 19:24 Lorazepam (Ativan) 1 mg PRN Q1HR PRN PO 2nd choice ANXIETY / AGITATION 08/30/21 23:00 09/11/21 16:47 Bisacodyl (Dulcolax Supp) 10 mg PRN DAILY PRN [place] 2ND CHOICE CONSTIPATION 08/31/21 00:30 Magnesium Citrate (Citroma) 296 ml 1X ONCE PO 08/31/21 10:45 08/31/21 10:47 DC 08/31/21 11:13 Sennosides (Senna) 8.6 mg BID PO 08/31/21 21:00 09/11/21 19:52 Gabapentin (Neurontin) 300 mg TID PO 09/02/21 09:00 09/02/21 16:19 DC 09/02/21 09:00 Quetiapine Fumarate (SEROquel) 25 mg TID PO 09/01/21 21:00 09/03/21 13:24 DC 09/03/21 09:02 Gabapentin (Neurontin) 300 mg TID PO 09/02/21 17:00 09/05/21 21:47 DC 09/05/21 20:16 Quetiapine Fumarate (SEROquel) 25 mg PRN TID PRN PO Agitation 09/03/21 13:30 09/10/21 20:42 Gabapentin (Neurontin) 600 mg DAILY PO 09/06/21 09:00 09/09/21 20:06 DC 09/09/21 07:27 Gabapentin (Neurontin) 300 mg 1400,2100 PO 09/06/21 14:00 09/09/21 20:06 DC 09/09/21 12:12 Magnesium Citrate (Citroma) 296 ml PRN 1X PRN PO CONSTIPATION 09/06/21 17:45 09/11/21 16:47 Medroxyprogesterone Acetate (Provera) 20 mg DAILY PO 09/07/21 09:00 09/11/21 08:03 Trazodone HCl (Desyrel) 100 mg PRN Q8HRS PRN PO 3RD CHOICE ANXIETY/AGITATION 09/08/21 12:15 09/10/21 20:42 Gabapentin (Neurontin) 300 mg HS PO 09/09/21 21:00 09/10/21 17:26 DC 09/09/21 21:05 Gabapentin (Neurontin) 600 mg 0900,1400 PO 09/10/21 09:00 09/10/21 17:26 DC 09/10/21 11:55 Gabapentin (Neurontin) 300 mg TID PO 09/10/21 21:00 09/10/21 17:36 DC Gabapentin (Neurontin) 600 mg TID PO 09/10/21 21:00 09/11/21 19:52 I have reviewed the current psychotropics carefully including drug interactions. Risk benefit ratio favors no change other than as noted in my dictated progress note. Diagnosis: Problems: (1) Impulse control disorder, unspecified (2) Anxiety disorder, unspecified (3) Dementia, vascular, with depression (4) Dementia, vascular, with delusions (5) Dementia in Alzheimer's disease with depression (6) Dementia in Alzheimer's disease with delusions (7) Dementia of the Alzheimer's type with early onset with behavioral disturbance (8) Major neurocognitive disorder (9) Frontotemporal dementia with behavioral disturbance ELIAZAR COYLE MD Sep 11, 2021 21:02
--- NOTE | 2021-09-11 22:11 | NUR ---
Sameera temple was in the day room and has been cooperative with staff. He took meds whole and has been easily redirected when needed. He asked to go to bed when tired and was cooperative with care.
[2021-09-12 06:32] VITALS: BP 122/83
[2021-09-12] MEDS: PARoxetine 20 MG TABLET PO SCH (08:45)
[2021-09-12] MEDS: SENNOSIDES 8.6 MG TABLET PO SCH ×3 (08:45→21:00)
[2021-09-12] MEDS: medroxyPROGESTERone 5 MG TABLET PO SCH (08:45)
[2021-09-12] MEDS: GABAPENTIN 300 MG CAPSULE. PO SCH (08:46)
[2021-09-12] MEDS: OLANZapine 5 MG TABLET PO PRN (08:46)
[2021-09-12] MEDS: QUEtiapine 25 MG TABLET. PO PRN (08:46)
[2021-09-12] MEDS: LOSARTAN 50 MG TABLET. PO SCH (08:47)
--- NOTE | 2021-09-12 09:58 | NUR ---
Pt begins the morning restless, wandering, and exit seeking. He loiters by the door to exit the unit and continues to ring the door phone. He is not receptive to redirection away from the door, which causes elopement risk d/t hospital staff utilizing the door from the other side and potentially not being aware that he is there. PRN Zyprexa 5 mg PO and PRN Seroquel 25 mg PO administered. He remains confused and disorganized, absent of verbal/physical aggression. He is compliant with medications crushed and mixed into pudding. Plan of care continues, will pass to next shift.
[2021-09-12] MEDS ORDERED: GABAPENTIN 300 MG CAPSULE. PO SCH (14:00)
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
[2021-09-12 15:12] VITALS: BP 118/73
--- NOTE | 2021-09-12 16:45 | NUR ---
This nurse received a phone call from Marlen Haas, /DPOA. She inquired as to pt's status today and the following information was given: new med orders from 09/11/21, sleep quantity, behaviors on unit, PRNs given, medication compliance. Marlen states she is very concerned that [facility] will soon place pressure for a d/c to memory care before proper stabilization is achieved (which would make memory care acceptance difficult). Marlen wonders if "aggressive" use of PRNs would help achieve a more stable pt where he would be more likely to be accepted into memory care and verbalizes her condoning of staff doing so. Will pass on to Dr Mercer.
--- NOTE | 2021-09-12 17:01 | NUR ---
Gabapentin 900 mg PO administered after lunch. Dr Mercer notified concerning temporary change in Gabapentin dose for HS for night of 09/12/21. See new orders.
--- NOTE | 2021-09-12 20:23 | PDOC ---
Exam Note: Castillo Note: Please also refer to the separate dictated note~for this date of service dictated separately.~Patient seen individually. Discussed the patient with Nursing staff reviewed the chart.~Reviewed interim history and current functioning. Reviewed vital signs,~Labs/ Radiology~and current medications noted below. Continue current treatment with the changes noted in the dictated addendum note Assessment: Vital Signs/I&O: Vital Signs Date Time Temp Pulse Resp B/P (MAP) Pulse Ox O2 Delivery O2 Flow Rate FiO2 09/12/21 15:12 97.8 66 20 118/73 (88) 97 Room Air 09/07/21 14:53 98.0 I & O 09/11/21 09/11/21 09/12/21 15:00 23:00 07:00 Intake Total 960 ml 600 ml Balance 960 ml 600 ml Current Medications: Meds: Current Medications Medications (Trade) Dose Ordered Sig/Susana Route PRN Reason Start Time Stop Time Status Last Admin Dose Admin Acetaminophen (Tylenol) 650 mg PRN Q6HRS PRN PO MILD PAIN / TEMP > 100.3'F 08/29/21 22:00 Multi-Ingredient Ointment (Analgesic [place]) 1 sandra PRN QID PRN TP MUSCLE PAIN 08/29/21 22:00 Al Hydroxide/Mg Hydroxide (Mylanta Plus Xs) 15 ml PRN AFTMEALHC PRN PO DYSPEPSIA 08/29/21 22:00 Magnesium Hydroxide (Milk Of Magnesia) 2,400 mg PRN QHS PRN PO 1ST CHOICE CONSTIPATION 08/29/21 22:00 09/05/21 20:16 Acetaminophen (Tylenol) 650 mg PRN Q6HRS PRN PO MILD PAIN / TEMP > 100.3'F 08/29/21 22:30 Cancel Losartan Potassium (Cozaar) 50 mg DAILY PO 08/30/21 09:00 09/12/21 08:47 Atorvastatin Calcium (Lipitor) 40 mg QHS PO 08/30/21 21:00 09/11/21 19:53 Paroxetine HCl (Paxil) 60 mg DAILY PO 08/30/21 09:00 09/12/21 08:45 Amoxicillin/ Clavulanate Potassium (Augmentin 875/ 125mg) 1 tab BID PO 08/30/21 09:00 08/30/21 11:09 DC Lactobacillus Rhamnosus (Culturelle) 1 cap BID PO 08/30/21 09:00 08/30/21 11:09 DC Olanzapine (ZyPREXA) 5 mg PRN Q2HR PRN PO 1st choice ANXIETY / AGITATION 08/30/21 16:00 09/12/21 08:46 Gabapentin (Neurontin) 300 mg BID PO 08/30/21 21:00 09/01/21 23:50 DC 09/01/21 20:17 Gabapentin (Neurontin) 400 mg TID PO 09/02/21 09:00 08/31/21 19:41 DC Medroxyprogesterone Acetate (Provera) 15 mg DAILY PO 08/31/21 09:00 09/07/21 05:34 DC 09/06/21 08:43 Quetiapine Fumarate (SEROquel) 50 mg TID PO 08/30/21 21:00 09/01/21 14:33 DC 09/01/21 09:57 Trazodone HCl (Desyrel) 50 mg PRN Q8HRS PRN PO 3RD CHOICE ANXIETY/AGITATION 08/30/21 16:15 09/08/21 12:08 DC 09/07/21 19:24 Lorazepam (Ativan) 1 mg PRN Q1HR PRN PO 2nd choice ANXIETY / AGITATION 08/30/21 23:00 09/11/21 16:47 Bisacodyl (Dulcolax Supp) 10 mg PRN DAILY PRN [place] 2ND CHOICE CONSTIPATION 08/31/21 00:30 Magnesium Citrate (Citroma) 296 ml 1X ONCE PO 08/31/21 10:45 08/31/21 10:47 DC 08/31/21 11:13 Sennosides (Senna) 8.6 mg BID PO 08/31/21 21:00 09/12/21 08:45 Gabapentin (Neurontin) 300 mg TID PO 09/02/21 09:00 09/02/21 16:19 DC 09/02/21 09:00 Quetiapine Fumarate (SEROquel) 25 mg TID PO 09/01/21 21:00 09/03/21 13:24 DC 09/03/21 09:02 Gabapentin (Neurontin) 300 mg TID PO 09/02/21 17:00 09/05/21 21:47 DC 09/05/21 20:16 Quetiapine Fumarate (SEROquel) 25 mg PRN TID PRN PO Agitation 09/03/21 13:30 09/12/21 08:46 Gabapentin (Neurontin) 600 mg DAILY PO 09/06/21 09:00 09/09/21 20:06 DC 09/09/21 07:27 Gabapentin (Neurontin) 300 mg 1400,2100 PO 09/06/21 14:00 09/09/21 20:06 DC 09/09/21 12:12 Magnesium Citrate (Citroma) 296 ml PRN 1X PRN PO CONSTIPATION 09/06/21 17:45 09/11/21 16:47 Medroxyprogesterone Acetate (Provera) 20 mg DAILY PO 09/07/21 09:00 09/12/21 08:45 Trazodone HCl (Desyrel) 100 mg PRN Q8HRS PRN PO 3RD CHOICE ANXIETY/AGITATION 09/08/21 12:15 09/10/21 20:42 Gabapentin (Neurontin) 300 mg HS PO 09/09/21 21:00 09/10/21 17:26 DC 09/09/21 21:05 Gabapentin (Neurontin) 600 mg 0900,1400 PO 09/10/21 09:00 09/10/21 17:26 DC 09/10/21 11:55 Gabapentin (Neurontin) 300 mg TID PO 09/10/21 21:00 09/10/21 17:36 DC Gabapentin (Neurontin) 600 mg TID PO 09/10/21 21:00 09/12/21 01:56 DC 09/11/21 19:52 Gabapentin (Neurontin) 600 mg DAILY@1400,2100 PO 09/12/21 14:00 09/12/21 17:01 DC 09/12/21 13:33 Gabapentin (Neurontin) 900 mg DAILY PO 09/12/21 09:00 09/12/21 08:46 Gabapentin (Neurontin) 300 mg 1X ONCE PO 09/12/21 21:00 09/12/21 21:01 Gabapentin (Neurontin) 600 mg 1400,2100 PO 09/13/21 14:00 Current Medications Medications (Trade) Dose Ordered Sig/Susana Route PRN Reason Start Time Stop Time Status Last Admin Dose Admin Gabapentin (Neurontin) 600 mg DAILY@1400,2100 PO 09/12/21 14:00 09/12/21 17:01 DC 09/12/21 13:33 Gabapentin (Neurontin) 900 mg DAILY PO 09/12/21 09:00 09/12/21 08:46 I have reviewed the current psychotropics carefully including drug interactions. Risk benefit ratio favors no change other than as noted in my dictated progress note. Diagnosis: Problems: (1) Impulse control disorder, unspecified (2) Anxiety disorder, unspecified (3) Dementia, vascular, with depression (4) Dementia, vascular, with delusions (5) Dementia in Alzheimer's disease with depression (6) Dementia in Alzheimer's disease with delusions (7) Dementia of the Alzheimer's type with early onset with behavioral disturbance (8) Major neurocognitive disorder (9) Frontotemporal dementia with behavioral disturbance ELIAZAR COYLE MD Sep 12, 2021 20:23
[2021-09-12] MEDS: ATORVASTATIN CALCIUM 20 MG TABLET PO SCH ×2 (20:44→21:00)
[2021-09-12] MEDS: GABAPENTIN 300 MG CAPSULE. PO ONE ×2 (20:45→21:00)
--- NOTE | 2021-09-12 22:53 | NUR ---
Patient is in his room for assessments and medications. He had put himself to bed and was already asleep. HS meds held at this time, will attempt administration later if patient wakes up.
[2021-09-13 05:28] VITALS: BP 137/73
[2021-09-13] MEDS: OLANZapine 5 MG TABLET PO PRN ×2 (06:50→11:55)
[2021-09-13] MEDS: LORazepam 1 MG TABLET PO PRN ×4 (06:50→19:29)
[2021-09-13] MEDS: SENNOSIDES 8.6 MG TABLET PO SCH ×3 (08:10→21:00)
[2021-09-13] MEDS: medroxyPROGESTERone 5 MG TABLET PO SCH (08:10)
[2021-09-13] MEDS: LOSARTAN 50 MG TABLET. PO SCH (08:10)
[2021-09-13] MEDS: QUEtiapine 50 MG TABLET. PO SCH ×2 (08:11→13:26)
[2021-09-13] MEDS: GABAPENTIN 300 MG CAPSULE. PO SCH ×4 (08:11→21:00)
[2021-09-13] MEDS: PARoxetine 20 MG TABLET PO SCH (08:11)
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
--- NOTE | 2021-09-13 08:31 | PDOC ---
Exam Note: Castillo Note: This note is a late entry for 09/11/2021 covers elements not covered in my initial note. Subjective: The patient was seen individually in the evening of 09/11/2021 with Bobby ALLISON, discussed and reviewed the chart. The patient slept 7 hours previous night. He continues to have very poor boundaries as before. He was in the dayroom as I went to meet him. I opened the door of the dayroom from the outside and he tried to walk out but when I talked to him about looking outside the window in the dayroom for the lights he quickly reversed and was redirectable. Review of Systems: Ambulation impaired in wheelchair. No CV, , pulmonary, eye, ENT system symptoms on review. Mental Status Exam: The patient is oriented to himself. Insight and judgment, recent and remote memory, attention and concentration, fund of knowledge is poor consistent with his diagnoses. Laboratory Data. Reviewed. Impression: Major neurocognitive disorder, frontotemporal with delusion, depression, behavioral disturbance. Anxiety disorder unspecified. Impulse control disorder unspecified. Plan: Patient is currently on Neurontin 1800 mg a day. We will increase to total 2100 mg a day, 900 mg a.m. and 600 mg b.i.d. Continue rest of the psychotropics unchanged per initial note. Assessment: Vital Signs/I&O: Vital Signs Date Time Temp Pulse Resp B/P (MAP) Pulse Ox O2 Delivery O2 Flow Rate FiO2 09/13/21 08:10 51 137/73 09/13/21 05:28 97.7 16 97 Room Air 09/07/21 14:53 98.0 I & O 09/12/21 09/12/21 09/13/21 15:00 23:00 07:00 Intake Total 1160 ml 840 ml Balance 1160 ml 840 ml Current Medications: Meds: Current Medications Medications (Trade) Dose Ordered Sig/Susana Route PRN Reason Start Time Stop Time Status Last Admin Dose Admin Acetaminophen (Tylenol) 650 mg PRN Q6HRS PRN PO MILD PAIN / TEMP > 100.3'F 08/29/21 22:00 Multi-Ingredient Ointment (Analgesic [place]) 1 sandra PRN QID PRN TP MUSCLE PAIN 08/29/21 22:00 Al Hydroxide/Mg Hydroxide (Mylanta Plus Xs) 15 ml PRN AFTMEALHC PRN PO DYSPEPSIA 08/29/21 22:00 Magnesium Hydroxide (Milk Of Magnesia) 2,400 mg PRN QHS PRN PO 1ST CHOICE CONSTIPATION 08/29/21 22:00 09/05/21 20:16 Acetaminophen (Tylenol) 650 mg PRN Q6HRS PRN PO MILD PAIN / TEMP > 100.3'F 08/29/21 22:30 Cancel Losartan Potassium (Cozaar) 50 mg DAILY PO 08/30/21 09:00 09/13/21 08:10 Atorvastatin Calcium (Lipitor) 40 mg QHS PO 08/30/21 21:00 09/11/21 19:53 Paroxetine HCl (Paxil) 60 mg DAILY PO 08/30/21 09:00 09/13/21 08:11 Amoxicillin/ Clavulanate Potassium (Augmentin 875/ 125mg) 1 tab BID PO 08/30/21 09:00 08/30/21 11:09 DC Lactobacillus Rhamnosus (Culturelle) 1 cap BID PO 08/30/21 09:00 08/30/21 11:09 DC Olanzapine (ZyPREXA) 5 mg PRN Q2HR PRN PO 1st choice ANXIETY / AGITATION 08/30/21 16:00 09/13/21 06:50 Gabapentin (Neurontin) 300 mg BID PO 08/30/21 21:00 09/01/21 23:50 DC 09/01/21 20:17 Gabapentin (Neurontin) 400 mg TID PO 09/02/21 09:00 08/31/21 19:41 DC Medroxyprogesterone Acetate (Provera) 15 mg DAILY PO 08/31/21 09:00 09/07/21 05:34 DC 09/06/21 08:43 Quetiapine Fumarate (SEROquel) 50 mg TID PO 08/30/21 21:00 09/01/21 14:33 DC 09/01/21 09:57 Trazodone HCl (Desyrel) 50 mg PRN Q8HRS PRN PO 3RD CHOICE ANXIETY/AGITATION 08/30/21 16:15 09/08/21 12:08 DC 09/07/21 19:24 Lorazepam (Ativan) 1 mg PRN Q1HR PRN PO 2nd choice ANXIETY / AGITATION 08/30/21 23:00 09/13/21 06:50 Bisacodyl (Dulcolax Supp) 10 mg PRN DAILY PRN RI 2ND CHOICE CONSTIPATION 08/31/21 00:30 Magnesium Citrate (Citroma) 296 ml 1X ONCE PO 08/31/21 10:45 08/31/21 10:47 DC 08/31/21 11:13 Sennosides (Senna) 8.6 mg BID PO 08/31/21 21:00 09/13/21 08:10 Gabapentin (Neurontin) 300 mg TID PO 09/02/21 09:00 09/02/21 16:19 DC 09/02/21 09:00 Quetiapine Fumarate (SEROquel) 25 mg TID PO 09/01/21 21:00 09/03/21 13:24 DC 09/03/21 09:02 Gabapentin (Neurontin) 300 mg TID PO 09/02/21 17:00 09/05/21 21:47 DC 09/05/21 20:16 Quetiapine Fumarate (SEROquel) 25 mg PRN TID PRN PO Agitation 09/03/21 13:30 09/12/21 08:46 Gabapentin (Neurontin) 600 mg DAILY PO 09/06/21 09:00 09/09/21 20:06 DC 09/09/21 07:27 Gabapentin (Neurontin) 300 mg 1400,2100 PO 09/06/21 14:00 09/09/21 20:06 DC 09/09/21 12:12 Magnesium Citrate (Citroma) 296 ml PRN 1X PRN PO CONSTIPATION 09/06/21 17:45 09/11/21 16:47 Medroxyprogesterone Acetate (Provera) 20 mg DAILY PO 09/07/21 09:00 09/13/21 08:10 Trazodone HCl (Desyrel) 100 mg PRN Q8HRS PRN PO 3RD CHOICE ANXIETY/AGITATION 09/08/21 12:15 09/10/21 20:42 Gabapentin (Neurontin) 300 mg HS PO 09/09/21 21:00 09/10/21 17:26 DC 09/09/21 21:05 Gabapentin (Neurontin) 600 mg 0900,1400 PO 09/10/21 09:00 09/10/21 17:26 DC 09/10/21 11:55 Gabapentin (Neurontin) 300 mg TID PO 09/10/21 21:00 09/10/21 17:36 DC Gabapentin (Neurontin) 600 mg TID PO 09/10/21 21:00 09/12/21 01:56 DC 09/11/21 19:52 Gabapentin (Neurontin) 600 mg DAILY@1400,2100 PO 09/12/21 14:00 09/12/21 17:01 DC 09/12/21 13:33 Gabapentin (Neurontin) 900 mg DAILY PO 09/12/21 09:00 09/13/21 08:11 Gabapentin (Neurontin) 300 mg 1X ONCE PO 09/12/21 21:00 09/12/21 21:01 DC Gabapentin (Neurontin) 600 mg 1400,2100 PO 09/13/21 14:00 Quetiapine Fumarate (SEROquel) 50 mg TID PO 09/13/21 09:00 09/13/21 08:11 Current Medications Medications (Trade) Dose Ordered Sig/Susana Route PRN Reason Start Time Stop Time Status Last Admin Dose Admin Gabapentin (Neurontin) 600 mg DAILY@1400,2100 PO 09/12/21 14:00 09/12/21 17:01 DC 09/12/21 13:33 Gabapentin (Neurontin) 900 mg DAILY PO 09/12/21 09:00 09/13/21 08:11 Quetiapine Fumarate (SEROquel) 50 mg TID PO 09/13/21 09:00 09/13/21 08:11 I have reviewed the current psychotropics carefully including drug interactions. Risk benefit ratio favors no change other than as noted in my dictated progress note. Diagnosis: Problems: (1) Impulse control disorder, unspecified (2) Anxiety disorder, unspecified (3) Dementia, vascular, with depression (4) Dementia, vascular, with delusions (5) Dementia in Alzheimer's disease with depression (6) Dementia in Alzheimer's disease with delusions (7) Major neurocognitive disorder (8) Frontotemporal dementia with behavioral disturbance ELIAZAR COYLE MD Sep 13, 2021 08:31
[2021-09-13] MEDS: QUEtiapine 25 MG TABLET. PO PRN (10:14)
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
[2021-09-13] MEDS ORDERED: LORazepam 1 MG TABLET PO ONE (13:15)
--- NOTE | 2021-09-13 14:10 | NUR ---
Patient placed in day room, will monitor behavior and report to MD.
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
[2021-09-13 15:26] VITALS: BP 115/75
[2021-09-13] MEDS: MAGNESIUM HYDROXIDE 2,400 MG/30 ML ORAL.SUSP. PO PRN (17:01)
[2021-09-13] MEDS: ATORVASTATIN CALCIUM 20 MG TABLET PO SCH ×2 (19:29→21:00)
[2021-09-13] MEDS: QUEtiapine 100 MG TABLET. PO SCH ×2 (19:30→21:00)
--- NOTE | 2021-09-13 20:42 | PDOC ---
Exam Note: Castillo Note: Please also refer to the separate dictated note~for this date of service dictated separately.~Patient seen individually. Discussed the patient with Nursing staff reviewed the chart.~Reviewed interim history and current functioning. Reviewed vital signs,~Labs/ Radiology~and current medications noted below. Continue current treatment with the changes noted in the dictated addendum note Assessment: Vital Signs/I&O: Vital Signs Date Time Temp Pulse Resp B/P (MAP) Pulse Ox O2 Delivery O2 Flow Rate FiO2 09/13/21 15:26 98.0 72 20 115/75 (88) 98 Room Air 09/07/21 14:53 98.0 I & O 09/12/21 09/12/21 09/13/21 15:00 23:00 07:00 Intake Total 1160 ml 840 ml Balance 1160 ml 840 ml Labs: Laboratory Tests Test 09/13/21 06:00 SARS-CoV-2 (PCR) Not detected (NOT DETECTD) Current Medications: Meds: Laboratory Tests Test 09/13/21 06:00 Coronavirus (COVID-19)(PCR) Not detected Current Medications Medications (Trade) Dose Ordered Sig/Susana Route PRN Reason Start Time Stop Time Status Last Admin Dose Admin Acetaminophen (Tylenol) 650 mg PRN Q6HRS PRN PO MILD PAIN / TEMP > 100.3'F 08/29/21 22:00 Multi-Ingredient Ointment (Analgesic [place]) 1 sandra PRN QID PRN TP MUSCLE PAIN 08/29/21 22:00 Al Hydroxide/Mg Hydroxide (Mylanta Plus Xs) 15 ml PRN AFTMEALHC PRN PO DYSPEPSIA 08/29/21 22:00 Magnesium Hydroxide (Milk Of Magnesia) 2,400 mg PRN QHS PRN PO 1ST CHOICE CONSTIPATION 08/29/21 22:00 09/13/21 17:01 Acetaminophen (Tylenol) 650 mg PRN Q6HRS PRN PO MILD PAIN / TEMP > 100.3'F 08/29/21 22:30 Cancel Losartan Potassium (Cozaar) 50 mg DAILY PO 08/30/21 09:00 09/13/21 08:10 Atorvastatin Calcium (Lipitor) 40 mg QHS PO 08/30/21 21:00 09/13/21 19:29 Paroxetine HCl (Paxil) 60 mg DAILY PO 08/30/21 09:00 09/13/21 18:21 DC 09/13/21 08:11 Amoxicillin/ Clavulanate Potassium (Augmentin 875/ 125mg) 1 tab BID PO 08/30/21 09:00 08/30/21 11:09 DC Lactobacillus Rhamnosus (Culturelle) 1 cap BID PO 08/30/21 09:00 08/30/21 11:09 DC Olanzapine (ZyPREXA) 5 mg PRN Q2HR PRN PO 1st choice ANXIETY / AGITATION 08/30/21 16:00 09/13/21 11:55 Gabapentin (Neurontin) 300 mg BID PO 08/30/21 21:00 09/01/21 23:50 DC 09/01/21 20:17 Gabapentin (Neurontin) 400 mg TID PO 09/02/21 09:00 08/31/21 19:41 DC Medroxyprogesterone Acetate (Provera) 15 mg DAILY PO 08/31/21 09:00 09/07/21 05:34 DC 09/06/21 08:43 Quetiapine Fumarate (SEROquel) 50 mg TID PO 08/30/21 21:00 09/01/21 14:33 DC 09/01/21 09:57 Trazodone HCl (Desyrel) 50 mg PRN Q8HRS PRN PO 3RD CHOICE ANXIETY/AGITATION 08/30/21 16:15 09/08/21 12:08 DC 09/07/21 19:24 Lorazepam (Ativan) 1 mg PRN Q1HR PRN PO 2nd choice ANXIETY / AGITATION 08/30/21 23:00 09/13/21 19:29 Bisacodyl (Dulcolax Supp) 10 mg PRN DAILY PRN AL 2ND CHOICE CONSTIPATION 08/31/21 00:30 Magnesium Citrate (Citroma) 296 ml 1X ONCE PO 08/31/21 10:45 08/31/21 10:47 DC 08/31/21 11:13 Sennosides (Senna) 8.6 mg BID PO 08/31/21 21:00 09/13/21 19:29 Gabapentin (Neurontin) 300 mg TID PO 09/02/21 09:00 09/02/21 16:19 DC 09/02/21 09:00 Quetiapine Fumarate (SEROquel) 25 mg TID PO 09/01/21 21:00 09/03/21 13:24 DC 09/03/21 09:02 Gabapentin (Neurontin) 300 mg TID PO 09/02/21 17:00 09/05/21 21:47 DC 09/05/21 20:16 Quetiapine Fumarate (SEROquel) 25 mg PRN TID PRN PO Agitation 09/03/21 13:30 09/13/21 10:14 Gabapentin (Neurontin) 600 mg DAILY PO 09/06/21 09:00 09/09/21 20:06 DC 09/09/21 07:27 Gabapentin (Neurontin) 300 mg 1400,2100 PO 09/06/21 14:00 09/09/21 20:06 DC 09/09/21 12:12 Magnesium Citrate (Citroma) 296 ml PRN 1X PRN PO CONSTIPATION 09/06/21 17:45 09/11/21 16:47 Medroxyprogesterone Acetate (Provera) 20 mg DAILY PO 09/07/21 09:00 09/13/21 08:10 Trazodone HCl (Desyrel) 100 mg PRN Q8HRS PRN PO 3RD CHOICE ANXIETY/AGITATION 09/08/21 12:15 09/10/21 20:42 Gabapentin (Neurontin) 300 mg HS PO 09/09/21 21:00 09/10/21 17:26 DC 09/09/21 21:05 Gabapentin (Neurontin) 600 mg 0900,1400 PO 09/10/21 09:00 09/10/21 17:26 DC 09/10/21 11:55 Gabapentin (Neurontin) 300 mg TID PO 09/10/21 21:00 09/10/21 17:36 DC Gabapentin (Neurontin) 600 mg TID PO 09/10/21 21:00 09/12/21 01:56 DC 09/11/21 19:52 Gabapentin (Neurontin) 600 mg DAILY@1400,2100 PO 09/12/21 14:00 09/12/21 17:01 DC 09/12/21 13:33 Gabapentin (Neurontin) 900 mg DAILY PO 09/12/21 09:00 09/13/21 08:11 Gabapentin (Neurontin) 300 mg 1X ONCE PO 09/12/21 21:00 09/12/21 21:01 DC Gabapentin (Neurontin) 600 mg 1400,2100 PO 09/13/21 14:00 09/13/21 19:30 Quetiapine Fumarate (SEROquel) 50 mg TID PO 09/13/21 09:00 09/13/21 18:21 DC 09/13/21 13:26 Lorazepam (Ativan) 2 mg 1X ONCE PO 09/13/21 13:15 09/13/21 13:16 DC 09/13/21 13:27 Paroxetine HCl (Paxil) 50 mg DAILY PO 09/14/21 09:00 09/16/21 22:00 Quetiapine Fumarate (SEROquel) 100 mg TID PO 09/13/21 21:00 09/13/21 19:30 Fluvoxamine Maleate (Luvox) 25 mg DAILY PO 09/14/21 09:00 09/15/21 23:50 Fluvoxamine Maleate (Luvox) 50 mg DAILY PO 09/16/21 09:00 09/17/21 23:50 Fluvoxamine Maleate (Luvox) 75 mg DAILY PO 09/18/21 09:00 09/19/21 23:50 Fluvoxamine Maleate (Luvox) 100 mg DAILY PO 09/20/21 09:00 Paroxetine HCl (Paxil) 40 mg DAILY PO 09/17/21 09:00 09/19/21 22:00 Paroxetine HCl (Paxil) 30 mg DAILY PO 09/20/21 09:00 09/22/21 22:00 Paroxetine HCl (Paxil) 20 mg DAILY PO 09/23/21 09:00 09/25/21 22:00 Paroxetine HCl (Paxil) 10 mg DAILY PO 09/26/21 09:00 09/28/21 22:00 Current Medications Medications (Trade) Dose Ordered Sig/Susana Route PRN Reason Start Time Stop Time Status Last Admin Dose Admin Gabapentin (Neurontin) 600 mg 1400,2100 PO 09/13/21 14:00 09/13/21 19:30 Quetiapine Fumarate (SEROquel) 50 mg TID PO 09/13/21 09:00 09/13/21 18:21 DC 09/13/21 13:26 Lorazepam (Ativan) 2 mg 1X ONCE PO 09/13/21 13:15 09/13/21 13:16 DC 09/13/21 13:27 Quetiapine Fumarate (SEROquel) 100 mg TID PO 09/13/21 21:00 09/13/21 19:30 I have reviewed the current psychotropics carefully including drug interactions. Risk benefit ratio favors no change other than as noted in my dictated progress note. Diagnosis: Problems: (1) Impulse control disorder, unspecified (2) Anxiety disorder, unspecified (3) Dementia, vascular, with depression (4) Dementia, vascular, with delusions (5) Dementia in Alzheimer's disease with depression (6) Dementia in Alzheimer's disease with delusions (7) Major neurocognitive disorder (8) Frontotemporal dementia with behavioral disturbance ELIAZAR COYLE MD Sep 13, 2021 20:42
[2021-09-14] MEDS: LORazepam 1 MG TABLET PO PRN ×2 (03:38→19:13)
[2021-09-14] MEDS: OLANZapine 5 MG TABLET PO PRN (03:38)
--- NOTE | 2021-09-14 03:48 | NUR ---
Patient is asleep when approached for assessment and medications. He appears comfortable. He remains 1:1 for safety/behaviors. HS medications held. Radiology arrived a little past midnight to do KUB. Patient was cooperative with positioning. He rolled over and went right back to sleep when they were finished with his imaging. HS meds were held for several hours before being disposed of. Patient up to use the bathroom at 0320, then returned to bed. PRN Ativan and Zyprexa given at 0340 to hopefully head off patient behaviors in the morning. He has been up and down several times since getting up to use the bathroom and most likely will not return to bed. Staff is escorting him to the shower presently, he seems agreeable. Will continue to monitor.
[2021-09-14 05:37] VITALS: BP 134/77
--- NOTE | 2021-09-14 07:33 | PDOC ---
Exam Note: Castillo Note: This note is a late entry for 09/12/2021 covers elements not covered in my initial note. Subjective: The patient was seen individually in the evening of 09/12/2021 with Marisol ALLISON, discussed and reviewed the chart. The patient slept 6-1/2 hours previous night. He remains confused, very poor boundaries from others, touching, grabbing but not physically attacking anyone. He is always standing in front of the door ready to elope. Review of Systems: Ambulation impaired in wheelchair. No CV, , pulmonary, eye, ENT system symptoms on review. Reliability poor. Mental Status Exam: The patient is oriented to himself. Insight and judgment, recent and remote memory, attention and concentration, fund of knowledge is poor consistent with his diagnoses. Laboratory Data: Reviewed. Impression: Major neurocognitive disorder, frontotemporal with delusion, depression, behavioral disturbance. Anxiety disorder unspecified. Impulse control disorder unspecified. Plan: Patient continues to be quite labile in his mood. We will increase the Seroquel from 25 mg t.i.d. p.r.n. to 50 mg t.i.d. scheduled and we will hold if he is sedated. Maintain rest of the psychotropics and continue to gradually increase gabapentin. Maintain Provera. Continue Paxil but consider changing it to perhaps Luvox for his OCD symptoms. Maintain trazodone, Ativan. Assessment: Vital Signs/I&O: Vital Signs Date Time Temp Pulse Resp B/P (MAP) Pulse Ox O2 Delivery O2 Flow Rate FiO2 09/14/21 05:37 98.2 69 18 134/77 (96) 92 09/13/21 15:26 Room Air I & O 09/13/21 09/13/21 09/14/21 15:00 23:00 07:00 Intake Total 1320 ml 360 ml Balance 1320 ml 360 ml Current Medications: Meds: Current Medications Medications (Trade) Dose Ordered Sig/Susana Route PRN Reason Start Time Stop Time Status Last Admin Dose Admin Acetaminophen (Tylenol) 650 mg PRN Q6HRS PRN PO MILD PAIN / TEMP > 100.3'F 08/29/21 22:00 Multi-Ingredient Ointment (Analgesic [place]) 1 sandra PRN QID PRN TP MUSCLE PAIN 08/29/21 22:00 Al Hydroxide/Mg Hydroxide (Mylanta Plus Xs) 15 ml PRN AFTMEALHC PRN PO DYSPEPSIA 08/29/21 22:00 Magnesium Hydroxide (Milk Of Magnesia) 2,400 mg PRN QHS PRN PO 1ST CHOICE CONSTIPATION 08/29/21 22:00 09/13/21 17:01 Acetaminophen (Tylenol) 650 mg PRN Q6HRS PRN PO MILD PAIN / TEMP > 100.3'F 08/29/21 22:30 Cancel Losartan Potassium (Cozaar) 50 mg DAILY PO 08/30/21 09:00 09/13/21 08:10 Atorvastatin Calcium (Lipitor) 40 mg QHS PO 08/30/21 21:00 09/11/21 19:53 Paroxetine HCl (Paxil) 60 mg DAILY PO 08/30/21 09:00 09/13/21 18:21 DC 09/13/21 08:11 Amoxicillin/ Clavulanate Potassium (Augmentin 875/ 125mg) 1 tab BID PO 08/30/21 09:00 08/30/21 11:09 DC Lactobacillus Rhamnosus (Culturelle) 1 cap BID PO 08/30/21 09:00 08/30/21 11:09 DC Olanzapine (ZyPREXA) 5 mg PRN Q2HR PRN PO 1st choice ANXIETY / AGITATION 08/30/21 16:00 09/14/21 03:38 Gabapentin (Neurontin) 300 mg BID PO 08/30/21 21:00 09/01/21 23:50 DC 09/01/21 20:17 Gabapentin (Neurontin) 400 mg TID PO 09/02/21 09:00 08/31/21 19:41 DC Medroxyprogesterone Acetate (Provera) 15 mg DAILY PO 08/31/21 09:00 09/07/21 05:34 DC 09/06/21 08:43 Quetiapine Fumarate (SEROquel) 50 mg TID PO 08/30/21 21:00 09/01/21 14:33 DC 09/01/21 09:57 Trazodone HCl (Desyrel) 50 mg PRN Q8HRS PRN PO 3RD CHOICE ANXIETY/AGITATION 08/30/21 16:15 09/08/21 12:08 DC 09/07/21 19:24 Lorazepam (Ativan) 1 mg PRN Q1HR PRN PO 2nd choice ANXIETY / AGITATION 08/30/21 23:00 09/14/21 03:38 Bisacodyl (Dulcolax Supp) 10 mg PRN DAILY PRN AR 2ND CHOICE CONSTIPATION 08/31/21 00:30 Magnesium Citrate (Citroma) 296 ml 1X ONCE PO 08/31/21 10:45 08/31/21 10:47 DC 08/31/21 11:13 Sennosides (Senna) 8.6 mg BID PO 08/31/21 21:00 09/13/21 08:10 Gabapentin (Neurontin) 300 mg TID PO 09/02/21 09:00 09/02/21 16:19 DC 09/02/21 09:00 Quetiapine Fumarate (SEROquel) 25 mg TID PO 09/01/21 21:00 09/03/21 13:24 DC 09/03/21 09:02 Gabapentin (Neurontin) 300 mg TID PO 09/02/21 17:00 09/05/21 21:47 DC 09/05/21 20:16 Quetiapine Fumarate (SEROquel) 25 mg PRN TID PRN PO Agitation 09/03/21 13:30 09/13/21 10:14 Gabapentin (Neurontin) 600 mg DAILY PO 09/06/21 09:00 09/09/21 20:06 DC 09/09/21 07:27 Gabapentin (Neurontin) 300 mg 1400,2100 PO 09/06/21 14:00 09/09/21 20:06 DC 09/09/21 12:12 Magnesium Citrate (Citroma) 296 ml PRN 1X PRN PO CONSTIPATION 09/06/21 17:45 09/11/21 16:47 Medroxyprogesterone Acetate (Provera) 20 mg DAILY PO 09/07/21 09:00 09/13/21 08:10 Trazodone HCl (Desyrel) 100 mg PRN Q8HRS PRN PO 3RD CHOICE ANXIETY/AGITATION 09/08/21 12:15 09/10/21 20:42 Gabapentin (Neurontin) 300 mg HS PO 09/09/21 21:00 09/10/21 17:26 DC 09/09/21 21:05 Gabapentin (Neurontin) 600 mg 0900,1400 PO 09/10/21 09:00 09/10/21 17:26 DC 09/10/21 11:55 Gabapentin (Neurontin) 300 mg TID PO 09/10/21 21:00 09/10/21 17:36 DC Gabapentin (Neurontin) 600 mg TID PO 09/10/21 21:00 09/12/21 01:56 DC 09/11/21 19:52 Gabapentin (Neurontin) 600 mg DAILY@1400,2100 PO 09/12/21 14:00 09/12/21 17:01 DC 09/12/21 13:33 Gabapentin (Neurontin) 900 mg DAILY PO 09/12/21 09:00 09/13/21 08:11 Gabapentin (Neurontin) 300 mg 1X ONCE PO 09/12/21 21:00 09/12/21 21:01 DC Gabapentin (Neurontin) 600 mg 1400,2100 PO 09/13/21 14:00 09/13/21 13:27 Quetiapine Fumarate (SEROquel) 50 mg TID PO 09/13/21 09:00 09/13/21 18:21 DC 09/13/21 13:26 Lorazepam (Ativan) 2 mg 1X ONCE PO 09/13/21 13:15 09/13/21 13:16 DC 09/13/21 13:27 Paroxetine HCl (Paxil) 50 mg DAILY PO 09/14/21 09:00 09/16/21 22:00 Quetiapine Fumarate (SEROquel) 100 mg TID PO 09/13/21 21:00 Fluvoxamine Maleate (Luvox) 25 mg DAILY PO 09/14/21 09:00 09/15/21 23:50 Fluvoxamine Maleate (Luvox) 50 mg DAILY PO 09/16/21 09:00 09/17/21 23:50 Fluvoxamine Maleate (Luvox) 75 mg DAILY PO 09/18/21 09:00 09/19/21 23:50 Fluvoxamine Maleate (Luvox) 100 mg DAILY PO 09/20/21 09:00 Paroxetine HCl (Paxil) 40 mg DAILY PO 09/17/21 09:00 09/19/21 22:00 Paroxetine HCl (Paxil) 30 mg DAILY PO 09/20/21 09:00 09/22/21 22:00 Paroxetine HCl (Paxil) 20 mg DAILY PO 09/23/21 09:00 09/25/21 22:00 Paroxetine HCl (Paxil) 10 mg DAILY PO 09/26/21 09:00 09/28/21 22:00 Current Medications Medications (Trade) Dose Ordered Sig/Susana Route PRN Reason Start Time Stop Time Status Last Admin Dose Admin Gabapentin (Neurontin) 600 mg 1400,2100 PO 09/13/21 14:00 09/13/21 13:27 Quetiapine Fumarate (SEROquel) 50 mg TID PO 09/13/21 09:00 09/13/21 18:21 DC 09/13/21 13:26 Lorazepam (Ativan) 2 mg 1X ONCE PO 09/13/21 13:15 09/13/21 13:16 DC 09/13/21 13:27 I have reviewed the current psychotropics carefully including drug interactions. Risk benefit ratio favors no change other than as noted in my dictated progress note. Diagnosis: Problems: (1) Impulse control disorder, unspecified (2) Anxiety disorder, unspecified (3) Dementia, vascular, with depression (4) Dementia, vascular, with delusions (5) Dementia in Alzheimer's disease with depression (6) Dementia in Alzheimer's disease with delusions (7) Major neurocognitive disorder (8) Frontotemporal dementia with behavioral disturbance ELIAZAR COYLE MD Sep 14, 2021 07:33
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
[2021-09-14] MEDS: GABAPENTIN 300 MG CAPSULE. PO SCH ×3 (08:46→19:13)
[2021-09-14] MEDS: medroxyPROGESTERone 5 MG TABLET PO SCH (08:46)
[2021-09-14] MEDS: PARoxetine 20 MG TABLET PO SCH (08:47)
[2021-09-14] MEDS: SENNOSIDES 8.6 MG TABLET PO SCH ×2 (08:47→19:12)
[2021-09-14] MEDS: LOSARTAN 50 MG TABLET. PO SCH (08:47)
[2021-09-14] MEDS: QUEtiapine 100 MG TABLET. PO SCH ×3 (08:47→19:13)
--- NOTE | 2021-09-14 08:55 | RAD ---
EXAM: Abdomen, single view. HISTORY: Distention. Constipation COMPARISON: None. FINDINGS: Frontal views of the abdomen are obtained. There is moderate colonic gas and stool. The rec vickie is partially excluded from the [id number]. There is no evidence of small bowel obstruction. IMPRESSION: Moderate colonic gas and stool consistent with reported constipation. There is no evidenc e of small bowel obstruction. Electronically signed by: Omayra Chakraborty MD (09/14/2021 8:53 AM) [id number]
[2021-09-14] MEDS: MAGNESIUM CITRATE 296 ML SOLUTION. PO PRN (11:51)
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
[2021-09-14] MEDS: traZODone 50 MG TABLET. PO PRN (19:13)
[2021-09-14] MEDS: ATORVASTATIN CALCIUM 20 MG TABLET PO SCH (19:13)
--- NOTE | 2021-09-14 20:20 | PDOC ---
Exam Note: Castillo Note: Please also refer to the separate dictated note~for this date of service dictated separately.~Patient seen individually. Discussed the patient with Nursing staff reviewed the chart.~Reviewed interim history and current functioning. Reviewed vital signs,~Labs/ Radiology~and current medications noted below. Continue current treatment with the changes noted in the dictated addendum note Assessment: Vital Signs/I&O: Vital Signs Date Time Temp Pulse Resp B/P (MAP) Pulse Ox O2 Delivery O2 Flow Rate FiO2 09/14/21 08:47 69 134/77 09/14/21 05:37 98.2 18 92 09/13/21 15:26 Room Air I & O 09/13/21 09/13/21 09/14/21 15:00 23:00 07:00 Intake Total 1320 ml 360 ml Balance 1320 ml 360 ml Current Medications: Meds: Current Medications Medications (Trade) Dose Ordered Sig/Susana Route PRN Reason Start Time Stop Time Status Last Admin Dose Admin Acetaminophen (Tylenol) 650 mg PRN Q6HRS PRN PO MILD PAIN / TEMP > 100.3'F 08/29/21 22:00 Multi-Ingredient Ointment (Analgesic [place]) 1 sandra PRN QID PRN TP MUSCLE PAIN 08/29/21 22:00 Al Hydroxide/Mg Hydroxide (Mylanta Plus Xs) 15 ml PRN AFTMEALHC PRN PO DYSPEPSIA 08/29/21 22:00 Magnesium Hydroxide (Milk Of Magnesia) 2,400 mg PRN QHS PRN PO 1ST CHOICE CONSTIPATION 08/29/21 22:00 09/13/21 17:01 Acetaminophen (Tylenol) 650 mg PRN Q6HRS PRN PO MILD PAIN / TEMP > 100.3'F 08/29/21 22:30 Cancel Losartan Potassium (Cozaar) 50 mg DAILY PO 08/30/21 09:00 09/14/21 08:47 Atorvastatin Calcium (Lipitor) 40 mg QHS PO 08/30/21 21:00 09/14/21 19:13 Paroxetine HCl (Paxil) 60 mg DAILY PO 08/30/21 09:00 09/13/21 18:21 DC 09/13/21 08:11 Amoxicillin/ Clavulanate Potassium (Augmentin 875/ 125mg) 1 tab BID PO 08/30/21 09:00 08/30/21 11:09 DC Lactobacillus Rhamnosus (Culturelle) 1 cap BID PO 08/30/21 09:00 08/30/21 11:09 DC Olanzapine (ZyPREXA) 5 mg PRN Q2HR PRN PO 1st choice ANXIETY / AGITATION 08/30/21 16:00 09/14/21 03:38 Gabapentin (Neurontin) 300 mg BID PO 08/30/21 21:00 09/01/21 23:50 DC 09/01/21 20:17 Gabapentin (Neurontin) 400 mg TID PO 09/02/21 09:00 08/31/21 19:41 DC Medroxyprogesterone Acetate (Provera) 15 mg DAILY PO 08/31/21 09:00 09/07/21 05:34 DC 09/06/21 08:43 Quetiapine Fumarate (SEROquel) 50 mg TID PO 08/30/21 21:00 09/01/21 14:33 DC 09/01/21 09:57 Trazodone HCl (Desyrel) 50 mg PRN Q8HRS PRN PO 3RD CHOICE ANXIETY/AGITATION 08/30/21 16:15 09/08/21 12:08 DC 09/07/21 19:24 Lorazepam (Ativan) 1 mg PRN Q1HR PRN PO 2nd choice ANXIETY / AGITATION 08/30/21 23:00 09/14/21 19:13 Bisacodyl (Dulcolax Supp) 10 mg PRN DAILY PRN [place] 2ND CHOICE CONSTIPATION 08/31/21 00:30 Magnesium Citrate (Citroma) 296 ml 1X ONCE PO 08/31/21 10:45 08/31/21 10:47 DC 08/31/21 11:13 Sennosides (Senna) 8.6 mg BID PO 08/31/21 21:00 09/14/21 19:12 Gabapentin (Neurontin) 300 mg TID PO 09/02/21 09:00 09/02/21 16:19 DC 09/02/21 09:00 Quetiapine Fumarate (SEROquel) 25 mg TID PO 09/01/21 21:00 09/03/21 13:24 DC 09/03/21 09:02 Gabapentin (Neurontin) 300 mg TID PO 09/02/21 17:00 09/05/21 21:47 DC 09/05/21 20:16 Quetiapine Fumarate (SEROquel) 25 mg PRN TID PRN PO Agitation 09/03/21 13:30 09/13/21 10:14 Gabapentin (Neurontin) 600 mg DAILY PO 09/06/21 09:00 09/09/21 20:06 DC 09/09/21 07:27 Gabapentin (Neurontin) 300 mg 1400,2100 PO 09/06/21 14:00 09/09/21 20:06 DC 09/09/21 12:12 Magnesium Citrate (Citroma) 296 ml PRN 1X PRN PO CONSTIPATION 09/06/21 17:45 09/11/21 16:47 Medroxyprogesterone Acetate (Provera) 20 mg DAILY PO 09/07/21 09:00 09/14/21 08:46 Trazodone HCl (Desyrel) 100 mg PRN Q8HRS PRN PO 3RD CHOICE ANXIETY/AGITATION 09/08/21 12:15 09/14/21 19:13 Gabapentin (Neurontin) 300 mg HS PO 09/09/21 21:00 09/10/21 17:26 DC 09/09/21 21:05 Gabapentin (Neurontin) 600 mg 0900,1400 PO 09/10/21 09:00 09/10/21 17:26 DC 09/10/21 11:55 Gabapentin (Neurontin) 300 mg TID PO 09/10/21 21:00 09/10/21 17:36 DC Gabapentin (Neurontin) 600 mg TID PO 09/10/21 21:00 09/12/21 01:56 DC 09/11/21 19:52 Gabapentin (Neurontin) 600 mg DAILY@1400,2100 PO 09/12/21 14:00 09/12/21 17:01 DC 09/12/21 13:33 Gabapentin (Neurontin) 900 mg DAILY PO 09/12/21 09:00 09/14/21 08:46 Gabapentin (Neurontin) 300 mg 1X ONCE PO 09/12/21 21:00 09/12/21 21:01 DC Gabapentin (Neurontin) 600 mg 1400,2100 PO 09/13/21 14:00 09/14/21 19:13 Quetiapine Fumarate (SEROquel) 50 mg TID PO 09/13/21 09:00 09/13/21 18:21 DC 09/13/21 13:26 Lorazepam (Ativan) 2 mg 1X ONCE PO 09/13/21 13:15 09/14/21 09:42 DC 09/13/21 13:27 Paroxetine HCl (Paxil) 50 mg DAILY PO 09/14/21 09:00 09/16/21 22:00 09/14/21 08:47 Quetiapine Fumarate (SEROquel) 100 mg TID PO 09/13/21 21:00 09/14/21 19:13 Fluvoxamine Maleate (Luvox) 25 mg DAILY PO 09/14/21 09:00 09/15/21 23:50 09/14/21 08:47 Fluvoxamine Maleate (Luvox) 50 mg DAILY PO 09/16/21 09:00 09/17/21 23:50 Fluvoxamine Maleate (Luvox) 75 mg DAILY PO 09/18/21 09:00 09/19/21 23:50 Fluvoxamine Maleate (Luvox) 100 mg DAILY PO 09/20/21 09:00 Paroxetine HCl (Paxil) 40 mg DAILY PO 09/17/21 09:00 09/19/21 22:00 Paroxetine HCl (Paxil) 30 mg DAILY PO 09/20/21 09:00 09/22/21 22:00 Paroxetine HCl (Paxil) 20 mg DAILY PO 09/23/21 09:00 09/25/21 22:00 Paroxetine HCl (Paxil) 10 mg DAILY PO 09/26/21 09:00 09/28/21 22:00 Magnesium Citrate (Citroma) 296 ml PRN DAILY PRN PO CONSTIPATION 09/14/21 09:45 09/14/21 11:51 Current Medications Medications (Trade) Dose Ordered Sig/Susana Route PRN Reason Start Time Stop Time Status Last Admin Dose Admin Paroxetine HCl (Paxil) 50 mg DAILY PO 09/14/21 09:00 09/16/21 22:00 09/14/21 08:47 Quetiapine Fumarate (SEROquel) 100 mg TID PO 09/13/21 21:00 09/14/21 19:13 Fluvoxamine Maleate (Luvox) 25 mg DAILY PO 09/14/21 09:00 09/15/21 23:50 09/14/21 08:47 Magnesium Citrate (Citroma) 296 ml PRN DAILY PRN PO CONSTIPATION 09/14/21 09:45 09/14/21 11:51 I have reviewed the current psychotropics carefully including drug interactions. Risk benefit ratio favors no change other than as noted in my dictated progress note. Diagnosis: Problems: (1) Impulse control disorder, unspecified (2) Anxiety disorder, unspecified (3) Dementia, vascular, with depression (4) Dementia, vascular, with delusions (5) Dementia in Alzheimer's disease with depression (6) Dementia in Alzheimer's disease with delusions (7) Major neurocognitive disorder (8) Frontotemporal dementia with behavioral disturbance ELIAZAR COYLE MD Sep 14, 2021 20:20
--- NOTE | 2021-09-14 23:59 | NUR ---
Patient is in the day room on assumption of care. He is disorganized, impulsive, intrusive. He continues to be restless and exit seeking, but less so than the previous shift. He was compliant with assessments and took his medications crushed in chocolate pudding. Cooperative with HS care. Patient does not appear to be experiencing any pain or discomfort and is sleeping comfortably at present time. Staff member remains 1:1 due to patient behaviors/safety. Will continue to monitor.
[2021-09-15 06:05] VITALS: BP 149/88
--- NOTE | 2021-09-15 06:53 | PDOC ---
Exam Note: Castillo Note: This note is a late entry for 09/14/2021 covers elements not covered in my initial note. Subjective: The patient was seen individually in the evening of 09/14/2021 with Brian ALLISON, discussed and reviewed the chart. The patient slept 7-1/2 hours previous night. He remains exit seeking. I met with him in the dayroom and as I was entering the door he was trying to walk out of the unit but I was able to redirect him. I distracted him by looking outside the window at the lights and he seems interested. Per nursing report, he is demanding to leave, at times feels his Marlen is downstairs. He frequently resets the oxygen canister for one of the other patients, trying to grab at the badges of the nursing staff so that he can leave the unit but this is less than yesterday. His h.s. medications were held by the nursing staff due to sedation. He did receive Zyprexa and Ativan p.r.n. at 3.40 a.m. KUB x-ray shows stool and air and he has received another magnesium citrate. He may use the Enema tomorrow. Review of Systems: No CV, , pulmonary, eye, ENT system symptoms on review. Mental Status Exam: The patient is oriented to himself. Insight and judgment, recent and remote memory, attention and concentration, fund of knowledge is poor consistent with his diagnoses. Laboratory Data: Reviewed. Impression: Major neurocognitive disorder, frontotemporal with delusion, depression, behavioral disturbance. Anxiety disorder unspecified. Impulse control disorder unspecified. Plan: We have just increased the Seroquel yesterday and the day before doubling each time to try and help control his mood lability, anxiety, and impulse control. Continue rest psychotropics unchanged per initial note. Paxil is being tapered and we have started Luvox for his OCD symptoms. Assessment: Vital Signs/I&O: Vital Signs Date Time Temp Pulse Resp B/P (MAP) Pulse Ox O2 Delivery O2 Flow Rate FiO2 09/15/21 06:05 97.5 64 18 149/88 (108) 97 09/13/21 15:26 Room Air I & O 09/14/21 09/14/21 09/15/21 15:00 23:00 07:00 Intake Total 960 ml 860 ml Balance 960 ml 860 ml Current Medications: Meds: Current Medications Medications (Trade) Dose Ordered Sig/Susana Route PRN Reason Start Time Stop Time Status Last Admin Dose Admin Paroxetine HCl (Paxil) 50 mg DAILY PO 09/14/21 09:00 09/16/21 22:00 09/14/21 08:47 Fluvoxamine Maleate (Luvox) 25 mg DAILY PO 09/14/21 09:00 09/15/21 23:50 09/14/21 08:47 Magnesium Citrate (Citroma) 296 ml PRN DAILY PRN PO CONSTIPATION 09/14/21 09:45 09/14/21 11:51 I have reviewed the current psychotropics carefully including drug interactions. Risk benefit ratio favors no change other than as noted in my dictated progress note. Diagnosis: Problems: (1) Impulse control disorder, unspecified (2) Anxiety disorder, unspecified (3) Dementia, vascular, with depression (4) Dementia, vascular, with delusions (5) Dementia in Alzheimer's disease with depression (6) Dementia in Alzheimer's disease with delusions (7) Major neurocognitive disorder (8) Frontotemporal dementia with behavioral disturbance ELIAZAR COYLE MD Sep 15, 2021 06:53
[2021-09-15] MEDS: GABAPENTIN 300 MG CAPSULE. PO SCH ×3 (08:16→19:24)
[2021-09-15] MEDS: QUEtiapine 100 MG TABLET. PO SCH ×3 (08:17→19:24)
[2021-09-15] MEDS: PARoxetine 20 MG TABLET PO SCH (08:18)
[2021-09-15] MEDS: SENNOSIDES 8.6 MG TABLET PO SCH ×2 (08:18→19:24)
[2021-09-15] MEDS: LOSARTAN 50 MG TABLET. PO SCH (08:19)
[2021-09-15] MEDS: medroxyPROGESTERone 5 MG TABLET PO SCH (08:19)
[2021-09-15] MEDS: POLYETHYLENE GLYCOL 3350 17 GM PACKET. PO SCH (08:21)
--- NOTE | 2021-09-15 12:08 | NUR ---
Treatment team update: Pt Marlen participated in treatment team via phone. Pt appears to be a little less restless and more redirectable than upon admission. Pt does continue to exit-seeking looking for his Marlen and attempts to get through doors when staff opens them. Pt does have a slower response time, which does help when redirecting pt. Pt has periods of lucidity in that he can recall names of people in his family, television shows and participate in some group activity. Pt has attended four groups with minimal to moderate engagement; however, does need constant redirection for boundaries and attempts to leave the group room. SW and pt will continue to work on placement options, as well as continue to work with pt insurance on continued review.
--- NOTE | 2021-09-15 12:47 | NUR ---
WEEKLY ACTIVITY THERAPY NOTE Date of Admission:08/29/21 Date of AT Assessment: 09/01/21 Precipitating behaviors that initiated intake and admission:Frontotemporal dementia and associated behaviors Goal aimed: increase relaxation skills and establish boundaries. Initial Goal: Pt will participate in at least three Activity Therapy sessions before discharge. Weekly progress towards goal: on track (09/03-songs and states) Group participation level: achieved, / Weekly highlights: 1 min, 3 mod, 1 full Behaviors observed: more redirectable, continues to try an exit day room and remains interested in staff badges, turned up radio volume and peers oxygen concentrator, direct and constant prompting helps pt remain engaged, more distracted with miguel angel and music Plan: change goal to: Pt will participate in at least three Activity Therapy sessions per week. Beneficial adaptations: constant and direct prompting
--- NOTE | 2021-09-15 12:53 | NUR ---
ZACH emailed Marlen pt medication list and noted that pt insurance has approved pt until 09/18 with an update on 09/19. ZACH will follow up with Marlen at a later time.
--- NOTE | 2021-09-15 12:54 | NUR ---
ZACH returned call to Danny at [facility] and left him a message to contact ZACH when possible re: his requested update on pt.
--- NOTE | 2021-09-15 12:56 | NUR ---
ZACH received call from Danny who wanted to clarify his last understanding that pt qualified for hospice. ZACH explained that while pt had pneumonia, they are not considering him as aspiration pneumonia which was the hospice criteria for admission. Therefore, with his continued behavior and being treated for pneumonia, pt was sent back upstairs. ZACH informed Danny that referrals are being sent but there are multiple places that have denied pt as he is noted to be a 1:1 and having behaviors that they considered not appropriate or safe for other residents. Danny will continue to follow up with ZACH on pt care later this week.
--- NOTE | 2021-09-15 13:31 | NUR ---
RN Day Shift Note: Pt presents with neutral mood/affect. Pt continues to be exit seeking at exit doors, looking through the cracks of the door in anticipation of staff opening the door. Pt still is intrusive with trying to push wheelchairs and interacting with other peers. Pt is noted to have slight improvement in being compliant when being redirected by staff. Pt was focused eating his breakfast this morning and continues to have a good appetite. Pt spends most of his time in the day room. Pt will engage in watching tv at various times during the day. Pts slept 7.25 hours last night. Pt had a bowel movement this morning. Will continue to monitor.
--- NOTE | 2021-09-15 14:00 | NUR ---
Patient is more intrusive with other patients, restless, and exit seeking at this time. He has repeatedly grabbed other patients despite being told to leave them alone, he appears to enjoy making a particular patient anxious by standing over him. He is also grabbing staff and pulling them towards the door and trying to get staff to let him out of the day room. He repeatedly has stated that his is downstairs to pick him up and dismisses staff when they tell him that his is still in [place]. Provided patient with scheduled and prn medications; informed primary nurse of patient's actions.
[2021-09-15] MEDS: LORazepam 1 MG TABLET PO PRN (14:11)
[2021-09-15] MEDS: QUEtiapine 25 MG TABLET. PO PRN (14:11)
[2021-09-15 15:27] VITALS: BP 93/60
--- NOTE | 2021-09-15 17:05 | NUR ---
ZACH returned call to Marlen re: her concerns about pt and wanted to hear outright ZACH thoughts. ZACH informed Marlen that with pt behaviors noted as is, it would be difficult to place pt. ZACH plans to send out a significant amount of referrals for placement with no location in mind. Marlen is open minded and realizes that the facility that accepts him may be hours away from her and the kids. ZACH informed Marlen that at some point the insurance company will stop approving days based on no changes with pt behaviors or state that pt is at a baseline and days may not be authorized. Marlen is mentally trying to prepare for pt to return home and will look at options for care, which are scarce considering [place]. Marlen and ZACH will plan to touch base on a daily basis and discuss outcomes for placement and resources.
[2021-09-15] MEDS: ATORVASTATIN CALCIUM 20 MG TABLET PO SCH (19:24)
[2021-09-15] MEDS: OLANZapine 5 MG TABLET PO PRN (19:26)
[2021-09-15] MEDS: traZODone 50 MG TABLET. PO PRN (19:26)
--- NOTE | 2021-09-15 21:08 | PDOC ---
Exam Note: Castillo Note: Please also refer to the separate dictated note~for this date of service dictated separately.~Patient seen individually. Discussed the patient with Nursing staff reviewed the chart.~Reviewed interim history and current functioning. Reviewed vital signs,~Labs/ Radiology~and current medications noted below. Continue current treatment with the changes noted in the dictated addendum note Assessment: Vital Signs/I&O: Vital Signs Date Time Temp Pulse Resp B/P (MAP) Pulse Ox O2 Delivery O2 Flow Rate FiO2 09/15/21 15:27 97.6 63 20 93/60 (71) 95 09/13/21 15:26 Room Air I & O 09/14/21 09/14/21 09/15/21 15:00 23:00 07:00 Intake Total 960 ml 860 ml Balance 960 ml 860 ml Current Medications: Meds: Current Medications Medications (Trade) Dose Ordered Sig/Susana Route PRN Reason Start Time Stop Time Status Last Admin Dose Admin Acetaminophen (Tylenol) 650 mg PRN Q6HRS PRN PO MILD PAIN / TEMP > 100.3'F 08/29/21 22:00 Multi-Ingredient Ointment (Analgesic [place]) 1 sandra PRN QID PRN TP MUSCLE PAIN 08/29/21 22:00 Al Hydroxide/Mg Hydroxide (Mylanta Plus Xs) 15 ml PRN AFTMEALHC PRN PO DYSPEPSIA 08/29/21 22:00 Magnesium Hydroxide (Milk Of Magnesia) 2,400 mg PRN QHS PRN PO 1ST CHOICE CONSTIPATION 08/29/21 22:00 09/13/21 17:01 Acetaminophen (Tylenol) 650 mg PRN Q6HRS PRN PO MILD PAIN / TEMP > 100.3'F 08/29/21 22:30 Cancel Losartan Potassium (Cozaar) 50 mg DAILY PO 08/30/21 09:00 09/15/21 08:19 Atorvastatin Calcium (Lipitor) 40 mg QHS PO 08/30/21 21:00 09/15/21 19:24 Paroxetine HCl (Paxil) 60 mg DAILY PO 08/30/21 09:00 09/13/21 18:21 DC 09/13/21 08:11 Amoxicillin/ Clavulanate Potassium (Augmentin 875/ 125mg) 1 tab BID PO 08/30/21 09:00 08/30/21 11:09 DC Lactobacillus Rhamnosus (Culturelle) 1 cap BID PO 08/30/21 09:00 08/30/21 11:09 DC Olanzapine (ZyPREXA) 5 mg PRN Q2HR PRN PO 1st choice ANXIETY / AGITATION 08/30/21 16:00 09/15/21 19:26 Gabapentin (Neurontin) 300 mg BID PO 08/30/21 21:00 09/01/21 23:50 DC 09/01/21 20:17 Gabapentin (Neurontin) 400 mg TID PO 09/02/21 09:00 08/31/21 19:41 DC Medroxyprogesterone Acetate (Provera) 15 mg DAILY PO 08/31/21 09:00 09/07/21 05:34 DC 09/06/21 08:43 Quetiapine Fumarate (SEROquel) 50 mg TID PO 08/30/21 21:00 09/01/21 14:33 DC 09/01/21 09:57 Trazodone HCl (Desyrel) 50 mg PRN Q8HRS PRN PO 3RD CHOICE ANXIETY/AGITATION 08/30/21 16:15 09/08/21 12:08 DC 09/07/21 19:24 Lorazepam (Ativan) 1 mg PRN Q1HR PRN PO 2nd choice ANXIETY / AGITATION 08/30/21 23:00 09/15/21 14:11 Bisacodyl (Dulcolax Supp) 10 mg PRN DAILY PRN [place] 2ND CHOICE CONSTIPATION 08/31/21 00:30 Magnesium Citrate (Citroma) 296 ml 1X ONCE PO 08/31/21 10:45 08/31/21 10:47 DC 08/31/21 11:13 Sennosides (Senna) 8.6 mg BID PO 08/31/21 21:00 09/15/21 19:24 Gabapentin (Neurontin) 300 mg TID PO 09/02/21 09:00 09/02/21 16:19 DC 09/02/21 09:00 Quetiapine Fumarate (SEROquel) 25 mg TID PO 09/01/21 21:00 09/03/21 13:24 DC 09/03/21 09:02 Gabapentin (Neurontin) 300 mg TID PO 09/02/21 17:00 09/05/21 21:47 DC 09/05/21 20:16 Quetiapine Fumarate (SEROquel) 25 mg PRN TID PRN PO Agitation 09/03/21 13:30 09/15/21 14:11 Gabapentin (Neurontin) 600 mg DAILY PO 09/06/21 09:00 09/09/21 20:06 DC 09/09/21 07:27 Gabapentin (Neurontin) 300 mg 1400,2100 PO 09/06/21 14:00 09/09/21 20:06 DC 09/09/21 12:12 Magnesium Citrate (Citroma) 296 ml PRN 1X PRN PO CONSTIPATION 09/06/21 17:45 09/11/21 16:47 Medroxyprogesterone Acetate (Provera) 20 mg DAILY PO 09/07/21 09:00 09/15/21 08:19 Trazodone HCl (Desyrel) 100 mg PRN Q8HRS PRN PO 3RD CHOICE ANXIETY/AGITATION 09/08/21 12:15 09/15/21 19:26 Gabapentin (Neurontin) 300 mg HS PO 09/09/21 21:00 09/10/21 17:26 DC 09/09/21 21:05 Gabapentin (Neurontin) 600 mg 0900,1400 PO 09/10/21 09:00 09/10/21 17:26 DC 09/10/21 11:55 Gabapentin (Neurontin) 300 mg TID PO 09/10/21 21:00 09/10/21 17:36 DC Gabapentin (Neurontin) 600 mg TID PO 09/10/21 21:00 09/12/21 01:56 DC 09/11/21 19:52 Gabapentin (Neurontin) 600 mg DAILY@1400,2100 PO 09/12/21 14:00 09/12/21 17:01 DC 09/12/21 13:33 Gabapentin (Neurontin) 900 mg DAILY PO 09/12/21 09:00 09/15/21 08:16 Gabapentin (Neurontin) 300 mg 1X ONCE PO 09/12/21 21:00 09/12/21 21:01 DC Gabapentin (Neurontin) 600 mg 1400,2100 PO 09/13/21 14:00 09/15/21 19:24 Quetiapine Fumarate (SEROquel) 50 mg TID PO 09/13/21 09:00 09/13/21 18:21 DC 09/13/21 13:26 Lorazepam (Ativan) 2 mg 1X ONCE PO 09/13/21 13:15 09/14/21 09:42 DC 09/13/21 13:27 Paroxetine HCl (Paxil) 50 mg DAILY PO 09/14/21 09:00 09/16/21 22:00 09/15/21 08:18 Quetiapine Fumarate (SEROquel) 100 mg TID PO 09/13/21 21:00 09/15/21 19:24 Fluvoxamine Maleate (Luvox) 25 mg DAILY PO 09/14/21 09:00 09/15/21 23:50 09/15/21 08:17 Fluvoxamine Maleate (Luvox) 50 mg DAILY PO 09/16/21 09:00 09/17/21 23:50 Fluvoxamine Maleate (Luvox) 75 mg DAILY PO 09/18/21 09:00 09/19/21 23:50 Fluvoxamine Maleate (Luvox) 100 mg DAILY PO 09/20/21 09:00 Paroxetine HCl (Paxil) 40 mg DAILY PO 09/17/21 09:00 09/19/21 22:00 Paroxetine HCl (Paxil) 30 mg DAILY PO 09/20/21 09:00 09/22/21 22:00 Paroxetine HCl (Paxil) 20 mg DAILY PO 09/23/21 09:00 09/25/21 22:00 Paroxetine HCl (Paxil) 10 mg DAILY PO 09/26/21 09:00 09/28/21 22:00 Magnesium Citrate (Citroma) 296 ml PRN DAILY PRN PO CONSTIPATION 09/14/21 09:45 09/14/21 11:51 Polyethylene Glycol (miraLAX) 17 gm DAILY PO 09/15/21 09:00 09/15/21 08:21 Current Medications Medications (Trade) Dose Ordered Sig/Susana Route PRN Reason Start Time Stop Time Status Last Admin Dose Admin Polyethylene Glycol (miraLAX) 17 gm DAILY PO 09/15/21 09:00 09/15/21 08:21 I have reviewed the current psychotropics carefully including drug interactions. Risk benefit ratio favors no change other than as noted in my dictated progress note. Diagnosis: Problems: (1) Impulse control disorder, unspecified (2) Anxiety disorder, unspecified (3) Dementia, vascular, with depression (4) Dementia, vascular, with delusions (5) Dementia in Alzheimer's disease with depression (6) Dementia in Alzheimer's disease with delusions (7) Major neurocognitive disorder (8) Frontotemporal dementia with behavioral disturbance ELIAZAR COYLE MD Sep 15, 2021 21:08
--- NOTE | 2021-09-15 21:56 | NUR ---
Pt continues to be a 1:1. Pt is wandering, restless and exit seeking. Pt approaches staff and attempts to take their name badge off. Pt very intrusive with other pts, attempting to push them in their wheelchair, etc. No agitation or combativeness this evening. Compliant with crushed medications. Pt currently sleeping with 1:1 at bedside.
[2021-09-16 06:25] VITALS: BP 103/67
[2021-09-16] MEDS: QUEtiapine 100 MG TABLET. PO SCH ×3 (09:17→19:58)
[2021-09-16] MEDS: GABAPENTIN 300 MG CAPSULE. PO SCH ×3 (09:17→19:57)
[2021-09-16] MEDS: medroxyPROGESTERone 5 MG TABLET PO SCH (09:17)
[2021-09-16] MEDS: PARoxetine 20 MG TABLET PO SCH (09:18)
[2021-09-16] MEDS: SENNOSIDES 8.6 MG TABLET PO SCH ×2 (09:18→19:58)
[2021-09-16] MEDS: LOSARTAN 50 MG TABLET. PO SCH (09:19)
[2021-09-16] MEDS: POLYETHYLENE GLYCOL 3350 17 GM PACKET. PO SCH (09:19)
--- NOTE | 2021-09-16 09:26 | NUR ---
ZACH spoke with Ivet at [facility]. They will have a bed opening this week and questioned if pt was still needing placement. Ivet reports speaking to pt and noted that if they accept she will have to do Wednesday so this weekend she would be able to come down and complete paperwork and bring items for him. ZACH has a review on and will be able to notify them of this plan for discharge planning purposes. Ivet asked that ZACH send over notes for them to review. The last notes they had for pt was from his stay at the hospital in [place]. Ivet will be out this morning to an appt but will be back this afternoon if she has any questions or concerns re: pt.
--- NOTE | 2021-09-16 10:27 | NUR ---
ZACH received call from Marlen to discuss the phone call she had with Ivet at [facility] and noted that "miracles do happen". ZACH and Marlen compared notes on their conversations with Ivet and both felt that they are accepting pt. ZACH did send out further referrals for pt as a "just in case" they attempt to back out of taking pt. Marlen noted that she call this morning and the grandkids got to speak to him. She noted that he sounded really good and in moments like this she doubts her decision to have him placed. ZACH explained to Marlen that he will have good and bad moments. While the good moments are what we like to see, it does not excuse the bad moments. Marlen agreed and noted that it was just a hard decision to make but knows it's the right decision for all parties involved. Marlen and ZACH will plan to touch base tomorrow and make sure that the discharge plans continues as noted for pt to discharge to [facility].
--- NOTE | 2021-09-16 13:30 | NUR ---
Nursing note: Pt in day room at time of AM med pass and assessment. He is pleasant, compliant with meds whole this AM and cooperative with assessment. He continues to be restless and asking staff to use their badges to open the door for him, though he has been a lot better about not reaching for the badges and has not been touching staff inappropriately. He is much more redirectable than he has previously. He is currently sitting in the day room watching TV. Will continue to monitor.
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
[2021-09-16 15:52] VITALS: BP 124/80
[2021-09-16] MEDS: OLANZapine 5 MG TABLET PO PRN (17:04)
[2021-09-16] MEDS: traZODone 50 MG TABLET. PO PRN (19:57)
[2021-09-16] MEDS: ATORVASTATIN CALCIUM 20 MG TABLET PO SCH (19:57)
[2021-09-16] MEDS: QUEtiapine 25 MG TABLET. PO PRN (19:58)
--- NOTE | 2021-09-16 20:33 | PDOC ---
Exam Note: Castillo Note: Please also refer to the separate dictated note~for this date of service dictated separately.~Patient seen individually. Discussed the patient with Nursing staff reviewed the chart.~Reviewed interim history and current functioning. Reviewed vital signs,~Labs/ Radiology~and current medications noted below. Continue current treatment with the changes noted in the dictated addendum note Assessment: Vital Signs/I&O: Vital Signs Date Time Temp Pulse Resp B/P (MAP) Pulse Ox O2 Delivery O2 Flow Rate FiO2 09/16/21 15:52 98.6 73 18 124/80 (95) 98 09/13/21 15:26 Room Air I & O 09/15/21 09/15/21 09/16/21 15:00 23:00 07:00 Intake Total 240 ml 490 ml Balance 240 ml 490 ml Current Medications: Meds: Current Medications Medications (Trade) Dose Ordered Sig/Susana Route PRN Reason Start Time Stop Time Status Last Admin Dose Admin Acetaminophen (Tylenol) 650 mg PRN Q6HRS PRN PO MILD PAIN / TEMP > 100.3'F 08/29/21 22:00 Multi-Ingredient Ointment (Analgesic [place]) 1 sandra PRN QID PRN TP MUSCLE PAIN 08/29/21 22:00 Al Hydroxide/Mg Hydroxide (Mylanta Plus Xs) 15 ml PRN AFTMEALHC PRN PO DYSPEPSIA 08/29/21 22:00 Magnesium Hydroxide (Milk Of Magnesia) 2,400 mg PRN QHS PRN PO 1ST CHOICE CONSTIPATION 08/29/21 22:00 09/13/21 17:01 Acetaminophen (Tylenol) 650 mg PRN Q6HRS PRN PO MILD PAIN / TEMP > 100.3'F 08/29/21 22:30 Cancel Losartan Potassium (Cozaar) 50 mg DAILY PO 08/30/21 09:00 09/16/21 09:19 Atorvastatin Calcium (Lipitor) 40 mg QHS PO 08/30/21 21:00 09/16/21 19:57 Paroxetine HCl (Paxil) 60 mg DAILY PO 08/30/21 09:00 09/13/21 18:21 DC 09/13/21 08:11 Amoxicillin/ Clavulanate Potassium (Augmentin 875/ 125mg) 1 tab BID PO 08/30/21 09:00 08/30/21 11:09 DC Lactobacillus Rhamnosus (Culturelle) 1 cap BID PO 08/30/21 09:00 08/30/21 11:09 DC Olanzapine (ZyPREXA) 5 mg PRN Q2HR PRN PO 1st choice ANXIETY / AGITATION 08/30/21 16:00 09/16/21 17:04 Gabapentin (Neurontin) 300 mg BID PO 08/30/21 21:00 09/01/21 23:50 DC 09/01/21 20:17 Gabapentin (Neurontin) 400 mg TID PO 09/02/21 09:00 08/31/21 19:41 DC Medroxyprogesterone Acetate (Provera) 15 mg DAILY PO 08/31/21 09:00 09/07/21 05:34 DC 09/06/21 08:43 Quetiapine Fumarate (SEROquel) 50 mg TID PO 08/30/21 21:00 09/01/21 14:33 DC 09/01/21 09:57 Trazodone HCl (Desyrel) 50 mg PRN Q8HRS PRN PO 3RD CHOICE ANXIETY/AGITATION 08/30/21 16:15 09/08/21 12:08 DC 09/07/21 19:24 Lorazepam (Ativan) 1 mg PRN Q1HR PRN PO 2nd choice ANXIETY / AGITATION 08/30/21 23:00 09/15/21 14:11 Bisacodyl (Dulcolax Supp) 10 mg PRN DAILY PRN [place] 2ND CHOICE CONSTIPATION 08/31/21 00:30 Magnesium Citrate (Citroma) 296 ml 1X ONCE PO 08/31/21 10:45 08/31/21 10:47 DC 08/31/21 11:13 Sennosides (Senna) 8.6 mg BID PO 08/31/21 21:00 09/16/21 19:58 Gabapentin (Neurontin) 300 mg TID PO 09/02/21 09:00 09/02/21 16:19 DC 09/02/21 09:00 Quetiapine Fumarate (SEROquel) 25 mg TID PO 09/01/21 21:00 09/03/21 13:24 DC 09/03/21 09:02 Gabapentin (Neurontin) 300 mg TID PO 09/02/21 17:00 09/05/21 21:47 DC 09/05/21 20:16 Quetiapine Fumarate (SEROquel) 25 mg PRN TID PRN PO Agitation 09/03/21 13:30 09/16/21 19:58 Gabapentin (Neurontin) 600 mg DAILY PO 09/06/21 09:00 09/09/21 20:06 DC 09/09/21 07:27 Gabapentin (Neurontin) 300 mg 1400,2100 PO 09/06/21 14:00 09/09/21 20:06 DC 09/09/21 12:12 Magnesium Citrate (Citroma) 296 ml PRN 1X PRN PO CONSTIPATION 09/06/21 17:45 09/16/21 17:15 DC 09/11/21 16:47 Medroxyprogesterone Acetate (Provera) 20 mg DAILY PO 09/07/21 09:00 09/16/21 09:17 Trazodone HCl (Desyrel) 100 mg PRN Q8HRS PRN PO 3RD CHOICE ANXIETY/AGITATION 09/08/21 12:15 09/16/21 19:57 Gabapentin (Neurontin) 300 mg HS PO 09/09/21 21:00 09/10/21 17:26 DC 09/09/21 21:05 Gabapentin (Neurontin) 600 mg 0900,1400 PO 09/10/21 09:00 09/10/21 17:26 DC 09/10/21 11:55 Gabapentin (Neurontin) 300 mg TID PO 09/10/21 21:00 09/10/21 17:36 DC Gabapentin (Neurontin) 600 mg TID PO 09/10/21 21:00 09/12/21 01:56 DC 09/11/21 19:52 Gabapentin (Neurontin) 600 mg DAILY@1400,2100 PO 09/12/21 14:00 09/12/21 17:01 DC 09/12/21 13:33 Gabapentin (Neurontin) 900 mg DAILY PO 09/12/21 09:00 09/16/21 09:17 Gabapentin (Neurontin) 300 mg 1X ONCE PO 09/12/21 21:00 09/12/21 21:01 DC Gabapentin (Neurontin) 600 mg 1400,2100 PO 09/13/21 14:00 09/16/21 19:57 Quetiapine Fumarate (SEROquel) 50 mg TID PO 09/13/21 09:00 09/13/21 18:21 DC 09/13/21 13:26 Lorazepam (Ativan) 2 mg 1X ONCE PO 09/13/21 13:15 09/14/21 09:42 DC 09/13/21 13:27 Paroxetine HCl (Paxil) 50 mg DAILY PO 09/14/21 09:00 09/16/21 22:00 09/16/21 09:18 Quetiapine Fumarate (SEROquel) 100 mg TID PO 09/13/21 21:00 09/16/21 19:53 DC 09/16/21 13:16 Fluvoxamine Maleate (Luvox) 25 mg DAILY PO 09/14/21 09:00 09/15/21 23:50 DC 09/15/21 08:17 Fluvoxamine Maleate (Luvox) 50 mg DAILY PO 09/16/21 09:00 09/17/21 23:50 09/16/21 09:19 Fluvoxamine Maleate (Luvox) 75 mg DAILY PO 09/18/21 09:00 09/19/21 23:50 Fluvoxamine Maleate (Luvox) 100 mg DAILY PO 09/20/21 09:00 Paroxetine HCl (Paxil) 40 mg DAILY PO 09/17/21 09:00 09/19/21 22:00 Paroxetine HCl (Paxil) 30 mg DAILY PO 09/20/21 09:00 09/22/21 22:00 Paroxetine HCl (Paxil) 20 mg DAILY PO 09/23/21 09:00 09/25/21 22:00 Paroxetine HCl (Paxil) 10 mg DAILY PO 09/26/21 09:00 09/28/21 22:00 Magnesium Citrate (Citroma) 296 ml PRN DAILY PRN PO 3RD CHOICE CONSTIPATION 09/14/21 09:45 09/14/21 11:51 Polyethylene Glycol (miraLAX) 17 gm DAILY PO 09/15/21 09:00 09/16/21 09:19 Quetiapine Fumarate (SEROquel) 150 mg TID PO 09/16/21 21:00 09/16/21 19:58 Current Medications Medications (Trade) Dose Ordered Sig/Susana Route PRN Reason Start Time Stop Time Status Last Admin Dose Admin Fluvoxamine Maleate (Luvox) 50 mg DAILY PO 09/16/21 09:00 09/17/21 23:50 09/16/21 09:19 Quetiapine Fumarate (SEROquel) 150 mg TID PO 09/16/21 21:00 09/16/21 19:58 I have reviewed the current psychotropics carefully including drug interactions. Risk benefit ratio favors no change other than as noted in my dictated progress note. Diagnosis: Problems: (1) Impulse control disorder, unspecified (2) Anxiety disorder, unspecified (3) Dementia, vascular, with depression (4) Dementia, vascular, with delusions (5) Dementia in Alzheimer's disease with depression (6) Dementia in Alzheimer's disease with delusions (7) Major neurocognitive disorder (8) Frontotemporal dementia with behavioral disturbance ELIAZAR COYLE MD Sep 16, 2021 20:33
--- NOTE | 2021-09-16 21:36 | NUR ---
Nursing Note Pt in hallway, trying to get into nurses station. Pulls on staff when they go into the hallway looking for badges. Takes meds crushed in pudding trazodone and zyprexa given.
[2021-09-17 05:43] VITALS: BP 114/65
--- NOTE | 2021-09-17 06:12 | PDOC ---
Exam Note: Castillo Note: This note is a late entry for 09/15/2021 covers elements not covered in my initial note. Subjective: The patient was reviewed at treatment team meeting individually in the morning on 09/15/2021 with Brittany Murray, Cary Adair, and Marielena Gonzalez (director social), [place], activity therapy, Tina Linares, Delivery Man, and Joselo ALLISON, discussed and reviewed the chart. The patient slept 7-1/4 hours previous night. Patients Marlen attended the lengthy treatment team meeting where we discussed the patients diagnoses, progress, medication changes. There is some improvement in his impulsive behaviors and disinhibition consequent to the frontotemporal dementia and some slight improvement as we have adjusted his psychotropics and recently tapering the Paxil, and starting him on Luvox for his obsessive thought processes. Appetite is fair. Average sleep is 7 hours. He is somewhat more redirectable. Attended 4 groups in the past one week. I met with the patient in the evening and discussed with Elizabeth ALLISON. Review of Systems: No CV, , pulmonary, eye, ENT system symptoms on review. Reliability poor. Mental Status Exam: The patient is oriented to himself. Insight and judgment, recent and remote memory, attention and concentration, fund of knowledge is poor consistent with his diagnoses. Laboratory Data: Reviewed. Impression: Major neurocognitive disorder, frontotemporal with delusion, depression, behavioral disturbance. Anxiety disorder unspecified. Impulse control disorder unspecified. Plan: Continue psychotropics from initial note. Adjust further as clinically indicated. Assessment: Vital Signs/I&O: Vital Signs Date Time Temp Pulse Resp B/P (MAP) Pulse Ox O2 Delivery O2 Flow Rate FiO2 09/17/21 05:43 98.0 62 18 114/65 (81) 99 09/13/21 15:26 Room Air I & O 09/16/21 09/16/21 09/17/21 15:00 23:00 07:00 Intake Total 720 ml 480 ml Balance 720 ml 480 ml Current Medications: Meds: Current Medications Medications (Trade) Dose Ordered Sig/Susana Route PRN Reason Start Time Stop Time Status Last Admin Dose Admin Acetaminophen (Tylenol) 650 mg PRN Q6HRS PRN PO MILD PAIN / TEMP > 100.3'F 08/29/21 22:00 Multi-Ingredient Ointment (Analgesic [place]) 1 sandra PRN QID PRN TP MUSCLE PAIN 08/29/21 22:00 Al Hydroxide/Mg Hydroxide (Mylanta Plus Xs) 15 ml PRN AFTMEALHC PRN PO DYSPEPSIA 08/29/21 22:00 Magnesium Hydroxide (Milk Of Magnesia) 2,400 mg PRN QHS PRN PO 1ST CHOICE CONSTIPATION 08/29/21 22:00 09/13/21 17:01 Acetaminophen (Tylenol) 650 mg PRN Q6HRS PRN PO MILD PAIN / TEMP > 100.3'F 08/29/21 22:30 Cancel Losartan Potassium (Cozaar) 50 mg DAILY PO 08/30/21 09:00 09/16/21 09:19 Atorvastatin Calcium (Lipitor) 40 mg QHS PO 08/30/21 21:00 09/16/21 19:57 Paroxetine HCl (Paxil) 60 mg DAILY PO 08/30/21 09:00 09/13/21 18:21 DC 09/13/21 08:11 Amoxicillin/ Clavulanate Potassium (Augmentin 875/ 125mg) 1 tab BID PO 08/30/21 09:00 08/30/21 11:09 DC Lactobacillus Rhamnosus (Culturelle) 1 cap BID PO 08/30/21 09:00 08/30/21 11:09 DC Olanzapine (ZyPREXA) 5 mg PRN Q2HR PRN PO 1st choice ANXIETY / AGITATION 08/30/21 16:00 09/16/21 17:04 Gabapentin (Neurontin) 300 mg BID PO 08/30/21 21:00 09/01/21 23:50 DC 09/01/21 20:17 Gabapentin (Neurontin) 400 mg TID PO 09/02/21 09:00 08/31/21 19:41 DC Medroxyprogesterone Acetate (Provera) 15 mg DAILY PO 08/31/21 09:00 09/07/21 05:34 DC 09/06/21 08:43 Quetiapine Fumarate (SEROquel) 50 mg TID PO 08/30/21 21:00 09/01/21 14:33 DC 09/01/21 09:57 Trazodone HCl (Desyrel) 50 mg PRN Q8HRS PRN PO 3RD CHOICE ANXIETY/AGITATION 08/30/21 16:15 09/08/21 12:08 DC 09/07/21 19:24 Lorazepam (Ativan) 1 mg PRN Q1HR PRN PO 2nd choice ANXIETY / AGITATION 08/30/21 23:00 09/15/21 14:11 Bisacodyl (Dulcolax Supp) 10 mg PRN DAILY PRN [place] 2ND CHOICE CONSTIPATION 08/31/21 00:30 Magnesium Citrate (Citroma) 296 ml 1X ONCE PO 08/31/21 10:45 08/31/21 10:47 DC 08/31/21 11:13 Sennosides (Senna) 8.6 mg BID PO 08/31/21 21:00 09/16/21 19:58 Gabapentin (Neurontin) 300 mg TID PO 09/02/21 09:00 09/02/21 16:19 DC 09/02/21 09:00 Quetiapine Fumarate (SEROquel) 25 mg TID PO 09/01/21 21:00 09/03/21 13:24 DC 09/03/21 09:02 Gabapentin (Neurontin) 300 mg TID PO 09/02/21 17:00 09/05/21 21:47 DC 09/05/21 20:16 Quetiapine Fumarate (SEROquel) 25 mg PRN TID PRN PO Agitation 09/03/21 13:30 09/16/21 19:58 Gabapentin (Neurontin) 600 mg DAILY PO 09/06/21 09:00 09/09/21 20:06 DC 09/09/21 07:27 Gabapentin (Neurontin) 300 mg 1400,2100 PO 09/06/21 14:00 09/09/21 20:06 DC 09/09/21 12:12 Magnesium Citrate (Citroma) 296 ml PRN 1X PRN PO CONSTIPATION 09/06/21 17:45 09/16/21 17:15 DC 09/11/21 16:47 Medroxyprogesterone Acetate (Provera) 20 mg DAILY PO 09/07/21 09:00 09/16/21 09:17 Trazodone HCl (Desyrel) 100 mg PRN Q8HRS PRN PO 3RD CHOICE ANXIETY/AGITATION 09/08/21 12:15 09/16/21 19:57 Gabapentin (Neurontin) 300 mg HS PO 09/09/21 21:00 09/10/21 17:26 DC 09/09/21 21:05 Gabapentin (Neurontin) 600 mg 0900,1400 PO 09/10/21 09:00 09/10/21 17:26 DC 09/10/21 11:55 Gabapentin (Neurontin) 300 mg TID PO 09/10/21 21:00 09/10/21 17:36 DC Gabapentin (Neurontin) 600 mg TID PO 09/10/21 21:00 09/12/21 01:56 DC 09/11/21 19:52 Gabapentin (Neurontin) 600 mg DAILY@1400,2100 PO 09/12/21 14:00 09/12/21 17:01 DC 09/12/21 13:33 Gabapentin (Neurontin) 900 mg DAILY PO 09/12/21 09:00 09/16/21 09:17 Gabapentin (Neurontin) 300 mg 1X ONCE PO 09/12/21 21:00 09/12/21 21:01 DC Gabapentin (Neurontin) 600 mg 1400,2100 PO 09/13/21 14:00 09/16/21 19:57 Quetiapine Fumarate (SEROquel) 50 mg TID PO 09/13/21 09:00 09/13/21 18:21 DC 09/13/21 13:26 Lorazepam (Ativan) 2 mg 1X ONCE PO 09/13/21 13:15 09/14/21 09:42 DC 09/13/21 13:27 Paroxetine HCl (Paxil) 50 mg DAILY PO 09/14/21 09:00 09/16/21 22:00 DC 09/16/21 09:18 Quetiapine Fumarate (SEROquel) 100 mg TID PO 09/13/21 21:00 09/16/21 19:53 DC 09/16/21 13:16 Fluvoxamine Maleate (Luvox) 25 mg DAILY PO 09/14/21 09:00 09/15/21 23:50 DC 09/15/21 08:17 Fluvoxamine Maleate (Luvox) 50 mg DAILY PO 09/16/21 09:00 09/17/21 23:50 09/16/21 09:19 Fluvoxamine Maleate (Luvox) 75 mg DAILY PO 09/18/21 09:00 09/19/21 23:50 Fluvoxamine Maleate (Luvox) 100 mg DAILY PO 09/20/21 09:00 Paroxetine HCl (Paxil) 40 mg DAILY PO 09/17/21 09:00 09/19/21 22:00 Paroxetine HCl (Paxil) 30 mg DAILY PO 09/20/21 09:00 09/22/21 22:00 Paroxetine HCl (Paxil) 20 mg DAILY PO 09/23/21 09:00 09/25/21 22:00 Paroxetine HCl (Paxil) 10 mg DAILY PO 09/26/21 09:00 09/28/21 22:00 Magnesium Citrate (Citroma) 296 ml PRN DAILY PRN PO 3RD CHOICE CONSTIPATION 09/14/21 09:45 09/14/21 11:51 Polyethylene Glycol (miraLAX) 17 gm DAILY PO 09/15/21 09:00 09/16/21 09:19 Quetiapine Fumarate (SEROquel) 150 mg TID PO 09/16/21 21:00 09/16/21 19:58 Current Medications Medications (Trade) Dose Ordered Sig/Susana Route PRN Reason Start Time Stop Time Status Last Admin Dose Admin Fluvoxamine Maleate (Luvox) 50 mg DAILY PO 09/16/21 09:00 09/17/21 23:50 09/16/21 09:19 Quetiapine Fumarate (SEROquel) 150 mg TID PO 09/16/21 21:00 09/16/21 19:58 I have reviewed the current psychotropics carefully including drug interactions. Risk benefit ratio favors no change other than as noted in my dictated progress note. Diagnosis: Problems: (1) Impulse control disorder, unspecified (2) Anxiety disorder, unspecified (3) Dementia, vascular, with depression (4) Dementia, vascular, with delusions (5) Dementia in Alzheimer's disease with depression (6) Dementia in Alzheimer's disease with delusions (7) Major neurocognitive disorder (8) Frontotemporal dementia with behavioral disturbance ELIAZAR COYLE MD Sep 17, 2021 06:12
--- NOTE | 2021-09-17 06:31 | PDOC ---
Exam Note: Castillo Note: This note is a late entry for 09/16/2021 covers elements not covered in my initial note. Subjective: The patient was seen individually in the evening of 09/16/2021 with Deanne ALLISON, discussed and reviewed the chart. The patient slept 8-1/4 hours previous night. He did better in the morning, came to the dayroom. Lunchtime he was resistive to cares, getting agitated. He slapped the bottom of the activity therapist, trying to get Ensure out of the dining room refrigerator. He continues to hover over one of the other patients who is demented. He is in the quiet hallway this evening as I met with her. Despite the above problems, he is slightly redirected. Review of Systems: No CV, , pulmonary, eye, ENT system symptoms on review. Reliability poor. Mental Status Exam: The patient is oriented to himself. Insight and judgment, recent and remote memory, attention and concentration, fund of knowledge is poor consistent with his diagnoses. Laboratory Data: Reviewed. Impression: Major neurocognitive disorder, frontotemporal with delusion, depression, behavioral disturbance. Anxiety disorder unspecified. Impulse control disorder unspecified. Plan: We will increase the patients Seroquel from 100 mg t.i.d. to 150 mg t.i.d. maintain rest of the psychotropics unchanged. Assessment: Vital Signs/I&O: Vital Signs Date Time Temp Pulse Resp B/P (MAP) Pulse Ox O2 Delivery O2 Flow Rate FiO2 09/17/21 05:43 98.0 62 18 114/65 (81) 99 09/13/21 15:26 Room Air I & O 09/16/21 09/16/21 09/17/21 15:00 23:00 07:00 Intake Total 720 ml 480 ml Balance 720 ml 480 ml Current Medications: Meds: Current Medications Medications (Trade) Dose Ordered Sig/Susana Route PRN Reason Start Time Stop Time Status Last Admin Dose Admin Acetaminophen (Tylenol) 650 mg PRN Q6HRS PRN PO MILD PAIN / TEMP > 100.3'F 08/29/21 22:00 Multi-Ingredient Ointment (Analgesic [place]) 1 sandra PRN QID PRN TP MUSCLE PAIN 08/29/21 22:00 Al Hydroxide/Mg Hydroxide (Mylanta Plus Xs) 15 ml PRN AFTMEALHC PRN PO DYSPEPSIA 08/29/21 22:00 Magnesium Hydroxide (Milk Of Magnesia) 2,400 mg PRN QHS PRN PO 1ST CHOICE CONSTIPATION 08/29/21 22:00 09/13/21 17:01 Acetaminophen (Tylenol) 650 mg PRN Q6HRS PRN PO MILD PAIN / TEMP > 100.3'F 08/29/21 22:30 Cancel Losartan Potassium (Cozaar) 50 mg DAILY PO 08/30/21 09:00 09/16/21 09:19 Atorvastatin Calcium (Lipitor) 40 mg QHS PO 08/30/21 21:00 09/16/21 19:57 Paroxetine HCl (Paxil) 60 mg DAILY PO 08/30/21 09:00 09/13/21 18:21 DC 09/13/21 08:11 Amoxicillin/ Clavulanate Potassium (Augmentin 875/ 125mg) 1 tab BID PO 08/30/21 09:00 08/30/21 11:09 DC Lactobacillus Rhamnosus (Culturelle) 1 cap BID PO 08/30/21 09:00 08/30/21 11:09 DC Olanzapine (ZyPREXA) 5 mg PRN Q2HR PRN PO 1st choice ANXIETY / AGITATION 08/30/21 16:00 09/16/21 17:04 Gabapentin (Neurontin) 300 mg BID PO 08/30/21 21:00 09/01/21 23:50 DC 09/01/21 20:17 Gabapentin (Neurontin) 400 mg TID PO 09/02/21 09:00 08/31/21 19:41 DC Medroxyprogesterone Acetate (Provera) 15 mg DAILY PO 08/31/21 09:00 09/07/21 05:34 DC 09/06/21 08:43 Quetiapine Fumarate (SEROquel) 50 mg TID PO 08/30/21 21:00 09/01/21 14:33 DC 09/01/21 09:57 Trazodone HCl (Desyrel) 50 mg PRN Q8HRS PRN PO 3RD CHOICE ANXIETY/AGITATION 08/30/21 16:15 09/08/21 12:08 DC 09/07/21 19:24 Lorazepam (Ativan) 1 mg PRN Q1HR PRN PO 2nd choice ANXIETY / AGITATION 08/30/21 23:00 09/15/21 14:11 Bisacodyl (Dulcolax Supp) 10 mg PRN DAILY PRN [place] 2ND CHOICE CONSTIPATION 08/31/21 00:30 Magnesium Citrate (Citroma) 296 ml 1X ONCE PO 08/31/21 10:45 08/31/21 10:47 DC 08/31/21 11:13 Sennosides (Senna) 8.6 mg BID PO 08/31/21 21:00 09/16/21 19:58 Gabapentin (Neurontin) 300 mg TID PO 09/02/21 09:00 09/02/21 16:19 DC 09/02/21 09:00 Quetiapine Fumarate (SEROquel) 25 mg TID PO 09/01/21 21:00 09/03/21 13:24 DC 09/03/21 09:02 Gabapentin (Neurontin) 300 mg TID PO 09/02/21 17:00 09/05/21 21:47 DC 09/05/21 20:16 Quetiapine Fumarate (SEROquel) 25 mg PRN TID PRN PO Agitation 09/03/21 13:30 09/16/21 19:58 Gabapentin (Neurontin) 600 mg DAILY PO 09/06/21 09:00 09/09/21 20:06 DC 09/09/21 07:27 Gabapentin (Neurontin) 300 mg 1400,2100 PO 09/06/21 14:00 09/09/21 20:06 DC 09/09/21 12:12 Magnesium Citrate (Citroma) 296 ml PRN 1X PRN PO CONSTIPATION 09/06/21 17:45 09/16/21 17:15 DC 09/11/21 16:47 Medroxyprogesterone Acetate (Provera) 20 mg DAILY PO 09/07/21 09:00 09/16/21 09:17 Trazodone HCl (Desyrel) 100 mg PRN Q8HRS PRN PO 3RD CHOICE ANXIETY/AGITATION 09/08/21 12:15 09/16/21 19:57 Gabapentin (Neurontin) 300 mg HS PO 09/09/21 21:00 09/10/21 17:26 DC 09/09/21 21:05 Gabapentin (Neurontin) 600 mg 0900,1400 PO 09/10/21 09:00 09/10/21 17:26 DC 09/10/21 11:55 Gabapentin (Neurontin) 300 mg TID PO 09/10/21 21:00 09/10/21 17:36 DC Gabapentin (Neurontin) 600 mg TID PO 09/10/21 21:00 09/12/21 01:56 DC 09/11/21 19:52 Gabapentin (Neurontin) 600 mg DAILY@1400,2100 PO 09/12/21 14:00 09/12/21 17:01 DC 09/12/21 13:33 Gabapentin (Neurontin) 900 mg DAILY PO 09/12/21 09:00 09/16/21 09:17 Gabapentin (Neurontin) 300 mg 1X ONCE PO 09/12/21 21:00 09/12/21 21:01 DC Gabapentin (Neurontin) 600 mg 1400,2100 PO 09/13/21 14:00 09/16/21 19:57 Quetiapine Fumarate (SEROquel) 50 mg TID PO 09/13/21 09:00 09/13/21 18:21 DC 09/13/21 13:26 Lorazepam (Ativan) 2 mg 1X ONCE PO 09/13/21 13:15 09/14/21 09:42 DC 09/13/21 13:27 Paroxetine HCl (Paxil) 50 mg DAILY PO 09/14/21 09:00 09/16/21 22:00 DC 09/16/21 09:18 Quetiapine Fumarate (SEROquel) 100 mg TID PO 09/13/21 21:00 09/16/21 19:53 DC 09/16/21 13:16 Fluvoxamine Maleate (Luvox) 25 mg DAILY PO 09/14/21 09:00 09/15/21 23:50 DC 09/15/21 08:17 Fluvoxamine Maleate (Luvox) 50 mg DAILY PO 09/16/21 09:00 09/17/21 23:50 09/16/21 09:19 Fluvoxamine Maleate (Luvox) 75 mg DAILY PO 09/18/21 09:00 09/19/21 23:50 Fluvoxamine Maleate (Luvox) 100 mg DAILY PO 09/20/21 09:00 Paroxetine HCl (Paxil) 40 mg DAILY PO 09/17/21 09:00 09/19/21 22:00 Paroxetine HCl (Paxil) 30 mg DAILY PO 09/20/21 09:00 09/22/21 22:00 Paroxetine HCl (Paxil) 20 mg DAILY PO 09/23/21 09:00 09/25/21 22:00 Paroxetine HCl (Paxil) 10 mg DAILY PO 09/26/21 09:00 09/28/21 22:00 Magnesium Citrate (Citroma) 296 ml PRN DAILY PRN PO 3RD CHOICE CONSTIPATION 09/14/21 09:45 09/14/21 11:51 Polyethylene Glycol (miraLAX) 17 gm DAILY PO 09/15/21 09:00 09/16/21 09:19 Quetiapine Fumarate (SEROquel) 150 mg TID PO 09/16/21 21:00 09/16/21 19:58 Current Medications Medications (Trade) Dose Ordered Sig/Susana Route PRN Reason Start Time Stop Time Status Last Admin Dose Admin Fluvoxamine Maleate (Luvox) 50 mg DAILY PO 09/16/21 09:00 09/17/21 23:50 09/16/21 09:19 Quetiapine Fumarate (SEROquel) 150 mg TID PO 09/16/21 21:00 09/16/21 19:58 I have reviewed the current psychotropics carefully including drug interactions. Risk benefit ratio favors no change other than as noted in my dictated progress note. Diagnosis: Problems: (1) Impulse control disorder, unspecified (2) Anxiety disorder, unspecified (3) Dementia, vascular, with depression (4) Dementia, vascular, with delusions (5) Dementia in Alzheimer's disease with depression (6) Dementia in Alzheimer's disease with delusions (7) Major neurocognitive disorder (8) Frontotemporal dementia with behavioral disturbance ELIAZAR COYLE MD Sep 17, 2021 06:31
[2021-09-17 06:38] LABS: BASO % 1 % (0-3); EOS # 0.2 x10^3/uL (0.0-0.7); EOS % 6 % (0-3); HEMATOCRIT 33.9 % (39.0-53.0); HEMOGLOBIN 11.4 g/dL (13.0-17.5); LYMPH % 35 % (24-48); MEAN CORPUSCULAR HEMOGLOBIN 31 pg (25-35); MEAN CORPUSCULAR HGB CONC 34 g/dL (31-37); MEAN CORPUSCULAR VOLUME 91 fL (79-100); MONO # 0.3 x10^3/uL (0.0-1.1); MONO % 10 % (0-9); NEUT # 1.4 x10^3uL (1.8-7.7); NEUT % 48 % (31-73); PLATELET COUNT 190 x10^3/uL (140-400); RED BLOOD COUNT 3.75 x10^6/uL (4.30-5.70); RED CELL DISTRIBUTION WIDTH 13.2 % (11.5-14.5); WHITE BLOOD COUNT 2.8 x10^3/uL (4.0-11.0)
[2021-09-17 07:13] LABS: ALBUMIN 3.1 g/dL (3.4-5.0); ALBUMIN/GLOBULIN RATIO 0.9 (1.0-1.7); CALCIUM 8.3 mg/dL (8.5-10.1); GFR 76.5; POTASSIUM 4.2 mmol/L (3.5-5.1); TOTAL BILIRUBIN 0.5 mg/dL (0.2-1.0); TOTAL PROTEIN 6.4 g/dL (6.4-8.2)
[2021-09-17] MEDS: medroxyPROGESTERone 5 MG TABLET PO SCH (08:11)
[2021-09-17] MEDS: QUEtiapine 100 MG TABLET. PO SCH ×3 (08:11→20:11)
[2021-09-17] MEDS: SENNOSIDES 8.6 MG TABLET PO SCH ×2 (08:11→20:10)
[2021-09-17] MEDS: GABAPENTIN 300 MG CAPSULE. PO SCH ×3 (08:11→20:10)
[2021-09-17] MEDS: POLYETHYLENE GLYCOL 3350 17 GM PACKET. PO SCH (08:11)
[2021-09-17] MEDS: LOSARTAN 50 MG TABLET. PO SCH (08:12)
[2021-09-17] MEDS: PARoxetine 20 MG TABLET PO SCH (08:12)
--- NOTE | 2021-09-17 09:40 | NUR ---
Nursing note: Pt in day room at time of AM med pass and assessment. He is pleasant, med compliant and cooperative. He denies having any pain/concerns at time of assessment. He is currently in his room taking a nap with a 1:1 at bedside for safety. Will continue to monitor.
[2021-09-17] MEDS: LORazepam 1 MG TABLET PO PRN ×2 (10:53→15:28)
[2021-09-17] MEDS: QUEtiapine 25 MG TABLET. PO PRN (10:53)
[2021-09-17] MEDS: OLANZapine 5 MG TABLET PO PRN (15:28)
[2021-09-17 15:33] VITALS: BP 108/62
--- NOTE | 2021-09-17 17:59 | NUR ---
Nursing note: Pt has been very restless, intrusive and sexually inappropriate this shift, telling staff "I love you" and attempting to kiss staff and hitting staff on the butt. Pt is very difficult to redirect, multiple PRNs have been given to pt for his behaviors with minimal effect. He is currently walking around the day room. Will continue to monitor.
[2021-09-17] MEDS: ATORVASTATIN CALCIUM 20 MG TABLET PO SCH (20:11)
--- NOTE | 2021-09-17 20:46 | PDOC ---
Exam Note: Castillo Note: Please also refer to the separate dictated note~for this date of service dictated separately.~Patient seen individually. Discussed the patient with Nursing staff reviewed the chart.~Reviewed interim history and current functioning. Reviewed vital signs,~Labs/ Radiology~and current medications noted below. Continue current treatment with the changes noted in the dictated addendum note Assessment: Vital Signs/I&O: Vital Signs Date Time Temp Pulse Resp B/P (MAP) Pulse Ox O2 Delivery O2 Flow Rate FiO2 09/17/21 15:33 98.6 71 16 108/62 (77) 95 Room Air I & O 09/16/21 09/16/21 09/17/21 15:00 23:00 07:00 Intake Total 720 ml 480 ml Balance 720 ml 480 ml Labs: Laboratory Tests Test 09/17/21 06:22 White Blood Count 2.8 x10^3/uL (4.0-11.0) L Red Blood Count 3.75 x10^6/uL (4.30-5.70) L Hemoglobin 11.4 g/dL (13.0-17.5) L Hematocrit 33.9 % (39.0-53.0) L Mean Corpuscular Volume 91 fL (79-100) Mean Corpuscular Hemoglobin 31 pg (25-35) Mean Corpuscular Hemoglobin Concent 34 g/dL (31-37) Red Cell Distribution Width 13.2 % (11.5-14.5) Platelet Count 190 x10^3/uL (140-400) Neutrophils (%) (Auto) 48 % (31-73) Lymphocytes (%) (Auto) 35 % (24-48) Monocytes (%) (Auto) 10 % (0-9) H Eosinophils (%) (Auto) 6 % (0-3) H Basophils (%) (Auto) 1 % (0-3) Neutrophils # (Auto) 1.4 x10^3uL (1.8-7.7) L Lymphocytes # (Auto) 1.0 x10^3/uL (1.0-4.8) Monocytes # (Auto) 0.3 x10^3/uL (0.0-1.1) Eosinophils # (Auto) 0.2 x10^3/uL (0.0-0.7) Basophils # (Auto) 0.0 x10^3/uL (0.0-0.2) Sodium Level 142 mmol/L (136-145) Potassium Level 4.2 mmol/L (3.5-5.1) Chloride Level 109 mmol/L (98-107) H Carbon Dioxide Level 26 mmol/L (21-32) Anion Gap 7 (6-14) Blood Urea Nitrogen 13 mg/dL (8-26) Creatinine 1.0 mg/dL (0.7-1.3) Estimated GFR (Cockcroft-Gault) 76.5 BUN/Creatinine Ratio 13 (6-20) Glucose Level 106 mg/dL (70-99) H Calcium Level 8.3 mg/dL (8.5-10.1) L Total Bilirubin 0.5 mg/dL (0.2-1.0) Aspartate Amino Transferase (AST) 17 U/L (15-37) Alanine Aminotransferase (ALT) 28 U/L (16-63) Alkaline Phosphatase 49 U/L (46-116) Total Protein 6.4 g/dL (6.4-8.2) Albumin 3.1 g/dL (3.4-5.0) L Albumin/Globulin Ratio 0.9 (1.0-1.7) L Current Medications: Meds: Laboratory Tests Test 09/17/21 06:22 White Blood Count 2.8 x10^3/uL Red Blood Count 3.75 x10^6/uL Hemoglobin 11.4 g/dL Hematocrit 33.9 % Mean Corpuscular Volume 91 fL Mean Corpuscular Hemoglobin 31 pg Mean Corpuscular Hemoglobin Concent 34 g/dL Red Cell Distribution Width 13.2 % Platelet Count 190 x10^3/uL Neutrophils (%) (Auto) 48 % Lymphocytes (%) (Auto) 35 % Monocytes (%) (Auto) 10 % Eosinophils (%) (Auto) 6 % Basophils (%) (Auto) 1 % Neutrophils # (Auto) 1.4 x10^3uL Lymphocytes # (Auto) 1.0 x10^3/uL Monocytes # (Auto) 0.3 x10^3/uL Eosinophils # (Auto) 0.2 x10^3/uL Basophils # (Auto) 0.0 x10^3/uL Sodium Level 142 mmol/L Potassium Level 4.2 mmol/L Chloride Level 109 mmol/L Carbon Dioxide Level 26 mmol/L Anion Gap 7 Blood Urea Nitrogen 13 mg/dL Creatinine 1.0 mg/dL Estimated GFR (Cockcroft-Gault) 76.5 BUN/Creatinine Ratio 13 Glucose Level 106 mg/dL Calcium Level 8.3 mg/dL Total Bilirubin 0.5 mg/dL Aspartate Amino Transf (AST/SGOT) 17 U/L Alanine Aminotransferase (ALT/SGPT) 28 U/L Alkaline Phosphatase 49 U/L Total Protein 6.4 g/dL Albumin 3.1 g/dL Albumin/Globulin Ratio 0.9 Current Medications Medications (Trade) Dose Ordered Sig/Susana Route PRN Reason Start Time Stop Time Status Last Admin Dose Admin Acetaminophen (Tylenol) 650 mg PRN Q6HRS PRN PO MILD PAIN / TEMP > 100.3'F 08/29/21 22:00 Multi-Ingredient Ointment (Analgesic [place]) 1 sandra PRN QID PRN TP MUSCLE PAIN 08/29/21 22:00 Al Hydroxide/Mg Hydroxide (Mylanta Plus Xs) 15 ml PRN AFTMEALHC PRN PO DYSPEPSIA 08/29/21 22:00 Magnesium Hydroxide (Milk Of Magnesia) 2,400 mg PRN QHS PRN PO 1ST CHOICE CONSTIPATION 08/29/21 22:00 09/13/21 17:01 Acetaminophen (Tylenol) 650 mg PRN Q6HRS PRN PO MILD PAIN / TEMP > 100.3'F 08/29/21 22:30 Cancel Losartan Potassium (Cozaar) 50 mg DAILY PO 08/30/21 09:00 09/17/21 08:12 Atorvastatin Calcium (Lipitor) 40 mg QHS PO 08/30/21 21:00 09/17/21 20:11 Paroxetine HCl (Paxil) 60 mg DAILY PO 08/30/21 09:00 09/13/21 18:21 DC 09/13/21 08:11 Amoxicillin/ Clavulanate Potassium (Augmentin 875/ 125mg) 1 tab BID PO 08/30/21 09:00 08/30/21 11:09 DC Lactobacillus Rhamnosus (Culturelle) 1 cap BID PO 08/30/21 09:00 08/30/21 11:09 DC Olanzapine (ZyPREXA) 5 mg PRN Q2HR PRN PO 1st choice ANXIETY / AGITATION 08/30/21 16:00 09/17/21 15:28 Gabapentin (Neurontin) 300 mg BID PO 08/30/21 21:00 09/01/21 23:50 DC 09/01/21 20:17 Gabapentin (Neurontin) 400 mg TID PO 09/02/21 09:00 08/31/21 19:41 DC Medroxyprogesterone Acetate (Provera) 15 mg DAILY PO 08/31/21 09:00 09/07/21 05:34 DC 09/06/21 08:43 Quetiapine Fumarate (SEROquel) 50 mg TID PO 08/30/21 21:00 09/01/21 14:33 DC 09/01/21 09:57 Trazodone HCl (Desyrel) 50 mg PRN Q8HRS PRN PO 3RD CHOICE ANXIETY/AGITATION 08/30/21 16:15 09/08/21 12:08 DC 09/07/21 19:24 Lorazepam (Ativan) 1 mg PRN Q1HR PRN PO 2nd choice ANXIETY / AGITATION 08/30/21 23:00 09/17/21 15:28 Bisacodyl (Dulcolax Supp) 10 mg PRN DAILY PRN [place] 2ND CHOICE CONSTIPATION 08/31/21 00:30 Magnesium Citrate (Citroma) 296 ml 1X ONCE PO 08/31/21 10:45 08/31/21 10:47 DC 08/31/21 11:13 Sennosides (Senna) 8.6 mg BID PO 08/31/21 21:00 09/17/21 20:10 Gabapentin (Neurontin) 300 mg TID PO 09/02/21 09:00 09/02/21 16:19 DC 09/02/21 09:00 Quetiapine Fumarate (SEROquel) 25 mg TID PO 09/01/21 21:00 09/03/21 13:24 DC 09/03/21 09:02 Gabapentin (Neurontin) 300 mg TID PO 09/02/21 17:00 09/05/21 21:47 DC 09/05/21 20:16 Quetiapine Fumarate (SEROquel) 25 mg PRN TID PRN PO Agitation 09/03/21 13:30 09/17/21 10:53 Gabapentin (Neurontin) 600 mg DAILY PO 09/06/21 09:00 09/09/21 20:06 DC 09/09/21 07:27 Gabapentin (Neurontin) 300 mg 1400,2100 PO 09/06/21 14:00 09/09/21 20:06 DC 09/09/21 12:12 Magnesium Citrate (Citroma) 296 ml PRN 1X PRN PO CONSTIPATION 09/06/21 17:45 09/16/21 17:15 DC 09/11/21 16:47 Medroxyprogesterone Acetate (Provera) 20 mg DAILY PO 09/07/21 09:00 09/17/21 08:11 Trazodone HCl (Desyrel) 100 mg PRN Q8HRS PRN PO 3RD CHOICE ANXIETY/AGITATION 09/08/21 12:15 09/16/21 19:57 Gabapentin (Neurontin) 300 mg HS PO 09/09/21 21:00 09/10/21 17:26 DC 09/09/21 21:05 Gabapentin (Neurontin) 600 mg 0900,1400 PO 09/10/21 09:00 09/10/21 17:26 DC 09/10/21 11:55 Gabapentin (Neurontin) 300 mg TID PO 09/10/21 21:00 09/10/21 17:36 DC Gabapentin (Neurontin) 600 mg TID PO 09/10/21 21:00 09/12/21 01:56 DC 09/11/21 19:52 Gabapentin (Neurontin) 600 mg DAILY@1400,2100 PO 09/12/21 14:00 09/12/21 17:01 DC 09/12/21 13:33 Gabapentin (Neurontin) 900 mg DAILY PO 09/12/21 09:00 09/17/21 08:11 Gabapentin (Neurontin) 300 mg 1X ONCE PO 09/12/21 21:00 09/12/21 21:01 DC Gabapentin (Neurontin) 600 mg 1400,2100 PO 09/13/21 14:00 09/17/21 20:10 Quetiapine Fumarate (SEROquel) 50 mg TID PO 09/13/21 09:00 09/13/21 18:21 DC 09/13/21 13:26 Lorazepam (Ativan) 2 mg 1X ONCE PO 09/13/21 13:15 09/14/21 09:42 DC 09/13/21 13:27 Paroxetine HCl (Paxil) 50 mg DAILY PO 09/14/21 09:00 09/16/21 22:00 DC 09/16/21 09:18 Quetiapine Fumarate (SEROquel) 100 mg TID PO 09/13/21 21:00 09/16/21 19:53 DC 09/16/21 13:16 Fluvoxamine Maleate (Luvox) 25 mg DAILY PO 09/14/21 09:00 09/15/21 23:50 DC 09/15/21 08:17 Fluvoxamine Maleate (Luvox) 50 mg DAILY PO 09/16/21 09:00 09/17/21 23:50 09/17/21 08:12 Fluvoxamine Maleate (Luvox) 75 mg DAILY PO 09/18/21 09:00 09/19/21 23:50 Fluvoxamine Maleate (Luvox) 100 mg DAILY PO 09/20/21 09:00 Paroxetine HCl (Paxil) 40 mg DAILY PO 09/17/21 09:00 09/19/21 22:00 09/17/21 08:12 Paroxetine HCl (Paxil) 30 mg DAILY PO 09/20/21 09:00 09/22/21 22:00 Paroxetine HCl (Paxil) 20 mg DAILY PO 09/23/21 09:00 09/25/21 22:00 Paroxetine HCl (Paxil) 10 mg DAILY PO 09/26/21 09:00 09/28/21 22:00 Magnesium Citrate (Citroma) 296 ml PRN DAILY PRN PO 3RD CHOICE CONSTIPATION 09/14/21 09:45 09/14/21 11:51 Polyethylene Glycol (miraLAX) 17 gm DAILY PO 09/15/21 09:00 09/17/21 08:11 Quetiapine Fumarate (SEROquel) 150 mg TID PO 09/16/21 21:00 09/17/21 20:11 Current Medications Medications (Trade) Dose Ordered Sig/Susana Route PRN Reason Start Time Stop Time Status Last Admin Dose Admin Paroxetine HCl (Paxil) 40 mg DAILY PO 09/17/21 09:00 09/19/21 22:00 09/17/21 08:12 Quetiapine Fumarate (SEROquel) 150 mg TID PO 09/16/21 21:00 09/17/21 20:11 I have reviewed the current psychotropics carefully including drug interactions. Risk benefit ratio favors no change other than as noted in my dictated progress note. Diagnosis: Problems: (1) Impulse control disorder, unspecified (2) Anxiety disorder, unspecified (3) Dementia, vascular, with depression (4) Dementia, vascular, with delusions (5) Dementia in Alzheimer's disease with depression (6) Dementia in Alzheimer's disease with delusions (7) Major neurocognitive disorder (8) Frontotemporal dementia with behavioral disturbance ELIAZAR COYLE MD Sep 17, 2021 20:46
--- NOTE | 2021-09-17 22:33 | NUR ---
Nursing Note: Pt asleep during assessment, took several PRN's prior to my shift. Pt sleeping soundly, HS meds held for now.
[2021-09-18 06:06] VITALS: BP 146/91
--- NOTE | 2021-09-18 07:00 | PDOC ---
Exam Note: Castillo Note: This note is a late entry for 09/17/2021 covers elements not covered in my initial note. Subjective: The patient was seen individually in the evening of 09/17/2021 with Deanne ALLISON, discussed and reviewed the chart. The patient slept 8 hours previous night. He has had again a very difficult day. He has received several p.r.n.s., due to his agitation and this evening he was finally sedated from that in bed. WBC has dropped to 2.8 and pharmacy consult suggested that Seroquel may be responsible for it. We will reduce the last dose of the day of Seroquel by 50 mg. He does redirect better and most of his behaviors are socially in apt due to his frontotemporal dementia with lack of boundaries. He tries to get the badge of nursing staff because he knows he can use that to exit the unit but he has not attacked anyone physically. Review of Systems: No CV, , pulmonary, eye, ENT system symptoms on review. Reliability poor. Mental Status Exam: The patient is oriented to himself. Insight and judgment, recent and remote memory, attention and concentration, fund of knowledge is poor consistent with his diagnoses. Laboratory Data: Reviewed. Impression: Major neurocognitive disorder, frontotemporal with delusion, depression, behavioral disturbance. Anxiety disorder unspecified. Impulse control disorder unspecified. Plan: Maintain rest of the psychotropics unchanged. Assessment: Vital Signs/I&O: Vital Signs Date Time Temp Pulse Resp B/P (MAP) Pulse Ox O2 Delivery O2 Flow Rate FiO2 09/18/21 06:06 96.8 66 16 146/91 (109) 96 09/17/21 15:33 Room Air I & O 09/17/21 09/17/21 09/18/21 15:00 23:00 07:00 Intake Total 1440 ml 600 ml Balance 1440 ml 600 ml Current Medications: Meds: Current Medications Medications (Trade) Dose Ordered Sig/Susana Route PRN Reason Start Time Stop Time Status Last Admin Dose Admin Acetaminophen (Tylenol) 650 mg PRN Q6HRS PRN PO MILD PAIN / TEMP > 100.3'F 08/29/21 22:00 Multi-Ingredient Ointment (Analgesic [place]) 1 sandra PRN QID PRN TP MUSCLE PAIN 08/29/21 22:00 Al Hydroxide/Mg Hydroxide (Mylanta Plus Xs) 15 ml PRN AFTMEALHC PRN PO DYSPEPSIA 08/29/21 22:00 Magnesium Hydroxide (Milk Of Magnesia) 2,400 mg PRN QHS PRN PO 1ST CHOICE CONSTIPATION 08/29/21 22:00 09/13/21 17:01 Acetaminophen (Tylenol) 650 mg PRN Q6HRS PRN PO MILD PAIN / TEMP > 100.3'F 08/29/21 22:30 Cancel Losartan Potassium (Cozaar) 50 mg DAILY PO 08/30/21 09:00 09/17/21 08:12 Atorvastatin Calcium (Lipitor) 40 mg QHS PO 08/30/21 21:00 09/17/21 20:11 Paroxetine HCl (Paxil) 60 mg DAILY PO 08/30/21 09:00 09/13/21 18:21 DC 09/13/21 08:11 Amoxicillin/ Clavulanate Potassium (Augmentin 875/ 125mg) 1 tab BID PO 08/30/21 09:00 08/30/21 11:09 DC Lactobacillus Rhamnosus (Culturelle) 1 cap BID PO 08/30/21 09:00 08/30/21 11:09 DC Olanzapine (ZyPREXA) 5 mg PRN Q2HR PRN PO 1st choice ANXIETY / AGITATION 08/30/21 16:00 09/17/21 15:28 Gabapentin (Neurontin) 300 mg BID PO 08/30/21 21:00 09/01/21 23:50 DC 09/01/21 20:17 Gabapentin (Neurontin) 400 mg TID PO 09/02/21 09:00 08/31/21 19:41 DC Medroxyprogesterone Acetate (Provera) 15 mg DAILY PO 08/31/21 09:00 09/07/21 05:34 DC 09/06/21 08:43 Quetiapine Fumarate (SEROquel) 50 mg TID PO 08/30/21 21:00 09/01/21 14:33 DC 09/01/21 09:57 Trazodone HCl (Desyrel) 50 mg PRN Q8HRS PRN PO 3RD CHOICE ANXIETY/AGITATION 08/30/21 16:15 09/08/21 12:08 DC 09/07/21 19:24 Lorazepam (Ativan) 1 mg PRN Q1HR PRN PO 2nd choice ANXIETY / AGITATION 08/30/21 23:00 09/17/21 15:28 Bisacodyl (Dulcolax Supp) 10 mg PRN DAILY PRN [place] 2ND CHOICE CONSTIPATION 08/31/21 00:30 Magnesium Citrate (Citroma) 296 ml 1X ONCE PO 08/31/21 10:45 08/31/21 10:47 DC 08/31/21 11:13 Sennosides (Senna) 8.6 mg BID PO 08/31/21 21:00 09/17/21 20:10 Gabapentin (Neurontin) 300 mg TID PO 09/02/21 09:00 09/02/21 16:19 DC 09/02/21 09:00 Quetiapine Fumarate (SEROquel) 25 mg TID PO 09/01/21 21:00 09/03/21 13:24 DC 09/03/21 09:02 Gabapentin (Neurontin) 300 mg TID PO 09/02/21 17:00 09/05/21 21:47 DC 09/05/21 20:16 Quetiapine Fumarate (SEROquel) 25 mg PRN TID PRN PO Agitation 09/03/21 13:30 09/17/21 10:53 Gabapentin (Neurontin) 600 mg DAILY PO 09/06/21 09:00 09/09/21 20:06 DC 09/09/21 07:27 Gabapentin (Neurontin) 300 mg 1400,2100 PO 09/06/21 14:00 09/09/21 20:06 DC 09/09/21 12:12 Magnesium Citrate (Citroma) 296 ml PRN 1X PRN PO CONSTIPATION 09/06/21 17:45 09/16/21 17:15 DC 09/11/21 16:47 Medroxyprogesterone Acetate (Provera) 20 mg DAILY PO 09/07/21 09:00 09/17/21 08:11 Trazodone HCl (Desyrel) 100 mg PRN Q8HRS PRN PO 3RD CHOICE ANXIETY/AGITATION 09/08/21 12:15 09/16/21 19:57 Gabapentin (Neurontin) 300 mg HS PO 09/09/21 21:00 09/10/21 17:26 DC 09/09/21 21:05 Gabapentin (Neurontin) 600 mg 0900,1400 PO 09/10/21 09:00 09/10/21 17:26 DC 09/10/21 11:55 Gabapentin (Neurontin) 300 mg TID PO 09/10/21 21:00 09/10/21 17:36 DC Gabapentin (Neurontin) 600 mg TID PO 09/10/21 21:00 09/12/21 01:56 DC 09/11/21 19:52 Gabapentin (Neurontin) 600 mg DAILY@1400,2100 PO 09/12/21 14:00 09/12/21 17:01 DC 09/12/21 13:33 Gabapentin (Neurontin) 900 mg DAILY PO 09/12/21 09:00 09/17/21 08:11 Gabapentin (Neurontin) 300 mg 1X ONCE PO 09/12/21 21:00 09/12/21 21:01 DC Gabapentin (Neurontin) 600 mg 1400,2100 PO 09/13/21 14:00 09/17/21 20:10 Quetiapine Fumarate (SEROquel) 50 mg TID PO 09/13/21 09:00 09/13/21 18:21 DC 09/13/21 13:26 Lorazepam (Ativan) 2 mg 1X ONCE PO 09/13/21 13:15 09/14/21 09:42 DC 09/13/21 13:27 Paroxetine HCl (Paxil) 50 mg DAILY PO 09/14/21 09:00 09/16/21 22:00 DC 09/16/21 09:18 Quetiapine Fumarate (SEROquel) 100 mg TID PO 09/13/21 21:00 09/16/21 19:53 DC 09/16/21 13:16 Fluvoxamine Maleate (Luvox) 25 mg DAILY PO 09/14/21 09:00 09/15/21 23:50 DC 09/15/21 08:17 Fluvoxamine Maleate (Luvox) 50 mg DAILY PO 09/16/21 09:00 09/17/21 23:50 DC 09/17/21 08:12 Fluvoxamine Maleate (Luvox) 75 mg DAILY PO 09/18/21 09:00 09/19/21 23:50 Fluvoxamine Maleate (Luvox) 100 mg DAILY PO 09/20/21 09:00 Paroxetine HCl (Paxil) 40 mg DAILY PO 09/17/21 09:00 09/19/21 22:00 09/17/21 08:12 Paroxetine HCl (Paxil) 30 mg DAILY PO 09/20/21 09:00 09/22/21 22:00 Paroxetine HCl (Paxil) 20 mg DAILY PO 09/23/21 09:00 09/25/21 22:00 Paroxetine HCl (Paxil) 10 mg DAILY PO 09/26/21 09:00 09/28/21 22:00 Magnesium Citrate (Citroma) 296 ml PRN DAILY PRN PO 3RD CHOICE CONSTIPATION 09/14/21 09:45 09/14/21 11:51 Polyethylene Glycol (miraLAX) 17 gm DAILY PO 09/15/21 09:00 09/17/21 08:11 Quetiapine Fumarate (SEROquel) 150 mg TID PO 09/16/21 21:00 09/17/21 22:31 DC 09/17/21 20:11 Quetiapine Fumarate (SEROquel) 100 mg HS PO 09/18/21 21:00 Quetiapine Fumarate (SEROquel) 150 mg DAILY@0900,1700 PO 09/18/21 09:00 Current Medications Medications (Trade) Dose Ordered Sig/Susana Route PRN Reason Start Time Stop Time Status Last Admin Dose Admin Paroxetine HCl (Paxil) 40 mg DAILY PO 09/17/21 09:00 09/19/21 22:00 09/17/21 08:12 I have reviewed the current psychotropics carefully including drug interactions. Risk benefit ratio favors no change other than as noted in my dictated progress note. Diagnosis: Problems: (1) Impulse control disorder, unspecified (2) Anxiety disorder, unspecified (3) Dementia, vascular, with depression (4) Dementia, vascular, with delusions (5) Dementia in Alzheimer's disease with depression (6) Dementia in Alzheimer's disease with delusions (7) Major neurocognitive disorder (8) Frontotemporal dementia with behavioral disturbance ELIAZAR COYLE MD Sep 18, 2021 07:00
[2021-09-18] MEDS: LOSARTAN 50 MG TABLET. PO SCH (08:26)
[2021-09-18] MEDS: medroxyPROGESTERone 5 MG TABLET PO SCH (08:26)
[2021-09-18] MEDS: SENNOSIDES 8.6 MG TABLET PO SCH ×2 (08:26→19:40)
[2021-09-18] MEDS: GABAPENTIN 300 MG CAPSULE. PO SCH ×3 (08:26→19:40)
[2021-09-18] MEDS: POLYETHYLENE GLYCOL 3350 17 GM PACKET. PO SCH (08:27)
[2021-09-18] MEDS: PARoxetine 20 MG TABLET PO SCH (08:27)
[2021-09-18] MEDS: QUEtiapine 100 MG TABLET. PO SCH ×3 (08:27→19:41)
--- NOTE | 2021-09-18 11:43 | NUR ---
ZACH contacted pt , Marlen, to discuss not hearing anything new from Ivet at [facility]. ZACH was able to complete a conference call with Marlen and Ivet to discuss the plans for pt. As it stands Marlen will come down tomorrow afternoon to complete paperwork, and is packing clothes and other items to get setup in pt room. Ivet confirms that they are going to take pt and once paperwork is completed, she will plan to set up transport and can let ZACH know the time for that. Ivet answers a few more of Marlen's questions re: what to bring or not bring, as well as the name of the psychiatrist they have on staff and if there is an extra charge for that. All parties will touch base some time tomorrow.
--- NOTE | 2021-09-18 13:22 | NUR ---
Nursing note: Pt in dining room at time of AM med pass and assessment. He is pleasant, med compliant and cooperative. He enjoys having tasks to do, so after scanning his meds, he began opening up the packages himself and putting the pills in his pill cup. After he had all his pills opened, he poured them all in his mouth and took them whole with the sprite he had prepared for himself. He is restless and walks around the day room, but has been cooperative with redirection. Will continue to monitor.
[2021-09-18 15:26] VITALS: BP 119/77
--- NOTE | 2021-09-18 15:37 | NUR ---
ZACH returned call to Danny with [facility] to give him an update on pt case. Danny was excited to hear the prospect of pt being discharged Wednesday and will make sure to let the reviewer know the plan is for Wednesday. If anything changes, ZACH will make sure to contact Danny with those changes.
[2021-09-18] MEDS: ATORVASTATIN CALCIUM 20 MG TABLET PO SCH (19:40)
[2021-09-18] MEDS: traZODone 50 MG TABLET. PO PRN (19:40)
--- NOTE | 2021-09-18 20:43 | PDOC ---
Exam Note: Castillo Note: Please also refer to the separate dictated note~for this date of service dictated separately.~Patient seen individually. Discussed the patient with Nursing staff reviewed the chart.~Reviewed interim history and current functioning. Reviewed vital signs,~Labs/ Radiology~and current medications noted below. Continue current treatment with the changes noted in the dictated addendum note Assessment: Vital Signs/I&O: Vital Signs Date Time Temp Pulse Resp B/P (MAP) Pulse Ox O2 Delivery O2 Flow Rate FiO2 09/18/21 15:26 97.9 72 18 119/77 (91) 95 Room Air I & O 09/17/21 09/17/21 09/18/21 15:00 23:00 07:00 Intake Total 1440 ml 600 ml Balance 1440 ml 600 ml Current Medications: Meds: Current Medications Medications (Trade) Dose Ordered Sig/Susana Route PRN Reason Start Time Stop Time Status Last Admin Dose Admin Acetaminophen (Tylenol) 650 mg PRN Q6HRS PRN PO MILD PAIN / TEMP > 100.3'F 08/29/21 22:00 Multi-Ingredient Ointment (Analgesic [place]) 1 sandra PRN QID PRN TP MUSCLE PAIN 08/29/21 22:00 Al Hydroxide/Mg Hydroxide (Mylanta Plus Xs) 15 ml PRN AFTMEALHC PRN PO DYSPEPSIA 08/29/21 22:00 Magnesium Hydroxide (Milk Of Magnesia) 2,400 mg PRN QHS PRN PO 1ST CHOICE CONSTIPATION 08/29/21 22:00 09/13/21 17:01 Acetaminophen (Tylenol) 650 mg PRN Q6HRS PRN PO MILD PAIN / TEMP > 100.3'F 08/29/21 22:30 Cancel Losartan Potassium (Cozaar) 50 mg DAILY PO 08/30/21 09:00 09/18/21 08:26 Atorvastatin Calcium (Lipitor) 40 mg QHS PO 08/30/21 21:00 09/18/21 19:40 Paroxetine HCl (Paxil) 60 mg DAILY PO 08/30/21 09:00 09/13/21 18:21 DC 09/13/21 08:11 Amoxicillin/ Clavulanate Potassium (Augmentin 875/ 125mg) 1 tab BID PO 08/30/21 09:00 08/30/21 11:09 DC Lactobacillus Rhamnosus (Culturelle) 1 cap BID PO 08/30/21 09:00 08/30/21 11:09 DC Olanzapine (ZyPREXA) 5 mg PRN Q2HR PRN PO 1st choice ANXIETY / AGITATION 08/30/21 16:00 09/17/21 15:28 Gabapentin (Neurontin) 300 mg BID PO 08/30/21 21:00 09/01/21 23:50 DC 09/01/21 20:17 Gabapentin (Neurontin) 400 mg TID PO 09/02/21 09:00 08/31/21 19:41 DC Medroxyprogesterone Acetate (Provera) 15 mg DAILY PO 08/31/21 09:00 09/07/21 05:34 DC 09/06/21 08:43 Quetiapine Fumarate (SEROquel) 50 mg TID PO 08/30/21 21:00 09/01/21 14:33 DC 09/01/21 09:57 Trazodone HCl (Desyrel) 50 mg PRN Q8HRS PRN PO 3RD CHOICE ANXIETY/AGITATION 08/30/21 16:15 09/08/21 12:08 DC 09/07/21 19:24 Lorazepam (Ativan) 1 mg PRN Q1HR PRN PO 2nd choice ANXIETY / AGITATION 08/30/21 23:00 09/17/21 15:28 Bisacodyl (Dulcolax Supp) 10 mg PRN DAILY PRN [place] 2ND CHOICE CONSTIPATION 08/31/21 00:30 Magnesium Citrate (Citroma) 296 ml 1X ONCE PO 08/31/21 10:45 08/31/21 10:47 DC 08/31/21 11:13 Sennosides (Senna) 8.6 mg BID PO 08/31/21 21:00 09/18/21 19:40 Gabapentin (Neurontin) 300 mg TID PO 09/02/21 09:00 09/02/21 16:19 DC 09/02/21 09:00 Quetiapine Fumarate (SEROquel) 25 mg TID PO 09/01/21 21:00 09/03/21 13:24 DC 09/03/21 09:02 Gabapentin (Neurontin) 300 mg TID PO 09/02/21 17:00 09/05/21 21:47 DC 09/05/21 20:16 Quetiapine Fumarate (SEROquel) 25 mg PRN TID PRN PO Agitation 09/03/21 13:30 09/17/21 10:53 Gabapentin (Neurontin) 600 mg DAILY PO 09/06/21 09:00 09/09/21 20:06 DC 09/09/21 07:27 Gabapentin (Neurontin) 300 mg 1400,2100 PO 09/06/21 14:00 09/09/21 20:06 DC 09/09/21 12:12 Magnesium Citrate (Citroma) 296 ml PRN 1X PRN PO CONSTIPATION 09/06/21 17:45 09/16/21 17:15 DC 09/11/21 16:47 Medroxyprogesterone Acetate (Provera) 20 mg DAILY PO 09/07/21 09:00 09/18/21 08:26 Trazodone HCl (Desyrel) 100 mg PRN Q8HRS PRN PO 3RD CHOICE ANXIETY/AGITATION 09/08/21 12:15 09/18/21 19:40 Gabapentin (Neurontin) 300 mg HS PO 09/09/21 21:00 09/10/21 17:26 DC 09/09/21 21:05 Gabapentin (Neurontin) 600 mg 0900,1400 PO 09/10/21 09:00 09/10/21 17:26 DC 09/10/21 11:55 Gabapentin (Neurontin) 300 mg TID PO 09/10/21 21:00 09/10/21 17:36 DC Gabapentin (Neurontin) 600 mg TID PO 09/10/21 21:00 09/12/21 01:56 DC 09/11/21 19:52 Gabapentin (Neurontin) 600 mg DAILY@1400,2100 PO 09/12/21 14:00 09/12/21 17:01 DC 09/12/21 13:33 Gabapentin (Neurontin) 900 mg DAILY PO 09/12/21 09:00 09/18/21 08:26 Gabapentin (Neurontin) 300 mg 1X ONCE PO 09/12/21 21:00 09/12/21 21:01 DC Gabapentin (Neurontin) 600 mg 1400,2100 PO 09/13/21 14:00 09/18/21 19:40 Quetiapine Fumarate (SEROquel) 50 mg TID PO 09/13/21 09:00 09/13/21 18:21 DC 09/13/21 13:26 Lorazepam (Ativan) 2 mg 1X ONCE PO 09/13/21 13:15 09/14/21 09:42 DC 09/13/21 13:27 Paroxetine HCl (Paxil) 50 mg DAILY PO 09/14/21 09:00 09/16/21 22:00 DC 09/16/21 09:18 Quetiapine Fumarate (SEROquel) 100 mg TID PO 09/13/21 21:00 09/16/21 19:53 DC 09/16/21 13:16 Fluvoxamine Maleate (Luvox) 25 mg DAILY PO 09/14/21 09:00 09/15/21 23:50 DC 09/15/21 08:17 Fluvoxamine Maleate (Luvox) 50 mg DAILY PO 09/16/21 09:00 09/17/21 23:50 DC 09/17/21 08:12 Fluvoxamine Maleate (Luvox) 75 mg DAILY PO 09/18/21 09:00 09/19/21 23:50 09/18/21 08:26 Fluvoxamine Maleate (Luvox) 100 mg DAILY PO 09/20/21 09:00 Paroxetine HCl (Paxil) 40 mg DAILY PO 09/17/21 09:00 09/19/21 22:00 09/18/21 08:27 Paroxetine HCl (Paxil) 30 mg DAILY PO 09/20/21 09:00 09/22/21 22:00 Paroxetine HCl (Paxil) 20 mg DAILY PO 09/23/21 09:00 09/25/21 22:00 Paroxetine HCl (Paxil) 10 mg DAILY PO 09/26/21 09:00 09/28/21 22:00 Magnesium Citrate (Citroma) 296 ml PRN DAILY PRN PO 3RD CHOICE CONSTIPATION 09/14/21 09:45 09/14/21 11:51 Polyethylene Glycol (miraLAX) 17 gm DAILY PO 09/15/21 09:00 09/18/21 08:27 Quetiapine Fumarate (SEROquel) 150 mg TID PO 09/16/21 21:00 09/17/21 22:31 DC 09/17/21 20:11 Quetiapine Fumarate (SEROquel) 100 mg HS PO 09/18/21 21:00 09/18/21 19:41 Quetiapine Fumarate (SEROquel) 150 mg DAILY@0900,1700 PO 09/18/21 09:00 09/18/21 17:00 Current Medications Medications (Trade) Dose Ordered Sig/Susana Route PRN Reason Start Time Stop Time Status Last Admin Dose Admin Fluvoxamine Maleate (Luvox) 75 mg DAILY PO 09/18/21 09:00 09/19/21 23:50 09/18/21 08:26 Quetiapine Fumarate (SEROquel) 100 mg HS PO 09/18/21 21:00 09/18/21 19:41 Quetiapine Fumarate (SEROquel) 150 mg DAILY@0900,1700 PO 09/18/21 09:00 09/18/21 17:00 I have reviewed the current psychotropics carefully including drug interactions. Risk benefit ratio favors no change other than as noted in my dictated progress note. Diagnosis: Problems: (1) Impulse control disorder, unspecified (2) Anxiety disorder, unspecified (3) Dementia, vascular, with depression (4) Dementia, vascular, with delusions (5) Dementia in Alzheimer's disease with depression (6) Dementia in Alzheimer's disease with delusions (7) Major neurocognitive disorder (8) Frontotemporal dementia with behavioral disturbance ELIAZAR COYLE MD Sep 18, 2021 20:43
--- NOTE | 2021-09-19 00:18 | NUR ---
Nursing Note Pt asleep doesn't awaken to take po pills. Resting well, no behaviors.
[2021-09-19 06:21] VITALS: BP 125/89
--- NOTE | 2021-09-19 06:42 | PDOC ---
Exam Note: Castillo Note: This note is a late entry for 09/18/2021 covers elements not covered in my initial note. Subjective: The patient was seen individually in the evening of 09/18/2021 with Deanne ALLISON, discussed and reviewed the chart. The patient slept 7-1/2 hours previous night. He did go out of the patio and then was threatening to jump over the fence but then gets easily distracted, talking about farm animals etc., which he has done at other times with Deanne Martinez RN as well. Review of Systems: No CV, , pulmonary, eye, ENT system symptoms on review. Reliability poor. Mental Status Exam: The patient is oriented to himself. Insight and judgment, recent and remote memory, attention and concentration, fund of knowledge is poor consistent with his diagnoses. Laboratory Data: Reviewed. Impression: Major neurocognitive disorder, frontotemporal with delusion, depression, behavioral disturbance. Anxiety disorder unspecified. Impulse control disorder unspecified. Plan: Continue psychotropics unchanged. We did do a pharmacy consult for his low white cell count and they had suggested reducing the Seroquel as that could be contributing to it. We have reduced the h.s. Seroquel by 50 mg. Assessment: Vital Signs/I&O: Vital Signs Date Time Temp Pulse Resp B/P (MAP) Pulse Ox O2 Delivery O2 Flow Rate FiO2 09/19/21 06:21 98.2 82 18 125/89 (101) 96 09/18/21 15:26 Room Air I & O 09/18/21 09/18/21 09/19/21 15:00 23:00 07:00 Intake Total 1080 ml 840 ml Balance 1080 ml 840 ml Current Medications: Meds: Current Medications Medications (Trade) Dose Ordered Sig/Susana Route PRN Reason Start Time Stop Time Status Last Admin Dose Admin Acetaminophen (Tylenol) 650 mg PRN Q6HRS PRN PO MILD PAIN / TEMP > 100.3'F 08/29/21 22:00 Multi-Ingredient Ointment (Analgesic [place]) 1 sandra PRN QID PRN TP MUSCLE PAIN 08/29/21 22:00 Al Hydroxide/Mg Hydroxide (Mylanta Plus Xs) 15 ml PRN AFTMEALHC PRN PO DYSPEPSIA 08/29/21 22:00 Magnesium Hydroxide (Milk Of Magnesia) 2,400 mg PRN QHS PRN PO 1ST CHOICE CONSTIPATION 08/29/21 22:00 09/13/21 17:01 Acetaminophen (Tylenol) 650 mg PRN Q6HRS PRN PO MILD PAIN / TEMP > 100.3'F 08/29/21 22:30 Cancel Losartan Potassium (Cozaar) 50 mg DAILY PO 08/30/21 09:00 09/18/21 08:26 Atorvastatin Calcium (Lipitor) 40 mg QHS PO 08/30/21 21:00 09/18/21 19:40 Paroxetine HCl (Paxil) 60 mg DAILY PO 08/30/21 09:00 09/13/21 18:21 DC 09/13/21 08:11 Amoxicillin/ Clavulanate Potassium (Augmentin 875/ 125mg) 1 tab BID PO 08/30/21 09:00 08/30/21 11:09 DC Lactobacillus Rhamnosus (Culturelle) 1 cap BID PO 08/30/21 09:00 08/30/21 11:09 DC Olanzapine (ZyPREXA) 5 mg PRN Q2HR PRN PO 1st choice ANXIETY / AGITATION 08/30/21 16:00 09/17/21 15:28 Gabapentin (Neurontin) 300 mg BID PO 08/30/21 21:00 09/01/21 23:50 DC 09/01/21 20:17 Gabapentin (Neurontin) 400 mg TID PO 09/02/21 09:00 08/31/21 19:41 DC Medroxyprogesterone Acetate (Provera) 15 mg DAILY PO 08/31/21 09:00 09/07/21 05:34 DC 09/06/21 08:43 Quetiapine Fumarate (SEROquel) 50 mg TID PO 08/30/21 21:00 09/01/21 14:33 DC 09/01/21 09:57 Trazodone HCl (Desyrel) 50 mg PRN Q8HRS PRN PO 3RD CHOICE ANXIETY/AGITATION 08/30/21 16:15 09/08/21 12:08 DC 09/07/21 19:24 Lorazepam (Ativan) 1 mg PRN Q1HR PRN PO 2nd choice ANXIETY / AGITATION 08/30/21 23:00 09/17/21 15:28 Bisacodyl (Dulcolax Supp) 10 mg PRN DAILY PRN [place] 2ND CHOICE CONSTIPATION 08/31/21 00:30 Magnesium Citrate (Citroma) 296 ml 1X ONCE PO 08/31/21 10:45 08/31/21 10:47 DC 08/31/21 11:13 Sennosides (Senna) 8.6 mg BID PO 08/31/21 21:00 09/18/21 19:40 Gabapentin (Neurontin) 300 mg TID PO 09/02/21 09:00 09/02/21 16:19 DC 09/02/21 09:00 Quetiapine Fumarate (SEROquel) 25 mg TID PO 09/01/21 21:00 09/03/21 13:24 DC 09/03/21 09:02 Gabapentin (Neurontin) 300 mg TID PO 09/02/21 17:00 09/05/21 21:47 DC 09/05/21 20:16 Quetiapine Fumarate (SEROquel) 25 mg PRN TID PRN PO Agitation 09/03/21 13:30 09/17/21 10:53 Gabapentin (Neurontin) 600 mg DAILY PO 09/06/21 09:00 09/09/21 20:06 DC 09/09/21 07:27 Gabapentin (Neurontin) 300 mg 1400,2100 PO 09/06/21 14:00 09/09/21 20:06 DC 09/09/21 12:12 Magnesium Citrate (Citroma) 296 ml PRN 1X PRN PO CONSTIPATION 09/06/21 17:45 09/16/21 17:15 DC 09/11/21 16:47 Medroxyprogesterone Acetate (Provera) 20 mg DAILY PO 09/07/21 09:00 09/18/21 08:26 Trazodone HCl (Desyrel) 100 mg PRN Q8HRS PRN PO 3RD CHOICE ANXIETY/AGITATION 09/08/21 12:15 09/18/21 19:40 Gabapentin (Neurontin) 300 mg HS PO 09/09/21 21:00 09/10/21 17:26 DC 09/09/21 21:05 Gabapentin (Neurontin) 600 mg 0900,1400 PO 09/10/21 09:00 09/10/21 17:26 DC 09/10/21 11:55 Gabapentin (Neurontin) 300 mg TID PO 09/10/21 21:00 09/10/21 17:36 DC Gabapentin (Neurontin) 600 mg TID PO 09/10/21 21:00 09/12/21 01:56 DC 09/11/21 19:52 Gabapentin (Neurontin) 600 mg DAILY@1400,2100 PO 09/12/21 14:00 09/12/21 17:01 DC 09/12/21 13:33 Gabapentin (Neurontin) 900 mg DAILY PO 09/12/21 09:00 09/18/21 08:26 Gabapentin (Neurontin) 300 mg 1X ONCE PO 09/12/21 21:00 09/12/21 21:01 DC Gabapentin (Neurontin) 600 mg 1400,2100 PO 09/13/21 14:00 09/18/21 19:40 Quetiapine Fumarate (SEROquel) 50 mg TID PO 09/13/21 09:00 09/13/21 18:21 DC 09/13/21 13:26 Lorazepam (Ativan) 2 mg 1X ONCE PO 09/13/21 13:15 09/14/21 09:42 DC 09/13/21 13:27 Paroxetine HCl (Paxil) 50 mg DAILY PO 09/14/21 09:00 09/16/21 22:00 DC 09/16/21 09:18 Quetiapine Fumarate (SEROquel) 100 mg TID PO 09/13/21 21:00 09/16/21 19:53 DC 09/16/21 13:16 Fluvoxamine Maleate (Luvox) 25 mg DAILY PO 09/14/21 09:00 09/15/21 23:50 DC 09/15/21 08:17 Fluvoxamine Maleate (Luvox) 50 mg DAILY PO 09/16/21 09:00 09/17/21 23:50 DC 09/17/21 08:12 Fluvoxamine Maleate (Luvox) 75 mg DAILY PO 09/18/21 09:00 09/19/21 23:50 09/18/21 08:26 Fluvoxamine Maleate (Luvox) 100 mg DAILY PO 09/20/21 09:00 Paroxetine HCl (Paxil) 40 mg DAILY PO 09/17/21 09:00 09/19/21 22:00 09/18/21 08:27 Paroxetine HCl (Paxil) 30 mg DAILY PO 09/20/21 09:00 09/22/21 22:00 Paroxetine HCl (Paxil) 20 mg DAILY PO 09/23/21 09:00 09/25/21 22:00 Paroxetine HCl (Paxil) 10 mg DAILY PO 09/26/21 09:00 09/28/21 22:00 Magnesium Citrate (Citroma) 296 ml PRN DAILY PRN PO 3RD CHOICE CONSTIPATION 09/14/21 09:45 09/14/21 11:51 Polyethylene Glycol (miraLAX) 17 gm DAILY PO 09/15/21 09:00 09/18/21 08:27 Quetiapine Fumarate (SEROquel) 150 mg TID PO 09/16/21 21:00 09/17/21 22:31 DC 09/17/21 20:11 Quetiapine Fumarate (SEROquel) 100 mg HS PO 09/18/21 21:00 09/18/21 19:41 Quetiapine Fumarate (SEROquel) 150 mg DAILY@0900,1700 PO 09/18/21 09:00 09/18/21 17:00 Current Medications Medications (Trade) Dose Ordered Sig/Susana Route PRN Reason Start Time Stop Time Status Last Admin Dose Admin Fluvoxamine Maleate (Luvox) 75 mg DAILY PO 09/18/21 09:00 09/19/21 23:50 09/18/21 08:26 Quetiapine Fumarate (SEROquel) 100 mg HS PO 09/18/21 21:00 09/18/21 19:41 Quetiapine Fumarate (SEROquel) 150 mg DAILY@0900,1700 PO 09/18/21 09:00 09/18/21 17:00 I have reviewed the current psychotropics carefully including drug interactions. Risk benefit ratio favors no change other than as noted in my dictated progress note. Diagnosis: Problems: (1) Impulse control disorder, unspecified (2) Anxiety disorder, unspecified (3) Dementia, vascular, with depression (4) Dementia, vascular, with delusions (5) Dementia in Alzheimer's disease with depression (6) Dementia in Alzheimer's disease with delusions (7) Major neurocognitive disorder (8) Frontotemporal dementia with behavioral disturbance ELIAZAR COYLE MD Sep 19, 2021 06:42
[2021-09-19] MEDS: QUEtiapine 100 MG TABLET. PO SCH ×3 (08:13→21:00)
[2021-09-19] MEDS: POLYETHYLENE GLYCOL 3350 17 GM PACKET. PO SCH (08:13)
[2021-09-19] MEDS: PARoxetine 20 MG TABLET PO SCH (08:13)
[2021-09-19] MEDS: medroxyPROGESTERone 5 MG TABLET PO SCH (08:14)
[2021-09-19] MEDS: SENNOSIDES 8.6 MG TABLET PO SCH ×2 (08:15→21:00)
[2021-09-19] MEDS: LOSARTAN 50 MG TABLET. PO SCH (08:15)
[2021-09-19] MEDS: GABAPENTIN 300 MG CAPSULE. PO SCH ×3 (08:15→21:00)
--- NOTE | 2021-09-19 14:16 | NUR ---
Nursing note: Pt has been pleasant, med compliant and cooperative this shift. He is restless and wanders around, but is able to be redirected without issue. 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 He is currently in the day room watching TV. Will continue to monitor.
--- NOTE | 2021-09-19 14:27 | NUR ---
[facility] Social Work Discharge Planning Form Patient Name RACHEL CHACON Admit Date: 29 August 2021 DISCHARGE PLAN Discharge Destination: Pt to discharge [facility] Assessment: N/A Level II Assessment: N/A Transportation: [facility] will pick pt up around 1100AM. Special Instructions/Notes: Please fax discharge orders, discharge medications and discharge summary to the fax number listed below. DISCHARGE TO FACILITY Facility: [facility] Address: [address] [place] [address]; [place] [address] Contact Name: Ivet Cox, Admissions: Contact Name: Please ask for the nurse caring for pt upon admission for report: PCP: Will see psychiatrist on staff
[2021-09-19 15:30] VITALS: BP 105/60
[2021-09-19] MEDS: ATORVASTATIN CALCIUM 20 MG TABLET PO SCH (21:00)
--- NOTE | 2021-09-19 21:06 | PDOC ---
Exam Note: Castillo Note: Please also refer to the separate dictated note~for this date of service dictated separately.~Patient seen individually. Discussed the patient with Nursing staff reviewed the chart.~Reviewed interim history and current functioning. Reviewed vital signs,~Labs/ Radiology~and current medications noted below. Continue current treatment with the changes noted in the dictated addendum note Assessment: Vital Signs/I&O: Vital Signs Date Time Temp Pulse Resp B/P (MAP) Pulse Ox O2 Delivery O2 Flow Rate FiO2 09/19/21 15:30 97.9 65 20 105/60 (75) 95 09/18/21 15:26 Room Air I & O 09/18/21 09/18/21 09/19/21 15:00 23:00 07:00 Intake Total 1080 ml 840 ml Balance 1080 ml 840 ml Labs: Laboratory Tests Test 09/19/21 06:00 SARS-CoV-2 (PCR) Not detected (NOT DETECTD) Current Medications: Meds: Laboratory Tests Test 09/19/21 06:00 Coronavirus (COVID-19)(PCR) Not detected Current Medications Medications (Trade) Dose Ordered Sig/Susana Route PRN Reason Start Time Stop Time Status Last Admin Dose Admin Acetaminophen (Tylenol) 650 mg PRN Q6HRS PRN PO MILD PAIN / TEMP > 100.3'F 08/29/21 22:00 Multi-Ingredient Ointment (Analgesic [place]) 1 sandra PRN QID PRN TP MUSCLE PAIN 08/29/21 22:00 Al Hydroxide/Mg Hydroxide (Mylanta Plus Xs) 15 ml PRN AFTMEALHC PRN PO DYSPEPSIA 08/29/21 22:00 Magnesium Hydroxide (Milk Of Magnesia) 2,400 mg PRN QHS PRN PO 1ST CHOICE CONSTIPATION 08/29/21 22:00 09/13/21 17:01 Acetaminophen (Tylenol) 650 mg PRN Q6HRS PRN PO MILD PAIN / TEMP > 100.3'F 08/29/21 22:30 Cancel Losartan Potassium (Cozaar) 50 mg DAILY PO 08/30/21 09:00 09/19/21 08:15 Atorvastatin Calcium (Lipitor) 40 mg QHS PO 08/30/21 21:00 09/18/21 19:40 Paroxetine HCl (Paxil) 60 mg DAILY PO 08/30/21 09:00 09/13/21 18:21 DC 09/13/21 08:11 Amoxicillin/ Clavulanate Potassium (Augmentin 875/ 125mg) 1 tab BID PO 08/30/21 09:00 08/30/21 11:09 DC Lactobacillus Rhamnosus (Culturelle) 1 cap BID PO 08/30/21 09:00 08/30/21 11:09 DC Olanzapine (ZyPREXA) 5 mg PRN Q2HR PRN PO 1st choice ANXIETY / AGITATION 08/30/21 16:00 09/17/21 15:28 Gabapentin (Neurontin) 300 mg BID PO 08/30/21 21:00 09/01/21 23:50 DC 09/01/21 20:17 Gabapentin (Neurontin) 400 mg TID PO 09/02/21 09:00 08/31/21 19:41 DC Medroxyprogesterone Acetate (Provera) 15 mg DAILY PO 08/31/21 09:00 09/07/21 05:34 DC 09/06/21 08:43 Quetiapine Fumarate (SEROquel) 50 mg TID PO 08/30/21 21:00 09/01/21 14:33 DC 09/01/21 09:57 Trazodone HCl (Desyrel) 50 mg PRN Q8HRS PRN PO 3RD CHOICE ANXIETY/AGITATION 08/30/21 16:15 09/08/21 12:08 DC 09/07/21 19:24 Lorazepam (Ativan) 1 mg PRN Q1HR PRN PO 2nd choice ANXIETY / AGITATION 08/30/21 23:00 09/17/21 15:28 Bisacodyl (Dulcolax Supp) 10 mg PRN DAILY PRN CO 2ND CHOICE CONSTIPATION 08/31/21 00:30 Magnesium Citrate (Citroma) 296 ml 1X ONCE PO 08/31/21 10:45 08/31/21 10:47 DC 08/31/21 11:13 Sennosides (Senna) 8.6 mg BID PO 08/31/21 21:00 09/19/21 08:15 Gabapentin (Neurontin) 300 mg TID PO 09/02/21 09:00 09/02/21 16:19 DC 09/02/21 09:00 Quetiapine Fumarate (SEROquel) 25 mg TID PO 09/01/21 21:00 09/03/21 13:24 DC 09/03/21 09:02 Gabapentin (Neurontin) 300 mg TID PO 09/02/21 17:00 09/05/21 21:47 DC 09/05/21 20:16 Quetiapine Fumarate (SEROquel) 25 mg PRN TID PRN PO Agitation 09/03/21 13:30 09/17/21 10:53 Gabapentin (Neurontin) 600 mg DAILY PO 09/06/21 09:00 09/09/21 20:06 DC 09/09/21 07:27 Gabapentin (Neurontin) 300 mg 1400,2100 PO 09/06/21 14:00 09/09/21 20:06 DC 09/09/21 12:12 Magnesium Citrate (Citroma) 296 ml PRN 1X PRN PO CONSTIPATION 09/06/21 17:45 09/16/21 17:15 DC 09/11/21 16:47 Medroxyprogesterone Acetate (Provera) 20 mg DAILY PO 09/07/21 09:00 09/19/21 08:14 Trazodone HCl (Desyrel) 100 mg PRN Q8HRS PRN PO 3RD CHOICE ANXIETY/AGITATION 09/08/21 12:15 09/18/21 19:40 Gabapentin (Neurontin) 300 mg HS PO 09/09/21 21:00 09/10/21 17:26 DC 09/09/21 21:05 Gabapentin (Neurontin) 600 mg 0900,1400 PO 09/10/21 09:00 09/10/21 17:26 DC 09/10/21 11:55 Gabapentin (Neurontin) 300 mg TID PO 09/10/21 21:00 09/10/21 17:36 DC Gabapentin (Neurontin) 600 mg TID PO 09/10/21 21:00 09/12/21 01:56 DC 09/11/21 19:52 Gabapentin (Neurontin) 600 mg DAILY@1400,2100 PO 09/12/21 14:00 09/12/21 17:01 DC 09/12/21 13:33 Gabapentin (Neurontin) 900 mg DAILY PO 09/12/21 09:00 09/19/21 08:15 Gabapentin (Neurontin) 300 mg 1X ONCE PO 09/12/21 21:00 09/12/21 21:01 DC Gabapentin (Neurontin) 600 mg 1400,2100 PO 09/13/21 14:00 09/19/21 14:04 Quetiapine Fumarate (SEROquel) 50 mg TID PO 09/13/21 09:00 09/13/21 18:21 DC 09/13/21 13:26 Lorazepam (Ativan) 2 mg 1X ONCE PO 09/13/21 13:15 09/14/21 09:42 DC 09/13/21 13:27 Paroxetine HCl (Paxil) 50 mg DAILY PO 09/14/21 09:00 09/16/21 22:00 DC 09/16/21 09:18 Quetiapine Fumarate (SEROquel) 100 mg TID PO 09/13/21 21:00 09/16/21 19:53 DC 09/16/21 13:16 Fluvoxamine Maleate (Luvox) 25 mg DAILY PO 09/14/21 09:00 09/15/21 23:50 DC 09/15/21 08:17 Fluvoxamine Maleate (Luvox) 50 mg DAILY PO 09/16/21 09:00 09/17/21 23:50 DC 09/17/21 08:12 Fluvoxamine Maleate (Luvox) 75 mg DAILY PO 09/18/21 09:00 09/19/21 23:50 09/19/21 08:14 Fluvoxamine Maleate (Luvox) 100 mg DAILY PO 09/20/21 09:00 Paroxetine HCl (Paxil) 40 mg DAILY PO 09/17/21 09:00 09/19/21 22:00 09/19/21 08:13 Paroxetine HCl (Paxil) 30 mg DAILY PO 09/20/21 09:00 09/22/21 22:00 Paroxetine HCl (Paxil) 20 mg DAILY PO 09/23/21 09:00 09/25/21 22:00 Paroxetine HCl (Paxil) 10 mg DAILY PO 09/26/21 09:00 09/28/21 22:00 Magnesium Citrate (Citroma) 296 ml PRN DAILY PRN PO 3RD CHOICE CONSTIPATION 09/14/21 09:45 09/14/21 11:51 Polyethylene Glycol (miraLAX) 17 gm DAILY PO 09/15/21 09:00 09/19/21 08:13 Quetiapine Fumarate (SEROquel) 150 mg TID PO 09/16/21 21:00 09/17/21 22:31 DC 09/17/21 20:11 Quetiapine Fumarate (SEROquel) 100 mg HS PO 09/18/21 21:00 09/18/21 19:41 Quetiapine Fumarate (SEROquel) 150 mg DAILY@0900,1700 PO 09/18/21 09:00 09/19/21 17:26 I have reviewed the current psychotropics carefully including drug interactions. Risk benefit ratio favors no change other than as noted in my dictated progress note. Diagnosis: Problems: (1) Impulse control disorder, unspecified (2) Anxiety disorder, unspecified (3) Dementia, vascular, with depression (4) Dementia, vascular, with delusions (5) Dementia in Alzheimer's disease with depression (6) Dementia in Alzheimer's disease with delusions (7) Major neurocognitive disorder (8) Frontotemporal dementia with behavioral disturbance ELIAZAR COYLE MD Sep 19, 2021 21:06
[2021-09-20 05:50] VITALS: BP 152/93
--- NOTE | 2021-09-20 06:47 | PDOC ---
Exam Note: Castillo Note: This note is a late entry for 09/19/2021 covers elements not covered in my initial note. Subjective: The patient was seen individually in the evening of 09/19/2021 with Marisol ALLISON, discussed and reviewed the chart. The patient slept 7-1/2 hours previous night. Overall the patient has done better. He is more redirectable, still has poor social skills with very limited boundaries and much easier to redirect, little more sedated with adjustments in his psychotropics. Review of Systems: No CV, , pulmonary, eye, ENT system symptoms on review. Reliability poor. Mental Status Exam: The patient is oriented to himself. Insight and judgment, recent and remote memory, attention and concentration, fund of knowledge is poor consistent with his diagnoses. Laboratory Data: Reviewed. Impression: Major neurocognitive disorder, frontotemporal with delusion, depression, behavioral disturbance. Anxiety disorder unspecified. Impulse control disorder unspecified. Plan: We will continue to increase Seroquel as tolerated and may further increase Neurontin if needed. He will be [facility] [place] [facility]. Assessment: Vital Signs/I&O: Vital Signs Date Time Temp Pulse Resp B/P (MAP) Pulse Ox O2 Delivery O2 Flow Rate FiO2 09/20/21 05:50 97.5 67 18 152/93 (112) 96 09/18/21 15:26 Room Air I & O 09/19/21 09/19/21 09/20/21 15:00 23:00 07:00 Intake Total 960 ml 600 ml Balance 960 ml 600 ml Current Medications: Meds: Current Medications Medications (Trade) Dose Ordered Sig/Susana Route PRN Reason Start Time Stop Time Status Last Admin Dose Admin Acetaminophen (Tylenol) 650 mg PRN Q6HRS PRN PO MILD PAIN / TEMP > 100.3'F 08/29/21 22:00 Multi-Ingredient Ointment (Analgesic [place]) 1 sandra PRN QID PRN TP MUSCLE PAIN 08/29/21 22:00 Al Hydroxide/Mg Hydroxide (Mylanta Plus Xs) 15 ml PRN AFTMEALHC PRN PO DYSPEPSIA 08/29/21 22:00 Magnesium Hydroxide (Milk Of Magnesia) 2,400 mg PRN QHS PRN PO 1ST CHOICE CONSTIPATION 08/29/21 22:00 09/13/21 17:01 Acetaminophen (Tylenol) 650 mg PRN Q6HRS PRN PO MILD PAIN / TEMP > 100.3'F 08/29/21 22:30 Cancel Losartan Potassium (Cozaar) 50 mg DAILY PO 08/30/21 09:00 09/19/21 08:15 Atorvastatin Calcium (Lipitor) 40 mg QHS PO 08/30/21 21:00 09/18/21 19:40 Paroxetine HCl (Paxil) 60 mg DAILY PO 08/30/21 09:00 09/13/21 18:21 DC 09/13/21 08:11 Amoxicillin/ Clavulanate Potassium (Augmentin 875/ 125mg) 1 tab BID PO 08/30/21 09:00 08/30/21 11:09 DC Lactobacillus Rhamnosus (Culturelle) 1 cap BID PO 08/30/21 09:00 08/30/21 11:09 DC Olanzapine (ZyPREXA) 5 mg PRN Q2HR PRN PO 1st choice ANXIETY / AGITATION 08/30/21 16:00 09/17/21 15:28 Gabapentin (Neurontin) 300 mg BID PO 08/30/21 21:00 09/01/21 23:50 DC 09/01/21 20:17 Gabapentin (Neurontin) 400 mg TID PO 09/02/21 09:00 08/31/21 19:41 DC Medroxyprogesterone Acetate (Provera) 15 mg DAILY PO 08/31/21 09:00 09/07/21 05:34 DC 09/06/21 08:43 Quetiapine Fumarate (SEROquel) 50 mg TID PO 08/30/21 21:00 09/01/21 14:33 DC 09/01/21 09:57 Trazodone HCl (Desyrel) 50 mg PRN Q8HRS PRN PO 3RD CHOICE ANXIETY/AGITATION 08/30/21 16:15 09/08/21 12:08 DC 09/07/21 19:24 Lorazepam (Ativan) 1 mg PRN Q1HR PRN PO 2nd choice ANXIETY / AGITATION 08/30/21 23:00 09/17/21 15:28 Bisacodyl (Dulcolax Supp) 10 mg PRN DAILY PRN WI 2ND CHOICE CONSTIPATION 08/31/21 00:30 Magnesium Citrate (Citroma) 296 ml 1X ONCE PO 08/31/21 10:45 08/31/21 10:47 DC 08/31/21 11:13 Sennosides (Senna) 8.6 mg BID PO 08/31/21 21:00 09/19/21 08:15 Gabapentin (Neurontin) 300 mg TID PO 09/02/21 09:00 09/02/21 16:19 DC 09/02/21 09:00 Quetiapine Fumarate (SEROquel) 25 mg TID PO 09/01/21 21:00 09/03/21 13:24 DC 09/03/21 09:02 Gabapentin (Neurontin) 300 mg TID PO 09/02/21 17:00 09/05/21 21:47 DC 09/05/21 20:16 Quetiapine Fumarate (SEROquel) 25 mg PRN TID PRN PO Agitation 09/03/21 13:30 09/17/21 10:53 Gabapentin (Neurontin) 600 mg DAILY PO 09/06/21 09:00 09/09/21 20:06 DC 09/09/21 07:27 Gabapentin (Neurontin) 300 mg 1400,2100 PO 09/06/21 14:00 09/09/21 20:06 DC 09/09/21 12:12 Magnesium Citrate (Citroma) 296 ml PRN 1X PRN PO CONSTIPATION 09/06/21 17:45 09/16/21 17:15 DC 09/11/21 16:47 Medroxyprogesterone Acetate (Provera) 20 mg DAILY PO 09/07/21 09:00 09/19/21 08:14 Trazodone HCl (Desyrel) 100 mg PRN Q8HRS PRN PO 3RD CHOICE ANXIETY/AGITATION 09/08/21 12:15 09/18/21 19:40 Gabapentin (Neurontin) 300 mg HS PO 09/09/21 21:00 09/10/21 17:26 DC 09/09/21 21:05 Gabapentin (Neurontin) 600 mg 0900,1400 PO 09/10/21 09:00 09/10/21 17:26 DC 09/10/21 11:55 Gabapentin (Neurontin) 300 mg TID PO 09/10/21 21:00 09/10/21 17:36 DC Gabapentin (Neurontin) 600 mg TID PO 09/10/21 21:00 09/12/21 01:56 DC 09/11/21 19:52 Gabapentin (Neurontin) 600 mg DAILY@1400,2100 PO 09/12/21 14:00 09/12/21 17:01 DC 09/12/21 13:33 Gabapentin (Neurontin) 900 mg DAILY PO 09/12/21 09:00 09/19/21 08:15 Gabapentin (Neurontin) 300 mg 1X ONCE PO 09/12/21 21:00 09/12/21 21:01 DC Gabapentin (Neurontin) 600 mg 1400,2100 PO 09/13/21 14:00 09/19/21 14:04 Quetiapine Fumarate (SEROquel) 50 mg TID PO 09/13/21 09:00 09/13/21 18:21 DC 09/13/21 13:26 Lorazepam (Ativan) 2 mg 1X ONCE PO 09/13/21 13:15 09/14/21 09:42 DC 09/13/21 13:27 Paroxetine HCl (Paxil) 50 mg DAILY PO 09/14/21 09:00 09/16/21 22:00 DC 09/16/21 09:18 Quetiapine Fumarate (SEROquel) 100 mg TID PO 09/13/21 21:00 09/16/21 19:53 DC 09/16/21 13:16 Fluvoxamine Maleate (Luvox) 25 mg DAILY PO 09/14/21 09:00 09/15/21 23:50 DC 09/15/21 08:17 Fluvoxamine Maleate (Luvox) 50 mg DAILY PO 09/16/21 09:00 09/17/21 23:50 DC 09/17/21 08:12 Fluvoxamine Maleate (Luvox) 75 mg DAILY PO 09/18/21 09:00 09/19/21 23:50 DC 09/19/21 08:14 Fluvoxamine Maleate (Luvox) 100 mg DAILY PO 09/20/21 09:00 Paroxetine HCl (Paxil) 40 mg DAILY PO 09/17/21 09:00 09/19/21 22:00 DC 09/19/21 08:13 Paroxetine HCl (Paxil) 30 mg DAILY PO 09/20/21 09:00 09/22/21 22:00 Paroxetine HCl (Paxil) 20 mg DAILY PO 09/23/21 09:00 09/25/21 22:00 Paroxetine HCl (Paxil) 10 mg DAILY PO 09/26/21 09:00 09/28/21 22:00 Magnesium Citrate (Citroma) 296 ml PRN DAILY PRN PO 3RD CHOICE CONSTIPATION 09/14/21 09:45 09/14/21 11:51 Polyethylene Glycol (miraLAX) 17 gm DAILY PO 09/15/21 09:00 09/19/21 08:13 Quetiapine Fumarate (SEROquel) 150 mg TID PO 09/16/21 21:00 09/17/21 22:31 DC 09/17/21 20:11 Quetiapine Fumarate (SEROquel) 100 mg HS PO 09/18/21 21:00 09/18/21 19:41 Quetiapine Fumarate (SEROquel) 150 mg DAILY@0900,1700 PO 09/18/21 09:00 09/19/21 17:26 I have reviewed the current psychotropics carefully including drug interactions. Risk benefit ratio favors no change other than as noted in my dictated progress note. Diagnosis: Problems: (1) Impulse control disorder, unspecified (2) Anxiety disorder, unspecified (3) Dementia, vascular, with depression (4) Dementia, vascular, with delusions (5) Dementia in Alzheimer's disease with depression (6) Dementia in Alzheimer's disease with delusions (7) Major neurocognitive disorder (8) Frontotemporal dementia with behavioral disturbance ELIAZAR COYLE MD Sep 20, 2021 06:47
[2021-09-20] MEDS: GABAPENTIN 300 MG CAPSULE. PO SCH ×3 (08:11→19:12)
[2021-09-20] MEDS: POLYETHYLENE GLYCOL 3350 17 GM PACKET. PO SCH (08:12)
[2021-09-20] MEDS: LOSARTAN 50 MG TABLET. PO SCH (08:12)
[2021-09-20] MEDS: medroxyPROGESTERone 5 MG TABLET PO SCH (08:12)
[2021-09-20] MEDS: SENNOSIDES 8.6 MG TABLET PO SCH ×2 (08:12→19:11)
[2021-09-20] MEDS: QUEtiapine 100 MG TABLET. PO SCH ×3 (08:12→19:11)
[2021-09-20] MEDS: PARoxetine 10 MG TABLET PO SCH (08:13)
--- NOTE | 2021-09-20 16:53 | NUR ---
Pt up adl in halls and is out for meals. Restless and wandering at times. Exit seeking at times. Redirectable. Has been compliant with meds and cares.
[2021-09-20] MEDS: ATORVASTATIN CALCIUM 20 MG TABLET PO SCH (19:12)
--- NOTE | 2021-09-20 20:57 | PDOC ---
Exam Note: Castillo Note: Please also refer to the separate dictated note~for this date of service dictated separately.~Patient seen individually. Discussed the patient with Nursing staff reviewed the chart.~Reviewed interim history and current functioning. Reviewed vital signs,~Labs/ Radiology~and current medications noted below. Continue current treatment with the changes noted in the dictated addendum note Assessment: Vital Signs/I&O: Vital Signs Date Time Temp Pulse Resp B/P (MAP) Pulse Ox O2 Delivery O2 Flow Rate FiO2 09/20/21 08:12 67 152/93 09/20/21 05:50 97.5 18 96 09/18/21 15:26 Room Air I & O 09/19/21 09/19/21 09/20/21 15:00 23:00 07:00 Intake Total 960 ml 600 ml Balance 960 ml 600 ml Current Medications: Meds: Current Medications Medications (Trade) Dose Ordered Sig/Susana Route PRN Reason Start Time Stop Time Status Last Admin Dose Admin Acetaminophen (Tylenol) 650 mg PRN Q6HRS PRN PO MILD PAIN / TEMP > 100.3'F 08/29/21 22:00 Multi-Ingredient Ointment (Analgesic [place]) 1 sandra PRN QID PRN TP MUSCLE PAIN 08/29/21 22:00 Al Hydroxide/Mg Hydroxide (Mylanta Plus Xs) 15 ml PRN AFTMEALHC PRN PO DYSPEPSIA 08/29/21 22:00 Magnesium Hydroxide (Milk Of Magnesia) 2,400 mg PRN QHS PRN PO 1ST CHOICE CONSTIPATION 08/29/21 22:00 09/13/21 17:01 Acetaminophen (Tylenol) 650 mg PRN Q6HRS PRN PO MILD PAIN / TEMP > 100.3'F 08/29/21 22:30 Cancel Losartan Potassium (Cozaar) 50 mg DAILY PO 08/30/21 09:00 09/20/21 08:12 Atorvastatin Calcium (Lipitor) 40 mg QHS PO 08/30/21 21:00 09/20/21 19:12 Paroxetine HCl (Paxil) 60 mg DAILY PO 08/30/21 09:00 09/13/21 18:21 DC 09/13/21 08:11 Amoxicillin/ Clavulanate Potassium (Augmentin 875/ 125mg) 1 tab BID PO 08/30/21 09:00 11/13/21 11:09 DC Lactobacillus Rhamnosus (Culturelle) 1 cap BID PO 08/30/21 09:00 08/30/21 11:09 DC Olanzapine (ZyPREXA) 5 mg PRN Q2HR PRN PO 1st choice ANXIETY / AGITATION 08/30/21 16:00 09/17/21 15:28 Gabapentin (Neurontin) 300 mg BID PO 08/30/21 21:00 09/01/21 23:50 DC 09/01/21 20:17 Gabapentin (Neurontin) 400 mg TID PO 09/02/21 09:00 08/31/21 19:41 DC Medroxyprogesterone Acetate (Provera) 15 mg DAILY PO 08/31/21 09:00 09/07/21 05:34 DC 09/06/21 08:43 Quetiapine Fumarate (SEROquel) 50 mg TID PO 08/30/21 21:00 09/01/21 14:33 DC 09/01/21 09:57 Trazodone HCl (Desyrel) 50 mg PRN Q8HRS PRN PO 3RD CHOICE ANXIETY/AGITATION 08/30/21 16:15 09/08/21 12:08 DC 09/07/21 19:24 Lorazepam (Ativan) 1 mg PRN Q1HR PRN PO 2nd choice ANXIETY / AGITATION 08/30/21 23:00 09/17/21 15:28 Bisacodyl (Dulcolax Supp) 10 mg PRN DAILY PRN [place] 2ND CHOICE CONSTIPATION 08/31/21 00:30 Magnesium Citrate (Citroma) 296 ml 1X ONCE PO 08/31/21 10:45 08/31/21 10:47 DC 08/31/21 11:13 Sennosides (Senna) 8.6 mg BID PO 08/31/21 21:00 09/20/21 19:11 Gabapentin (Neurontin) 300 mg TID PO 09/02/21 09:00 09/02/21 16:19 DC 09/02/21 09:00 Quetiapine Fumarate (SEROquel) 25 mg TID PO 09/01/21 21:00 09/03/21 13:24 DC 09/03/21 09:02 Gabapentin (Neurontin) 300 mg TID PO 09/02/21 17:00 09/05/21 21:47 DC 09/05/21 20:16 Quetiapine Fumarate (SEROquel) 25 mg PRN TID PRN PO 4th choice agitation 09/03/21 13:30 09/17/21 10:53 Gabapentin (Neurontin) 600 mg DAILY PO 09/06/21 09:00 09/09/21 20:06 DC 09/09/21 07:27 Gabapentin (Neurontin) 300 mg 1400,2100 PO 09/06/21 14:00 09/09/21 20:06 DC 09/09/21 12:12 Magnesium Citrate (Citroma) 296 ml PRN 1X PRN PO CONSTIPATION 09/06/21 17:45 09/16/21 17:15 DC 09/11/21 16:47 Medroxyprogesterone Acetate (Provera) 20 mg DAILY PO 09/07/21 09:00 09/20/21 08:12 Trazodone HCl (Desyrel) 100 mg PRN Q8HRS PRN PO 3RD CHOICE ANXIETY/AGITATION 09/08/21 12:15 09/18/21 19:40 Gabapentin (Neurontin) 300 mg HS PO 09/09/21 21:00 09/10/21 17:26 DC 09/09/21 21:05 Gabapentin (Neurontin) 600 mg 0900,1400 PO 09/10/21 09:00 09/10/21 17:26 DC 09/10/21 11:55 Gabapentin (Neurontin) 300 mg TID PO 09/10/21 21:00 09/10/21 17:36 DC Gabapentin (Neurontin) 600 mg TID PO 09/10/21 21:00 09/12/21 01:56 DC 09/11/21 19:52 Gabapentin (Neurontin) 600 mg DAILY@1400,2100 PO 09/12/21 14:00 09/12/21 17:01 DC 09/12/21 13:33 Gabapentin (Neurontin) 900 mg DAILY PO 09/12/21 09:00 09/20/21 08:11 Gabapentin (Neurontin) 300 mg 1X ONCE PO 09/12/21 21:00 09/12/21 21:01 DC Gabapentin (Neurontin) 600 mg 1400,2100 PO 09/13/21 14:00 09/20/21 19:12 Quetiapine Fumarate (SEROquel) 50 mg TID PO 09/13/21 09:00 09/13/21 18:21 DC 09/13/21 13:26 Lorazepam (Ativan) 2 mg 1X ONCE PO 09/13/21 13:15 09/14/21 09:42 DC 09/13/21 13:27 Paroxetine HCl (Paxil) 50 mg DAILY PO 09/14/21 09:00 09/16/21 22:00 DC 09/16/21 09:18 Quetiapine Fumarate (SEROquel) 100 mg TID PO 09/13/21 21:00 09/16/21 19:53 DC 09/16/21 13:16 Fluvoxamine Maleate (Luvox) 25 mg DAILY PO 09/14/21 09:00 09/15/21 23:50 DC 09/15/21 08:17 Fluvoxamine Maleate (Luvox) 50 mg DAILY PO 09/16/21 09:00 09/17/21 23:50 DC 09/17/21 08:12 Fluvoxamine Maleate (Luvox) 75 mg DAILY PO 09/18/21 09:00 09/19/21 23:50 DC 09/19/21 08:14 Fluvoxamine Maleate (Luvox) 100 mg DAILY PO 09/20/21 09:00 09/20/21 08:15 Paroxetine HCl (Paxil) 40 mg DAILY PO 09/17/21 09:00 09/19/21 22:00 DC 09/19/21 08:13 Paroxetine HCl (Paxil) 30 mg DAILY PO 09/20/21 09:00 09/22/21 22:00 09/20/21 08:13 Paroxetine HCl (Paxil) 20 mg DAILY PO 09/23/21 09:00 09/25/21 22:00 Paroxetine HCl (Paxil) 10 mg DAILY PO 09/26/21 09:00 09/28/21 22:00 Magnesium Citrate (Citroma) 296 ml PRN DAILY PRN PO 3RD CHOICE CONSTIPATION 09/14/21 09:45 09/14/21 11:51 Polyethylene Glycol (miraLAX) 17 gm DAILY PO 09/15/21 09:00 09/20/21 08:12 Quetiapine Fumarate (SEROquel) 150 mg TID PO 09/16/21 21:00 09/17/21 22:31 DC 09/17/21 20:11 Quetiapine Fumarate (SEROquel) 100 mg HS PO 09/18/21 21:00 09/20/21 19:11 Quetiapine Fumarate (SEROquel) 150 mg DAILY@0900,1700 PO 09/18/21 09:00 09/20/21 17:00 Current Medications Medications (Trade) Dose Ordered Sig/Susana Route PRN Reason Start Time Stop Time Status Last Admin Dose Admin Fluvoxamine Maleate (Luvox) 100 mg DAILY PO 09/20/21 09:00 09/20/21 08:15 Paroxetine HCl (Paxil) 30 mg DAILY PO 09/20/21 09:00 09/22/21 22:00 09/20/21 08:13 I have reviewed the current psychotropics carefully including drug interactions. Risk benefit ratio favors no change other than as noted in my dictated progress note. Diagnosis: Problems: (1) Impulse control disorder, unspecified (2) Anxiety disorder, unspecified (3) Dementia, vascular, with depression (4) Dementia, vascular, with delusions (5) Dementia in Alzheimer's disease with depression (6) Dementia in Alzheimer's disease with delusions (7) Major neurocognitive disorder (8) Frontotemporal dementia with behavioral disturbance ELIAZAR COYLE MD Sep 20, 2021 20:57
--- NOTE | 2021-09-20 23:40 | NUR ---
Patient is in the day room on assumption of care. He is disorganized, impulsive, but is much more redirectable than previously. He was compliant with assessments and took his medications crushed in chocolate pudding. Cooperative with HS care. Patient does not appear to be experiencing any pain or discomfort and is sleeping comfortably at present time. Will continue to monitor.
[2021-09-21] MEDS ORDERED: BISA10SU55 RC (00:16)
[2021-09-21] MEDS ORDERED: GABA-586 PO ×2 (00:17→00:18)
[2021-09-21] MEDS ORDERED: LORA-254 PO (00:19)
[2021-09-21] MEDS ORDERED: MAG-115 PO (00:22)
[2021-09-21] MEDS ORDERED: MAGN296S68 PO (00:24)
[2021-09-21] MEDS ORDERED: MAGN24003 PO (00:24)
[2021-09-21] MEDS ORDERED: MENT1ADH29 TP (00:28)
[2021-09-21] MEDS ORDERED: TROL86CR TP (00:28)
[2021-09-21] MEDS ORDERED: PARO30TA3 PO (00:31)
[2021-09-21] MEDS ORDERED: PARO20TA3 PO (00:34)
[2021-09-21] MEDS ORDERED: PARO10TA57 PO (00:37)
[2021-09-21] MEDS ORDERED: POLY17PO5 PO (00:40)
[2021-09-21] MEDS ORDERED: QUET25TA5 PO (00:41)
[2021-09-21] MEDS ORDERED: QUET100T4 PO ×2 (00:42→00:44)
[2021-09-21] MEDS ORDERED: SENN8.6T11 PO (00:45)
[2021-09-21] MEDS ORDERED: FLUV100T17 PO (00:46)
[2021-09-21] MEDS ORDERED: MEDR10TA PO (00:47)
[2021-09-21] MEDS ORDERED: TRAZ-125 PO (00:48)
[2021-09-21] MEDS: traZODone 50 MG TABLET. PO PRN ×2 (01:38→19:36)
[2021-09-21 05:41] VITALS: BP 155/91
[2021-09-21] MEDS: POLYETHYLENE GLYCOL 3350 17 GM PACKET. PO SCH (08:41)
[2021-09-21] MEDS: PARoxetine 10 MG TABLET PO SCH (08:41)
[2021-09-21] MEDS: QUEtiapine 100 MG TABLET. PO SCH ×3 (08:42→19:34)
[2021-09-21] MEDS: SENNOSIDES 8.6 MG TABLET PO SCH ×2 (08:42→19:34)
[2021-09-21] MEDS: medroxyPROGESTERone 5 MG TABLET PO SCH (08:43)
[2021-09-21] MEDS: GABAPENTIN 300 MG CAPSULE. PO SCH ×3 (08:44→19:34)
[2021-09-21] MEDS: LOSARTAN 50 MG TABLET. PO SCH (08:44)
--- NOTE | 2021-09-21 11:25 | NUR ---
Pt presents with a neutral mood/affect. Pt was up walking around in the day room, approaching staff. Pt was redirected. Pt was told to go sit down to wait for his turn for medication and pt listened and waited until medication was brought to him. Pt was medication compliant. Pt is pleasantly talking with staff. Pt continues to be in and out with his ability to communicate, sometimes he is able to communicate about his past jobs and sometimes he is not communicative. Pt is noted to spend time in the day room and in the west hallway walking and saying hello to staff. Pt slept 7.5 hours last night and continues to have a good appetite. Will continue to monitor.
[2021-09-21 12:57] LABS: BASO % 1 % (0-3); EOS # 0.2 x10^3/uL (0.0-0.7); EOS % 5 % (0-3); HEMOGLOBIN 12.5 g/dL (13.0-17.5); LYMPH # 1.3 x10^3/uL (1.0-4.8); LYMPH % 37 % (24-48); MEAN CORPUSCULAR HEMOGLOBIN 31 pg (25-35); MEAN CORPUSCULAR HGB CONC 34 g/dL (31-37); MEAN CORPUSCULAR VOLUME 92 fL (79-100); MONO # 0.3 x10^3/uL (0.0-1.1); MONO % 8 % (0-9); NEUT # 1.7 x10^3uL (1.8-7.7); NEUT % 49 % (31-73); PLATELET COUNT 199 x10^3/uL (140-400); RED BLOOD COUNT 4.04 x10^6/uL (4.30-5.70); RED CELL DISTRIBUTION WIDTH 13.4 % (11.5-14.5); WHITE BLOOD COUNT 3.5 x10^3/uL (4.0-11.0)
[2021-09-21] MEDS: MAGNESIUM CITRATE 296 ML SOLUTION. PO PRN (15:42)
[2021-09-21 15:48] VITALS: BP 109/62
[2021-09-21] MEDS: ATORVASTATIN CALCIUM 20 MG TABLET PO SCH (19:35)
--- NOTE | 2021-09-21 20:56 | PDOC ---
Exam Note: Castillo Note: Please also refer to the separate dictated note~for this date of service dictated separately.~Patient seen individually. Discussed the patient with Nursing staff reviewed the chart.~Reviewed interim history and current functioning. Reviewed vital signs,~Labs/ Radiology~and current medications noted below. Continue current treatment with the changes noted in the dictated addendum note Assessment: Vital Signs/I&O: Vital Signs Date Time Temp Pulse Resp B/P (MAP) Pulse Ox O2 Delivery O2 Flow Rate FiO2 09/21/21 15:48 97.9 73 18 109/62 (78) 95 09/18/21 15:26 Room Air I & O 09/20/21 09/20/21 09/21/21 14:59 22:59 06:59 Intake Total 960 ml 720 ml Balance 960 ml 720 ml Labs: Laboratory Tests Test 09/21/21 05:00 White Blood Count 3.5 x10^3/uL (4.0-11.0) L Red Blood Count 4.04 x10^6/uL (4.30-5.70) L Hemoglobin 12.5 g/dL (13.0-17.5) L Hematocrit 37.0 % (39.0-53.0) L Mean Corpuscular Volume 92 fL (79-100) Mean Corpuscular Hemoglobin 31 pg (25-35) Mean Corpuscular Hemoglobin Concent 34 g/dL (31-37) Red Cell Distribution Width 13.4 % (11.5-14.5) Platelet Count 199 x10^3/uL (140-400) Neutrophils (%) (Auto) 49 % (31-73) Lymphocytes (%) (Auto) 37 % (24-48) Monocytes (%) (Auto) 8 % (0-9) Eosinophils (%) (Auto) 5 % (0-3) H Basophils (%) (Auto) 1 % (0-3) Neutrophils # (Auto) 1.7 x10^3uL (1.8-7.7) L Lymphocytes # (Auto) 1.3 x10^3/uL (1.0-4.8) Monocytes # (Auto) 0.3 x10^3/uL (0.0-1.1) Eosinophils # (Auto) 0.2 x10^3/uL (0.0-0.7) Basophils # (Auto) 0.0 x10^3/uL (0.0-0.2) Current Medications: Meds: Laboratory Tests Test 09/21/21 05:00 White Blood Count 3.5 x10^3/uL Red Blood Count 4.04 x10^6/uL Hemoglobin 12.5 g/dL Hematocrit 37.0 % Mean Corpuscular Volume 92 fL Mean Corpuscular Hemoglobin 31 pg Mean Corpuscular Hemoglobin Concent 34 g/dL Red Cell Distribution Width 13.4 % Platelet Count 199 x10^3/uL Neutrophils (%) (Auto) 49 % Lymphocytes (%) (Auto) 37 % Monocytes (%) (Auto) 8 % Eosinophils (%) (Auto) 5 % Basophils (%) (Auto) 1 % Neutrophils # (Auto) 1.7 x10^3uL Lymphocytes # (Auto) 1.3 x10^3/uL Monocytes # (Auto) 0.3 x10^3/uL Eosinophils # (Auto) 0.2 x10^3/uL Basophils # (Auto) 0.0 x10^3/uL Current Medications Medications (Trade) Dose Ordered Sig/Susana Route PRN Reason Start Time Stop Time Status Last Admin Dose Admin Acetaminophen (Tylenol) 650 mg PRN Q6HRS PRN PO MILD PAIN / TEMP > 100.3'F 08/29/21 22:00 Multi-Ingredient Ointment (Analgesic [place]) 1 sandra PRN QID PRN TP MUSCLE PAIN 08/29/21 22:00 Al Hydroxide/Mg Hydroxide (Mylanta Plus Xs) 15 ml PRN AFTMEALHC PRN PO DYSPEPSIA 08/29/21 22:00 Magnesium Hydroxide (Milk Of Magnesia) 2,400 mg PRN QHS PRN PO 1ST CHOICE CONSTIPATION 08/29/21 22:00 09/13/21 17:01 Acetaminophen (Tylenol) 650 mg PRN Q6HRS PRN PO MILD PAIN / TEMP > 100.3'F 08/29/21 22:30 Cancel Losartan Potassium (Cozaar) 50 mg DAILY PO 08/30/21 09:00 09/21/21 08:44 Atorvastatin Calcium (Lipitor) 40 mg QHS PO 08/30/21 21:00 09/21/21 19:35 Paroxetine HCl (Paxil) 60 mg DAILY PO 08/30/21 09:00 09/13/21 18:21 DC 09/13/21 08:11 Amoxicillin/ Clavulanate Potassium (Augmentin 875/ 125mg) 1 tab BID PO 08/30/21 09:00 08/30/21 11:09 DC Lactobacillus Rhamnosus (Culturelle) 1 cap BID PO 08/30/21 09:00 08/30/21 11:09 DC Olanzapine (ZyPREXA) 5 mg PRN Q2HR PRN PO 1st choice ANXIETY / AGITATION 08/30/21 16:00 09/17/21 15:28 Gabapentin (Neurontin) 300 mg BID PO 08/30/21 21:00 09/01/21 23:50 DC 09/01/21 20:17 Gabapentin (Neurontin) 400 mg TID PO 09/02/21 09:00 08/31/21 19:41 DC Medroxyprogesterone Acetate (Provera) 15 mg DAILY PO 08/31/21 09:00 09/07/21 05:34 DC 09/06/21 08:43 Quetiapine Fumarate (SEROquel) 50 mg TID PO 08/30/21 21:00 09/01/21 14:33 DC 09/01/21 09:57 Trazodone HCl (Desyrel) 50 mg PRN Q8HRS PRN PO 3RD CHOICE ANXIETY/AGITATION 08/30/21 16:15 09/08/21 12:08 DC 09/07/21 19:24 Lorazepam (Ativan) 1 mg PRN Q1HR PRN PO 2nd choice ANXIETY / AGITATION 08/30/21 23:00 09/17/21 15:28 Bisacodyl (Dulcolax Supp) 10 mg PRN DAILY PRN [place] 2ND CHOICE CONSTIPATION 08/31/21 00:30 Magnesium Citrate (Citroma) 296 ml 1X ONCE PO 08/31/21 10:45 08/31/21 10:47 DC 08/31/21 11:13 Sennosides (Senna) 8.6 mg BID PO 08/31/21 21:00 09/21/21 19:34 Gabapentin (Neurontin) 300 mg TID PO 09/02/21 09:00 09/02/21 16:19 DC 09/02/21 09:00 Quetiapine Fumarate (SEROquel) 25 mg TID PO 09/01/21 21:00 09/03/21 13:24 DC 09/03/21 09:02 Gabapentin (Neurontin) 300 mg TID PO 09/02/21 17:00 09/05/21 21:47 DC 09/05/21 20:16 Quetiapine Fumarate (SEROquel) 25 mg PRN TID PRN PO 4th choice agitation 09/03/21 13:30 09/17/21 10:53 Gabapentin (Neurontin) 600 mg DAILY PO 09/06/21 09:00 09/09/21 20:06 DC 09/09/21 07:27 Gabapentin (Neurontin) 300 mg 1400,2100 PO 09/06/21 14:00 09/09/21 20:06 DC 09/09/21 12:12 Magnesium Citrate (Citroma) 296 ml PRN 1X PRN PO CONSTIPATION 09/06/21 17:45 09/16/21 17:15 DC 09/11/21 16:47 Medroxyprogesterone Acetate (Provera) 20 mg DAILY PO 09/07/21 09:00 09/21/21 08:43 Trazodone HCl (Desyrel) 100 mg PRN Q8HRS PRN PO 3RD CHOICE ANXIETY/AGITATION 09/08/21 12:15 09/21/21 19:36 Gabapentin (Neurontin) 300 mg HS PO 09/09/21 21:00 09/10/21 17:26 DC 09/09/21 21:05 Gabapentin (Neurontin) 600 mg 0900,1400 PO 09/10/21 09:00 09/10/21 17:26 DC 09/10/21 11:55 Gabapentin (Neurontin) 300 mg TID PO 09/10/21 21:00 09/10/21 17:36 DC Gabapentin (Neurontin) 600 mg TID PO 09/10/21 21:00 09/12/21 01:56 DC 09/11/21 19:52 Gabapentin (Neurontin) 600 mg DAILY@1400,2100 PO 09/12/21 14:00 09/12/21 17:01 DC 09/12/21 13:33 Gabapentin (Neurontin) 900 mg DAILY PO 09/12/21 09:00 09/21/21 08:44 Gabapentin (Neurontin) 300 mg 1X ONCE PO 09/12/21 21:00 09/12/21 21:01 DC Gabapentin (Neurontin) 600 mg 1400,2100 PO 09/13/21 14:00 09/21/21 19:34 Quetiapine Fumarate (SEROquel) 50 mg TID PO 09/13/21 09:00 09/13/21 18:21 DC 09/13/21 13:26 Lorazepam (Ativan) 2 mg 1X ONCE PO 09/13/21 13:15 09/14/21 09:42 DC 09/13/21 13:27 Paroxetine HCl (Paxil) 50 mg DAILY PO 09/14/21 09:00 09/16/21 22:00 DC 09/16/21 09:18 Quetiapine Fumarate (SEROquel) 100 mg TID PO 09/13/21 21:00 09/16/21 19:53 DC 09/16/21 13:16 Fluvoxamine Maleate (Luvox) 25 mg DAILY PO 09/14/21 09:00 09/15/21 23:50 DC 09/15/21 08:17 Fluvoxamine Maleate (Luvox) 50 mg DAILY PO 09/16/21 09:00 09/17/21 23:50 DC 09/17/21 08:12 Fluvoxamine Maleate (Luvox) 75 mg DAILY PO 09/18/21 09:00 09/19/21 23:50 DC 09/19/21 08:14 Fluvoxamine Maleate (Luvox) 100 mg DAILY PO 09/20/21 09:00 09/21/21 08:44 Paroxetine HCl (Paxil) 40 mg DAILY PO 09/17/21 09:00 09/19/21 22:00 DC 09/19/21 08:13 Paroxetine HCl (Paxil) 30 mg DAILY PO 09/20/21 09:00 09/22/21 22:00 09/21/21 08:41 Paroxetine HCl (Paxil) 20 mg DAILY PO 09/23/21 09:00 09/25/21 22:00 Paroxetine HCl (Paxil) 10 mg DAILY PO 09/26/21 09:00 09/28/21 22:00 Magnesium Citrate (Citroma) 296 ml PRN DAILY PRN PO 3RD CHOICE CONSTIPATION 09/14/21 09:45 09/21/21 15:42 Polyethylene Glycol (miraLAX) 17 gm DAILY PO 09/15/21 09:00 09/21/21 08:41 Quetiapine Fumarate (SEROquel) 150 mg TID PO 09/16/21 21:00 09/17/21 22:31 DC 09/17/21 20:11 Quetiapine Fumarate (SEROquel) 100 mg HS PO 09/18/21 21:00 09/21/21 19:34 Quetiapine Fumarate (SEROquel) 150 mg DAILY@0900,1700 PO 09/18/21 09:00 09/21/21 17:01 I have reviewed the current psychotropics carefully including drug interactions. Risk benefit ratio favors no change other than as noted in my dictated progress note. Diagnosis: Problems: (1) Impulse control disorder, unspecified (2) Anxiety disorder, unspecified (3) Dementia, vascular, with depression (4) Dementia, vascular, with delusions (5) Dementia in Alzheimer's disease with depression (6) Dementia in Alzheimer's disease with delusions (7) Major neurocognitive disorder (8) Frontotemporal dementia with behavioral disturbance ELIAZAR COYLE MD Sep 21, 2021 20:56
--- NOTE | 2021-09-21 22:16 | NUR ---
Pt located in the dayroom this evening. Pt restless and intrusive but is redirectable. Pt was in a good mood and interacted with staff and peers. Compliant with crushed medications. Pt currently sleeping.
[2021-09-22] MEDS: traZODone 50 MG TABLET. PO PRN ×3 (00:37→12:08)
[2021-09-22 06:03] VITALS: BP 145/80
--- NOTE | 2021-09-22 07:17 | PDOC ---
Exam Note: Castillo Note: This note is a late entry for 09/20/2021 covers elements not covered in my initial note. Subjective: The patient was seen individually in the evening of 09/20/2021 with Marisol ALLISON, discussed and reviewed the chart. The patient slept 9 hours previous night. According to the nursing report the patient is doing about the same. He remains confused with poor social boundaries but redirects. He is tolerating his current psychotropics and not overtly sedated. He is constantly asking for his Marlen but again redirects when his focus is turned to something else by his staff. Review of Systems: No CV, , pulmonary, eye, ENT system symptoms on review. Reliability poor. Mental Status Exam: The patient is oriented to himself. Insight and judgment, recent and remote memory, attention and concentration, fund of knowledge is poor consistent with his diagnoses. Laboratory Data: Reviewed. Impression: Major neurocognitive disorder, frontotemporal with delusion, depression, behavioral disturbance. Anxiety disorder unspecified. Impulse control disorder unspecified. Plan: Continue current psychotropics unchanged. Assessment: Vital Signs/I&O: Vital Signs Date Time Temp Pulse Resp B/P (MAP) Pulse Ox O2 Delivery O2 Flow Rate FiO2 09/22/21 06:03 97.6 71 20 145/80 (101) 94 09/18/21 15:26 Room Air I & O 09/21/21 09/21/21 09/22/21 15:00 23:00 07:00 Intake Total 960 ml 600 ml Balance 960 ml 600 ml Current Medications: Meds: Current Medications Medications (Trade) Dose Ordered Sig/Susana Route PRN Reason Start Time Stop Time Status Last Admin Dose Admin Acetaminophen (Tylenol) 650 mg PRN Q6HRS PRN PO MILD PAIN / TEMP > 100.3'F 08/29/21 22:00 Multi-Ingredient Ointment (Analgesic [place]) 1 sandra PRN QID PRN TP MUSCLE PAIN 08/29/21 22:00 Al Hydroxide/Mg Hydroxide (Mylanta Plus Xs) 15 ml PRN AFTMEALHC PRN PO DYSPEPSIA 08/29/21 22:00 Magnesium Hydroxide (Milk Of Magnesia) 2,400 mg PRN QHS PRN PO 1ST CHOICE CONSTIPATION 08/29/21 22:00 09/13/21 17:01 Acetaminophen (Tylenol) 650 mg PRN Q6HRS PRN PO MILD PAIN / TEMP > 100.3'F 08/29/21 22:30 Cancel Losartan Potassium (Cozaar) 50 mg DAILY PO 08/30/21 09:00 09/21/21 08:44 Atorvastatin Calcium (Lipitor) 40 mg QHS PO 08/30/21 21:00 09/21/21 19:35 Paroxetine HCl (Paxil) 60 mg DAILY PO 08/30/21 09:00 09/13/21 18:21 DC 09/13/21 08:11 Amoxicillin/ Clavulanate Potassium (Augmentin 875/ 125mg) 1 tab BID PO 08/30/21 09:00 08/30/21 11:09 DC Lactobacillus Rhamnosus (Culturelle) 1 cap BID PO 08/30/21 09:00 08/30/21 11:09 DC Olanzapine (ZyPREXA) 5 mg PRN Q2HR PRN PO 1st choice ANXIETY / AGITATION 08/30/21 16:00 09/17/21 15:28 Gabapentin (Neurontin) 300 mg BID PO 08/30/21 21:00 09/01/21 23:50 DC 09/01/21 20:17 Gabapentin (Neurontin) 400 mg TID PO 09/02/21 09:00 08/31/21 19:41 DC Medroxyprogesterone Acetate (Provera) 15 mg DAILY PO 08/31/21 09:00 09/07/21 05:34 DC 09/06/21 08:43 Quetiapine Fumarate (SEROquel) 50 mg TID PO 08/30/21 21:00 09/01/21 14:33 DC 09/01/21 09:57 Trazodone HCl (Desyrel) 50 mg PRN Q8HRS PRN PO 3RD CHOICE ANXIETY/AGITATION 08/30/21 16:15 09/08/21 12:08 DC 09/07/21 19:24 Lorazepam (Ativan) 1 mg PRN Q1HR PRN PO 2nd choice ANXIETY / AGITATION 08/30/21 23:00 09/17/21 15:28 Bisacodyl (Dulcolax Supp) 10 mg PRN DAILY PRN [place] 2ND CHOICE CONSTIPATION 08/31/21 00:30 Magnesium Citrate (Citroma) 296 ml 1X ONCE PO 08/31/21 10:45 08/31/21 10:47 DC 08/31/21 11:13 Sennosides (Senna) 8.6 mg BID PO 08/31/21 21:00 09/21/21 19:34 Gabapentin (Neurontin) 300 mg TID PO 09/02/21 09:00 09/02/21 16:19 DC 09/02/21 09:00 Quetiapine Fumarate (SEROquel) 25 mg TID PO 09/01/21 21:00 09/03/21 13:24 DC 09/03/21 09:02 Gabapentin (Neurontin) 300 mg TID PO 09/02/21 17:00 09/05/21 21:47 DC 09/05/21 20:16 Quetiapine Fumarate (SEROquel) 25 mg PRN TID PRN PO 4th choice agitation 09/03/21 13:30 09/17/21 10:53 Gabapentin (Neurontin) 600 mg DAILY PO 09/06/21 09:00 09/09/21 20:06 DC 09/09/21 07:27 Gabapentin (Neurontin) 300 mg 1400,2100 PO 09/06/21 14:00 09/09/21 20:06 DC 09/09/21 12:12 Magnesium Citrate (Citroma) 296 ml PRN 1X PRN PO CONSTIPATION 09/06/21 17:45 09/16/21 17:15 DC 09/11/21 16:47 Medroxyprogesterone Acetate (Provera) 20 mg DAILY PO 09/07/21 09:00 09/21/21 08:43 Trazodone HCl (Desyrel) 100 mg PRN Q8HRS PRN PO 3RD CHOICE ANXIETY/AGITATION 09/08/21 12:15 09/22/21 00:37 Gabapentin (Neurontin) 300 mg HS PO 09/09/21 21:00 09/10/21 17:26 DC 09/09/21 21:05 Gabapentin (Neurontin) 600 mg 0900,1400 PO 09/10/21 09:00 09/10/21 17:26 DC 09/10/21 11:55 Gabapentin (Neurontin) 300 mg TID PO 09/10/21 21:00 09/10/21 17:36 DC Gabapentin (Neurontin) 600 mg TID PO 09/10/21 21:00 09/12/21 01:56 DC 09/11/21 19:52 Gabapentin (Neurontin) 600 mg DAILY@1400,2100 PO 09/12/21 14:00 09/12/21 17:01 DC 09/12/21 13:33 Gabapentin (Neurontin) 900 mg DAILY PO 09/12/21 09:00 09/21/21 08:44 Gabapentin (Neurontin) 300 mg 1X ONCE PO 09/12/21 21:00 09/12/21 21:01 DC Gabapentin (Neurontin) 600 mg 1400,2100 PO 09/13/21 14:00 09/21/21 19:34 Quetiapine Fumarate (SEROquel) 50 mg TID PO 09/13/21 09:00 09/13/21 18:21 DC 09/13/21 13:26 Lorazepam (Ativan) 2 mg 1X ONCE PO 09/13/21 13:15 09/14/21 09:42 DC 09/13/21 13:27 Paroxetine HCl (Paxil) 50 mg DAILY PO 09/14/21 09:00 09/16/21 22:00 DC 09/16/21 09:18 Quetiapine Fumarate (SEROquel) 100 mg TID PO 09/13/21 21:00 09/16/21 19:53 DC 09/16/21 13:16 Fluvoxamine Maleate (Luvox) 25 mg DAILY PO 09/14/21 09:00 09/15/21 23:50 DC 09/15/21 08:17 Fluvoxamine Maleate (Luvox) 50 mg DAILY PO 09/16/21 09:00 09/17/21 23:50 DC 09/17/21 08:12 Fluvoxamine Maleate (Luvox) 75 mg DAILY PO 09/18/21 09:00 09/19/21 23:50 DC 09/19/21 08:14 Fluvoxamine Maleate (Luvox) 100 mg DAILY PO 09/20/21 09:00 09/21/21 08:44 Paroxetine HCl (Paxil) 40 mg DAILY PO 09/17/21 09:00 09/19/21 22:00 DC 09/19/21 08:13 Paroxetine HCl (Paxil) 30 mg DAILY PO 09/20/21 09:00 09/22/21 22:00 09/21/21 08:41 Paroxetine HCl (Paxil) 20 mg DAILY PO 09/23/21 09:00 09/25/21 22:00 Paroxetine HCl (Paxil) 10 mg DAILY PO 09/26/21 09:00 09/28/21 22:00 Magnesium Citrate (Citroma) 296 ml PRN DAILY PRN PO 3RD CHOICE CONSTIPATION 09/14/21 09:45 09/21/21 15:42 Polyethylene Glycol (miraLAX) 17 gm DAILY PO 09/15/21 09:00 09/21/21 08:41 Quetiapine Fumarate (SEROquel) 150 mg TID PO 09/16/21 21:00 09/17/21 22:31 DC 09/17/21 20:11 Quetiapine Fumarate (SEROquel) 100 mg HS PO 09/18/21 21:00 09/21/21 19:34 Quetiapine Fumarate (SEROquel) 150 mg DAILY@0900,1700 PO 09/18/21 09:00 09/21/21 17:01 I have reviewed the current psychotropics carefully including drug interactions. Risk benefit ratio favors no change other than as noted in my dictated progress note. Diagnosis: Problems: (1) Impulse control disorder, unspecified (2) Anxiety disorder, unspecified (3) Dementia, vascular, with depression (4) Dementia, vascular, with delusions (5) Dementia in Alzheimer's disease with depression (6) Dementia in Alzheimer's disease with delusions (7) Major neurocognitive disorder (8) Frontotemporal dementia with behavioral disturbance ELIAZAR COYLE MD Sep 22, 2021 07:17
--- NOTE | 2021-09-22 07:30 | PDOC ---
Exam Note: Castillo Note: This note is a late entry for 09/21/2021 covers elements not covered in my initial note. Subjective: The patient was seen individually in the evening of 09/21/2021 with Elizabeth ALLISON, discussed and reviewed the chart. The patient slept 7-1/2 hours previous night. I met with him in the dayroom. The doors of the dayroom do not have to be shut any longer as he is easier to redirect, not exit seeking, less anxious. Review of Systems: No CV, , pulmonary, eye, ENT system symptoms on review. Reliability poor. Mental Status Exam: The patient is oriented to himself. Insight and judgment, recent and remote memory, attention and concentration, fund of knowledge is poor consistent with his diagnoses. Laboratory Data: Reviewed. Impression: Major neurocognitive disorder, frontotemporal with delusion, depression, behavioral disturbance. Anxiety disorder unspecified. Impulse control disorder unspecified. Plan: Transition to the group home tomorrow. Continue current psychotropics. If some anxiety or agitation resurfaces post discharge, consideration may be given to increasing the Neurontin further and perhaps also the Seroquel if needed. Assessment: Vital Signs/I&O: Vital Signs Date Time Temp Pulse Resp B/P (MAP) Pulse Ox O2 Delivery O2 Flow Rate FiO2 09/22/21 06:03 97.6 71 20 145/80 (101) 94 09/18/21 15:26 Room Air I & O 09/21/21 09/21/21 09/22/21 14:59 22:59 06:59 Intake Total 960 ml 600 ml Balance 960 ml 600 ml Current Medications: Meds: Current Medications Medications (Trade) Dose Ordered Sig/Susana Route PRN Reason Start Time Stop Time Status Last Admin Dose Admin Acetaminophen (Tylenol) 650 mg PRN Q6HRS PRN PO MILD PAIN / TEMP > 100.3'F 08/29/21 22:00 Multi-Ingredient Ointment (Analgesic [place]) 1 sandra PRN QID PRN TP MUSCLE PAIN 08/29/21 22:00 Al Hydroxide/Mg Hydroxide (Mylanta Plus Xs) 15 ml PRN AFTMEALHC PRN PO DYSPEPSIA 08/29/21 22:00 Magnesium Hydroxide (Milk Of Magnesia) 2,400 mg PRN QHS PRN PO 1ST CHOICE CONSTIPATION 08/29/21 22:00 09/13/21 17:01 Acetaminophen (Tylenol) 650 mg PRN Q6HRS PRN PO MILD PAIN / TEMP > 100.3'F 08/29/21 22:30 Cancel Losartan Potassium (Cozaar) 50 mg DAILY PO 08/30/21 09:00 09/21/21 08:44 Atorvastatin Calcium (Lipitor) 40 mg QHS PO 08/30/21 21:00 09/21/21 19:35 Paroxetine HCl (Paxil) 60 mg DAILY PO 08/30/21 09:00 09/13/21 18:21 DC 09/13/21 08:11 Amoxicillin/ Clavulanate Potassium (Augmentin 875/ 125mg) 1 tab BID PO 08/30/21 09:00 08/30/21 11:09 DC Lactobacillus Rhamnosus (Culturelle) 1 cap BID PO 08/30/21 09:00 08/30/21 11:09 DC Olanzapine (ZyPREXA) 5 mg PRN Q2HR PRN PO 1st choice ANXIETY / AGITATION 08/30/21 16:00 09/17/21 15:28 Gabapentin (Neurontin) 300 mg BID PO 08/30/21 21:00 09/01/21 23:50 DC 09/01/21 20:17 Gabapentin (Neurontin) 400 mg TID PO 09/02/21 09:00 08/31/21 19:41 DC Medroxyprogesterone Acetate (Provera) 15 mg DAILY PO 08/31/21 09:00 09/07/21 05:34 DC 09/06/21 08:43 Quetiapine Fumarate (SEROquel) 50 mg TID PO 08/30/21 21:00 09/01/21 14:33 DC 09/01/21 09:57 Trazodone HCl (Desyrel) 50 mg PRN Q8HRS PRN PO 3RD CHOICE ANXIETY/AGITATION 08/30/21 16:15 09/08/21 12:08 DC 09/07/21 19:24 Lorazepam (Ativan) 1 mg PRN Q1HR PRN PO 2nd choice ANXIETY / AGITATION 08/30/21 23:00 09/17/21 15:28 Bisacodyl (Dulcolax Supp) 10 mg PRN DAILY PRN [place] 2ND CHOICE CONSTIPATION 08/31/21 00:30 Magnesium Citrate (Citroma) 296 ml 1X ONCE PO 08/31/21 10:45 08/31/21 10:47 DC 08/31/21 11:13 Sennosides (Senna) 8.6 mg BID PO 08/31/21 21:00 09/21/21 19:34 Gabapentin (Neurontin) 300 mg TID PO 09/02/21 09:00 09/02/21 16:19 DC 09/02/21 09:00 Quetiapine Fumarate (SEROquel) 25 mg TID PO 09/01/21 21:00 09/03/21 13:24 DC 09/03/21 09:02 Gabapentin (Neurontin) 300 mg TID PO 09/02/21 17:00 09/05/21 21:47 DC 09/05/21 20:16 Quetiapine Fumarate (SEROquel) 25 mg PRN TID PRN PO 4th choice agitation 09/03/21 13:30 09/17/21 10:53 Gabapentin (Neurontin) 600 mg DAILY PO 09/06/21 09:00 09/09/21 20:06 DC 09/09/21 07:27 Gabapentin (Neurontin) 300 mg 1400,2100 PO 09/06/21 14:00 09/09/21 20:06 DC 09/09/21 12:12 Magnesium Citrate (Citroma) 296 ml PRN 1X PRN PO CONSTIPATION 09/06/21 17:45 09/16/21 17:15 DC 09/11/21 16:47 Medroxyprogesterone Acetate (Provera) 20 mg DAILY PO 09/07/21 09:00 09/21/21 08:43 Trazodone HCl (Desyrel) 100 mg PRN Q8HRS PRN PO 3RD CHOICE ANXIETY/AGITATION 09/08/21 12:15 09/22/21 00:37 Gabapentin (Neurontin) 300 mg HS PO 09/09/21 21:00 09/10/21 17:26 DC 09/09/21 21:05 Gabapentin (Neurontin) 600 mg 0900,1400 PO 09/10/21 09:00 09/10/21 17:26 DC 09/10/21 11:55 Gabapentin (Neurontin) 300 mg TID PO 09/10/21 21:00 09/10/21 17:36 DC Gabapentin (Neurontin) 600 mg TID PO 09/10/21 21:00 09/12/21 01:56 DC 09/11/21 19:52 Gabapentin (Neurontin) 600 mg DAILY@1400,2100 PO 09/12/21 14:00 09/12/21 17:01 [place] 09/12/21 13:33 Gabapentin (Neurontin) 900 mg DAILY PO 09/12/21 09:00 09/21/21 08:44 Gabapentin (Neurontin) 300 mg 1X ONCE PO 09/12/21 21:00 09/12/21 21:01 LA Gabapentin (Neurontin) 600 mg 1400,2100 PO 09/13/21 14:00 09/21/21 19:34 Quetiapine Fumarate (SEROquel) 50 mg TID PO 09/13/21 09:00 09/13/21 18:21 DC 09/13/21 13:26 Lorazepam (Ativan) 2 mg 1X ONCE PO 09/13/21 13:15 09/14/21 09:42 DC 09/13/21 13:27 Paroxetine HCl (Paxil) 50 mg DAILY PO 09/14/21 09:00 09/16/21 22:00 LA 09/16/21 09:18 Quetiapine Fumarate (SEROquel) 100 mg TID PO 09/13/21 21:00 09/16/21 19:53 DC 09/16/21 13:16 Fluvoxamine Maleate (Luvox) 25 mg DAILY PO 09/14/21 09:00 09/15/21 23:50 LA 09/15/21 08:17 Fluvoxamine Maleate (Luvox) 50 mg DAILY PO 09/16/21 09:00 09/17/21 23:50 LA 09/17/21 08:12 Fluvoxamine Maleate (Luvox) 75 mg DAILY PO 09/18/21 09:00 09/19/21 23:50 LA 09/19/21 08:14 Fluvoxamine Maleate (Luvox) 100 mg DAILY PO 09/20/21 09:00 09/21/21 08:44 Paroxetine HCl (Paxil) 40 mg DAILY PO 09/17/21 09:00 09/19/21 22:00 DC 09/19/21 08:13 Paroxetine HCl (Paxil) 30 mg DAILY PO 09/20/21 09:00 09/22/21 22:00 09/21/21 08:41 Paroxetine HCl (Paxil) 20 mg DAILY PO 09/23/21 09:00 09/25/21 22:00 Paroxetine HCl (Paxil) 10 mg DAILY PO 09/26/21 09:00 09/28/21 22:00 Magnesium Citrate (Citroma) 296 ml PRN DAILY PRN PO 3RD CHOICE CONSTIPATION 09/14/21 09:45 09/21/21 15:42 Polyethylene Glycol (miraLAX) 17 gm DAILY PO 09/15/21 09:00 09/21/21 08:41 Quetiapine Fumarate (SEROquel) 150 mg TID PO 09/16/21 21:00 09/17/21 22:31 DC 09/17/21 20:11 Quetiapine Fumarate (SEROquel) 100 mg HS PO 09/18/21 21:00 09/21/21 19:34 Quetiapine Fumarate (SEROquel) 150 mg DAILY@0900,1700 PO 09/18/21 09:00 09/21/21 17:01 I have reviewed the current psychotropics carefully including drug interactions. Risk benefit ratio favors no change other than as noted in my dictated progress note. Diagnosis: Problems: (1) Impulse control disorder, unspecified (2) Anxiety disorder, unspecified (3) Dementia, vascular, with depression (4) Dementia, vascular, with delusions (5) Dementia in Alzheimer's disease with depression (6) Dementia in Alzheimer's disease with delusions (7) Major neurocognitive disorder (8) Frontotemporal dementia with behavioral disturbance ELIAZAR COYLE MD Sep 22, 2021 07:30
[2021-09-22] MEDS: POLYETHYLENE GLYCOL 3350 17 GM PACKET. PO SCH (08:42)
[2021-09-22] MEDS: GABAPENTIN 300 MG CAPSULE. PO SCH ×2 (08:43→12:09)
[2021-09-22] MEDS: PARoxetine 10 MG TABLET PO SCH (08:44)
[2021-09-22] MEDS: medroxyPROGESTERone 5 MG TABLET PO SCH (08:45)
[2021-09-22] MEDS: SENNOSIDES 8.6 MG TABLET PO SCH (08:45)
[2021-09-22 08:46] VITALS: BP 145/80
[2021-09-22] MEDS: LOSARTAN 50 MG TABLET. PO SCH (08:46)
[2021-09-22] MEDS: QUEtiapine 100 MG TABLET. PO SCH (08:48)
[2021-09-22] MEDS: LORazepam 1 MG TABLET PO PRN (12:08)
[2021-09-22] MEDS ORDERED: traZODone 100 MG TABLET. PO ONE (12:15)
[2021-09-22] MEDS ORDERED: QUEtiapine 100 MG TABLET. PO ONE (12:15)
[2021-09-22] MEDS ORDERED: LORazepam 1 MG TABLET PO PRN (12:15)
--- NOTE | 2021-09-22 14:14 | NUR ---
Transition Record was faxed to follow-up provider with the following elements: Reason for admission, procedures, tests, principal diagnosis, pending studies, patient instructions, 10/05 contact information for unit, phone number to obtain pending test results, plan for follow-up care, physician follow-up, advanced directive information, and medication list with dose, duration and instructions. This information was included in the following documents: History and physical, lab results, study results, progress notes, social work planning form, DC instruction form, patient visit summary, and medication reconciliation form. Date & time record faxed: 09/21/21 1134 Record faxed to: Fidelia Vinson Record discussed with/ report given to: NurseSusan
--- NOTE | 2021-09-22 20:27 | PDOC ---
Exam Note: Castillo Note: Please also refer to the separate dictated note~for this date of service dictated separately.~Patient seen individually. Discussed the patient with Nursing staff reviewed the chart.~Reviewed interim history and current functioning. Reviewed vital signs,~Labs/ Radiology~and current medications noted below. Continue current treatment with the changes noted in the dictated addendum note Assessment: Vital Signs/I&O: Vital Signs Date Time Temp Pulse Resp B/P (MAP) Pulse Ox O2 Delivery O2 Flow Rate FiO2 09/22/21 08:46 71 145/80 09/22/21 06:03 97.6 20 94 09/18/21 15:26 Room Air I & O 09/21/21 09/21/21 09/22/21 15:00 23:00 07:00 Intake Total 960 ml 600 ml Balance 960 ml 600 ml Current Medications: Meds: Current Medications Medications (Trade) Dose Ordered Sig/Susana Route PRN Reason Start Time Stop Time Status Last Admin Dose Admin Acetaminophen (Tylenol) 650 mg PRN Q6HRS PRN PO MILD PAIN / TEMP > 100.3'F 08/29/21 22:00 09/22/21 14:46 DC Multi-Ingredient Ointment (Analgesic [place]) 1 sandra PRN QID PRN TP MUSCLE PAIN 08/29/21 22:00 09/22/21 14:46 DC Al Hydroxide/Mg Hydroxide (Mylanta Plus Xs) 15 ml PRN AFTMEALHC PRN PO DYSPEPSIA 08/29/21 22:00 09/22/21 14:46 DC Magnesium Hydroxide (Milk Of Magnesia) 2,400 mg PRN QHS PRN PO 1ST CHOICE CONSTIPATION 08/29/21 22:00 09/22/21 14:46 DC 09/13/21 17:01 Acetaminophen (Tylenol) 650 mg PRN Q6HRS PRN PO MILD PAIN / TEMP > 100.3'F 08/29/21 22:30 Cancel Losartan Potassium (Cozaar) 50 mg DAILY PO 08/30/21 09:00 09/22/21 14:46 DC 09/22/21 08:46 Atorvastatin Calcium (Lipitor) 40 mg QHS PO 08/30/21 21:00 09/22/21 14:46 DC 09/21/21 19:35 Paroxetine HCl (Paxil) 60 mg DAILY PO 08/30/21 09:00 09/13/21 18:21 DC 09/13/21 08:11 Amoxicillin/ Clavulanate Potassium (Augmentin 875/ 125mg) 1 tab BID PO 08/30/21 09:00 08/30/21 11:09 DC Lactobacillus Rhamnosus (Culturelle) 1 cap BID PO 08/30/21 09:00 08/30/21 11:09 DC Olanzapine (ZyPREXA) 5 mg PRN Q2HR PRN PO 1st choice ANXIETY / AGITATION 08/30/21 16:00 09/22/21 14:46 DC 09/17/21 15:28 Gabapentin (Neurontin) 300 mg BID PO 08/30/21 21:00 09/01/21 23:50 DC 09/01/21 20:17 Gabapentin (Neurontin) 400 mg TID PO 09/02/21 09:00 08/31/21 19:41 DC Medroxyprogesterone Acetate (Provera) 15 mg DAILY PO 08/31/21 09:00 09/07/21 05:34 DC 09/06/21 08:43 Quetiapine Fumarate (SEROquel) 50 mg TID PO 08/30/21 21:00 09/01/21 14:33 DC 09/01/21 09:57 Trazodone HCl (Desyrel) 50 mg PRN Q8HRS PRN PO 3RD CHOICE ANXIETY/AGITATION 08/30/21 16:15 09/08/21 12:08 DC 09/07/21 19:24 Lorazepam (Ativan) 1 mg PRN Q1HR PRN PO 2nd choice ANXIETY / AGITATION 08/30/21 23:00 09/22/21 14:46 DC 09/22/21 12:08 Bisacodyl (Dulcolax Supp) 10 mg PRN DAILY PRN WI 2ND CHOICE CONSTIPATION 08/31/21 00:30 09/22/21 14:46 DC Magnesium Citrate (Citroma) 296 ml 1X ONCE PO 08/31/21 10:45 08/31/21 10:47 DC 08/31/21 11:13 Sennosides (Senna) 8.6 mg BID PO 08/31/21 21:00 09/22/21 14:46 DC 09/22/21 08:45 Gabapentin (Neurontin) 300 mg TID PO 09/02/21 09:00 09/02/21 16:19 DC 09/02/21 09:00 Quetiapine Fumarate (SEROquel) 25 mg TID PO 09/01/21 21:00 09/03/21 13:24 DC 09/03/21 09:02 Gabapentin (Neurontin) 300 mg TID PO 09/02/21 17:00 09/05/21 21:47 DC 09/05/21 20:16 Quetiapine Fumarate (SEROquel) 25 mg PRN TID PRN PO 4th choice agitation 09/03/21 13:30 09/22/21 14:46 DC 09/17/21 10:53 Gabapentin (Neurontin) 600 mg DAILY PO 09/06/21 09:00 09/09/21 20:06 DC 09/09/21 07:27 Gabapentin (Neurontin) 300 mg 1400,2100 PO 09/06/21 14:00 09/09/21 20:06 DC 09/09/21 12:12 Magnesium Citrate (Citroma) 296 ml PRN 1X PRN PO CONSTIPATION 09/06/21 17:45 09/16/21 17:15 DC 09/11/21 16:47 Medroxyprogesterone Acetate (Provera) 20 mg DAILY PO 09/07/21 09:00 09/22/21 14:46 DC 09/22/21 08:45 Trazodone HCl (Desyrel) 100 mg PRN Q8HRS PRN PO 3RD CHOICE ANXIETY/AGITATION 09/08/21 12:15 09/22/21 14:46 DC 09/22/21 12:08 Gabapentin (Neurontin) 300 mg HS PO 09/09/21 21:00 09/10/21 17:26 DC 09/09/21 21:05 Gabapentin (Neurontin) 600 mg 0900,1400 PO 09/10/21 09:00 09/10/21 17:26 DC 09/10/21 11:55 Gabapentin (Neurontin) 300 mg TID PO 09/10/21 21:00 09/10/21 17:36 DC Gabapentin (Neurontin) 600 mg TID PO 09/10/21 21:00 09/12/21 01:56 DC 09/11/21 19:52 Gabapentin (Neurontin) 600 mg DAILY@1400,2100 PO 09/12/21 14:00 09/12/21 17:01 DC 09/12/21 13:33 Gabapentin (Neurontin) 900 mg DAILY PO 09/12/21 09:00 09/22/21 14:46 DC 09/22/21 08:43 Gabapentin (Neurontin) 300 mg 1X ONCE PO 09/12/21 21:00 09/12/21 21:01 DC Gabapentin (Neurontin) 600 mg 1400,2100 PO 09/13/21 14:00 09/22/21 14:46 DC 09/22/21 12:09 Quetiapine Fumarate (SEROquel) 50 mg TID PO 09/13/21 09:00 09/13/21 18:21 DC 09/13/21 13:26 Lorazepam (Ativan) 2 mg 1X ONCE PO 09/13/21 13:15 09/14/21 09:42 DC 09/13/21 13:27 Paroxetine HCl (Paxil) 50 mg DAILY PO 09/14/21 09:00 09/16/21 22:00 DC 09/16/21 09:18 Quetiapine Fumarate (SEROquel) 100 mg TID PO 09/13/21 21:00 09/16/21 19:53 DC 09/16/21 13:16 Fluvoxamine Maleate (Luvox) 25 mg DAILY PO 09/14/21 09:00 09/15/21 23:50 DC 09/15/21 08:17 Fluvoxamine Maleate (Luvox) 50 mg DAILY PO 09/16/21 09:00 09/17/21 23:50 DC 09/17/21 08:12 Fluvoxamine Maleate (Luvox) 75 mg DAILY PO 09/18/21 09:00 09/19/21 23:50 DC 09/19/21 08:14 Fluvoxamine Maleate (Luvox) 100 mg DAILY PO 09/20/21 09:00 09/22/21 14:46 DC 09/22/21 08:44 Paroxetine HCl (Paxil) 40 mg DAILY PO 09/17/21 09:00 09/19/21 22:00 [place] 09/19/21 08:13 Paroxetine HCl (Paxil) 30 mg DAILY PO 09/20/21 09:00 09/22/21 14:46 DC 09/22/21 08:44 Paroxetine HCl (Paxil) 20 mg DAILY PO 09/23/21 09:00 09/22/21 14:46 DC Paroxetine HCl (Paxil) 10 mg DAILY PO 09/26/21 09:00 09/22/21 14:46 DC Magnesium Citrate (Citroma) 296 ml PRN DAILY PRN PO 3RD CHOICE CONSTIPATION 09/14/21 09:45 09/22/21 14:46 DC 09/21/21 15:42 Polyethylene Glycol (miraLAX) 17 gm DAILY PO 09/15/21 09:00 09/22/21 14:46 DC 09/22/21 08:42 Quetiapine Fumarate (SEROquel) 150 mg TID PO 09/16/21 21:00 09/17/21 22:31 DC 09/17/21 20:11 Quetiapine Fumarate (SEROquel) 100 mg HS PO 09/18/21 21:00 09/22/21 14:46 DC 09/21/21 19:34 Quetiapine Fumarate (SEROquel) 150 mg DAILY@0900,1700 PO 09/18/21 09:00 09/22/21 14:46 DC 09/22/21 08:48 Trazodone HCl (Desyrel) 100 mg 1X ONCE PO 09/22/21 12:15 09/22/21 12:16 DC 09/22/21 12:15 Quetiapine Fumarate (SEROquel) 200 mg 1X ONCE PO 09/22/21 12:15 09/22/21 12:16 DC 09/22/21 12:09 Lorazepam (Ativan) 1 mg PRN 1X PRN PO ANXIETY / AGITATION 09/22/21 12:15 09/22/21 14:46 DC Current Medications Medications (Trade) Dose Ordered Sig/Susana Route PRN Reason Start Time Stop Time Status Last Admin Dose Admin Trazodone HCl (Desyrel) 100 mg 1X ONCE PO 09/22/21 12:15 09/22/21 12:16 DC 09/22/21 12:15 Quetiapine Fumarate (SEROquel) 200 mg 1X ONCE PO 09/22/21 12:15 09/22/21 12:16 DC 09/22/21 12:09 I have reviewed the current psychotropics carefully including drug interactions. Risk benefit ratio favors no change other than as noted in my dictated progress note. Diagnosis: Problems: (1) Impulse control disorder, unspecified (2) Anxiety disorder, unspecified (3) Dementia, vascular, with depression (4) Dementia, vascular, with delusions (5) Dementia in Alzheimer's disease with depression (6) Dementia in Alzheimer's disease with delusions (7) Major neurocognitive disorder (8) Frontotemporal dementia with behavioral disturbance ELIAZAR COYLE MD Sep 22, 2021 20:26
[2021-09-23] MEDS ORDERED: PARoxetine 20 MG TABLET PO SCH (09:00)
--- NOTE | 2021-09-23 23:22 | DS ---
DATE OF DISCHARGE: 09/22/2021 DISCHARGE SUMMARY/PSYCHIATRIC PROGRESS NOTE This is a late entry, date of service 09/22, covers the elements not covered in my initial note of 09/22. IDENTIFYING DATA: The patient is a 60-year-old male referred back to us from home where he was discharged last time he was with us. While at home, he was wandering away, difficult to redirect, at potential risk of hurting himself due to his marked confusion and obsessiveness. He had failed outpatient psychiatric intervention resulting in this referral. SIGNIFICANT FINDINGS AND CLINICAL COURSE: Following admission, the patient was seen daily individually by myself from a psychiatric standpoint, medical followup Dr. Hill/Dr. Tee. The patient was extremely agitated, restless, anxious, disruptive, psychotic. He had been medically stabilized on 1 for his pneumonia, which was probably aspiration. That the had opted for hospice care and DNR. Given his marked volatility of behaviors, adjustments were made in his psychotropics and he seemed to respond to a combination of Seroquel 150 mg 0900, 1400; 100 mg at bedtime, hold if sedated. Gabapentin 900 mg daily, 600 mg at 1400, 2100. Provera 20 mg a day, Seroquel p.r.n., trazodone p.r.n., Zyprexa p.r.n., Ativan p.r.n. His Paxil was being tapered and given his marked obsessiveness, ritualistic behavior which made him very difficult to redirect. He was started on Luvox, which was to be increased gradually to 100 mg a day. Prior to discharge, the patient was much better even though he was confused much less, obsessive, anxious. REVIEW OF SYSTEMS: No CV, , pulmonary, eye, ENT system symptoms on review. Reliability poor. MENTAL STATUS EXAMINATION: Oriented to himself. Insight, judgment, recent and remote memory, attention, concentration, fund of knowledge poor consistent with his diagnoses. FINAL DIAGNOSES: Major neurocognitive disorder, frontotemporal with delusion; depression; behavioral disturbance; anxiety disorder, unspecified; impulse control disorder, unspecified. Rest unchanged from admission. DISCHARGE MEDICATIONS: Please refer to the MRAD. DISCHARGE INSTRUCTIONS: Outpatient psychiatric and medical followup at the [facility]. Time for discharge day management greater than 30 minutes. On the day of discharge, the patient could not be managed in the regular transportation. Secured transportation was arranged. He was given extra PRNs before the transfer. JAMAL/CHEMO DR: Rich TID: [id number]
[2021-09-26] MEDS ORDERED: PARoxetine 10 MG TABLET PO SCH (09:00)
== END 2021-09-22 13:30 | DRG 57 ==
LOC: GEROPSY 21:00
PROVIDERS: ADMIT Psychiatry & Neurology Psychiatry; ATTEND Psychiatry & Neurology Psychiatry
DX: G31.09 Other frontotemporal neurocognitive disorder (principal); F01.51 Vascular dementia, unspecified severity, with behavioral disturbance; F02.81 Dementia in other diseases classified elsewhere, unspecified severity, with behavioral disturbance; R47.01 Aphasia; F63.9 Impulse disorder, unspecified; G30.9 Alzheimer's disease, unspecified; F32.A Depression, unspecified; E78.5 Hyperlipidemia, unspecified; F41.9 Anxiety disorder, unspecified; N40.0 Benign prostatic hyperplasia without lower urinary tract symptoms; Z66 Do not resuscitate; Z87.01 Personal history of pneumonia (recurrent); Z91.83 Wandering in diseases classified elsewhere; Z88.8 Allergy status to other drugs, medicaments and biological substances; K59.09 Other constipation; Z20.822 Contact with and (suspected) exposure to COVID-19
CPT/HCPCS: 36415; 74018; 80053; 85025; U0003; 97110; 97530